=== PATIENT | female | born 1950 | race Hispanic/Latino ===

== ENCOUNTER 2018-12-28 14:41 | Inpatient (IN) | payer MEDICARE ==
--- NOTE | 2018-12-28 15:13 | Emergency Department Report ---
HPI - General Chief Complaint: Dyspnea/Respdistress Time Seen by Provider: 12/28/18 14:57 - HPI HPI: 68-year-old female presents to the emergency department from the office of her peripheral edp equipment operator, Dr. Angeles, with complaint of shortness of breath, a nd significant anemia without any cause. The note from Dr. Angeles asked for the patient to be admitted to the hospital, transfused 2 units and to have a GI consult. The patient has a past medical history of obstructive sleep apnea, hypothyroidism, non-insulin dependent diabetes and COPD. She does have this history of anemia that is listed as normocytic normochromic but says she has not required blood transfusions before. However she did get IV iron and tolerated it well. She is oxygen dependent for the COPD on 4 L by nasal cannula. She is a former smoker. Her primary care physician is through [facility]. She denies any chest pain, fever, nausea, vomiting. There is no known GI bleed. No significant vaginal bleeding. ED Past Medical Hx - Past Medical History Previous Medical History?: Yes Hx Diabetes: Yes Hx COPD: Yes Additional medical history: sleep apnea. hypothyroid - Surgical History Past Surgical History?: Yes Hx Appendectomy: Yes Additional Surgical History: hysterectomy. bilateral foot surgery. tonsillectomy. colon surgery- to remove polyp ED Review of Systems ROS: Stated complaint: SENT BY DR/LOW BLOOD COUNT Other details as noted in HPI Comment: All other systems reviewed and negative Constitutional: denies: chills, fever Eyes: denies: eye pain, vision change ENT: denies: ear pain, throat pain Respiratory: shortness of breath. denies: wheezing Cardiovascular: denies: chest pain, palpitations Gastrointestinal: denies: nausea, vomiting Genitourinary: denies: dysuria, discharge Musculoskeletal: denies: back pain, arthralgia Skin: denies: rash, lesions Neurological: denies: headache, numbness Physical Exam - Physical Exam Vital Signs: Vital Signs 12/28/18 12/28/18 14:56 15:00 Pulse Rate 107 H 100 H Respiratory 28 H 21 Rate Blood Pressure 135/71 O2 Sat by Pulse 82 L 92 Oximetry Physical Exam: GENERAL: The patient is well-developed well-nourished. HENT: Normocephalic. Atraumatic. Patient has moist mucous membranes. EYES: Extraocular motions are intact. Pupils equal reactive to light bilaterally. Pale conjunctiva. NECK: Supple. Trachea is midline. CHEST/LUNGS: Clear to auscultation. There is tachypnea and accessory muscle use with conversational dyspnea. There is respiratory distress noted. HEART/CARDIOVASCULAR: Regular. There is mild tachycardia. There is no murmur. ABDOMEN: Abdomen is soft, nontender. Patient has normal bowel sounds. There is no abdominal distention. SKIN: Skin is warm and dry. NEURO: The patient is awake, alert, and oriented. The patient is cooperative. The patient has no focal neurologic deficits. MUSCULOSKELETAL: There is no tenderness or deformity. There is no evidence of acute injury. ED Course Vital Signs 12/28/18 12/28/18 14:56 15:00 Pulse Rate 107 H 100 H Respiratory 28 H 21 Rate Blood Pressure 135/71 O2 Sat by Pulse 82 L 92 Oximetry - ABG Interpretation Ph: [phone] PCO2: 38 PO2: 69 Bicarbonate: 26 Interpretation: other (hypoxia) ED Medical Decision Making - Lab Data Result diagrams: 12/28/18 15:10 12/28/18 15:10 - EKG Data -: EKG Interpreted by Me EKG shows normal: sinus rhythm, axis, intervals, QRS complexes (low voltage), ST-T waves (flattening of T waves) Rate: normal - EKG Data When compared to previous EKG there are: previous EKG unavailable Interpretation: other (sinus rhythm, low voltage, flattening of T waves. No ST elevation CA) - Radiology Data Radiology results: report reviewed, image reviewed interpreted by me: Chest x-ray shows bilateral airspace opacities CTA CHEST WITH IV CONTRAST INDICATION: SOB, elevated dimer. TECHNIQUE: Axial CT images were obtained through the chest after injection of 75 mL of Omnipaque 300 IV contrast. 3 plane MIP reconstructions were produced. All CT scans at this location are performed using CT dose reduction for ALARA by means of automated exposure control. COMPARISON: None available. FINDINGS: Pulmonary Arteries: No pulmonary emboli. Lungs: There are small bilateral pleural effusions with a sma ll amount pleural fluid in the right major fissure. There is also mild interstitial edema. There is no focal consolidation. Trachea and Bronchi: No significant abnormality. Heart and Pericardium: No significant abnormality. 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 Lymphatics: No lymphadenopathy. Additional Findings: There is a 2.3 x 2.0 cm left thyroid nodule. Upper Abdomen: No acute findings. Skeletal Structures: No aggressive appearing bone lesions. IMPRESSION: 1. No CT evidence for pulmonary embolism. 2. Small bilateral pleural effusions and mild i nterstitial pulmonary edema. 3. A 2.3 cm left thyroid nodule that should be further evaluated with thyroid ultrasound on a nonemergent basis. - Medical Decision Making This patient was sent in by her peripheral edp equipment operator secondary to some normocytic anemia with hemoglobin close to 6 that is causing symptomatic anemia. The patient does appear to have some respiratory distress with some tachypnea and accessory muscle use and conversational dyspnea. Placed on BiPAP which did help with her work of breathing and the hypoxia. ABG did not show any significant acid base abnormalities. Chest x-ray showed some signs of bilateral airspace opacities. Labs showed hemoglobin of 6.7. An order was placed for 2 units of packed red blood cells for transfusion. Patient also had an elevated and equivocal d- dimer. A CT angiography of the chest was done that shows small bilateral pleural effusions and mild interstitial edema as well as a left thyroid nodule. Patient be admitted to the hospital for further evaluation and treatment and was accepted for admission by the hospitalist, Dr. Posadas. - Differential Diagnosis symptomatic anemia, PE, pneumonia and CHF Critical Care Time: Yes Critical care time in (mins) excluding proc time.: 35 Critical care attestation.: If time is entered above; I have spent that time in minutes in the direct care of this critically ill patient, excluding procedure time. Critical care time was spent on this patient and doing her initial evaluation, multiple re- evaluations, ordering and interpretation of labs and imaging, ordering of blood for transfusion, multiple discussions with the patient and her family. Critical Care Time: 35 minutes ED Disposition Clinical Impression: Anemia requiring transfusions, Symptomatic anemia COPD (chronic obstructive pulmonary disease) Qualifiers: COPD type: unspecified COPD Qualified Code(s): J44.9 - Chronic obstructive pulmonary disease, unspecified Acute respiratory failure Qualifiers: Respiratory failure complication: hypoxia Qualified Code(s): J96.01 - Acute respiratory failure with hypoxia Disposition: OP ADMIT IP TO THIS HOSP Is pt being admited?: Yes Condition: Serious Time of Disposition: 22:53
[2018-12-28 15:34] LABS: Hematocrit 23.3 % (30.3-42.9); Hemoglobin 6.7 gm/dl (10.1-14.3); Mean Corpuscular HGB Conc 29 % (30-34); Mean Corpuscular Volume 82 fl (79-97); Platelet Count 495 K/mm3 (140-440); Red Blood Count 2.86 M/mm3 (3.65-5.03); Red Cell Distribution Width 20.6 % (13.2-15.2)
[2018-12-28] MEDS ORDERED: SODIUM CHLORIDE 0.9% 500 ML 500 ML IV ONE (15:41)
[2018-12-28 15:42] LABS: Partial Thromboplastin Time 29.2 Sec. (24.2-36.6)
[2018-12-28 16:08] LABS: Alanine Aminotransferase 51 units/L (7-56); Albumin 3.8 g/dL (3.9-5); BUN/Creatinine Ratio 17; Blood Urea Nitrogen 12 mg/dL (7-17); Calcium 9.5 mg/dL (8.4-10.2); Hemolysis Index 12
--- NOTE | 2018-12-28 16:11 | XRay Report ---
CHEST 1 VIEW INDICATION / CLINICAL INFORMATION: SOB. COMPARISON: None available. FINDINGS: SUPPORT DEVICES: None. HEART / MEDIASTINUM: No significant abnormality. LUNGS / PLEURA: There are bibasilar airspace opacities. There are small bilateral pleural effusions r ight greater than left. There is mild venous congestion. No pneumothorax. ADDITIONAL FINDINGS: No significant additional findings. IMPRESSION: 1. There are bibasilar airspace opacities. There are small bilateral effusions right greater than left. Signer Name: Dwain Dozier MD Signed: 12/28/2018 4:06 PM Workstation Name: [id number]
[2018-12-28 16:18] LABS: Basophils % (Manual) 0 % (0.0-1.8); Myelocytes # (Manual) 0.2 K/mm3; Total Cells Counted 100
[2018-12-28 16:20] LABS: Anisocytosis 1+; Hypochromasia 1+; Large Platelets Few; Platelet Estimate Consistent w Auto
[2018-12-28 16:21] LABS: Ovalocytes Rare; Tear Drop Cells Few
--- NOTE | 2018-12-28 17:23 | History and Physical Report ---
History of Present Illness Chief complaint: I cant breathe History of present illness: 68 YO Female with COPD, DM, KASANDRA, Hypothyroidism, Obesity Hypoventilation, Chronic Respiratory Failure on 4L Home Oxygen via [place] presents to ED for evaluation. Pt states that she has experienced weakness and shortness of breath over the past 1 week. Pt acknowledges increased productive cough with clear sputum, dypsnea on exertion, dypsnea at rest. Pt was seen and evaluated by her Route Sales Driver and found to have shortness of breath. Pt transported to [facility] via private vehicle. Pt seen and evaluated in ED and found to have Symptomatic Anemia, COPD with Acute Exacerbation, Acidosis as well as Acute on Chronic Respiratory Failure with pulse oximetry of 69%. Pt placed on supplemental oxygen. Pt admitted to [facility] unit and treated with IV steroid therapy, supplemental oxygen, as well as NIPPV without significant improvement. Pt denies chest pain, fever, nausea, vomiting, skin rash, syncope, or recent ill contacts. No prior admission for review. All listed medication reconciled at time of admission. Past History Past Medical History: other (see hpi) Past Surgical History: appendectomy, hysterectomy, tonsillectomy, bowel surgery, Other (Foot surgery) Social history: single. denies: smoking, alcohol abuse, prescription drug abuse Medications and Allergies Allergies Allergy/AdvReac Type Severity Reaction Status Date / Time No Known Allergies Allergy Verified 12/28/18 15:13 Review of Systems Constitutional: no weight loss, no weight gain, no fever, no chills Ears, nose, mouth and throat: no ear pain, no ear discharge, no tinnitis, no decreased hearing, no nose pain Breasts: no change in shape, no swelling, no mass Cardiovascular: no chest pain, no palpitations, no edema Respiratory: cough, cough with sputum, excessive sputum, shortness of breath, no wheezing, no pleurisy Gastrointestinal: no abdominal pain, no nausea, no vomiting, no diarrhea Genitourinary Female: no pelvic pain, no flank pain, no menorrhagia, no dysuria, no urinary frequency, no urgency Rectal: no pain, no incontinence, no bleeding Musculoskeletal: no neck stiffness, no neck pain, no shooting arm pain, no arm numbness/tingling, no shooting leg pain, no leg numbness/tingling Integumentary: no rash, no pruritis, no redness, no sores, no wounds, no jaundice Neurological: no head injury, no transient paralysis, no paralysis, no weakness, no parathesias, no tingling, no tremors Psychiatric: no anxiety, no memory loss, no change in sleep habits, no sleep disturbances, no insomnia, no hypersomnia, no change in appetite, no change in libido, no suicidal ideation Endocrine: no cold intolerance, no heat intolerance, no polyphagia, no excessive thirst, no polydipsia, no polyuria, no nocturia Hematologic/Lymphatic: no easy bruising, no easy bleeding, no lymphadenopathy, no lymphedema Allergic/Immunologic: no urticaria, no allergic rhinitis, no persistent infections, no anaphylaxis Exam - Constitutional Vitals: Temp Pulse Resp BP Pulse Ox 96 H 24 115/64 94 12/28/18 15:46 12/28/18 15:46 12/28/18 15:46 12/28/18 15:30 General appearance: Present: mild distress - EENT Eyes: Present: PERRL ENT: hearing intact, clear oral mucosa - Neck Neck: Present: supple, normal ROM - Respiratory Respiratory effort: normal Respiratory: bilateral: diminished - Cardiovascular Heart Sounds: Present: S1 & S2. Absent: rub, click - Extremities Extremities: pulses symmetrical, No edema Peripheral Pulses: within normal limits - Abdominal General gastrointestinal: Present: soft, non-tender, non-distended, normal bowel sounds Female genitourinary: Present: normal - Integumentary Integumentary: Present: clear, warm, dry - Musculoskeletal Musculoskeletal: generalized weakness - Psychiatric Psychiatric: appropriate mood/affect, intact judgment & insight - Neurologic Neurologic: CNII-XII intact, moves all extremities Results - Labs CBC & Chem 7: 12/28/18 15:10 12/28/18 15:10 Labs: Abnormal lab results 12/28/18 12/28/18 12/28/18 Range/Units 15:10 15:10 15:10 RBC 2.86 L (3.65-5.03) M/mm3 Hgb 6.7 L (10.1-14.3) gm/dl Hct 23.3 L (30.3-42.9) % MCH 24 L (28-32) pg MCHC 29 L (30-34) % RDW 20.6 H (13.2-15.2) % Plt Count 495 H (140-440) K/mm3 Seg Neuts % (Manual) 82.0 H (40.0-70.0) % Lymphocytes % (Manual) 11.0 L (13.4-35.0) % Seg Neutrophils # Man 8.9 H (1.8-7.7) K/mm3 D-Dimer (0-234) ng/mlDDU POC ABG pO2 (80-105) Potassium 3.5 L (3.6-5.0) mmol/L Chloride 95.5 L (98-107) mmol/L Carbon Dioxide 21 L (22-30) mmol/L Glucose 209 H (65-100) mg/dL Albumin 3.8 L (3.9-5) g/dL TSH 5.340 H (0.270-4.200) mlU/mL Crossmatch 12/28/18 12/28/18 12/28/18 Range/Units 15:41 15:46 15:49 RBC (3.65-5.03) M/mm3 Hgb (10.1-14.3) gm/dl Hct (30.3-42.9) % MCH (28-32) pg MCHC (30-34) % RDW (13.2-15.2) % Plt Count (140-440) K/mm3 Seg Neuts % (Manual) (40.0-70.0) % Lymphocytes % (Manual) (13.4-35.0) % Seg Neutrophils # Man (1.8-7.7) K/mm3 D-Dimer 536.53 H (0-234) ng/mlDDU POC ABG pO2 69 L (80-105) Potassium (3.6-5.0) mmol/L Chloride (98-107) mmol/L Carbon Dioxide (22-30) mmol/L Glucose (65-100) mg/dL Albumin (3.9-5) g/dL TSH (0.270-4.200) mlU/mL Crossmatch See Detail Assessment and Plan - Patient Problems (1) Acute and chronic respiratory failure Current Visit: Yes Status: Acute Qualifiers: Respiratory failure complication: hypoxia Qualified Code(s): J96.21 - Acute and chronic respiratory failure with hypoxia Plan to address problem: ABC, Chest x ray, CTA chest, supplemental oxygen, nebulizer therapy, NIPPV, pulse oximetry. (2) COPD (chronic obstructive pulmonary disease) Current Visit: Yes Status: Acute Plan to address problem: IV steroid therapy, supplemental oxygen, nebulizer therapy, Iv antibiotic therapy, pulse oximetry (3) Acidosis Current Visit: Yes Status: Acute Plan to address problem: IVF resuscitation therapy, supportive care. (4) Anemia Current Visit: Yes Status: Acute Plan to address problem: serial CBC, supportive care. (5) Hypothyroidism Current Visit: Yes Status: Acute Plan to address problem: Supportive care. Thyroid panel, (6) Diabetes Current Visit: Yes Status: Acute Plan to address problem: ADA diet, insulin, accu check (7) DVT prophylaxis Current Visit: Yes Status: Acute Plan to address problem: SCD to BLE while in bed, supportive care.
[2018-12-28] MEDS ORDERED: ACETAMINOPHEN 325 MG TAB PO PRN (17:29)
[2018-12-28] MEDS ORDERED: ONDANSETRON 4 MG/2 ML INJ IV PRN (17:29)
[2018-12-28] MEDS ORDERED: ALBUTEROL 2.5 MG/3 ML NEBU IH PRN (17:29)
[2018-12-28] MEDS ORDERED: DEXTROSE 50% IN WATER (25GM) 50 ML SYRINGE IV PRN (17:31)
[2018-12-28] MEDS ORDERED: SODIUM CHLORIDE 0.9% 500 ML 500 ML ONE (18:09)
--- NOTE | 2018-12-28 18:09 | Cat Scan Report ---
CTA CHEST WITH IV CONTRAST INDICATION: SOB, elevated dimer. TECHNIQUE: Axial CT images were obtained through the chest after injection of 75 mL of Omnipaque 300 IV contrast . 3 plane MIP reconstructions were produced. All CT scans at this location are performed using CT dos e reduction for ALARA by means of automated exposure control. COMPARISON: None available. FINDINGS: Pulmonary Arteries: No pulmonary emboli. Lungs: There are small bilateral pleural effusions with a small amount pleural fluid in the right denny or fissure. There is also mild interstitial edema. There is no focal consolidation. Trachea and Bronchi: No significant abnormality. Heart and Pericardium: No significant abnormality. 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 Lymphatics: No lymphadenopathy. Additional Findings: There is a 2.3 x 2.0 cm left thyroid nodule. Upper Abdomen: No acute findings. Skeletal Structures: No aggressive appearing bone lesions. IMPRESSION: 1. No CT evidence for pulmonary embolism. 2. Small bilateral pleural effusions and mild interstitial pulmonary edema. 3. A 2.3 cm left thyroid nodule that should be further evaluated with thyroid ultrasound on a nonemer gent basis. Signer Name: Ryan Quan MD Signed: 12/28/2018 6:05 PM Workstation Name: [id number]
[2018-12-28] MEDS ORDERED: SODIUM CHLORIDE 0.9% 500 ML 500 ML IV SCH (19:00)
[2018-12-28] MEDS: INSULIN LISPRO 100 UNIT/ML SUB-Q SCH (20:09)
[2018-12-28] MEDS: FAMOTIDINE 20 MG TAB PO SCH (23:30)
[2018-12-28] MEDS: methylPREDNISolone Sod Succinate 40 MG/1 ML INJ IV SCH (23:31)
[2018-12-29] MEDS: INSULIN LISPRO 100 UNIT/ML SUB-Q SCH ×5 (00:06→23:14)
[2018-12-29 09:21] LABS: Hematocrit 29.3 % (30.3-42.9); Mean Corpuscular HGB Conc 31 % (30-34); Mean Corpuscular Volume 83 fl (79-97); Platelet Count 469 K/mm3 (140-440); Red Blood Count 3.55 M/mm3 (3.65-5.03); Red Cell Distribution Width 19.6 % (13.2-15.2)
[2018-12-29 09:26] LABS: BUN/Creatinine Ratio 16; Blood Urea Nitrogen 11 mg/dL (7-17); Calcium 9.5 mg/dL (8.4-10.2); Hemolysis Index 3
[2018-12-29] MEDS ORDERED: INSULIN GLARGINE 100 UNITS/ML SUB-Q SCH (10:00)
[2018-12-29 10:13] LABS: Anisocytosis 1+; Band Neutrophils # (Manual) 0.1 K/mm3; Basophils % (Manual) 0 % (0.0-1.8); Eosinophils % (Manual) 0 % (0.0-4.3); Total Cells Counted 100
[2018-12-29 10:14] LABS: Hypochromasia 1+; Large Platelets Few; Macrocytosis Few; Ovalocytes Rare; Tear Drop Cells Rare
[2018-12-29 10:15] LABS: Giant Platelets Rare; Platelet Estimate Consistent w Auto
--- NOTE | 2018-12-29 11:16 | Progress Note ---
Assessment and Plan Assessment and plan: Acute severe COPD exacerbation -Probably secondary to acute bronchitis -Continue IV steroids, antibiotic and duonebs Acute on chronic respiratory failure with hypoxia -Continue oxygen supplementation as needed and duonebs Acute on chronic anemia -Status post blood transfusion with 2U of PRBCS -H/H improved -GI consulted DM2 with hyperglycemia -On SSI, Lantus added -We'll monitor blood glucose SIRS due to non-infectious cause with organ failure, POA -will monitor Hypothyroidism -TSH level elevated, will check free T4 level -We'll resume home synthroid when reconciled Metabolic acidosis -resolved KASANDRA -Continue BiPAP at night Obesity with BMI of 33.7 -lifestyle modification recommended DVT ppx: Lovenox Disposition: GI eval pending. D/c per clinical course History Interval history: Patient reports feeling better today. Her shortness of breath has improved. She complained of cough but denies bleeding from any orifice. Hospitalist Physical - Constitutional Vitals: Temp Pulse Resp BP Pulse Ox 98.3 F 95 H 20 123/65 94 12/29/18 07:23 12/29/18 07:23 12/29/18 07:23 12/29/18 07:23 12/29/18 11:05 General appearance: Present: no acute distress, obese - EENT Eyes: Present: PERRL, EOM intact ENT: hearing intact, clear oral mucosa - Neck Neck: Present: supple - Respiratory Respiratory effort: normal Respiratory: bilateral: CTA, diminished - Cardiovascular Rhythm: regular Heart Sounds: Present: S1 & S2 - Extremities Extremities: No edema - Abdominal General gastrointestinal: soft, non-tender, normal bowel sounds - Integumentary Integumentary: Present: warm, dry - Psychiatric Psychiatric: appropriate mood/affect - Neurologic Neurologic: CNII-XII intact Results - Labs CBC & Chem 7: 12/29/18 08:34 12/29/18 08:34 Labs: Laboratory Last Values WBC 8.9 K/mm3 (4.5-11.0) 12/29/18 08:34 RBC 3.55 M/mm3 (3.65-5.03) L 12/29/18 08:34 Hgb 9.0 gm/dl (10.1-14.3) L 12/29/18 08:34 Hct 29.3 % (30.3-42.9) L D 12/29/18 08:34 MCV 83 fl (79-97) 12/29/18 08:34 MCH 26 pg (28-32) L 12/29/18 08:34 MCHC 31 % (30-34) 12/29/18 08:34 RDW 19.6 % (13.2-15.2) H 12/29/18 08:34 Plt Count 469 K/mm3 (140-440) H 12/29/18 08:34 Lymph % (Auto) [place] 12/29/18 08:34 [place] % (Auto) Lens Edger 12/29/18 08:34 Eos % (Auto) L[place] 12/29/18 08:34 Baso % (Auto) L[place] Edger 12/29/18 08:34 Lymph # L[place] Edger 12/29/18 08:34 [place] # Lens Edger 12/29/18 08:34 Eos # Lens Edger 12/29/18 08:34 Baso # L[place] Edger 12/29/18 08:34 Add Manual Diff Complete 12/29/18 08:34 Total Counted 100 12/29/18 08:34 Seg Neutrophils % L[place] Edger 12/29/18 08:34 Seg Neuts % (Manual) 95.0 % (40.0-70.0) H 12/29/18 08:34 Band Neutrophils % 1.0 % 12/29/18 08:34 Lymphocytes % (Manual) 3.0 % (13.4-35.0) L 12/29/18 08:34 Reactive Lymphs % (Man) 0 % 12/29/18 08:34 Monocytes % (Manual) 1.0 % (0.0-7.3) 12/29/18 08:34 Eosinophils % (Manual) 0 % (0.0-4.3) 12/29/18 08:34 Basophils % (Manual) 0 % (0.0-1.8) 12/29/18 08:34 Metamyelocytes % 0 % 12/29/18 08:34 Myelocytes % 0 % 12/29/18 08:34 Promyelocytes % 0 % 12/29/18 08:34 Blast Cells % 0 % 12/29/18 08:34 Nucleated RBC % Not Reportable 12/29/18 08:34 Seg Neutrophils # Lens Edger 12/29/18 08:34 Seg Neutrophils # Man 8.5 K/mm3 (1.8-7.7) H 12/29/18 08:34 Band Neutrophils # 0.1 K/mm3 12/29/18 08:34 Lymphocytes # (Manual) 0.3 K/mm3 (1.2-5.4) L 12/29/18 08:34 Abs React Lymphs (Man) 0.0 K/mm3 12/29/18 08:34 Monocytes # (Manual) 0.1 K/mm3 (0.0-0.8) 12/29/18 08:34 Eosinophils # (Manual) 0.0 K/mm3 (0.0-0.4) 12/29/18 08:34 Basophils # (Manual) 0.0 K/mm3 (0.0-0.1) 12/29/18 08:34 Metamyelocytes # 0.0 K/mm3 12/29/18 08:34 Myelocytes # 0.0 K/mm3 12/29/18 08:34 Promyelocytes # 0.0 K/mm3 12/29/18 08:34 Blast Cells # 0.0 K/mm3 12/29/18 08:34 WBC Morphology Not Reportable 12/29/18 08:34 Hypersegmented Neuts Not Reportable 12/29/18 08:34 Hyposegmented Neuts Not Reportable 12/29/18 08:34 Hypogranular Neuts Not Reportable 12/29/18 08:34 Smudge Cells Not Reportable 12/29/18 08:34 Toxic Granulation Not Reportable 12/29/18 08:34 Toxic Vacuolation Not Reportable 12/29/18 08:34 Dohle Bodies Not Reportable 12/29/18 08:34 Pelger-Huet Anomaly Not Reportable 12/29/18 08:34 Sanjeev Rods Not Reportable 12/29/18 08:34 Platelet Estimate Consistent w auto 12/29/18 08:34 Clumped Platelets Not Reportable 12/29/18 08:34 Plt Clumps, EDTA Not Reportable 12/29/18 08:34 Large Platelets Few 12/29/18 08:34 Giant Platelets Rare 12/29/18 08:34 Platelet Satelliting Not Reportable 12/29/18 08:34 Plt Morphology Comment Not Reportable 12/29/18 08:34 RBC Morphology Not Reportable 12/29/18 08:34 Dimorphic RBCs Not Reportable 12/29/18 08:34 Polychromasia Not Reportable 12/29/18 08:34 Hypochromasia 1+ 12/29/18 08:34 Poikilocytosis Not Reportable 12/29/18 08:34 Anisocytosis 1+ 12/29/18 08:34 Microcytosis Not Reportable 12/29/18 08:34 Macrocytosis Few 12/29/18 08:34 Spherocytes Not Reportable 12/29/18 08:34 Pappenheimer Bodies Not Reportable 12/29/18 08:34 Sickle Cells Not Reportable 12/29/18 08:34 Target Cells Not Reportable 12/29/18 08:34 Tear Drop Cells Rare 12/29/18 08:34 Ovalocytes Rare 12/29/18 08:34 Helmet Cells Not Reportable 12/29/18 08:34 [place] Bodies Not Reportable 12/29/18 08:34 [place] Rings Not Reportable 12/29/18 08:34 [place] Cells Not Reportable 12/29/18 08:34 Bite Cells Not Reportable 12/29/18 08:34 Crenated Cell Not Reportable 12/29/18 08:34 Elliptocytes Rare 12/29/18 08:34 Acanthocytes (Spur) Not Reportable 12/29/18 08:34 Rouleaux Not Reportable 12/29/18 08:34 Hemoglobin C Crystals Not Reportable 12/29/18 08:34 Schistocytes Not Reportable 12/29/18 08:34 Malaria parasites Not Reportable 12/29/18 08:34 Farhad Bodies Not Reportable 12/29/18 08:34 Hem Pathologist Commnt No 12/29/18 08:34 PT 13.1 Sec. (12.2-14.9) 12/28/18 15:10 INR 1.00 (0.87-1.13) 12/28/18 15:10 APTT 29.2 Sec. (24.2-36.6) 12/28/18 15:10 D-Dimer 536.53 ng/mlDDU (0-234) H 12/28/18 15:49 POC ABG pH 7.443 (7.35-7.45) 12/28/18 15:46 POC ABG pCO2 38.2 (35-45) 12/28/18 15:46 POC ABG pO2 69 (80-105) L 12/28/18 15:46 POC ABG HCO3 26.1 (22-26 mml/L) 12/28/18 15:46 POC ABG Total CO2 27 (23-27mmol/L) 12/28/18 15:46 POC ABG O2 Sat 94 12/28/18 15:46 POC ABG Base Excess 2 ((-2) - (+3)mmol/L) 12/28/18 15:46 FiO2 40 % 12/28/18 15:46 Sodium 138 mmol/L (137-145) 12/29/18 08:34 Potassium 3.8 mmol/L (3.6-5.0) 12/29/18 08:34 Chloride 99.1 mmol/L (98-107) 12/29/18 08:34 Carbon Dioxide 24 mmol/L (22-30) 12/29/18 08:34 Anion Gap 19 mmol/L 12/29/18 08:34 BUN 11 mg/dL (7-17) 12/29/18 08:34 Creatinine 0.7 mg/dL (0.7-1.2) 12/29/18 08:34 Estimated GFR > 60 ml/min 12/29/18 08:34 BUN/Creatinine Ratio 16 % 12/29/18 08:34 Glucose 187 mg/dL (65-100) H 12/29/18 08:34 POC Glucose 239 (70-105) H 12/29/18 05:55 Calcium 9.5 mg/dL (8.4-10.2) 12/29/18 08:34 Magnesium 2.10 mg/dL (1.7-2.3) 12/29/18 08:34 Total Bilirubin 0.60 mg/dL (0.1-1.2) 12/28/18 15:10 AST 22 units/L (5-40) 12/28/18 15:10 ALT 51 units/L (7-56) 12/28/18 15:10 Alkaline Phosphatase 113 units/L (35-129) 12/28/18 15:10 Troponin T < 0.010 ng/mL (0.00-0.029) 12/28/18 15:10 NT-Pro-B Natriuret Pep 304.8 pg/mL (0-900) 12/28/18 15:10 Total Protein 6.9 g/dL (6.3-8.2) 12/28/18 15:10 Albumin 3.8 g/dL (3.9-5) L 12/28/18 15:10 Albumin/Globulin Ratio 1.2 % 12/28/18 15:10 TSH 5.340 mlU/mL (0.270-4.200) H 12/28/18 15:10 Blood Type O POSITIVE 12/28/18 15:41 Antibody Screen Negative 12/28/18 15:41 Crossmatch See Detail 12/28/18 15:41 Active Medications - Current Medications Current Medications: Generic Name Dose Route Start Last Admin Trade Name Freq PRN Reason Stop Dose Admin Acetaminophen 650 mg 12/28/18 17:29 Tylenol PO Q4H PRN Pain MILD(1-3)/Fever >100.5/[place] Albuterol 2.5 mg 12/28/18 17:29 Proventil IH Q4HRT PRN Shortness Of Breath Dextrose 50 ml 12/28/18 17:31 D50w (25gm) Syringe IV Q30MIN PRN Hypoglycemia Protocol Famotidine 20 mg 12/28/18 22:00 12/28/18 23:30 Pepcid PO 20 mg BID CHING Administration Azithromycin 500 mg/ Sodium 250 mls @ 250 mls/hr 12/29/18 10:00 Chloride IV Q24HR CHING Protocol Insulin Glargine 10 units 12/29/18 10:00 Lantus SUB-Q DAILY CHING Insulin Human Lispro 0 unit 12/28/18 18:00 12/29/18 05:59 Humalog SUB-Q 2 unit Q6HR CHING Administration Protocol Methylprednisolone Sodium Succinate 40 mg 12/28/18 22:00 12/28/18 23:31 Solu-Medrol IV 40 mg Q12HR CHING Administration Ondansetron HCl 4 mg 12/28/18 17:29 Zofran IV Q8H PRN Nausea And Vomiting Sodium Chloride 10 ml 12/28/18 22:00 12/28/18 23:31 Sodium Chloride Flush Syringe 10 Ml IV 10 ml BID CHING Administration Sodium Chloride 10 ml 12/28/18 17:29 Sodium Chloride Flush Syringe 10 Ml IV PRN PRN LINE FLUSH
[2018-12-29] MEDS: FAMOTIDINE 20 MG TAB PO SCH ×2 (11:20→21:41)
[2018-12-29] MEDS: methylPREDNISolone Sod Succinate 40 MG/1 ML INJ IV SCH ×2 (11:20→21:42)
[2018-12-29] MEDS: AZITHROMYCIN 500 MG in SODIUM CHLORIDE 0.9% 250ML 250 ML IV SCH (11:29)
[2018-12-29] MEDS: guaiFENesin DM 200/20 MG ORAL LIQD 10 ML PO PRN ×3 (11:39→21:58)
[2018-12-29] MEDS ORDERED: HEPARIN 5,000 UNIT/1 ML VIAL SUB-Q SCH (14:00)
--- NOTE | 2018-12-29 14:21 | Gastroenterology Consultation ---
History of Present Illness - Reason for Consult Consult date: 12/29/18 iron deficiency anemia Requesting physician: JULIO CANAS - History of Present Illness The patient is a 68 yo female with h/o HU, COPD on home O2, who presents with anemia; pt sent to the hospital from hematology clinic due to worsening anemia. Pt was recently at [facility] and discharged 3 weeks ago (hgb 7.2 at d/c); she denies overt gi bleeding. takes oral iron daily. she had egd/colonoscopy in [address] Rose (unremarkable upper endoscopy, colonoscopy with polyps removed). Pt denies abd pain, melena/hematochezia or other signs of gi bleeding. Past History Past Medical History: other (see hpi) Past Surgical History: appendectomy, hysterectomy, tonsillectomy, bowel surgery, Other (Foot surgery) Social history: single. denies: smoking, alcohol abuse, prescription drug abuse Medications and Allergies Allergies Allergy/AdvReac Type Severity Reaction Status Date / Time No Known Allergies Allergy Verified 12/28/18 15:13 Active Meds: Active Medications Acetaminophen (Tylenol) 650 mg PO Q4H PRN PRN Reason: Pain MILD(1-3)/Fever >100.5/[place] Albuterol (Proventil) 2.5 mg IH Q4HRT PRN PRN Reason: Shortness Of Breath Dextrose (D50w (25gm) Syringe) 50 ml IV Q30MIN PRN; Protocol PRN Reason: Hypoglycemia Enoxaparin Sodium (Enoxaparin) 40 mg SUB-Q QDAY@1000 [place] Famotidine (Pepcid) 20 mg PO BID [facility] Last Admin: 12/29/18 11:20 Dose: 20 mg Documented by: Guaifenesin (Guaifenesin Dm Syrup) 10 ml PO Q4H PRN PRN Reason: Cough Last Admin: 12/29/18 11:39 Dose: 10 ml Documented by: Azithromycin 500 mg/ Sodium (Chloride) 250 mls @ 250 mls/hr IV Q24HR CHING; Protocol Last Admin: 12/29/18 11:29 Dose: 250 mls/hr Documented by: Insulin Human Lispro (Humalog) 0 unit SUB-Q Q6HR [facility]; Protocol Last Admin: 12/29/18 13:00 Dose: 2 unit Documented by: Methylprednisolone Sodium Succinate (Solu-Medrol) 40 mg IV Q12HR [facility] Last Admin: 12/29/18 11:20 Dose: 40 mg Documented by: Ondansetron HCl (Zofran) 4 mg IV Q8H PRN PRN Reason: Nausea And Vomiting Sodium Chloride (Sodium Chloride Flush Syringe 10 Ml) 10 ml IV BID [facility] Last Admin: 12/29/18 11:21 Dose: 10 ml Documented by: Sodium Chloride (Sodium Chloride Flush Syringe 10 Ml) 10 ml IV PRN PRN PRN Reason: LINE FLUSH Reviewed/updated patient's home and current medications Review of Systems - Review of Systems All systems: negative (per HPI) Exam - Constitutional Vital Signs: Temp Pulse Resp BP Pulse Ox 98.3 F 95 H 20 123/65 94 12/29/18 07:23 12/29/18 07:23 12/29/18 07:23 12/29/18 07:23 12/29/18 11:05 General appearance: no acute distress, obese - EENT Eyes: PERRL, EOM intact - Respiratory Respiratory effort: labored (dyspnea on exertion) Respiratory: bilateral: diminished - Cardiovascular Rhythm: regular Heart Sounds: Present: S1 & S2 Extremities: No edema - Gastrointestinal General gastrointestinal: Present: soft, non-tender, non-distended - Integumentary Integumentary: Present: clear, warm - Neurologic Neurological: alert and oriented x3 - Labs CBC & Chem 7: 12/29/18 08:34 12/29/18 08:34 Lab Results: Laboratory Results - last 24 hr 12/28/18 12/28/18 12/28/18 15:10 15:10 15:10 WBC 10.9 RBC 2.86 L Hgb 6.7 L Hct 23.3 L MCV 82 MCH 24 L MCHC 29 L RDW 20.6 H Plt Count 495 H Lymph % (Auto) [place] % (Auto) Eos % (Auto) Baso % (Auto) Lymph # [place] # Eos # Baso # Add Manual Diff Complete Total Counted 100 Seg Neutrophils % Seg Neuts % (Manual) 82.0 H Band Neutrophils % 0 Lymphocytes % (Manual) 11.0 L Reactive Lymphs % (Man) 0 Monocytes % (Manual) 2.0 Eosinophils % (Manual) 3.0 Basophils % (Manual) 0 Metamyelocytes % 0 Myelocytes % 2.0 Promyelocytes % 0 Blast Cells % 0 Nucleated RBC % Not Reportable Seg Neutrophils # Seg Neutrophils # Man 8.9 H Band Neutrophils # 0.0 Lymphocytes # (Manual) 1.2 Abs React Lymphs (Man) 0.0 Monocytes # (Manual) 0.2 Eosinophils # (Manual) 0.3 Basophils # (Manual) 0.0 Metamyelocytes # 0.0 Myelocytes # 0.2 Promyelocytes # 0.0 Blast Cells # 0.0 WBC Morphology Not Reportable Hypersegmented Neuts Not Reportable Hyposegmented Neuts Not Reportable Hypogranular Neuts Not Reportable Smudge Cells Not Reportable Toxic Granulation Not Reportable Toxic Vacuolation Not Reportable Dohle Bodies Not Reportable Pelger-Huet Anomaly Not Reportable Sanjeev Rods Not Reportable Platelet Estimate Consistent w auto Clumped Platelets Not Reportable Plt Clumps, EDTA Not Reportable Large Platelets Few Giant Platelets Not Reportable Platelet Satelliting Not Reportable Plt Morphology Comment Not Reportable RBC Morphology Not Reportable Dimorphic RBCs Not Reportable Polychromasia Not Reportable Hypochromasia 1+ Poikilocytosis Not Reportable Anisocytosis 1+ Microcytosis Not Reportable Macrocytosis Not Reportable Spherocytes Not Reportable Pappenheimer Bodies Not Reportable Sickle Cells Not Reportable Target Cells Not Reportable Tear Drop Cells Few Ovalocytes Rare Helmet Cells Not Reportable Pendleton-[place] Bodies Not Reportable [place] Not Reportable Jg Cells Not Reportable Bite Cells Not Reportable Crenated Cell Not Reportable Elliptocytes Rare Acanthocytes (Spur) Not Reportable Rouleaux Not Reportable Hemoglobin C Crystals Not Reportable Schistocytes Not Reportable Malaria parasites Not Reportable Farhad Bodies Not Reportable Hem Pathologist Commnt No PT 13.1 INR 1.00 APTT 29.2 D-Dimer POC ABG pH POC ABG pCO2 POC ABG pO2 POC ABG HCO3 POC ABG Total CO2 POC ABG O2 Sat POC ABG Base Excess FiO2 Sodium 138 Potassium 3.5 L Chloride 95.5 L Carbon Dioxide 21 L Anion Gap 25 BUN 12 Creatinine 0.7 Estimated GFR > 60 BUN/Creatinine Ratio 17 Glucose 209 H POC Glucose Calcium 9.5 Magnesium Total Bilirubin 0.60 AST 22 ALT 51 Alkaline Phosphatase 113 Troponin T < 0.010 NT-Pro-B Natriuret Pep 304.8 Total Protein 6.9 Albumin 3.8 L Albumin/Globulin Ratio 1.2 TSH Blood Type Antibody Screen Crossmatch 12/28/18 12/28/18 12/28/18 15:10 15:10 15:41 WBC RBC Hgb Hct MCV MCH MCHC RDW Plt Count Lymph % (Auto) [place] % (Auto) Eos % (Auto) Baso % (Auto) Lymph # [place] # Eos # Baso # Add Manual Diff Total Counted Seg Neutrophils % Seg Neuts % (Manual) Band Neutrophils % Lymphocytes % (Manual) Reactive Lymphs % (Man) Monocytes % (Manual) Eosinophils % (Manual) Basophils % (Manual) Metamyelocytes % Myelocytes % Promyelocytes % Blast Cells % Nucleated RBC % Seg Neutrophils # Seg Neutrophils # Man Band Neutrophils # Lymphocytes # (Manual) Abs React Lymphs (Man) Monocytes # (Manual) Eosinophils # (Manual) Basophils # (Manual) Metamyelocytes # Myelocytes # Promyelocytes # Blast Cells # WBC Morphology Hypersegmented Neuts Hyposegmented Neuts Hypogranular Neuts Smudge Cells Toxic Granulation Toxic Vacuolation Dohle Bodies Pelger-Huet Anomaly Sanjeev Rods Platelet Estimate Clumped Platelets Plt Clumps, EDTA Large Platelets Giant Platelets Platelet Satelliting Plt Morphology Comment RBC Morphology Dimorphic RBCs Polychromasia Hypochromasia Poikilocytosis Anisocytosis Microcytosis Macrocytosis Spherocytes Pappenheimer Bodies Sickle Cells Target Cells Tear Drop Cells Ovalocytes Helmet Cells [place] Bodies [place] Jg Cells Bite Cells Crenated Cell Elliptocytes Acanthocytes (Spur) Rouleaux Hemoglobin C Crystals Schistocytes Malaria parasites Farhad Bodies Hem Pathologist Commnt PT INR APTT D-Dimer POC ABG pH POC ABG pCO2 POC ABG pO2 POC ABG HCO3 POC ABG Total CO2 POC ABG O2 Sat POC ABG Base Excess FiO2 Sodium Potassium Chloride Carbon Dioxide Anion Gap BUN Creatinine Estimated GFR BUN/Creatinine Ratio Glucose POC Glucose Calcium Magnesium Total Bilirubin AST ALT Alkaline Phosphatase Troponin T NT-Pro-B Natriuret Pep Total Protein Albumin Albumin/Globulin Ratio TSH 5.340 H Blood Type O POSITIVE O POSITIVE Antibody Screen Negative Negative Crossmatch See Detail 12/28/18 12/28/18 12/28/18 15:46 15:49 20:16 WBC RBC Hgb Hct MCV MCH MCHC RDW Plt Count Lymph % (Auto) [place] % (Auto) Eos % (Auto) Baso % (Auto) Lymph # [place] # Eos # Baso # Add Manual Diff Total Counted Seg Neutrophils % Seg Neuts % (Manual) Band Neutrophils % Lymphocytes % (Manual) Reactive Lymphs % (Man) Monocytes % (Manual) Eosinophils % (Manual) Basophils % (Manual) Metamyelocytes % Myelocytes % Promyelocytes % Blast Cells % Nucleated RBC % Seg Neutrophils # Seg Neutrophils # Man Band Neutrophils # Lymphocytes # (Manual) Abs React Lymphs (Man) Monocytes # (Manual) Eosinophils # (Manual) Basophils # (Manual) Metamyelocytes # Myelocytes # Promyelocytes # Blast Cells # WBC Morphology Hypersegmented Neuts Hyposegmented Neuts Hypogranular Neuts Smudge Cells Toxic Granulation Toxic Vacuolation Dohle Bodies Pelger-Huet Anomaly Sanjeev Rods Platelet Estimate Clumped Platelets Plt Clumps, EDTA Large Platelets Giant Platelets Platelet Satelliting Plt Morphology Comment RBC Morphology Dimorphic RBCs Polychromasia Hypochromasia Poikilocytosis Anisocytosis Microcytosis Macrocytosis Spherocytes Pappenheimer Bodies Sickle Cells Target Cells Tear Drop Cells Ovalocytes Helmet Cells [place] Bodies [place] Cells Bite Cells Crenated Cell Elliptocytes Acanthocytes (Spur) Rouleaux Hemoglobin C Crystals Schistocytes Malaria parasites Farhad Bodies Hem Pathologist Commnt PT INR APTT D-Dimer 536.53 H POC ABG pH 7.443 POC ABG pCO2 38.2 POC ABG pO2 69 L POC ABG HCO3 26.1 POC ABG Total CO2 27 POC ABG O2 Sat 94 POC ABG Base Excess 2 FiO2 40 Sodium Potassium Chloride Carbon Dioxide Anion Gap BUN Creatinine Estimated GFR BUN/Creatinine Ratio Glucose POC Glucose 155 H Calcium Magnesium Total Bilirubin AST ALT Alkaline Phosphatase Troponin T NT-Pro-B Natriuret Pep Total Protein Albumin Albumin/Globulin Ratio TSH Blood Type Antibody Screen Crossmatch 12/28/18 12/29/18 12/29/18 21:44 05:55 08:34 WBC 8.9 RBC 3.55 L Hgb 9.0 L Hct 29.3 L D MCV 83 MCH 26 L MCHC 31 RDW 19.6 H Plt Count 469 H Lymph % (Auto) [place] Guide [place] % (Auto) Airport Guide Eos % (Auto) Airport Guide Baso % (Auto) Airport Guide Lymph # Airport Guide [place] # Airport Guide Eos # Airport Guide Baso # Airport Guide Add Manual Diff Complete Total Counted 100 Seg Neutrophils % Airport Guide Seg Neuts % (Manual) 95.0 H Band Neutrophils % 1.0 Lymphocytes % (Manual) 3.0 L Reactive Lymphs % (Man) 0 Monocytes % (Manual) 1.0 Eosinophils % (Manual) 0 Basophils % (Manual) 0 Metamyelocytes % 0 Myelocytes % 0 Promyelocytes % 0 Blast Cells % 0 Nucleated RBC % Not Reportable Seg Neutrophils # Airport Guide Seg Neutrophils # Man 8.5 H Band Neutrophils # 0.1 Lymphocytes # (Manual) 0.3 L Abs React Lymphs (Man) 0.0 Monocytes # (Manual) 0.1 Eosinophils # (Manual) 0.0 Basophils # (Manual) 0.0 Metamyelocytes # 0.0 Myelocytes # 0.0 Promyelocytes # 0.0 Blast Cells # 0.0 WBC Morphology Not Reportable Hypersegmented Neuts Not Reportable Hyposegmented Neuts Not Reportable Hypogranular Neuts Not Reportable Smudge Cells Not Reportable Toxic Granulation Not Reportable Toxic Vacuolation Not Reportable Dohle Bodies Not Reportable Pelger-Huet Anomaly Not Reportable Sanjeev Rods Not Reportable Platelet Estimate Consistent w auto Clumped Platelets Not Reportable Plt Clumps, EDTA Not Reportable Large Platelets Few Giant Platelets Rare Platelet Satelliting Not Reportable Plt Morphology Comment Not Reportable RBC Morphology Not Reportable Dimorphic RBCs Not Reportable Polychromasia Not Reportable Hypochromasia 1+ Poikilocytosis Not Reportable Anisocytosis 1+ Microcytosis Not Reportable Macrocytosis Few Spherocytes Not Reportable Pappenheimer Bodies Not Reportable Sickle Cells Not Reportable Target Cells Not Reportable Tear Drop Cells Rare Ovalocytes Rare Helmet Cells Not Reportable Pend[place] Bodies Not Reportable [place] Not Reportable Jg Cells Not Reportable Bite Cells Not Reportable Crenated Cell Not Reportable Elliptocytes Rare Acanthocytes (Spur) Not Reportable Rouleaux Not Reportable Hemoglobin C Crystals Not Reportable Schistocytes Not Reportable Malaria parasites Not Reportable Farhad Bodies Not Reportable Hem Pathologist Commnt No PT INR APTT D-Dimer POC ABG pH POC ABG pCO2 POC ABG pO2 POC ABG HCO3 POC ABG Total CO2 POC ABG O2 Sat POC ABG Base Excess FiO2 Sodium Potassium Chloride Carbon Dioxide Anion Gap BUN Creatinine Estimated GFR BUN/Creatinine Ratio Glucose POC Glucose 144 H 239 H Calcium Magnesium Total Bilirubin AST ALT Alkaline Phosphatase Troponin T NT-Pro-B Natriuret Pep Total Protein Albumin Albumin/Globulin Ratio TSH Blood Type Antibody Screen Crossmatch 12/29/18 12/29/18 12/29/18 08:34 08:34 11:56 WBC RBC Hgb Hct MCV MCH MCHC RDW Plt Count Lymph % (Auto) [place] % (Auto) Eos % (Auto) Baso % (Auto) Lymph # [place] # Eos # Baso # Add Manual Diff Total Counted Seg Neutrophils % Seg Neuts % (Manual) Band Neutrophils % Lymphocytes % (Manual) Reactive Lymphs % (Man) Monocytes % (Manual) Eosinophils % (Manual) Basophils % (Manual) Metamyelocytes % Myelocytes % Promyelocytes % Blast Cells % Nucleated RBC % Seg Neutrophils # Seg Neutrophils # Man Band Neutrophils # Lymphocytes # (Manual) Abs React Lymphs (Man) Monocytes # (Manual) Eosinophils # (Manual) Basophils # (Manual) Metamyelocytes # Myelocytes # Promyelocytes # Blast Cells # WBC Morphology Hypersegmented Neuts Hyposegmented Neuts Hypogranular Neuts Smudge Cells Toxic Granulation Toxic Vacuolation Dohle Bodies Pelger-Huet Anomaly Sanjeev Rods Platelet Estimate Clumped Platelets Plt Clumps, EDTA Large Platelets Giant Platelets Platelet Satelliting Plt Morphology Comment RBC Morphology Dimorphic RBCs Polychromasia Hypochromasia Poikilocytosis Anisocytosis Microcytosis Macrocytosis Spherocytes Pappenheimer Bodies Sickle Cells Target Cells Tear Drop Cells Ovalocytes Helmet Cells [place] Bodies [place] Cells Bite Cells Crenated Cell Elliptocytes Acanthocytes (Spur) Rouleaux Hemoglobin C Crystals Schistocytes Malaria parasites Farhad Bodies Hem Pathologist Commnt PT INR APTT D-Dimer POC ABG pH POC ABG pCO2 POC ABG pO2 POC ABG HCO3 POC ABG Total CO2 POC ABG O2 Sat POC ABG Base Excess FiO2 Sodium 138 Potassium 3.8 Chloride 99.1 Carbon Dioxide 24 Anion Gap 19 BUN 11 Creatinine 0.7 Estimated GFR > 60 BUN/Creatinine Ratio 16 Glucose 187 H POC Glucose 247 H Calcium 9.5 Magnesium 2.10 Total Bilirubin AST ALT Alkaline Phosphatase Troponin T NT-Pro-B Natriuret Pep Total Protein Albumin Albumin/Globulin Ratio TSH Blood Type Antibody Screen Crossmatch Assessment and Plan 1. iron deficiency anemia - no overt gi bleeding; chronic anemia, labs on admission similar to discharge labs at [facility] on 12/13. EGD/colonoscopy last year w/o source of bleeding. cont iron replacement therapy and f/u in GI clinic for possible pill cam to evaluate for small bowel source of anemia 2. COPD on home oxygen -will sign off, please call as needed or with questions.
[2018-12-30 05:28] LABS: Hematocrit 28.2 % (30.3-42.9); Hemoglobin 8.5 gm/dl (10.1-14.3); Mean Corpuscular HGB Conc 30 % (30-34); Mean Corpuscular Volume 84 fl (79-97); Platelet Count 483 K/mm3 (140-440); Red Blood Count 3.36 M/mm3 (3.65-5.03); Red Cell Distribution Width 19.5 % (13.2-15.2)
[2018-12-30] MEDS: guaiFENesin DM 200/20 MG ORAL LIQD 10 ML PO PRN ×2 (06:49→18:55)
[2018-12-30] MEDS: INSULIN LISPRO 100 UNIT/ML SUB-Q SCH ×3 (06:50→18:48)
[2018-12-30] MEDS: methylPREDNISolone Sod Succinate 40 MG/1 ML INJ IV SCH (09:29)
[2018-12-30] MEDS: FAMOTIDINE 20 MG TAB PO SCH ×2 (09:29→21:45)
[2018-12-30] MEDS: ENOXAPARIN 40 MG/0.4 ML INJ SUB-Q SCH (09:29)
[2018-12-30] MEDS: AZITHROMYCIN 500 MG in SODIUM CHLORIDE 0.9% 250ML 250 ML IV SCH (09:40)
[2018-12-30] MEDS: INSULIN GLARGINE 100 UNITS/ML SUB-Q SCH ×2 (09:41→21:45)
[2018-12-30] MEDS ORDERED: ENOXAPARIN 80 MG/0.8 ML INJ SUB-Q SCH (10:00)
[2018-12-30] MEDS ORDERED: ALBUTEROL 2.5 MG/3 ML NEBU IH PRN (12:01)
--- NOTE | 2018-12-30 12:07 | Progress Note ---
Assessment and Plan Assessment and plan: Acute severe COPD exacerbation -Probably secondary to acute bronchitis -Continue IV steroids, antibiotic and duonebs Acute on chronic respiratory failure with hypoxia -Continue oxygen supplementation as needed and duonebs -Continue BiPAP at night Acute on chronic anemia -Status post blood transfusion with 2U of PRBCS -H/H stable, will monitor -GI consulted: out-pt f/u recommended DM2 with hyperglycemia -On SSI, Lantus added -We'll monitor blood glucose SIRS due to non-infectious cause with organ failure, POA -will monitor Hypothyroidism -stable -resume home synthroid Metabolic acidosis -resolved HTN -stable -resume home amlodipine and lasix HLD -resume statin KASANDRA -Continue BiPAP at night Depression -resume cymbalta Obesity with BMI of 33.7 -lifestyle modification recommended DVT ppx: Lovenox Disposition: D/c per clinical course History Interval history: Patient reports shortness of breath on mild exertion. Hospitalist Physical - Constitutional Vitals: Temp Pulse Resp BP Pulse Ox 97.8 F 97 H 22 147/80 92 12/30/18 07:34 12/30/18 07:34 12/30/18 07:34 12/30/18 07:34 12/30/18 07:34 General appearance: Present: obese, other (moderate respiratory distress) - EENT Eyes: Present: PERRL, EOM intact ENT: hearing intact, clear oral mucosa - Neck Neck: Present: supple - Respiratory Respiratory effort: labored Respiratory: bilateral: diminished, negative: wheezing - Cardiovascular Rhythm: regular Heart Sounds: Present: S1 & S2 - Extremities Extremities: No edema - Abdominal General gastrointestinal: soft, non-tender, normal bowel sounds - Integumentary Integumentary: Present: warm, dry - Psychiatric Psychiatric: appropriate mood/affect - Neurologic Neurologic: CNII-XII intact Results - Labs CBC & Chem 7: 12/30/18 04:46 12/29/18 08:34 Labs: Laboratory Last Values WBC 8.7 K/mm3 (4.5-11.0) 12/30/18 04:46 RBC 3.36 M/mm3 (3.65-5.03) L 12/30/18 04:46 Hgb 8.5 gm/dl (10.1-14.3) L 12/30/18 04:46 Hct 28.2 % (30.3-42.9) L 12/30/18 04:46 MCV 84 fl (79-97) 12/30/18 04:46 MCH 25 pg (28-32) L 12/30/18 04:46 MCHC 30 % (30-34) 12/30/18 04:46 RDW 19.5 % (13.2-15.2) H 12/30/18 04:46 Plt Count 483 K/mm3 (140-440) H 12/30/18 04:46 Lymph % (Auto) Portfolio Mgr 12/29/18 08:34 [place] % (Auto) Portfolio Mgr 12/29/18 08:34 Eos % (Auto) Portfolio Mgr 12/29/18 08:34 Baso % (Auto) Portfolio Mgr 12/29/18 08:34 Lymph # Portfolio Mgr 12/29/18 08:34 [place] # Portfolio Mgr 12/29/18 08:34 Eos # Portfolio Mgr 12/29/18 08:34 Baso # Portfolio Mgr 12/29/18 08:34 Add Manual Diff Complete 12/29/18 08:34 Total Counted 100 12/29/18 08:34 Seg Neutrophils % Portfolio Mgr 12/29/18 08:34 Seg Neuts % (Manual) 95.0 % (40.0-70.0) H 12/29/18 08:34 Band Neutrophils % 1.0 % 12/29/18 08:34 Lymphocytes % (Manual) 3.0 % (13.4-35.0) L 12/29/18 08:34 Reactive Lymphs % (Man) 0 % 12/29/18 08:34 Monocytes % (Manual) 1.0 % (0.0-7.3) 12/29/18 08:34 Eosinophils % (Manual) 0 % (0.0-4.3) 12/29/18 08:34 Basophils % (Manual) 0 % (0.0-1.8) 12/29/18 08:34 Metamyelocytes % 0 % 12/29/18 08:34 Myelocytes % 0 % 12/29/18 08:34 Promyelocytes % 0 % 12/29/18 08:34 Blast Cells % 0 % 12/29/18 08:34 Nucleated RBC % Not Reportable 12/29/18 08:34 Seg Neutrophils # Portfolio Mgr 12/29/18 08:34 Seg Neutrophils # Man 8.5 K/mm3 (1.8-7.7) H 12/29/18 08:34 Band Neutrophils # 0.1 K/mm3 12/29/18 08:34 Lymphocytes # (Manual) 0.3 K/mm3 (1.2-5.4) L 12/29/18 08:34 Abs React Lymphs (Man) 0.0 K/mm3 12/29/18 08:34 Monocytes # (Manual) 0.1 K/mm3 (0.0-0.8) 12/29/18 08:34 Eosinophils # (Manual) 0.0 K/mm3 (0.0-0.4) 12/29/18 08:34 Basophils # (Manual) 0.0 K/mm3 (0.0-0.1) 12/29/18 08:34 Metamyelocytes # 0.0 K/mm3 12/29/18 08:34 Myelocytes # 0.0 K/mm3 12/29/18 08:34 Promyelocytes # 0.0 K/mm3 12/29/18 08:34 Blast Cells # 0.0 K/mm3 12/29/18 08:34 WBC Morphology Not Reportable 12/29/18 08:34 Hypersegmented Neuts Not Reportable 12/29/18 08:34 Hyposegmented Neuts Not Reportable 12/29/18 08:34 Hypogranular Neuts Not Reportable 12/29/18 08:34 Smudge Cells Not Reportable 12/29/18 08:34 Toxic Granulation Not Reportable 12/29/18 08:34 Toxic Vacuolation Not Reportable 12/29/18 08:34 Dohle Bodies Not Reportable 12/29/18 08:34 Pelger-Huet Anomaly Not Reportable 12/29/18 08:34 Sanjeev Rods Not Reportable 12/29/18 08:34 Platelet Estimate Consistent w auto 12/29/18 08:34 Clumped Platelets Not Reportable 12/29/18 08:34 Plt Clumps, EDTA Not Reportable 12/29/18 08:34 Large Platelets Few 12/29/18 08:34 Giant Platelets Rare 12/29/18 08:34 Platelet Satelliting Not Reportable 12/29/18 08:34 Plt Morphology Comment Not Reportable 12/29/18 08:34 RBC Morphology Not Reportable 12/29/18 08:34 Dimorphic RBCs Not Reportable 12/29/18 08:34 Polychromasia Not Reportable 12/29/18 08:34 Hypochromasia 1+ 12/29/18 08:34 Poikilocytosis Not Reportable 12/29/18 08:34 Anisocytosis 1+ 12/29/18 08:34 Microcytosis Not Reportable 12/29/18 08:34 Macrocytosis Few 12/29/18 08:34 Spherocytes Not Reportable 12/29/18 08:34 Pappenheimer Bodies Not Reportable 12/29/18 08:34 Sickle Cells Not Reportable 12/29/18 08:34 Target Cells Not Reportable 12/29/18 08:34 Tear Drop Cells Rare 12/29/18 08:34 Ovalocytes Rare 12/29/18 08:34 Helmet Cells Not Reportable 12/29/18 08:34 [place] Bodies Not Reportable 12/29/18 08:34 [place] Rings Not Reportable 12/29/18 08:34 Jg Cells Not Reportable 12/29/18 08:34 Bite Cells Not Reportable 12/29/18 08:34 Crenated Cell Not Reportable 12/29/18 08:34 Elliptocytes Rare 12/29/18 08:34 Acanthocytes (Spur) Not Reportable 12/29/18 08:34 Rouleaux Not Reportable 12/29/18 08:34 Hemoglobin C Crystals Not Reportable 12/29/18 08:34 Schistocytes Not Reportable 12/29/18 08:34 Malaria parasites Not Reportable 12/29/18 08:34 Farhad Bodies Not Reportable 12/29/18 08:34 Hem Pathologist Commnt No 12/29/18 08:34 PT 13.1 Sec. (12.2-14.9) 12/28/18 15:10 INR 1.00 (0.87-1.13) 12/28/18 15:10 APTT 29.2 Sec. (24.2-36.6) 12/28/18 15:10 D-Dimer 536.53 ng/mlDDU (0-234) H 12/28/18 15:49 POC ABG pH 7.443 (7.35-7.45) 12/28/18 15:46 POC ABG pCO2 38.2 (35-45) 12/28/18 15:46 POC ABG pO2 69 (80-105) L 12/28/18 15:46 POC ABG HCO3 26.1 (22-26 mml/L) 12/28/18 15:46 POC ABG Total CO2 27 (23-27mmol/L) 12/28/18 15:46 POC ABG O2 Sat 94 12/28/18 15:46 POC ABG Base Excess 2 ((-2) - (+3)mmol/L) 12/28/18 15:46 FiO2 40 % 12/28/18 15:46 Sodium 138 mmol/L (137-145) 12/29/18 08:34 Potassium 3.8 mmol/L (3.6-5.0) 12/29/18 08:34 Chloride 99.1 mmol/L (98-107) 12/29/18 08:34 Carbon Dioxide 24 mmol/L (22-30) 12/29/18 08:34 Anion Gap 19 mmol/L 12/29/18 08:34 BUN 11 mg/dL (7-17) 12/29/18 08:34 Creatinine 0.7 mg/dL (0.7-1.2) 12/29/18 08:34 Estimated GFR > 60 ml/min 12/29/18 08:34 BUN/Creatinine Ratio 16 % 12/29/18 08:34 Glucose 187 mg/dL (65-100) H 12/29/18 08:34 POC Glucose 241 (70-105) H 12/30/18 06:17 Calcium 9.5 mg/dL (8.4-10.2) 12/29/18 08:34 Magnesium 2.10 mg/dL (1.7-2.3) 12/29/18 08:34 Total Bilirubin 0.60 mg/dL (0.1-1.2) 12/28/18 15:10 AST 22 units/L (5-40) 12/28/18 15:10 ALT 51 units/L (7-56) 12/28/18 15:10 Alkaline Phosphatase 113 units/L (35-129) 12/28/18 15:10 Troponin T < 0.010 ng/mL (0.00-0.029) 12/28/18 15:10 NT-Pro-B Natriuret Pep 304.8 pg/mL (0-900) 12/28/18 15:10 Total Protein 6.9 g/dL (6.3-8.2) 12/28/18 15:10 Albumin 3.8 g/dL (3.9-5) L 12/28/18 15:10 Albumin/Globulin Ratio 1.2 % 12/28/18 15:10 TSH 5.340 mlU/mL (0.270-4.200) H 12/28/18 15:10 Free T4 1.19 ng/dL (0.76-1.46) 12/30/18 04:46 Blood Type O POSITIVE 12/28/18 15:41 Antibody Screen Negative 12/28/18 15:41 Crossmatch See Detail 12/28/18 15:41 Active Medications - Current Medications Current Medications: Generic Name Dose Route Start Last Admin Trade Name Freq PRN Reason Stop Dose Admin Acetaminophen 650 mg 12/28/18 17:29 Tylenol PO Q4H PRN Pain MILD(1-3)/Fever >100.5/[place] Albuterol 2.5 mg 12/30/18 12:01 Proventil IH Q2HRT PRN Shortness Of Breath Albuterol/Ipratropium 1 ampul 12/30/18 12:15 Duoneb *Not For Prn Use* IH Q4HRT CHING Dextrose 50 ml 12/28/18 17:31 D50w (25gm) Syringe IV Q30MIN PRN Hypoglycemia Protocol Enoxaparin Sodium 40 mg 12/30/18 10:00 12/30/18 09:29 Enoxaparin SUB-Q 40 mg QDAY@1000 CHING Administration Famotidine 20 mg 12/28/18 22:00 12/30/18 09:29 Pepcid PO 20 mg BID CHING Administration Guaifenesin 10 ml 12/29/18 11:20 12/30/18 06:49 Guaifenesin Dm Syrup PO 10 ml Q4H PRN Administration Cough Azithromycin 500 mg/ Sodium 250 mls @ 250 mls/hr 12/29/18 10:00 12/30/18 09:40 Chloride IV 250 mls/hr Q24HR CHING Administration Protocol Insulin Glargine 10 units 12/30/18 10:00 12/30/18 09:41 Lantus SUB-Q 10 units BID [place]ING Administration Insulin Human Lispro 0 unit 12/28/18 18:00 12/30/18 06:50 Humalog SUB-Q 2 unit Q6HR CHING Administration Protocol Methylprednisolone Sodium Succinate 80 mg 12/30/18 13:00 Solu-Medrol IV Q6HR CHING Ondansetron HCl 4 mg 12/28/18 17:29 Zofran IV Q8H PRN Nausea And Vomiting Sodium Chloride 10 ml 12/28/18 22:00 12/30/18 09:30 Sodium Chloride Flush Syringe 10 Ml IV 10 ml BID CHING Administration Sodium Chloride 10 ml 12/28/18 17:29 Sodium Chloride Flush Syringe 10 Ml IV PRN PRN LINE FLUSH
[2018-12-30] MEDS ORDERED: FORMOTEROL FUMARATE IH SCH (12:15)
[2018-12-30] MEDS ORDERED: BUDESONIDE IH SCH (12:15)
[2018-12-30] MEDS ORDERED: CYMBALTA 60 MG PO SCH (12:15)
[2018-12-30] MEDS ORDERED: FOLIC ACID PO SCH (12:15)
[2018-12-30] MEDS ORDERED: [UNRECOGNIZED DRUG - OTHER] IH SCH (12:15)
[2018-12-30] MEDS: DULoxetine 30 MG CAP PO SCH (14:23)
[2018-12-30] MEDS: methylPREDNISolone Sod Succinate 125 MG/2 ML INJ IV SCH ×2 (14:24→18:47)
[2018-12-30] MEDS: FUROSEMIDE 40 MG TAB PO SCH (14:24)
[2018-12-30] MEDS: amLODIPine 10 MG TAB PO SCH (14:24)
[2018-12-30] MEDS: IPRATROPIUM/ALBUTEROL SULFATE 3 ML AMPUL.NEB IH SCH ×2 (14:42→19:46)
[2018-12-30] MEDS: FOLIC ACID 1 MG TAB PO SCH (18:48)
[2018-12-30] MEDS: BUDESONIDE 0.5 MG/2 ML NEBU IH SCH (19:46)
[2018-12-30] MEDS: ARFORMOTEROL 15 MCG/2 ML NEBU IH SCH (19:46)
[2018-12-31] MEDS: guaiFENesin DM 200/20 MG ORAL LIQD 10 ML PO PRN ×2 (00:42→10:07)
[2018-12-31] MEDS: INSULIN LISPRO 100 UNIT/ML SUB-Q SCH ×6 (00:42→18:41)
[2018-12-31] MEDS: methylPREDNISolone Sod Succinate 125 MG/2 ML INJ IV SCH ×4 (00:46→18:40)
[2018-12-31] MEDS: LEVOTHYROXINE 25 MCG TAB PO SCH (06:19)
[2018-12-31] MEDS: LEVOTHYROXINE 112 MCG TAB PO SCH (06:19)
[2018-12-31] MEDS: ARFORMOTEROL 15 MCG/2 ML NEBU IH SCH ×2 (07:49→20:02)
[2018-12-31] MEDS: IPRATROPIUM/ALBUTEROL SULFATE 3 ML AMPUL.NEB IH SCH ×3 (07:50→20:02)
[2018-12-31] MEDS: BUDESONIDE 0.5 MG/2 ML NEBU IH SCH ×2 (07:50→20:02)
[2018-12-31] MEDS ORDERED: LEVOTHYROXINE 137 MCG PO SCH (10:00)
[2018-12-31] MEDS: DULoxetine 30 MG CAP PO SCH (10:07)
[2018-12-31] MEDS: FAMOTIDINE 20 MG TAB PO SCH ×2 (10:07→21:25)
[2018-12-31] MEDS: amLODIPine 10 MG TAB PO SCH (10:08)
[2018-12-31] MEDS: FUROSEMIDE 40 MG TAB PO SCH (10:08)
[2018-12-31] MEDS: FOLIC ACID 1 MG TAB PO SCH (10:08)
[2018-12-31] MEDS: ENOXAPARIN 40 MG/0.4 ML INJ SUB-Q SCH (10:08)
[2018-12-31] MEDS: AZITHROMYCIN 500 MG in SODIUM CHLORIDE 0.9% 250ML 250 ML IV SCH (10:14)
[2018-12-31] MEDS: INSULIN GLARGINE 100 UNITS/ML SUB-Q SCH ×2 (10:15→21:26)
--- NOTE | 2018-12-31 11:20 | Progress Note ---
Assessment and Plan Assessment and plan: Acute severe COPD exacerbation -Probably secondary to acute bronchitis -improving -Continue IV steroids, antibiotic, mucinex and duonebs Acute on chronic respiratory failure with hypoxia -Continue oxygen supplementation as needed and duonebs -Continue BiPAP at night Acute on chronic anemia -Status post blood transfusion with 2U of PRBCS -H/H stable, will monitor -GI consulted: out-pt f/u recommended DM2 with hyperglycemia -due to steroid use -insulin regimen adjusted -will monitor blood glucose SIRS due to non-infectious cause with organ failure -will monitor Hypothyroidism -stable -cont home synthroid Metabolic acidosis -resolved HTN -controlled -cont home amlodipine and lasix HLD -cont statin KASANDRA -Continue BiPAP at night Depression -cont cymbalta Obesity with BMI of 33.7 -lifestyle modification recommended Deconditioning -PT consulted DVT ppx: Lovenox Disposition: D/c per clinical course History Interval history: pt complained of severe cough. She continues to have shortness of breath on mild exertion Hospitalist Physical - Constitutional Vitals: Temp Pulse Resp BP Pulse Ox 96.7 F L 101 H 22 123/63 91 12/31/18 02:16 12/31/18 08:15 12/31/18 08:15 12/31/18 02:16 12/31/18 07:50 General appearance: Present: mild distress, obese - EENT Eyes: Present: PERRL, EOM intact ENT: hearing intact, clear oral mucosa - Neck Neck: Present: supple - Respiratory Respiratory effort: normal Respiratory: bilateral: diminished, negative: wheezing - Cardiovascular Rhythm: regular Heart Sounds: Present: S1 & S2 - Extremities Extremities: No edema - Abdominal General gastrointestinal: soft, non-tender, normal bowel sounds - Integumentary Integumentary: Present: warm, dry - Psychiatric Psychiatric: appropriate mood/affect - Neurologic Neurologic: CNII-XII intact Results - Labs CBC & Chem 7: 12/30/18 04:46 12/29/18 08:34 Labs: Laboratory Last Values WBC 8.7 K/mm3 (4.5-11.0) 12/30/18 04:46 RBC 3.36 M/mm3 (3.65-5.03) L 12/30/18 04:46 Hgb 8.5 gm/dl (10.1-14.3) L 12/30/18 04:46 Hct 28.2 % (30.3-42.9) L 12/30/18 04:46 MCV 84 fl (79-97) 12/30/18 04:46 MCH 25 pg (28-32) L 12/30/18 04:46 MCHC 30 % (30-34) 12/30/18 04:46 RDW 19.5 % (13.2-15.2) H 12/30/18 04:46 Plt Count 483 K/mm3 (140-440) H 12/30/18 04:46 Lymph % (Auto) Planning Coordinator 12/29/18 08:34 [place] % (Auto) Planning Coordinator 12/29/18 08:34 Eos % (Auto) Planning Coordinator 12/29/18 08:34 Baso % (Auto) Planning Coordinator 12/29/18 08:34 Lymph # Planning Coordinator 12/29/18 08:34 Hunt # Planning Coordinator 12/29/18 08:34 Eos # Planning Coordinator 12/29/18 08:34 Baso # Planning Coordinator 12/29/18 08:34 Add Manual Diff Complete 12/29/18 08:34 Total Counted 100 12/29/18 08:34 Seg Neutrophils % Planning Coordinator 12/29/18 08:34 Seg Neuts % (Manual) 95.0 % (40.0-70.0) H 12/29/18 08:34 Band Neutrophils % 1.0 % 12/29/18 08:34 Lymphocytes % (Manual) 3.0 % (13.4-35.0) L 12/29/18 08:34 Reactive Lymphs % (Man) 0 % 12/29/18 08:34 Monocytes % (Manual) 1.0 % (0.0-7.3) 12/29/18 08:34 Eosinophils % (Manual) 0 % (0.0-4.3) 12/29/18 08:34 Basophils % (Manual) 0 % (0.0-1.8) 12/29/18 08:34 Metamyelocytes % 0 % 12/29/18 08:34 Myelocytes % 0 % 12/29/18 08:34 Promyelocytes % 0 % 12/29/18 08:34 Blast Cells % 0 % 12/29/18 08:34 Nucleated RBC % Not Reportable 12/29/18 08:34 Seg Neutrophils # Planning Coordinator 12/29/18 08:34 Seg Neutrophils # Man 8.5 K/mm3 (1.8-7.7) H 12/29/18 08:34 Band Neutrophils # 0.1 K/mm3 12/29/18 08:34 Lymphocytes # (Manual) 0.3 K/mm3 (1.2-5.4) L 12/29/18 08:34 Abs React Lymphs (Man) 0.0 K/mm3 12/29/18 08:34 Monocytes # (Manual) 0.1 K/mm3 (0.0-0.8) 12/29/18 08:34 Eosinophils # (Manual) 0.0 K/mm3 (0.0-0.4) 12/29/18 08:34 Basophils # (Manual) 0.0 K/mm3 (0.0-0.1) 12/29/18 08:34 Metamyelocytes # 0.0 K/mm3 12/29/18 08:34 Myelocytes # 0.0 K/mm3 12/29/18 08:34 Promyelocytes # 0.0 K/mm3 12/29/18 08:34 Blast Cells # 0.0 K/mm3 12/29/18 08:34 WBC Morphology Not Reportable 12/29/18 08:34 Hypersegmented Neuts Not Reportable 12/29/18 08:34 Hyposegmented Neuts Not Reportable 12/29/18 08:34 Hypogranular Neuts Not Reportable 12/29/18 08:34 Smudge Cells Not Reportable 12/29/18 08:34 Toxic Granulation Not Reportable 12/29/18 08:34 Toxic Vacuolation Not Reportable 12/29/18 08:34 Dohle Bodies Not Reportable 12/29/18 08:34 Pelger-Huet Anomaly Not Reportable 12/29/18 08:34 Sanjeev Rods Not Reportable 12/29/18 08:34 Platelet Estimate Consistent w auto 12/29/18 08:34 Clumped Platelets Not Reportable 12/29/18 08:34 Plt Clumps, EDTA Not Reportable 12/29/18 08:34 Large Platelets Few 12/29/18 08:34 Giant Platelets Rare 12/29/18 08:34 Platelet Satelliting Not Reportable 12/29/18 08:34 Plt Morphology Comment Not Reportable 12/29/18 08:34 RBC Morphology Not Reportable 12/29/18 08:34 Dimorphic RBCs Not Reportable 12/29/18 08:34 Polychromasia Not Reportable 12/29/18 08:34 Hypochromasia 1+ 12/29/18 08:34 Poikilocytosis Not Reportable 12/29/18 08:34 Anisocytosis 1+ 12/29/18 08:34 Microcytosis Not Reportable 12/29/18 08:34 Macrocytosis Few 12/29/18 08:34 Spherocytes Not Reportable 12/29/18 08:34 Pappenheimer Bodies Not Reportable 12/29/18 08:34 Sickle Cells Not Reportable 12/29/18 08:34 Target Cells Not Reportable 12/29/18 08:34 Tear Drop Cells Rare 12/29/18 08:34 Ovalocytes Rare 12/29/18 08:34 Helmet Cells Not Reportable 12/29/18 08:34 [place] Bodies Not Reportable 12/29/18 08:34 [place] Rings Not Reportable 12/29/18 08:34 Jg Cells Not Reportable 12/29/18 08:34 Bite Cells Not Reportable 12/29/18 08:34 Crenated Cell Not Reportable 12/29/18 08:34 Elliptocytes Rare 12/29/18 08:34 Acanthocytes (Spur) Not Reportable 12/29/18 08:34 Rouleaux Not Reportable 12/29/18 08:34 Hemoglobin C Crystals Not Reportable 12/29/18 08:34 Schistocytes Not Reportable 12/29/18 08:34 Malaria parasites Not Reportable 12/29/18 08:34 Farhad Bodies Not Reportable 12/29/18 08:34 Hem Pathologist Commnt No 12/29/18 08:34 PT 13.1 Sec. (12.2-14.9) 12/28/18 15:10 INR 1.00 (0.87-1.13) 12/28/18 15:10 APTT 29.2 Sec. (24.2-36.6) 12/28/18 15:10 D-Dimer 536.53 ng/mlDDU (0-234) H 12/28/18 15:49 POC ABG pH 7.443 (7.35-7.45) 12/28/18 15:46 POC ABG pCO2 38.2 (35-45) 12/28/18 15:46 POC ABG pO2 69 (80-105) L 12/28/18 15:46 POC ABG HCO3 26.1 (22-26 mml/L) 12/28/18 15:46 POC ABG Total CO2 27 (23-27mmol/L) 12/28/18 15:46 POC ABG O2 Sat 94 12/28/18 15:46 POC ABG Base Excess 2 ((-2) - (+3)mmol/L) 12/28/18 15:46 FiO2 40 % 12/28/18 15:46 Sodium 138 mmol/L (137-145) 12/29/18 08:34 Potassium 3.8 mmol/L (3.6-5.0) 12/29/18 08:34 Chloride 99.1 mmol/L (98-107) 12/29/18 08:34 Carbon Dioxide 24 mmol/L (22-30) 12/29/18 08:34 Anion Gap 19 mmol/L 12/29/18 08:34 BUN 11 mg/dL (7-17) 12/29/18 08:34 Creatinine 0.7 mg/dL (0.7-1.2) 12/29/18 08:34 Estimated GFR > 60 ml/min 12/29/18 08:34 BUN/Creatinine Ratio 16 % 12/29/18 08:34 Glucose 187 mg/dL (65-100) H 12/29/18 08:34 POC Glucose 405 (70-105) H 12/31/18 09:44 Calcium 9.5 mg/dL (8.4-10.2) 12/29/18 08:34 Magnesium 2.10 mg/dL (1.7-2.3) 12/29/18 08:34 Total Bilirubin 0.60 mg/dL (0.1-1.2) 12/28/18 15:10 AST 22 units/L (5-40) 12/28/18 15:10 ALT 51 units/L (7-56) 12/28/18 15:10 Alkaline Phosphatase 113 units/L (35-129) 12/28/18 15:10 Troponin T < 0.010 ng/mL (0.00-0.029) 12/28/18 15:10 NT-Pro-B Natriuret Pep 304.8 pg/mL (0-900) 12/28/18 15:10 Total Protein 6.9 g/dL (6.3-8.2) 12/28/18 15:10 Albumin 3.8 g/dL (3.9-5) L 12/28/18 15:10 Albumin/Globulin Ratio 1.2 % 12/28/18 15:10 TSH 5.340 mlU/mL (0.270-4.200) H 12/28/18 15:10 Free T4 1.19 ng/dL (0.76-1.46) 12/30/18 04:46 Blood Type O POSITIVE 12/28/18 15:41 Antibody Screen Negative 12/28/18 15:41 Crossmatch See Detail 12/28/18 15:41 Active Medications - Current Medications Current Medications: Generic Name Dose Route Start Last Admin Trade Name Freq PRN Reason Stop Dose Admin Acetaminophen 650 mg 12/28/18 17:29 Tylenol PO Q4H PRN Pain MILD(1-3)/Fever >100.5/[place] Albuterol 2.5 mg 12/30/18 12:01 Proventil IH Q2HRT PRN Shortness Of Breath Albuterol/Ipratropium 1 ampul 12/31/18 08:00 12/31/18 07:50 Duoneb *Not For Prn Use* IH 1 ampul TIDRT CHING Administration Amlodipine Besylate 10 mg 12/30/18 14:00 12/31/18 10:08 Amlodipine PO 10 mg DAILY [facility] Administration Arformoterol Tartrate 15 mcg 12/30/18 20:00 12/31/18 07:49 Brovana Nebu IH 15 mcg Q12HRT [facility] Administration Atorvastatin Calcium 40 mg 12/30/18 22:00 12/30/18 21:45 Lipitor PO 40 mg HS CHING Administration Budesonide 0.5 mg 12/30/18 20:00 12/31/18 07:50 Pulmicort IH 0.5 mg Q12HRT [facility] Administration Dextrose 50 ml 12/28/18 17:31 D50w (25gm) Syringe IV Q30MIN PRN Hypoglycemia Protocol Duloxetine HCl 60 mg 12/30/18 14:00 12/31/18 10:07 Cymbalta PO 60 mg QDAY [facility] Administration Enoxaparin Sodium 40 mg 12/30/18 10:00 12/31/18 10:08 Enoxaparin SUB-Q 40 mg QDAY@1000 [facility] Administration Famotidine 20 mg 12/28/18 22:00 12/31/18 10:07 Pepcid PO 20 mg BID CHING Administration Folic Acid 1 mg 12/30/18 17:00 12/31/18 10:08 Folvite PO 1 mg DAILY [facility]ING Administration Furosemide 40 mg 12/30/18 13:00 12/31/18 10:08 Lasix PO 40 mg QDAY [facility] Administration Guaifenesin 600 mg 12/31/18 12:00 Mucinex Er PO BID CHING Azithromycin 500 mg/ Sodium 250 mls @ 250 mls/hr 12/29/18 10:00 12/31/18 10:14 Chloride IV 250 mls/hr Q24HR [facility] Administration Protocol Insulin Glargine 10 units 12/30/18 10:00 12/31/18 10:15 Lantus SUB-Q 10 units BID CHING Administration Insulin Human Lispro 0 unit 12/28/18 18:00 12/31/18 06:19 Humalog SUB-Q 8 unit Q6HR [facility] Administration Protocol Levothyroxine Sodium 112 mcg 12/31/18 06:00 12/31/18 06:19 Synthroid PO 112 mcg DAILY@0600 [facility] Administration Levothyroxine Sodium 25 mcg 12/31/18 06:00 12/31/18 06:19 Synthroid PO 25 mcg DAILY@0600 [facility] Administration Methylprednisolone Sodium Succinate 80 mg 12/30/18 13:00 12/31/18 06:25 Solu-Medrol IV 80 mg Q6H [facility] Administration Ondansetron HCl 4 mg 12/28/18 17:29 Zofran IV Q8H PRN Nausea And Vomiting Pseudoephedrine/Acetam/Chlorphenir 5 ml 12/31/18 11:12 Robitussin Ac PO Q4H PRN Cough Senna/Docusate Sodium 1 tab 12/31/18 12:00 Senokot S PO BID CHING Sodium Chloride 10 ml 12/28/18 22:00 12/31/18 10:09 Sodium Chloride Flush Syringe 10 Ml IV 10 ml BID CHING Administration Sodium Chloride 10 ml 12/28/18 17:29 Sodium Chloride Flush Syringe 10 Ml IV PRN PRN LINE FLUSH
[2018-12-31] MEDS ORDERED: INSULIN GLARGINE 100 UNITS/ML SUB-Q ONE (12:30)
[2018-12-31] MEDS: SENNOSIDES/DOCUSATE SODIUM 8.6/50 MG TAB PO SCH ×2 (14:24→21:26)
[2018-12-31] MEDS: guaiFENesin ER 600 MG TAB PO SCH ×2 (14:24→21:25)
[2019-01-01] MEDS: INSULIN LISPRO 100 UNIT/ML SUB-Q SCH ×7 (00:10→19:00)
[2019-01-01] MEDS: methylPREDNISolone Sod Succinate 125 MG/2 ML INJ IV SCH ×4 (00:10→19:34)
[2019-01-01 05:25] LABS: Hematocrit 28.3 % (30.3-42.9); Hemoglobin 8.8 gm/dl (10.1-14.3)
[2019-01-01] MEDS: LEVOTHYROXINE 112 MCG TAB PO SCH (06:04)
[2019-01-01] MEDS: LEVOTHYROXINE 25 MCG TAB PO SCH (06:04)
[2019-01-01] MEDS: ARFORMOTEROL 15 MCG/2 ML NEBU IH SCH ×2 (08:02→20:13)
[2019-01-01] MEDS: BUDESONIDE 0.5 MG/2 ML NEBU IH SCH ×2 (09:15→20:08)
[2019-01-01] MEDS: IPRATROPIUM/ALBUTEROL SULFATE 3 ML AMPUL.NEB IH SCH ×3 (09:15→20:08)
[2019-01-01] MEDS: guaiFENesin ER 600 MG TAB PO SCH ×2 (10:39→22:26)
[2019-01-01] MEDS: FAMOTIDINE 20 MG TAB PO SCH ×2 (10:39→22:26)
[2019-01-01] MEDS: FUROSEMIDE 40 MG TAB PO SCH (10:41)
[2019-01-01] MEDS: DULoxetine 30 MG CAP PO SCH (10:41)
[2019-01-01] MEDS: amLODIPine 10 MG TAB PO SCH (10:41)
[2019-01-01] MEDS: ENOXAPARIN 40 MG/0.4 ML INJ SUB-Q SCH (10:41)
[2019-01-01] MEDS: FOLIC ACID 1 MG TAB PO SCH (10:41)
[2019-01-01] MEDS: SENNOSIDES/DOCUSATE SODIUM 8.6/50 MG TAB PO SCH ×2 (10:41→22:26)
[2019-01-01] MEDS: AZITHROMYCIN 500 MG in SODIUM CHLORIDE 0.9% 250ML 250 ML IV SCH (10:42)
[2019-01-01] MEDS: INSULIN GLARGINE 100 UNITS/ML SUB-Q SCH ×2 (10:43→22:27)
--- NOTE | 2019-01-01 16:38 | Progress Note ---
Assessment and Plan Assessment and plan: Acute severe COPD exacerbation -Probably secondary to acute bronchitis -improving -Continue IV steroids, antibiotic, mucinex and duonebs Acute on chronic respiratory failure with hypoxia -Continue oxygen supplementation as needed and duonebs -Continue BiPAP at night Acute on chronic anemia -Status post blood transfusion with 2U of PRBCS -H/H stable, will monitor -GI consulted: out-pt f/u recommended DM2 with hyperglycemia -due to steroid use -insulin regimen adjusted -will monitor blood glucose SIRS due to non-infectious cause with organ failure -will monitor Hypothyroidism -stable -cont home synthroid Metabolic acidosis -resolved HTN -controlled -cont home amlodipine and lasix HLD -cont statin KASANDRA -Continue BiPAP at night Depression -cont cymbalta Obesity with BMI of 33.7 -lifestyle modification recommended Deconditioning -PT consulted DVT ppx: Lovenox Disposition: D/c per clinical course History Interval history: Review of systems Constitutional: No fevers, no malaise, no joint pains CVS: No chest pain, no orthopnea, no pedal edema GI: No abdominal pain, no diarrhea, no vomiting, no constipation Respiratory: , Continues to complain of shortness of breath and dyspnea on exertion, also having dry cough Hospitalist Physical - Physical exam Narrative exam: General.: Mild distress HEENT: Moist mucous membranes, extraocular muscles intact, no lymphadenopathy Neck: supple Cardiac: S1-S2 heard Lungs: Diminished air entry Abdomen: soft , nontender, nondistended, bowel sounds positive Extremities: no edema clubbing or cyanosis Skin: no rash or lesions Neurologic: no gross focal deficits Psych: calm, and cooperative - Constitutional Vitals: Temp Pulse Resp BP Pulse Ox 98.4 F 106 H 15 123/66 91 01/01/19 13:12 01/01/19 15:26 01/01/19 15:26 01/01/19 13:12 01/01/19 13:12 General appearance: Present: mild distress, obese Results - Labs CBC & Chem 7: 01/04/19 05:20 01/04/19 05:20 Labs: Laboratory Last Values WBC 8.7 K/mm3 (4.5-11.0) 12/30/18 04:46 RBC 3.36 M/mm3 (3.65-5.03) L 12/30/18 04:46 Hgb 8.8 gm/dl (10.1-14.3) L 01/01/19 05:09 Hct 28.3 % (30.3-42.9) L 01/01/19 05:09 MCV 84 fl (79-97) 12/30/18 04:46 MCH 25 pg (28-32) L 12/30/18 04:46 MCHC 30 % (30-34) 12/30/18 04:46 RDW 19.5 % (13.2-15.2) H 12/30/18 04:46 Plt Count 483 K/mm3 (140-440) H 12/30/18 04:46 Lymph % (Auto) Instructional Support Technician 12/29/18 08:34 [place] % (Auto) Instructional Support Technician 12/29/18 08:34 Eos % (Auto) Instructional Support Technician 12/29/18 08:34 Baso % (Auto) Instructional Support Technician 12/29/18 08:34 Lymph # Instructional Support Technician 12/29/18 08:34 [place] # Instructional Support Technician 12/29/18 08:34 Eos # Instructional Support Technician 12/29/18 08:34 Baso # Instructional Support Technician 12/29/18 08:34 Add Manual Diff Complete 12/29/18 08:34 Total Counted 100 12/29/18 08:34 Seg Neutrophils % Instructional Support Technician 12/29/18 08:34 Seg Neuts % (Manual) 95.0 % (40.0-70.0) H 12/29/18 08:34 Band Neutrophils % 1.0 % 12/29/18 08:34 Lymphocytes % (Manual) 3.0 % (13.4-35.0) L 12/29/18 08:34 Reactive Lymphs % (Man) 0 % 12/29/18 08:34 Monocytes % (Manual) 1.0 % (0.0-7.3) 12/29/18 08:34 Eosinophils % (Manual) 0 % (0.0-4.3) 12/29/18 08:34 Basophils % (Manual) 0 % (0.0-1.8) 12/29/18 08:34 Metamyelocytes % 0 % 12/29/18 08:34 Myelocytes % 0 % 12/29/18 08:34 Promyelocytes % 0 % 12/29/18 08:34 Blast Cells % 0 % 12/29/18 08:34 Nucleated RBC % Not Reportable 12/29/18 08:34 Seg Neutrophils # Instructional Support Technician 12/29/18 08:34 Seg Neutrophils # Man 8.5 K/mm3 (1.8-7.7) H 12/29/18 08:34 Band Neutrophils # 0.1 K/mm3 12/29/18 08:34 Lymphocytes # (Manual) 0.3 K/mm3 (1.2-5.4) L 12/29/18 08:34 Abs React Lymphs (Man) 0.0 K/mm3 12/29/18 08:34 Monocytes # (Manual) 0.1 K/mm3 (0.0-0.8) 12/29/18 08:34 Eosinophils # (Manual) 0.0 K/mm3 (0.0-0.4) 12/29/18 08:34 Basophils # (Manual) 0.0 K/mm3 (0.0-0.1) 12/29/18 08:34 Metamyelocytes # 0.0 K/mm3 12/29/18 08:34 Myelocytes # 0.0 K/mm3 12/29/18 08:34 Promyelocytes # 0.0 K/mm3 12/29/18 08:34 Blast Cells # 0.0 K/mm3 12/29/18 08:34 WBC Morphology Not Reportable 12/29/18 08:34 Hypersegmented Neuts Not Reportable 12/29/18 08:34 Hyposegmented Neuts Not Reportable 12/29/18 08:34 Hypogranular Neuts Not Reportable 12/29/18 08:34 Smudge Cells Not Reportable 12/29/18 08:34 Toxic Granulation Not Reportable 12/29/18 08:34 Toxic Vacuolation Not Reportable 12/29/18 08:34 Dohle Bodies Not Reportable 12/29/18 08:34 Pelger-Huet Anomaly Not Reportable 12/29/18 08:34 Sanjeev Rods Not Reportable 12/29/18 08:34 Platelet Estimate Consistent w auto 12/29/18 08:34 Clumped Platelets Not Reportable 12/29/18 08:34 Plt Clumps, EDTA Not Reportable 12/29/18 08:34 Large Platelets Few 12/29/18 08:34 Giant Platelets Rare 12/29/18 08:34 Platelet Satelliting Not Reportable 12/29/18 08:34 Plt Morphology Comment Not Reportable 12/29/18 08:34 RBC Morphology Not Reportable 12/29/18 08:34 Dimorphic RBCs Not Reportable 12/29/18 08:34 Polychromasia Not Reportable 12/29/18 08:34 Hypochromasia 1+ 12/29/18 08:34 Poikilocytosis Not Reportable 12/29/18 08:34 Anisocytosis 1+ 12/29/18 08:34 Microcytosis Not Reportable 12/29/18 08:34 Macrocytosis Few 12/29/18 08:34 Spherocytes Not Reportable 12/29/18 08:34 Pappenheimer Bodies Not Reportable 12/29/18 08:34 Sickle Cells Not Reportable 12/29/18 08:34 Target Cells Not Reportable 12/29/18 08:34 Tear Drop Cells Rare 12/29/18 08:34 Ovalocytes Rare 12/29/18 08:34 Helmet Cells Not Reportable 12/29/18 08:34 [place] Bodies Not Reportable 12/29/18 08:34 [place] Rings Not Reportable 12/29/18 08:34 Jg Cells Not Reportable 12/29/18 08:34 Bite Cells Not Reportable 12/29/18 08:34 Crenated Cell Not Reportable 12/29/18 08:34 Elliptocytes Rare 12/29/18 08:34 Acanthocytes (Spur) Not Reportable 12/29/18 08:34 Rouleaux Not Reportable 12/29/18 08:34 Hemoglobin C Crystals Not Reportable 12/29/18 08:34 Schistocytes Not Reportable 12/29/18 08:34 Malaria parasites Not Reportable 12/29/18 08:34 Farhad Bodies Not Reportable 12/29/18 08:34 Hem Pathologist Commnt No 12/29/18 08:34 PT 13.1 Sec. (12.2-14.9) 12/28/18 15:10 INR 1.00 (0.87-1.13) 12/28/18 15:10 APTT 29.2 Sec. (24.2-36.6) 12/28/18 15:10 D-Dimer 536.53 ng/mlDDU (0-234) H 12/28/18 15:49 POC ABG pH 7.443 (7.35-7.45) 12/28/18 15:46 POC ABG pCO2 38.2 (35-45) 12/28/18 15:46 POC ABG pO2 69 (80-105) L 12/28/18 15:46 POC ABG HCO3 26.1 (22-26 mml/L) 12/28/18 15:46 POC ABG Total CO2 27 (23-27mmol/L) 12/28/18 15:46 POC ABG O2 Sat 94 12/28/18 15:46 POC ABG Base Excess 2 ((-2) - (+3)mmol/L) 12/28/18 15:46 FiO2 40 % 12/28/18 15:46 Sodium 138 mmol/L (137-145) 12/29/18 08:34 Potassium 3.8 mmol/L (3.6-5.0) 12/29/18 08:34 Chloride 99.1 mmol/L (98-107) 12/29/18 08:34 Carbon Dioxide 24 mmol/L (22-30) 12/29/18 08:34 Anion Gap 19 mmol/L 12/29/18 08:34 BUN 11 mg/dL (7-17) 12/29/18 08:34 Creatinine 0.7 mg/dL (0.7-1.2) 12/29/18 08:34 Estimated GFR > 60 ml/min 12/29/18 08:34 BUN/Creatinine Ratio 16 % 12/29/18 08:34 Glucose 187 mg/dL (65-100) H 12/29/18 08:34 POC Glucose 253 (70-105) H 01/01/19 11:39 Calcium 9.5 mg/dL (8.4-10.2) 12/29/18 08:34 Magnesium 2.10 mg/dL (1.7-2.3) 12/29/18 08:34 Total Bilirubin 0.60 mg/dL (0.1-1.2) 12/28/18 15:10 AST 22 units/L (5-40) 12/28/18 15:10 ALT 51 units/L (7-56) 12/28/18 15:10 Alkaline Phosphatase 113 units/L (35-129) 12/28/18 15:10 Troponin T < 0.010 ng/mL (0.00-0.029) 12/28/18 15:10 NT-Pro-B Natriuret Pep 304.8 pg/mL (0-900) 12/28/18 15:10 Total Protein 6.9 g/dL (6.3-8.2) 12/28/18 15:10 Albumin 3.8 g/dL (3.9-5) L 12/28/18 15:10 Albumin/Globulin Ratio 1.2 % 12/28/18 15:10 TSH 5.340 mlU/mL (0.270-4.200) H 12/28/18 15:10 Free T4 1.19 ng/dL (0.76-1.46) 12/30/18 04:46 Blood Type O POSITIVE 12/28/18 15:41 Antibody Screen Negative 12/28/18 15:41 Crossmatch See Detail 12/28/18 15:41 Active Medications - Current Medications Current Medications: Generic Name Dose Route Start Last Admin Trade Name Freq PRN Reason Stop Dose Admin Acetaminophen 650 mg 12/28/18 17:29 Tylenol PO Q4H PRN Pain MILD(1-3)/Fever >100.5/[place] Albuterol 2.5 mg 12/30/18 12:01 Proventil IH Q2HRT PRN Shortness Of Breath Albuterol/Ipratropium 1 ampul 12/31/18 08:00 01/01/19 15:17 Duoneb *Not For Prn Use* IH 1 ampul TIDRT CHING Administration Amlodipine Besylate 10 mg 12/30/18 14:00 01/01/19 10:41 Amlodipine PO 10 mg DAILY [facility] Administration Arformoterol Tartrate 15 mcg 12/30/18 20:00 12/31/18 20:02 Brovana Nebu IH 15 mcg Q12HRT [facility] Administration Atorvastatin Calcium 40 mg 12/30/18 22:00 12/31/18 21:26 Lipitor PO 40 mg HS CHING Administration Budesonide 0.5 mg 12/30/18 20:00 01/01/19 09:15 Pulmicort IH 0.5 mg Q12HRT [facility]ING Administration Dextrose 50 ml 12/28/18 17:31 D50w (25gm) Syringe IV Q30MIN PRN Hypoglycemia Protocol Duloxetine HCl 60 mg 12/30/18 14:00 01/01/19 10:41 Cymbalta PO 60 mg QDAY [facility] Administration Enoxaparin Sodium 40 mg 12/30/18 10:00 01/01/19 10:41 Enoxaparin SUB-Q 40 mg QDAY@1000 [facility] Administration Famotidine 20 mg 12/28/18 22:00 01/01/19 10:39 Pepcid PO 20 mg BID CHING Administration Folic Acid 1 mg 12/30/18 17:00 01/01/19 10:41 Folvite PO 1 mg DAILY [facility] Administration Furosemide 40 mg 12/30/18 13:00 01/01/19 10:41 Lasix PO 40 mg QDAY [facility] Administration Guaifenesin 600 mg 12/31/18 12:00 01/01/19 10:39 Mucinex Er PO 600 mg BID CHING Administration Azithromycin 500 mg/ Sodium 250 mls @ 250 mls/hr 12/29/18 10:00 01/01/19 10:42 Chloride IV 250 mls/hr Q24HR [facility] Administration Protocol Insulin Glargine 20 units 12/31/18 22:00 01/01/19 10:43 Lantus SUB-Q 20 units BID [facility]ING Administration Insulin Human Lispro 0 unit 12/28/18 18:00 01/01/19 13:00 Humalog SUB-Q 6 unit Q6HR [facility] Administration Protocol Insulin Human Lispro 5 unit 12/31/18 11:30 01/01/19 12:00 Humalog SUB-Q 5 unit TIDAC CHING Administration Levothyroxine Sodium 112 mcg 12/31/18 06:00 01/01/19 06:04 Synthroid PO 112 mcg DAILY@0600 [facility] Administration Levothyroxine Sodium 25 mcg 12/31/18 06:00 01/01/19 06:04 Synthroid PO 25 mcg DAILY@0600 [facility] Administration Methylprednisolone Sodium Succinate 60 mg 12/31/18 12:00 01/01/19 13:07 Solu-Medrol IV 60 mg Q6H [facility] Administration Ondansetron HCl 4 mg 12/28/18 17:29 Zofran IV Q8H PRN Nausea And Vomiting Pseudoephedrine/Acetam/Chlorphenir 5 ml 12/31/18 11:12 Robitussin Ac PO Q4H PRN Cough Senna/Docusate Sodium 1 tab 12/31/18 12:00 01/01/19 10:41 Senokot S PO 1 tab BID [facility]ING Administration Sodium Chloride 10 ml 12/28/18 22:00 01/01/19 10:42 Sodium Chloride Flush Syringe 10 Ml IV 10 ml BID [facility]ING Administration Sodium Chloride 10 ml 12/28/18 17:29 Sodium Chloride Flush Syringe 10 Ml IV PRN PRN LINE FLUSH
[2019-01-01] MEDS: guaiFENesin/CODEINE 100-10MG ORAL LIQD 5 ML PO PRN ×2 (17:09→22:25)
[2019-01-02] MEDS: methylPREDNISolone Sod Succinate 125 MG/2 ML INJ IV SCH ×4 (00:19→18:31)
[2019-01-02] MEDS: INSULIN LISPRO 100 UNIT/ML SUB-Q SCH ×8 (00:19→22:44)
[2019-01-02] MEDS: guaiFENesin/CODEINE 100-10MG ORAL LIQD 5 ML PO PRN ×2 (05:24→16:25)
[2019-01-02] MEDS: LEVOTHYROXINE 112 MCG TAB PO SCH (05:25)
[2019-01-02] MEDS: LEVOTHYROXINE 25 MCG TAB PO SCH (05:25)
[2019-01-02] MEDS: IPRATROPIUM/ALBUTEROL SULFATE 3 ML AMPUL.NEB IH SCH ×3 (07:40→21:40)
[2019-01-02] MEDS: ARFORMOTEROL 15 MCG/2 ML NEBU IH SCH ×2 (07:40→21:40)
[2019-01-02] MEDS: BUDESONIDE 0.5 MG/2 ML NEBU IH SCH ×2 (07:40→21:41)
[2019-01-02] MEDS: FUROSEMIDE 40 MG TAB PO SCH (09:17)
[2019-01-02] MEDS: guaiFENesin ER 600 MG TAB PO SCH ×2 (09:17→22:43)
[2019-01-02] MEDS: ENOXAPARIN 40 MG/0.4 ML INJ SUB-Q SCH (09:17)
[2019-01-02] MEDS: SENNOSIDES/DOCUSATE SODIUM 8.6/50 MG TAB PO SCH ×2 (09:17→22:43)
[2019-01-02] MEDS: amLODIPine 10 MG TAB PO SCH (09:18)
[2019-01-02] MEDS: FAMOTIDINE 20 MG TAB PO SCH ×2 (09:18→22:43)
[2019-01-02] MEDS: FOLIC ACID 1 MG TAB PO SCH (09:18)
[2019-01-02] MEDS: DULoxetine 30 MG CAP PO SCH (09:18)
[2019-01-02] MEDS: INSULIN GLARGINE 100 UNITS/ML SUB-Q SCH ×2 (09:19→22:44)
[2019-01-02] MEDS: AZITHROMYCIN 500 MG in SODIUM CHLORIDE 0.9% 250ML 250 ML IV SCH (09:23)
[2019-01-02] MEDS ORDERED: AZITHROMYCIN 250 MG TAB PO SCH (10:00)
--- NOTE | 2019-01-02 15:32 | Progress Note ---
Assessment and Plan Assessment and plan: Acute severe COPD exacerbation -Probably secondary to acute bronchitis -improving -Continue IV steroids, antibiotic, mucinex and duonebs Acute on chronic respiratory failure with hypoxia -Continue oxygen supplementation as needed and duonebs -Continue BiPAP at night Acute on chronic anemia -Status post blood transfusion with 2U of PRBCS -H/H stable, will monitor -GI consulted: out-pt f/u recommended DM2 with hyperglycemia -due to steroid use -insulin regimen adjusted -will monitor blood glucose SIRS due to non-infectious cause with organ failure -will monitor Hypothyroidism -stable -cont home synthroid Metabolic acidosis -resolved HTN -controlled -cont home amlodipine and lasix HLD -cont statin KASANDRA -Continue BiPAP at night Depression -cont cymbalta Obesity with BMI of 33.7 -lifestyle modification recommended Deconditioning -PT consulted DVT ppx: Lovenox Disposition: D/c per clinical course History Interval history: Review of systems Constitutional: No fevers, no malaise, no joint pains CVS: No chest pain, no orthopnea, no pedal edema GI: No abdominal pain, no diarrhea, no vomiting, no constipation Respiratory: , Continues to complain of shortness of breath and dyspnea on exertion, also having dry cough, she desat when she gets up to go to the Hospitalist Physical - Physical exam Narrative exam: General.: Mild distress HEENT: Moist mucous membranes, extraocular muscles intact, no lymphadenopathy Neck: supple Cardiac: S1-S2 heard Lungs: Diminished air entry Abdomen: soft , nontender, nondistended, bowel sounds positive Extremities: no edema clubbing or cyanosis Skin: no rash or lesions Neurologic: no gross focal deficits Psych: calm, and cooperative - Constitutional Vitals: Temp Pulse Resp BP Pulse Ox 97.3 F L 93 H 20 149/74 93 01/02/19 13:09 01/02/19 14:20 01/02/19 14:20 01/02/19 13:09 01/02/19 13:09 General appearance: Present: mild distress, obese Results - Labs CBC & Chem 7: 01/04/19 05:20 01/04/19 05:20 Labs: Laboratory Last Values WBC 8.7 K/mm3 (4.5-11.0) 12/30/18 04:46 RBC 3.36 M/mm3 (3.65-5.03) L 12/30/18 04:46 Hgb 8.8 gm/dl (10.1-14.3) L 01/01/19 05:09 Hct 28.3 % (30.3-42.9) L 01/01/19 05:09 MCV 84 fl (79-97) 12/30/18 04:46 MCH 25 pg (28-32) L 12/30/18 04:46 MCHC 30 % (30-34) 12/30/18 04:46 RDW 19.5 % (13.2-15.2) H 12/30/18 04:46 Plt Count 483 K/mm3 (140-440) H 12/30/18 04:46 Lymph % (Auto) Continuous Washer Operator 12/29/18 08:34 [place] % (Auto) Continuous Washer Operator 12/29/18 08:34 Eos % (Auto) Continuous Washer Operator 12/29/18 08:34 Baso % (Auto) Continuous Washer Operator 12/29/18 08:34 Lymph # Continuous Washer Operator 12/29/18 08:34 [place] # Continuous Washer Operator 12/29/18 08:34 Eos # Continuous Washer Operator 12/29/18 08:34 Baso # Continuous Washer Operator 12/29/18 08:34 Add Manual Diff Complete 12/29/18 08:34 Total Counted 100 12/29/18 08:34 Seg Neutrophils % Continuous Washer Operator 12/29/18 08:34 Seg Neuts % (Manual) 95.0 % (40.0-70.0) H 12/29/18 08:34 Band Neutrophils % 1.0 % 12/29/18 08:34 Lymphocytes % (Manual) 3.0 % (13.4-35.0) L 12/29/18 08:34 Reactive Lymphs % (Man) 0 % 12/29/18 08:34 Monocytes % (Manual) 1.0 % (0.0-7.3) 12/29/18 08:34 Eosinophils % (Manual) 0 % (0.0-4.3) 12/29/18 08:34 Basophils % (Manual) 0 % (0.0-1.8) 12/29/18 08:34 Metamyelocytes % 0 % 12/29/18 08:34 Myelocytes % 0 % 12/29/18 08:34 Promyelocytes % 0 % 12/29/18 08:34 Blast Cells % 0 % 12/29/18 08:34 Nucleated RBC % Not Reportable 12/29/18 08:34 Seg Neutrophils # Continuous Washer Operator 12/29/18 08:34 Seg Neutrophils # Man 8.5 K/mm3 (1.8-7.7) H 12/29/18 08:34 Band Neutrophils # 0.1 K/mm3 12/29/18 08:34 Lymphocytes # (Manual) 0.3 K/mm3 (1.2-5.4) L 12/29/18 08:34 Abs React Lymphs (Man) 0.0 K/mm3 12/29/18 08:34 Monocytes # (Manual) 0.1 K/mm3 (0.0-0.8) 12/29/18 08:34 Eosinophils # (Manual) 0.0 K/mm3 (0.0-0.4) 12/29/18 08:34 Basophils # (Manual) 0.0 K/mm3 (0.0-0.1) 12/29/18 08:34 Metamyelocytes # 0.0 K/mm3 12/29/18 08:34 Myelocytes # 0.0 K/mm3 12/29/18 08:34 Promyelocytes # 0.0 K/mm3 12/29/18 08:34 Blast Cells # 0.0 K/mm3 12/29/18 08:34 WBC Morphology Not Reportable 12/29/18 08:34 Hypersegmented Neuts Not Reportable 12/29/18 08:34 Hyposegmented Neuts Not Reportable 12/29/18 08:34 Hypogranular Neuts Not Reportable 12/29/18 08:34 Smudge Cells Not Reportable 12/29/18 08:34 Toxic Granulation Not Reportable 12/29/18 08:34 Toxic Vacuolation Not Reportable 12/29/18 08:34 Dohle Bodies Not Reportable 12/29/18 08:34 Pelger-Huet Anomaly Not Reportable 12/29/18 08:34 Sanjeev Rods Not Reportable 12/29/18 08:34 Platelet Estimate Consistent w auto 12/29/18 08:34 Clumped Platelets Not Reportable 12/29/18 08:34 Plt Clumps, EDTA Not Reportable 12/29/18 08:34 Large Platelets Few 12/29/18 08:34 Giant Platelets Rare 12/29/18 08:34 Platelet Satelliting Not Reportable 12/29/18 08:34 Plt Morphology Comment Not Reportable 12/29/18 08:34 RBC Morphology Not Reportable 12/29/18 08:34 Dimorphic RBCs Not Reportable 12/29/18 08:34 Polychromasia Not Reportable 12/29/18 08:34 Hypochromasia 1+ 12/29/18 08:34 Poikilocytosis Not Reportable 12/29/18 08:34 Anisocytosis 1+ 12/29/18 08:34 Microcytosis Not Reportable 12/29/18 08:34 Macrocytosis Few 12/29/18 08:34 Spherocytes Not Reportable 12/29/18 08:34 Pappenheimer Bodies Not Reportable 12/29/18 08:34 Sickle Cells Not Reportable 12/29/18 08:34 Target Cells Not Reportable 12/29/18 08:34 Tear Drop Cells Rare 12/29/18 08:34 Ovalocytes Rare 12/29/18 08:34 Helmet Cells Not Reportable 12/29/18 08:34 [place] Bodies Not Reportable 12/29/18 08:34 [place] Rings Not Reportable 12/29/18 08:34 Jg Cells Not Reportable 12/29/18 08:34 Bite Cells Not Reportable 12/29/18 08:34 Crenated Cell Not Reportable 12/29/18 08:34 Elliptocytes Rare 12/29/18 08:34 Acanthocytes (Spur) Not Reportable 12/29/18 08:34 Rouleaux Not Reportable 12/29/18 08:34 Hemoglobin C Crystals Not Reportable 12/29/18 08:34 Schistocytes Not Reportable 12/29/18 08:34 Malaria parasites Not Reportable 12/29/18 08:34 Farhad Bodies Not Reportable 12/29/18 08:34 Hem Pathologist Commnt No 12/29/18 08:34 PT 13.1 Sec. (12.2-14.9) 12/28/18 15:10 INR 1.00 (0.87-1.13) 12/28/18 15:10 APTT 29.2 Sec. (24.2-36.6) 12/28/18 15:10 D-Dimer 536.53 ng/mlDDU (0-234) H 12/28/18 15:49 POC ABG pH 7.443 (7.35-7.45) 12/28/18 15:46 POC ABG pCO2 38.2 (35-45) 12/28/18 15:46 POC ABG pO2 69 (80-105) L 12/28/18 15:46 POC ABG HCO3 26.1 (22-26 mml/L) 12/28/18 15:46 POC ABG Total CO2 27 (23-27mmol/L) 12/28/18 15:46 POC ABG O2 Sat 94 12/28/18 15:46 POC ABG Base Excess 2 ((-2) - (+3)mmol/L) 12/28/18 15:46 FiO2 40 % 12/28/18 15:46 Sodium 138 mmol/L (137-145) 12/29/18 08:34 Potassium 3.8 mmol/L (3.6-5.0) 12/29/18 08:34 Chloride 99.1 mmol/L (98-107) 12/29/18 08:34 Carbon Dioxide 24 mmol/L (22-30) 12/29/18 08:34 Anion Gap 19 mmol/L 12/29/18 08:34 BUN 11 mg/dL (7-17) 12/29/18 08:34 Creatinine 0.7 mg/dL (0.7-1.2) 12/29/18 08:34 Estimated GFR > 60 ml/min 12/29/18 08:34 BUN/Creatinine Ratio 16 % 12/29/18 08:34 Glucose 187 mg/dL (65-100) H 12/29/18 08:34 POC Glucose 335 (70-105) H 01/02/19 11:26 Calcium 9.5 mg/dL (8.4-10.2) 12/29/18 08:34 Magnesium 2.10 mg/dL (1.7-2.3) 12/29/18 08:34 Total Bilirubin 0.60 mg/dL (0.1-1.2) 12/28/18 15:10 AST 22 units/L (5-40) 12/28/18 15:10 ALT 51 units/L (7-56) 12/28/18 15:10 Alkaline Phosphatase 113 units/L (35-129) 12/28/18 15:10 Troponin T < 0.010 ng/mL (0.00-0.029) 12/28/18 15:10 NT-Pro-B Natriuret Pep 304.8 pg/mL (0-900) 12/28/18 15:10 Total Protein 6.9 g/dL (6.3-8.2) 12/28/18 15:10 Albumin 3.8 g/dL (3.9-5) L 12/28/18 15:10 Albumin/Globulin Ratio 1.2 % 12/28/18 15:10 TSH 5.340 mlU/mL (0.270-4.200) H 12/28/18 15:10 Free T4 1.19 ng/dL (0.76-1.46) 12/30/18 04:46 Blood Type O POSITIVE 12/28/18 15:41 Antibody Screen Negative 12/28/18 15:41 Crossmatch See Detail 12/28/18 15:41 Active Medications - Current Medications Current Medications: Generic Name Dose Route Start Last Admin Trade Name Freq PRN Reason Stop Dose Admin Acetaminophen 650 mg 12/28/18 17:29 Tylenol PO Q4H PRN Pain MILD(1-3)/Fever >100.5/[place] Albuterol 2.5 mg 12/30/18 12:01 Proventil IH Q2HRT PRN Shortness Of Breath Albuterol/Ipratropium 1 ampul 12/31/18 08:00 01/02/19 14:20 Duoneb *Not For Prn Use* IH 1 ampul TIDRT [facility] Administration Amlodipine Besylate 10 mg 12/30/18 14:00 01/02/19 09:18 Amlodipine PO 10 mg DAILY [facility] Administration Arformoterol Tartrate 15 mcg 12/30/18 20:00 01/02/19 07:40 Brovana Nebu IH 15 mcg Q12HRT [facility] Administration Atorvastatin Calcium 40 mg 12/30/18 22:00 01/01/19 22:26 Lipitor PO 40 mg HS [facility] Administration Budesonide 0.5 mg 12/30/18 20:00 01/02/19 07:40 Pulmicort IH 0.5 mg Q12HRT [facility] Administration Dextrose 50 ml 12/28/18 17:31 D50w (25gm) Syringe IV Q30MIN PRN Hypoglycemia Protocol Duloxetine HCl 60 mg 12/30/18 14:00 01/02/19 09:18 Cymbalta PO 60 mg QDAY [facility] Administration Enoxaparin Sodium 40 mg 12/30/18 10:00 01/02/19 09:17 Enoxaparin SUB-Q 40 mg QDAY@1000 [facility] Administration Famotidine 20 mg 12/28/18 22:00 01/02/19 09:18 Pepcid PO 20 mg BID [facility] Administration Folic Acid 1 mg 12/30/18 17:00 01/02/19 09:18 Folvite PO 1 mg DAILY [facility] Administration Furosemide 40 mg 12/30/18 13:00 01/02/19 09:17 Lasix PO 40 mg QDAY [facility] Administration Guaifenesin 600 mg 12/31/18 12:00 01/02/19 09:17 Mucinex Er PO 600 mg BID [facility] Administration Insulin Glargine 20 units 12/31/18 22:00 01/02/19 09:19 Lantus SUB-Q 20 units BID [facility] Administration Insulin Human Lispro 5 unit 12/31/18 11:30 01/02/19 12:21 Humalog SUB-Q 5 unit TIDAC [facility] Administration Insulin Human Lispro 0 unit 01/02/19 16:30 Humalog SUB-Q AC [facility] Protocol Insulin Human Lispro 0 unit 01/02/19 22:00 Humalog SUB-Q QHS [facility] Protocol Levothyroxine Sodium 112 mcg 12/31/18 06:00 01/02/19 05:25 Synthroid PO 112 mcg DAILY@0600 [facility] Administration Levothyroxine Sodium 25 mcg 12/31/18 06:00 01/02/19 05:25 Synthroid PO 25 mcg DAILY@0600 [facility] Administration Methylprednisolone Sodium Succinate 60 mg 12/31/18 12:00 01/02/19 12:26 Solu-Medrol IV 60 mg Q6H [facility] Administration Ondansetron HCl 4 mg 12/28/18 17:29 Zofran IV Q8H PRN Nausea And Vomiting Pseudoephedrine/Acetam/Chlorphenir 5 ml 12/31/18 11:12 01/02/19 05:24 Robitussin Ac PO 5 ml Q4H PRN Administration Cough Senna/Docusate Sodium 1 tab 12/31/18 12:00 01/02/19 09:17 Senokot S PO 1 tab BID [facility] Administration Sodium Chloride 10 ml 12/28/18 22:00 01/02/19 09:19 Sodium Chloride Flush Syringe 10 Ml IV 10 ml BID [facility] Administration Sodium Chloride 10 ml 12/28/18 17:29 Sodium Chloride Flush Syringe 10 Ml IV PRN PRN LINE FLUSH
[2019-01-03] MEDS: methylPREDNISolone Sod Succinate 125 MG/2 ML INJ IV SCH ×4 (00:15→18:58)
[2019-01-03] MEDS: LEVOTHYROXINE 25 MCG TAB PO SCH (05:36)
[2019-01-03] MEDS: LEVOTHYROXINE 112 MCG TAB PO SCH (05:36)
[2019-01-03] MEDS: INSULIN LISPRO 100 UNIT/ML SUB-Q SCH ×7 (08:07→22:02)
[2019-01-03] MEDS: amLODIPine 10 MG TAB PO SCH (09:27)
[2019-01-03] MEDS: ENOXAPARIN 40 MG/0.4 ML INJ SUB-Q SCH (09:27)
[2019-01-03] MEDS: FUROSEMIDE 40 MG TAB PO SCH (09:28)
[2019-01-03] MEDS: FAMOTIDINE 20 MG TAB PO SCH ×2 (09:28→22:02)
[2019-01-03] MEDS: guaiFENesin ER 600 MG TAB PO SCH ×2 (09:28→22:02)
[2019-01-03] MEDS: SENNOSIDES/DOCUSATE SODIUM 8.6/50 MG TAB PO SCH ×2 (09:28→22:02)
[2019-01-03] MEDS: INSULIN GLARGINE 100 UNITS/ML SUB-Q SCH ×3 (09:28→22:01)
[2019-01-03] MEDS: FOLIC ACID 1 MG TAB PO SCH (09:28)
[2019-01-03] MEDS: DULoxetine 30 MG CAP PO SCH (09:28)
[2019-01-03] MEDS: IPRATROPIUM/ALBUTEROL SULFATE 3 ML AMPUL.NEB IH SCH ×3 (10:10→21:13)
[2019-01-03] MEDS: ARFORMOTEROL 15 MCG/2 ML NEBU IH SCH ×2 (10:11→21:13)
[2019-01-03] MEDS: BUDESONIDE 0.5 MG/2 ML NEBU IH SCH ×2 (10:11→21:13)
--- NOTE | 2019-01-03 12:06 | Progress Note ---
Assessment and Plan Assessment and plan: 68-year-old woman who presented to the hospital with shortness of breath wheezing and hypoxia. She has been checking her oxygen with a pulse ox at home and noted that she was desaturating especially with the mildest activity such as getting dressed or eating. Acute COPD exacerbation, patient has chronic severe COPD She follows with Dr. Anaya. She takes Symbicort Spiriva and pro-air at home. steroids, nebs, pulmonology consults, aggressive chest PT Increase steroid dose today Acute on chronic respiratory failure with hypoxia -Continue oxygen supplementation as needed and duonebs -Continue BiPAP at night Acute on chronic normocytic anemia -Status post blood transfusion with 2U of PRBCS -GI consulted: out-pt f/u recommended -Check iron studies, folic acid and B12 levels DM2 with persistent hyperglycemia Steroid use is exacerbating hyperglycemia. Optimize insulins SIRS due to non-infectious cause with organ failure -will monitor Hypothyroidism -stable -cont home synthroid Metabolic acidosis -resolved HTN -controlled -cont home amlodipine and lasix HLD -cont statin KASANDRA -Continue BiPAP at night Depression -cont cymbalta Obesity with BMI of 33.7 -lifestyle modification recommended Deconditioning -PT consulted DVT ppx: Lovenox Home when improved History Interval history: Review of systems Constitutional: No fevers, no malaise, no joint pains CVS: No chest pain, no orthopnea, no pedal edema GI: No abdominal pain, no diarrhea, no vomiting, no constipation Respiratory: , Continues to complain of shortness of breath and dyspnea on exertion, also having dry cough Hospitalist Physical - Physical exam Narrative exam: General.: Mild distress HEENT: Moist mucous membranes, extraocular muscles intact, no lymphadenopathy Neck: supple Cardiac: S1-S2 heard Lungs: Diminished air entry Abdomen: soft , nontender, nondistended, bowel sounds positive Extremities: no edema clubbing or cyanosis Skin: no rash or lesions Neurologic: no gross focal deficits Psych: calm, and cooperative - Constitutional Vitals: Temp Pulse Resp BP Pulse Ox 98.1 F 96 H 14 140/76 94 01/03/19 07:34 01/03/19 10:14 01/03/19 10:14 01/03/19 09:27 01/03/19 10:23 General appearance: Present: mild distress, obese Results - Labs CBC & Chem 7: 01/01/19 05:09 12/29/18 08:34 Labs: Laboratory Last Values WBC 8.7 K/mm3 (4.5-11.0) 12/30/18 04:46 RBC 3.36 M/mm3 (3.65-5.03) L 12/30/18 04:46 Hgb 8.8 gm/dl (10.1-14.3) L 01/01/19 05:09 Hct 28.3 % (30.3-42.9) L 01/01/19 05:09 MCV 84 fl (79-97) 12/30/18 04:46 MCH 25 pg (28-32) L 12/30/18 04:46 MCHC 30 % (30-34) 12/30/18 04:46 RDW 19.5 % (13.2-15.2) H 12/30/18 04:46 Plt Count 483 K/mm3 (140-440) H 12/30/18 04:46 Lymph % (Auto) [place] 12/29/18 08:34 [place] % (Auto) [place] 12/29/18 08:34 Eos % (Auto) [place] 12/29/18 08:34 Baso % (Auto) [place] 12/29/18 08:34 Lymph # [place] 12/29/18 08:34 [place] # [place] 12/29/18 08:34 Eos # [place] 12/29/18 08:34 Baso # [place] 12/29/18 08:34 Add Manual Diff Complete 12/29/18 08:34 Total Counted 100 12/29/18 08:34 Seg Neutrophils % [place] 12/29/18 08:34 Seg Neuts % (Manual) 95.0 % (40.0-70.0) H 12/29/18 08:34 Band Neutrophils % 1.0 % 12/29/18 08:34 Lymphocytes % (Manual) 3.0 % (13.4-35.0) L 12/29/18 08:34 Reactive Lymphs % (Man) 0 % 12/29/18 08:34 Monocytes % (Manual) 1.0 % (0.0-7.3) 12/29/18 08:34 Eosinophils % (Manual) 0 % (0.0-4.3) 12/29/18 08:34 Basophils % (Manual) 0 % (0.0-1.8) 12/29/18 08:34 Metamyelocytes % 0 % 12/29/18 08:34 Myelocytes % 0 % 12/29/18 08:34 Promyelocytes % 0 % 12/29/18 08:34 Blast Cells % 0 % 12/29/18 08:34 Nucleated RBC % Not Reportable 12/29/18 08:34 Seg Neutrophils # [place] 12/29/18 08:34 Seg Neutrophils # Man 8.5 K/mm3 (1.8-7.7) H 12/29/18 08:34 Band Neutrophils # 0.1 K/mm3 12/29/18 08:34 Lymphocytes # (Manual) 0.3 K/mm3 (1.2-5.4) L 12/29/18 08:34 Abs React Lymphs (Man) 0.0 K/mm3 12/29/18 08:34 Monocytes # (Manual) 0.1 K/mm3 (0.0-0.8) 12/29/18 08:34 Eosinophils # (Manual) 0.0 K/mm3 (0.0-0.4) 12/29/18 08:34 Basophils # (Manual) 0.0 K/mm3 (0.0-0.1) 12/29/18 08:34 Metamyelocytes # 0.0 K/mm3 12/29/18 08:34 Myelocytes # 0.0 K/mm3 12/29/18 08:34 Promyelocytes # 0.0 K/mm3 12/29/18 08:34 Blast Cells # 0.0 K/mm3 12/29/18 08:34 WBC Morphology Not Reportable 12/29/18 08:34 Hypersegmented Neuts Not Reportable 12/29/18 08:34 Hyposegmented Neuts Not Reportable 12/29/18 08:34 Hypogranular Neuts Not Reportable 12/29/18 08:34 Smudge Cells Not Reportable 12/29/18 08:34 Toxic Granulation Not Reportable 12/29/18 08:34 Toxic Vacuolation Not Reportable 12/29/18 08:34 Dohle Bodies Not Reportable 12/29/18 08:34 Pelger-Huet Anomaly Not Reportable 12/29/18 08:34 Sanjeev Rods Not Reportable 12/29/18 08:34 Platelet Estimate Consistent w auto 12/29/18 08:34 Clumped Platelets Not Reportable 12/29/18 08:34 Plt Clumps, EDTA Not Reportable 12/29/18 08:34 Large Platelets Few 12/29/18 08:34 Giant Platelets Rare 12/29/18 08:34 Platelet Satelliting Not Reportable 12/29/18 08:34 Plt Morphology Comment Not Reportable 12/29/18 08:34 RBC Morphology Not Reportable 12/29/18 08:34 Dimorphic RBCs Not Reportable 12/29/18 08:34 Polychromasia Not Reportable 12/29/18 08:34 Hypochromasia 1+ 12/29/18 08:34 Poikilocytosis Not Reportable 12/29/18 08:34 Anisocytosis 1+ 12/29/18 08:34 Microcytosis Not Reportable 12/29/18 08:34 Macrocytosis Few 12/29/18 08:34 Spherocytes Not Reportable 12/29/18 08:34 Pappenheimer Bodies Not Reportable 12/29/18 08:34 Sickle Cells Not Reportable 12/29/18 08:34 Target Cells Not Reportable 12/29/18 08:34 Tear Drop Cells Rare 12/29/18 08:34 Ovalocytes Rare 12/29/18 08:34 Helmet Cells Not Reportable 12/29/18 08:34 [place] Bodies Not Reportable 12/29/18 08:34 [place] Rings Not Reportable 12/29/18 08:34 [place] Cells Not Reportable 12/29/18 08:34 Bite Cells Not Reportable 12/29/18 08:34 Crenated Cell Not Reportable 12/29/18 08:34 Elliptocytes Rare 12/29/18 08:34 Acanthocytes (Spur) Not Reportable 12/29/18 08:34 Rouleaux Not Reportable 12/29/18 08:34 Hemoglobin C Crystals Not Reportable 12/29/18 08:34 Schistocytes Not Reportable 12/29/18 08:34 Malaria parasites Not Reportable 12/29/18 08:34 Farhad Bodies Not Reportable 12/29/18 08:34 Hem Pathologist Commnt No 12/29/18 08:34 PT 13.1 Sec. (12.2-14.9) 12/28/18 15:10 INR 1.00 (0.87-1.13) 12/28/18 15:10 APTT 29.2 Sec. (24.2-36.6) 12/28/18 15:10 D-Dimer 536.53 ng/mlDDU (0-234) H 12/28/18 15:49 POC ABG pH 7.443 (7.35-7.45) 12/28/18 15:46 POC ABG pCO2 38.2 (35-45) 12/28/18 15:46 POC ABG pO2 69 (80-105) L 12/28/18 15:46 POC ABG HCO3 26.1 (22-26 mml/L) 12/28/18 15:46 POC ABG Total CO2 27 (23-27mmol/L) 12/28/18 15:46 POC ABG O2 Sat 94 12/28/18 15:46 POC ABG Base Excess 2 ((-2) - (+3)mmol/L) 12/28/18 15:46 FiO2 40 % 12/28/18 15:46 Sodium 138 mmol/L (137-145) 12/29/18 08:34 Potassium 3.8 mmol/L (3.6-5.0) 12/29/18 08:34 Chloride 99.1 mmol/L (98-107) 12/29/18 08:34 Carbon Dioxide 24 mmol/L (22-30) 12/29/18 08:34 Anion Gap 19 mmol/L 12/29/18 08:34 BUN 11 mg/dL (7-17) 12/29/18 08:34 Creatinine 0.7 mg/dL (0.7-1.2) 12/29/18 08:34 Estimated GFR > 60 ml/min 12/29/18 08:34 BUN/Creatinine Ratio 16 % 12/29/18 08:34 Glucose 187 mg/dL (65-100) H 12/29/18 08:34 POC Glucose 301 (70-105) H 01/03/19 11:28 Calcium 9.5 mg/dL (8.4-10.2) 12/29/18 08:34 Magnesium 2.10 mg/dL (1.7-2.3) 12/29/18 08:34 Total Bilirubin 0.60 mg/dL (0.1-1.2) 12/28/18 15:10 AST 22 units/L (5-40) 12/28/18 15:10 ALT 51 units/L (7-56) 12/28/18 15:10 Alkaline Phosphatase 113 units/L (35-129) 12/28/18 15:10 Troponin T < 0.010 ng/mL (0.00-0.029) 12/28/18 15:10 NT-Pro-B Natriuret Pep 304.8 pg/mL (0-900) 12/28/18 15:10 Total Protein 6.9 g/dL (6.3-8.2) 12/28/18 15:10 Albumin 3.8 g/dL (3.9-5) L 12/28/18 15:10 Albumin/Globulin Ratio 1.2 % 12/28/18 15:10 TSH 5.340 mlU/mL (0.270-4.200) H 12/28/18 15:10 Free T4 1.19 ng/dL (0.76-1.46) 12/30/18 04:46 Blood Type O POSITIVE 12/28/18 15:41 Antibody Screen Negative 12/28/18 15:41 Crossmatch See Detail 12/28/18 15:41 Active Medications - Current Medications Current Medications: Generic Name Dose Route Start Last Admin Trade Name Freq PRN Reason Stop Dose Admin Acetaminophen 650 mg 12/28/18 17:29 Tylenol PO Q4H PRN Pain MILD(1-3)/Fever >100.5/[place] Albuterol 2.5 mg 12/30/18 12:01 Proventil IH Q2HRT PRN Shortness Of Breath Albuterol/Ipratropium 1 ampul 12/31/18 08:00 01/03/19 10:10 Duoneb *Not For Prn Use* IH 1 ampul TIDRT [facility] Administration Amlodipine Besylate 10 mg 12/30/18 14:00 01/03/19 09:27 Amlodipine PO 10 mg DAILY [facility] Administration Arformoterol Tartrate 15 mcg 12/30/18 20:00 01/03/19 10:11 Edd [place]ward IH 15 mcg Q12HRT [facility] Administration Atorvastatin Calcium 40 mg 12/30/18 22:00 01/02/19 22:43 Lipitor PO 40 mg HS [facility] Administration Budesonide 0.5 mg 12/30/18 20:00 01/03/19 10:11 Pulmicort IH 0.5 mg Q12HRT [facility] Administration Dextrose 50 ml 12/28/18 17:31 D50w (25gm) Syringe IV Q30MIN PRN Hypoglycemia Protocol Duloxetine HCl 60 mg 12/30/18 14:00 01/03/19 09:28 Cymbalta PO 60 mg QDAY [facility] Administration Enoxaparin Sodium 40 mg 12/30/18 10:00 01/03/19 09:27 Enoxaparin SUB-Q 40 mg QDAY@1000 [facility] Administration Famotidine 20 mg 12/28/18 22:00 01/03/19 09:28 Pepcid PO 20 mg BID [facility] Administration Folic Acid 1 mg 12/30/18 17:00 01/03/19 09:28 Folvite PO 1 mg DAILY [facility] Administration Furosemide 40 mg 12/30/18 13:00 01/03/19 09:28 Lasix PO 40 mg QDAY [facility] Administration Guaifenesin 600 mg 12/31/18 12:00 01/03/19 09:28 Mucinex Er PO 600 mg BID [facility] Administration Insulin Glargine 30 units 01/03/19 12:00 Lantus SUB-Q BID [facility] Insulin Human Lispro 5 unit 12/31/18 11:30 01/03/19 08:07 Humalog SUB-Q 5 unit TIDAC [facility] Administration Insulin Human Lispro 0 unit 01/02/19 16:30 01/03/19 08:07 Humalog SUB-Q 6 unit AC [facility] Administration Protocol Insulin Human Lispro 0 unit 01/02/19 22:00 01/02/19 22:44 Humalog SUB-Q 8 unit QHS [facility] Administration Protocol Levothyroxine Sodium 112 mcg 12/31/18 06:00 01/03/19 05:36 Synthroid PO 112 mcg DAILY@0600 [facility] Administration Levothyroxine Sodium 25 mcg 12/31/18 06:00 01/03/19 05:36 Synthroid PO 25 mcg DAILY@0600 [facility] Administration Methylprednisolone Sodium Succinate 125 mg 01/03/19 12:00 01/03/19 11:00 Solu-Medrol IV 125 mg Q6HR [facility] Administration Ondansetron HCl 4 mg 12/28/18 17:29 Zofran IV Q8H PRN Nausea And Vomiting Pseudoephedrine/Acetam/Chlorphenir 5 ml 12/31/18 11:12 01/02/19 16:25 Robitussin Ac PO 5 ml Q4H PRN Administration Cough Senna/Docusate Sodium 1 tab 12/31/18 12:00 01/03/19 09:28 Senokot S PO 1 tab BID [facility] Administration Sodium Chloride 10 ml 12/28/18 22:00 01/03/19 09:29 Sodium Chloride Flush Syringe 10 Ml IV 10 ml BID [facility] Administration Sodium Chloride 10 ml 12/28/18 17:29 Sodium Chloride Flush Syringe 10 Ml IV PRN PRN LINE FLUSH
[2019-01-03] MEDS: guaiFENesin/CODEINE 100-10MG ORAL LIQD 5 ML PO PRN (15:07)
[2019-01-03] MEDS: metFORMIN XR 500MG TAB PO SCH (20:12)
[2019-01-04] MEDS: methylPREDNISolone Sod Succinate 125 MG/2 ML INJ IV SCH ×4 (00:31→18:38)
[2019-01-04] MEDS: LEVOTHYROXINE 112 MCG TAB PO SCH (05:59)
[2019-01-04] MEDS: LEVOTHYROXINE 25 MCG TAB PO SCH (05:59)
[2019-01-04 06:36] LABS: Hematocrit 34.5 % (30.3-42.9); Hemoglobin 10.7 gm/dl (10.1-14.3); Mean Corpuscular HGB Conc 31 % (30-34); Mean Corpuscular Volume 88 fl (79-97); Platelet Count 558 K/mm3 (140-440); Red Blood Count 3.94 M/mm3 (3.65-5.03)
[2019-01-04 06:38] LABS: Red Cell Distribution Width 24.2 % (13.2-15.2)
[2019-01-04 07:12] LABS: % Iron Saturation 15.43 %; Alanine Aminotransferase 136 units/L (7-56); Albumin 3.9 g/dL (3.9-5); BUN/Creatinine Ratio 38; Blood Urea Nitrogen 23 mg/dL (7-17); Calcium 10.1 mg/dL (8.4-10.2); Hemolysis Index 1; Iron 48 ug/dL (37-170); Total Iron Binding Capacity 311 mcg/dL (250-450)
[2019-01-04 07:53] LABS: Band Neutrophils # (Manual) 0.1 K/mm3; Total Cells Counted 100
[2019-01-04 07:54] LABS: Basophils % (Manual) 0 % (0.0-1.8); Eosinophils % (Manual) 0 % (0.0-4.3); Macrocytosis Few; Stomatocytes Few
[2019-01-04 07:55] LABS: Ovalocytes Few; Platelet Estimate Consistent w Auto
[2019-01-04] MEDS: BUDESONIDE 0.5 MG/2 ML NEBU IH SCH ×2 (08:10→20:23)
[2019-01-04] MEDS: ARFORMOTEROL 15 MCG/2 ML NEBU IH SCH ×2 (08:10→20:22)
[2019-01-04] MEDS: IPRATROPIUM/ALBUTEROL SULFATE 3 ML AMPUL.NEB IH SCH ×3 (08:11→20:23)
--- NOTE | 2019-01-04 08:40 | Progress Note ---
Assessment and Plan - Patient Problems (1) Volume overload Current Visit: Yes Status: Acute (2) Pleural effusion Current Visit: Yes Status: Acute (3) Acute and chronic respiratory failure Current Visit: Yes Status: Acute Qualifiers: Respiratory failure complication: hypoxia Qualified Code(s): J96.21 - Acute and chronic respiratory failure with hypoxia (4) Anemia Current Visit: Yes Status: Acute (5) Anemia requiring transfusions Current Visit: Yes Status: Acute (6) COPD (chronic obstructive pulmonary disease) Current Visit: Yes Status: Acute Qualifiers: COPD type: unspecified COPD Qualified Code(s): J44.9 - Chronic obstructive pulmonary disease, unspecified (7) Symptomatic anemia Current Visit: Yes Status: Acute Subjective Interval history: consult dictated yesterday pt still sob Objective Vital Signs - 12hr 01/03/19 01/03/19 01/03/19 21:45 22:00 22:48 Temperature Pulse Rate 82 82 Pulse Rate [ 88 Anterior Bilateral Throughout] Respiratory 18 Rate Respiratory 18 Rate [Anterior Bilateral Throughout] Blood Pressure O2 Sat by Pulse 96 94 Oximetry 01/04/19 01/04/19 01/04/19 02:51 07:14 07:15 Temperature 98.6 F 98.0 F Pulse Rate 84 78 77 Pulse Rate [ Anterior Bilateral Throughout] Respiratory 20 20 Rate Respiratory Rate [Anterior Bilateral Throughout] Blood Pressure 144/66 144/75 O2 Sat by Pulse 94 78 L 96 Oximetry 01/04/19 01/04/19 01/04/19 08:10 08:14 08:27 Temperature Pulse Rate Pulse Rate [ 92 H Anterior Bilateral Throughout] Respiratory Rate Respiratory 20 Rate [Anterior Bilateral Throughout] Blood Pressure O2 Sat by Pulse 95 96 Oximetry Constitutional: no acute distress, alert Eyes: non-icteric ENT: oropharynx moist Ascultation: Bilateral: diminished breath sounds Cardiovascular: regular rate and rhythm Gastrointestinal: normoactive bowel sounds, soft, non-tender, non-distended Integumentary: normal Extremities: no cyanosis, edema Neurologic: normal mental status, non-focal exam Psychiatric: mood appropriate, affect normal CBC and BMP: 01/04/19 05:20 01/04/19 05:20 ABG, PT/INR, D-dimer: ABG POC ABG pH 7.443 (7.35-7.45) 12/28/18 15:46 POC ABG pCO2 38.2 (35-45) 12/28/18 15:46 POC ABG pO2 69 (80-105) L 12/28/18 15:46 POC ABG HCO3 26.1 (22-26 mml/L) 12/28/18 15:46 POC ABG Total CO2 27 (23-27mmol/L) 12/28/18 15:46 POC ABG O2 Sat 94 12/28/18 15:46 PT/INR, D-dimer PT 13.1 Sec. (12.2-14.9) 12/28/18 15:10 INR 1.00 (0.87-1.13) 12/28/18 15:10 D-Dimer 536.53 ng/mlDDU (0-234) H 12/28/18 15:49 Abnormal lab findings: Abnormal Labs 12/28/18 12/28/18 12/28/18 15:10 15:10 15:10 RBC 2.86 L Hgb 6.7 L Hct 23.3 L MCH 24 L MCHC 29 L RDW 20.6 H Plt Count 495 H Seg Neuts % (Manual) 82.0 H Lymphocytes % (Manual) 11.0 L Seg Neutrophils # Man 8.9 H Lymphocytes # (Manual) D-Dimer POC ABG pO2 Potassium 3.5 L Chloride 95.5 L Carbon Dioxide 21 L BUN Creatinine Glucose 209 H POC Glucose Ferritin ALT Total Protein Albumin 3.8 L Vitamin B12 TSH 5.340 H Crossmatch 12/28/18 12/28/18 12/28/18 15:41 15:46 15:49 RBC Hgb Hct MCH MCHC RDW Plt Count Seg Neuts % (Manual) Lymphocytes % (Manual) Seg Neutrophils # Man Lymphocytes # (Manual) D-Dimer 536.53 H POC ABG pO2 69 L Potassium Chloride Carbon Dioxide BUN Creatinine Glucose POC Glucose Ferritin ALT Total Protein Albumin Vitamin B12 TSH Crossmatch See Detail 12/28/18 12/28/18 12/29/18 20:16 21:44 05:55 RBC Hgb Hct MCH MCHC RDW Plt Count Seg Neuts % (Manual) Lymphocytes % (Manual) Seg Neutrophils # Man Lymphocytes # (Manual) D-Dimer POC ABG pO2 Potassium Chloride Carbon Dioxide BUN Creatinine Glucose POC Glucose 155 H 144 H 239 H Ferritin ALT Total Protein Albumin Vitamin B12 TSH Crossmatch 11/12/29/18 12/29/18 08:34 08:34 11:56 RBC 3.55 L Hgb 9.0 L Hct 29.3 L D MCH 26 L MCHC RDW 19.6 H Plt Count 469 H Seg Neuts % (Manual) 95.0 H Lymphocytes % (Manual) 3.0 L Seg Neutrophils # Man 8.5 H Lymphocytes # (Manual) 0.3 L D-Dimer POC ABG pO2 Potassium Chloride Carbon Dioxide BUN Creatinine Glucose 187 H POC Glucose 247 H Ferritin ALT Total Protein Albumin Vitamin B12 TSH Crossmatch 12/29/18 12/29/18 12/30/18 16:32 21:47 04:46 RBC 3.36 L Hgb 8.5 L Hct 28.2 L MCH 25 L MCHC RDW 19.5 H Plt Count 483 H Seg Neuts % (Manual) Lymphocytes % (Manual) Seg Neutrophils # Man Lymphocytes # (Manual) D-Dimer POC ABG pO2 Potassium Chloride Carbon Dioxide BUN Creatinine Glucose POC Glucose 311 H 280 H Ferritin ALT Total Protein Albumin Vitamin B12 TSH Crossmatch 12/30/18 12/30/18 12/30/18 06:17 13:19 16:48 RBC Hgb Hct MCH MCHC RDW Plt Count Seg Neuts % (Manual) Lymphocytes % (Manual) Seg Neutrophils # Man Lymphocytes # (Manual) D-Dimer POC ABG pO2 Potassium Chloride Carbon Dioxide BUN Creatinine Glucose POC Glucose 241 H 224 H 371 H Ferritin ALT Total Protein Albumin Vitamin B12 TSH Crossmatch 12/31/18 12/31/18 12/31/18 00:04 05:50 09:44 RBC Hgb Hct MCH MCHC RDW Plt Count Seg Neuts % (Manual) Lymphocytes % (Manual) Seg Neutrophils # Man Lymphocytes # (Manual) D-Dimer POC ABG pO2 Potassium Chloride Carbon Dioxide BUN Creatinine Glucose POC Glucose 428 H 332 H 405 H Ferritin ALT Total Protein Albumin Vitamin B12 TSH Crossmatch 12/31/18 12/31/18 12/31/18 11:32 17:15 23:55 RBC Hgb Hct MCH MCHC RDW Plt Count Seg Neuts % (Manual) Lymphocytes % (Manual) Seg Neutrophils # Man Lymphocytes # (Manual) D-Dimer POC ABG pO2 Potassium Chloride Carbon Dioxide BUN Creatinine Glucose POC Glucose 450 H 439 H 259 H Ferritin ALT Total Protein Albumin Vitamin B12 TSH Crossmatch 11/01/01/19 01/01/19 05:09 06:00 11:39 RBC Hgb 8.8 L Hct 28.3 L MCH MCHC RDW Plt Count Seg Neuts % (Manual) Lymphocytes % (Manual) Seg Neutrophils # Man Lymphocytes # (Manual) D-Dimer POC ABG pO2 Potassium Chloride Carbon Dioxide BUN Creatinine Glucose POC Glucose 243 H 253 H Ferritin ALT Total Protein Albumin Vitamin B12 TSH Crossmatch 01/01/19 01/02/19 01/02/19 18:04 00:04 05:49 RBC Hgb Hct MCH MCHC RDW Plt Count Seg Neuts % (Manual) Lymphocytes % (Manual) Seg Neutrophils # Man Lymphocytes # (Manual) D-Dimer POC ABG pO2 Potassium Chloride Carbon Dioxide BUN Creatinine Glucose POC Glucose 425 H 339 H 287 H Ferritin ALT Total Protein Albumin Vitamin B12 TSH Crossmatch 01/02/19 01/02/19 01/02/19 11:26 17:39 22:36 RBC Hgb Hct MCH MCHC RDW Plt Count Seg Neuts % (Manual) Lymphocytes % (Manual) Seg Neutrophils # Man Lymphocytes # (Manual) D-Dimer POC ABG pO2 Potassium Chloride Carbon Dioxide BUN Creatinine Glucose POC Glucose 335 H 306 H 329 H Ferritin ALT Total Protein Albumin Vitamin B12 TSH Crossmatch 01/03/19 01/03/19 01/03/19 07:44 11:28 16:25 RBC Hgb Hct MCH MCHC RDW Plt Count Seg Neuts % (Manual) Lymphocytes % (Manual) Seg Neutrophils # Man Lymphocytes # (Manual) D-Dimer POC ABG pO2 Potassium Chloride Carbon Dioxide BUN Creatinine Glucose POC Glucose 234 H 301 H 356 H Ferritin ALT Total Protein Albumin Vitamin B12 TSH Crossmatch 01/03/19 01/04/19 01/04/19 21:57 05:20 05:20 RBC Hgb Hct MCH 27 L MCHC RDW 24.2 H Plt Count 558 H Seg Neuts % (Manual) 97.0 H Lymphocytes % (Manual) 1.0 L Seg Neutrophils # Man Lymphocytes # (Manual) 0.1 L D-Dimer POC ABG pO2 Potassium 3.4 L Chloride 95.1 L Carbon Dioxide BUN 23 H Creatinine 0.6 L Glucose 264 H POC Glucose 311 H Ferritin ALT 136 H Total Protein 6.1 L Albumin Vitamin B12 TSH Crossmatch 01/04/19 01/04/19 01/04/19 05:20 05:20 05:20 RBC Hgb Hct MCH MCHC RDW Plt Count Seg Neuts % (Manual) Lymphocytes % (Manual) Seg Neutrophils # Man Lymphocytes # (Manual) D-Dimer POC ABG pO2 Potassium Chloride Carbon Dioxide BUN Creatinine Glucose POC Glucose Ferritin 482.5 H ALT Total Protein Albumin Vitamin B12 1572 H TSH 0.218 L Crossmatch 01/04/19 07:24 RBC Hgb Hct MCH MCHC RDW Plt Count Seg Neuts % (Manual) Lymphocytes % (Manual) Seg Neutrophils # Man Lymphocytes # (Manual) D-Dimer POC ABG pO2 Potassium Chloride Carbon Dioxide BUN Creatinine Glucose POC Glucose 237 H Ferritin ALT Total Protein Albumin Vitamin B12 TSH Crossmatch Chest x-ray: report reviewed, image reviewed CT scan - chest: report reviewed, image reviewed
[2019-01-04] MEDS: INSULIN LISPRO 100 UNIT/ML SUB-Q SCH ×7 (08:50→21:44)
[2019-01-04] MEDS: guaiFENesin ER 600 MG TAB PO SCH ×3 (08:52→21:44)
[2019-01-04] MEDS: ENOXAPARIN 40 MG/0.4 ML INJ SUB-Q SCH ×2 (08:52→10:00)
[2019-01-04] MEDS: DULoxetine 30 MG CAP PO SCH ×2 (08:52→10:00)
[2019-01-04] MEDS: INSULIN GLARGINE 100 UNITS/ML SUB-Q SCH ×3 (08:52→21:45)
[2019-01-04] MEDS: SENNOSIDES/DOCUSATE SODIUM 8.6/50 MG TAB PO SCH ×3 (08:53→21:43)
[2019-01-04] MEDS: FAMOTIDINE 20 MG TAB PO SCH ×3 (08:53→21:45)
[2019-01-04] MEDS: FOLIC ACID 1 MG TAB PO SCH ×2 (08:53→10:00)
[2019-01-04] MEDS: FUROSEMIDE 40 MG TAB PO SCH ×2 (08:53→10:00)
[2019-01-04] MEDS: metFORMIN XR 500MG TAB PO SCH (08:53)
[2019-01-04] MEDS: amLODIPine 10 MG TAB PO SCH ×2 (08:53→10:00)
--- NOTE | 2019-01-04 09:30 | Progress Note ---
Assessment and Plan Assessment and plan: 68-year-old woman who presented to the hospital with shortness of breath wheezing and hypoxia. She has been checking her oxygen with a pulse ox at home and noted that she was desaturating especially with the mildest activity such as getting dressed or eating. Acute COPD exacerbation, patient has chronic severe COPD She follows with Dr. Anaya. She takes Symbicort Spiriva and pro-air at home. steroids, nebs, pulmonology consults, aggressive chest PT Increase steroid dose today Pulmonary edema IV Lasix, follow-up echo Acute on chronic respiratory failure with hypoxia -Continue oxygen supplementation as needed and duonebs -Continue BiPAP at night Acute on chronic normocytic anemia -Status post blood transfusion with 2U of PRBCS -GI consulted: out-pt f/u recommended iron studies, folic acid and B12 levels all wnl DM2 with persistent hyperglycemia Steroid use is exacerbating hyperglycemia. Optimize insulins SIRS due to non-infectious cause with organ failure -will monitor Hypothyroidism TSH is low, decrease synthroid dose Metabolic acidosis -resolved HTN -controlled -cont home amlodipine and lasix HLD -cont statin KASANDRA -Continue BiPAP at night Depression -cont cymbalta Obesity with BMI of 33.7 -lifestyle modification recommended Deconditioning -PT consulted DVT ppx: Lovenox Home when improved History Interval history: Review of systems Constitutional: No fevers, no malaise, no joint pains CVS: No chest pain, no orthopnea, no pedal edema GI: No abdominal pain, no diarrhea, no vomiting, no constipation Respiratory: , Continues to complain of shortness of breath and dyspnea on exertion, also having dry cough Hospitalist Physical - Physical exam Narrative exam: General.: Mild distress HEENT: Moist mucous membranes, extraocular muscles intact, no lymphadenopathy Neck: supple Cardiac: S1-S2 heard Lungs: Diminished air entry Abdomen: soft , nontender, nondistended, bowel sounds positive Extremities: no edema clubbing or cyanosis Skin: no rash or lesions Neurologic: no gross focal deficits Psych: calm, and cooperative - Constitutional Vitals: Temp Pulse Resp BP Pulse Ox 98.0 F 92 H 20 144/75 96 01/04/19 07:14 01/04/19 08:10 01/04/19 08:10 01/04/19 07:14 01/04/19 08:27 General appearance: Present: mild distress, obese Results - Labs CBC & Chem 7: 01/04/19 05:20 01/04/19 05:20 Labs: Laboratory Last Values WBC 5.2 K/mm3 (4.5-11.0) 01/04/19 05:20 RBC 3.94 M/mm3 (3.65-5.03) 01/04/19 05:20 Hgb 10.7 gm/dl (10.1-14.3) 01/04/19 05:20 Hct 34.5 % (30.3-42.9) 01/04/19 05:20 MCV 88 fl (79-97) 01/04/19 05:20 MCH 27 pg (28-32) L 01/04/19 05:20 MCHC 31 % (30-34) 01/04/19 05:20 RDW 24.2 % (13.2-15.2) H 01/04/19 05:20 Plt Count 558 K/mm3 (140-440) H 01/04/19 05:20 Lymph % (Auto) Leadlighter 12/29/18 08:34 [place] % (Auto) Leadlighter 12/29/18 08:34 Eos % (Auto) Leadlighter 12/29/18 08:34 Baso % (Auto) Leadlighter 12/29/18 08:34 Lymph # Leadlighter 12/29/18 08:34 [place] # Leadlighter 12/29/18 08:34 Eos # Leadlighter 12/29/18 08:34 Baso # Leadlighter 12/29/18 08:34 Add Manual Diff Complete 01/04/19 05:20 Total Counted 100 01/04/19 05:20 Seg Neutrophils % Leadlighter 01/04/19 05:20 Seg Neuts % (Manual) 97.0 % (40.0-70.0) H 01/04/19 05:20 Band Neutrophils % 1.0 % 01/04/19 05:20 Lymphocytes % (Manual) 1.0 % (13.4-35.0) L 01/04/19 05:20 Reactive Lymphs % (Man) 0 % 01/04/19 05:20 Monocytes % (Manual) 1.0 % (0.0-7.3) 01/04/19 05:20 Eosinophils % (Manual) 0 % (0.0-4.3) 01/04/19 05:20 Basophils % (Manual) 0 % (0.0-1.8) 01/04/19 05:20 Metamyelocytes % 0 % 01/04/19 05:20 Myelocytes % 0 % 01/04/19 05:20 Promyelocytes % 0 % 01/04/19 05:20 Blast Cells % 0 % 01/04/19 05:20 Nucleated RBC % Not Reportable 01/04/19 05:20 Seg Neutrophils # Leadlighter 12/29/18 08:34 Seg Neutrophils # Man 5.0 K/mm3 (1.8-7.7) 01/04/19 05:20 Band Neutrophils # 0.1 K/mm3 01/04/19 05:20 Lymphocytes # (Manual) 0.1 K/mm3 (1.2-5.4) L 01/04/19 05:20 Abs React Lymphs (Man) 0.0 K/mm3 01/04/19 05:20 Monocytes # (Manual) 0.1 K/mm3 (0.0-0.8) 01/04/19 05:20 Eosinophils # (Manual) 0.0 K/mm3 (0.0-0.4) 01/04/19 05:20 Basophils # (Manual) 0.0 K/mm3 (0.0-0.1) 01/04/19 05:20 Metamyelocytes # 0.0 K/mm3 01/04/19 05:20 Myelocytes # 0.0 K/mm3 01/04/19 05:20 Promyelocytes # 0.0 K/mm3 01/04/19 05:20 Blast Cells # 0.0 K/mm3 01/04/19 05:20 WBC Morphology Not Reportable 01/04/19 05:20 Hypersegmented Neuts Not Reportable 01/04/19 05:20 Hyposegmented Neuts Not Reportable 01/04/19 05:20 Hypogranular Neuts Not Reportable 01/04/19 05:20 Smudge Cells Not Reportable 01/04/19 05:20 Toxic Granulation Not Reportable 01/04/19 05:20 Toxic Vacuolation Not Reportable 01/04/19 05:20 Dohle Bodies Not Reportable 01/04/19 05:20 Pelger-Huet Anomaly Not Reportable 01/04/19 05:20 Sanjeev Rods Not Reportable 01/04/19 05:20 Platelet Estimate Consistent w auto 01/04/19 05:20 Clumped Platelets Not Reportable 01/04/19 05:20 Plt Clumps, EDTA Not Reportable 01/04/19 05:20 Large Platelets Not Reportable 01/04/19 05:20 Giant Platelets Not Reportable 01/04/19 05:20 Platelet Satelliting Not Reportable 01/04/19 05:20 Plt Morphology Comment Not Reportable 01/04/19 05:20 RBC Morphology Not Reportable 01/04/19 05:20 Dimorphic RBCs Not Reportable 01/04/19 05:20 Polychromasia Not Reportable 01/04/19 05:20 Hypochromasia Not Reportable 01/04/19 05:20 Poikilocytosis Not Reportable 01/04/19 05:20 Anisocytosis Not Reportable 01/04/19 05:20 Microcytosis Few 01/04/19 05:20 Macrocytosis Few 01/04/19 05:20 Spherocytes Not Reportable 01/04/19 05:20 Pappenheimer Bodies Not Reportable 01/04/19 05:20 Sickle Cells Not Reportable 01/04/19 05:20 Target Cells Not Reportable 01/04/19 05:20 Tear Drop Cells Not Reportable 01/04/19 05:20 Ovalocytes Few 01/04/19 05:20 Stomatocytes Few 01/04/19 05:20 Helmet Cells Not Reportable 01/04/19 05:20 [place]-Melissa Bodies Not Reportable 01/04/19 05:20 [place] Rings Not Reportable 01/04/19 05:20 Jg Cells Not Reportable 01/04/19 05:20 Bite Cells Not Reportable 01/04/19 05:20 Crenated Cell Not Reportable 01/04/19 05:20 Elliptocytes Not Reportable 01/04/19 05:20 Acanthocytes (Spur) Not Reportable 01/04/19 05:20 Rouleaux Not Reportable 01/04/19 05:20 Hemoglobin C Crystals Not Reportable 01/04/19 05:20 Schistocytes Not Reportable 01/04/19 05:20 Malaria parasites Not Reportable 01/04/19 05:20 Farhad Bodies Not Reportable 01/04/19 05:20 Hem Pathologist Commnt No 01/04/19 05:20 PT 13.1 Sec. (12.2-14.9) 12/28/18 15:10 INR 1.00 (0.87-1.13) 12/28/18 15:10 APTT 29.2 Sec. (24.2-36.6) 12/28/18 15:10 D-Dimer 536.53 ng/mlDDU (0-234) H 12/28/18 15:49 POC ABG pH 7.443 (7.35-7.45) 12/28/18 15:46 POC ABG pCO2 38.2 (35-45) 12/28/18 15:46 POC ABG pO2 69 (80-105) L 12/28/18 15:46 POC ABG HCO3 26.1 (22-26 mml/L) 12/28/18 15:46 POC ABG Total CO2 27 (23-27mmol/L) 12/28/18 15:46 POC ABG O2 Sat 94 12/28/18 15:46 POC ABG Base Excess 2 ((-2) - (+3)mmol/L) 12/28/18 15:46 FiO2 40 % 12/28/18 15:46 Sodium 140 mmol/L (137-145) 01/04/19 05:20 Potassium 3.4 mmol/L (3.6-5.0) L 01/04/19 05:20 Chloride 95.1 mmol/L (98-107) L 01/04/19 05:20 Carbon Dioxide 28 mmol/L (22-30) 01/04/19 05:20 Anion Gap 20 mmol/L 01/04/19 05:20 BUN 23 mg/dL (7-17) H 01/04/19 05:20 Creatinine 0.6 mg/dL (0.7-1.2) L 01/04/19 05:20 Estimated GFR > 60 ml/min 01/04/19 05:20 BUN/Creatinine Ratio 38 % 01/04/19 05:20 Glucose 264 mg/dL (65-100) H 01/04/19 05:20 POC Glucose 237 (70-105) H 01/04/19 07:24 Hemoglobin A1c 5.8 % (4-6) 01/04/19 05:20 Calcium 10.1 mg/dL (8.4-10.2) 01/04/19 05:20 Magnesium 2.10 mg/dL (1.7-2.3) 12/29/18 08:34 Iron 48 ug/dL (37-170) 01/04/19 05:20 TIBC 311 mcg/dL (250-450) 01/04/19 05:20 % Saturation 15.43 % 01/04/19 05:20 Transferrin 259 mg/dl (192-382) 01/04/19 05:20 Ferritin 482.5 ng/mL (13.0-400.0) H 01/04/19 05:20 Total Bilirubin 0.50 mg/dL (0.1-1.2) 01/04/19 05:20 AST 35 units/L (5-40) 01/04/19 05:20 ALT 136 units/L (7-56) H 01/04/19 05:20 Alkaline Phosphatase 122 units/L (35-129) 01/04/19 05:20 Troponin T < 0.010 ng/mL (0.00-0.029) 12/28/18 15:10 NT-Pro-B Natriuret Pep 304.8 pg/mL (0-900) 12/28/18 15:10 Total Protein 6.1 g/dL (6.3-8.2) L 01/04/19 05:20 Albumin 3.9 g/dL (3.9-5) 01/04/19 05:20 Albumin/Globulin Ratio 1.8 % 01/04/19 05:20 Vitamin B12 1572 pg/mL (211-911) H 01/04/19 05:20 TSH 0.218 mlU/mL (0.270-4.200) L 01/04/19 05:20 Free T4 1.45 ng/dL (0.76-1.46) 01/04/19 05:20 Thyroxine (T4) 7.3 ug/dL (4.0-12.0) 01/04/19 05:20 Blood Type O POSITIVE 12/28/18 15:41 Antibody Screen Negative 12/28/18 15:41 Crossmatch See Detail 12/28/18 15:41 Active Medications - Current Medications Current Medications: Generic Name Dose Route Start Last Admin Trade Name Freq PRN Reason Stop Dose Admin Acetaminophen 650 mg 12/28/18 17:29 Tylenol PO Q4H PRN Pain MILD(1-3)/Fever >100.5/[place] Albuterol 2.5 mg 12/30/18 12:01 Proventil IH Q2HRT PRN Shortness Of Breath Albuterol/Ipratropium 1 ampul 12/31/18 08:00 01/04/19 08:11 Duoneb *Not For Prn Use* IH Not Given TIDRT CHING Amlodipine Besylate 10 mg 12/30/18 14:00 01/04/19 08:53 Amlodipine PO 10 mg DAILY CHING Administration Arformoterol Tartrate 15 mcg 12/30/18 20:00 01/04/19 08:10 Brovana Nebu IH 15 mcg Q12HRT CHING Administration Atorvastatin Calcium 40 mg 12/30/18 22:00 01/03/19 22:02 Lipitor PO 40 mg HS CHING Administration Budesonide 0.5 mg 12/30/18 20:00 01/04/19 08:10 Pulmicort IH 0.5 mg Q12HRT CHING Administration Dextrose 50 ml 12/28/18 17:31 D50w (25gm) Syringe IV Q30MIN PRN Hypoglycemia Protocol Duloxetine HCl 60 mg 12/30/18 14:00 01/04/19 08:52 Cymbalta PO 60 mg QDAY CHING Administration Enoxaparin Sodium 40 mg 12/30/18 10:00 01/04/19 08:52 Enoxaparin SUB-Q 40 mg QDAY@1000 CHING Administration Famotidine 20 mg 12/28/18 22:00 01/04/19 08:53 Pepcid PO 20 mg BID CHING Administration Folic Acid 1 mg 12/30/18 17:00 01/04/19 08:53 Folvite PO 1 mg DAILY CHING Administration Furosemide 40 mg 12/30/18 13:00 01/04/19 08:53 Lasix PO 40 mg QDAY CHING Administration Furosemide 20 mg 01/04/19 10:00 01/04/19 09:14 Lasix IV 01/04/19 10:01 20 mg ONCE ONE Administration Guaifenesin 600 mg 12/31/18 12:00 01/04/19 08:52 Mucinex Er PO 600 mg BID CHING Administration Insulin Glargine 30 units 01/03/19 16:00 01/04/19 08:52 Lantus SUB-Q 30 units BID CHING Administration Insulin Human Lispro 0 unit 01/02/19 16:30 01/04/19 08:50 Humalog SUB-Q 6 unit AC CHING Administration Protocol Insulin Human Lispro 0 unit 01/02/19 22:00 01/03/19 22:02 Humalog SUB-Q 6 unit QHS CHING Administration Protocol Insulin Human Lispro 8 unit 01/03/19 18:26 01/04/19 08:51 Humalog SUB-Q 8 unit TIDAC CHING Administration Levothyroxine Sodium 112 mcg 12/31/18 06:00 01/04/19 05:59 Synthroid PO 112 mcg DAILY@0600 CHING Administration Levothyroxine Sodium 25 mcg 12/31/18 06:00 01/04/19 05:59 Synthroid PO 25 mcg DAILY@0600 CHING Administration Metformin HCl 500 mg 01/03/19 19:00 01/04/19 08:53 Glucophage Xr PO 500 mg QDDIAB CHING Administration Methylprednisolone Sodium Succinate 125 mg 01/03/19 12:00 01/04/19 05:59 Solu-Medrol IV 125 mg Q6HR CHING Administration Ondansetron HCl 4 mg 12/28/18 17:29 Zofran IV Q8H PRN Nausea And Vomiting Pseudoephedrine/Acetam/Chlorphenir 5 ml 12/31/18 11:12 01/03/19 15:07 Robitussin Ac PO 5 ml Q4H PRN Administration Cough Senna/Docusate Sodium 1 tab 12/31/18 12:00 01/04/19 08:53 Senokot S PO 1 tab BID CHING Administration Sodium Chloride 10 ml 12/28/18 22:00 01/04/19 08:53 Sodium Chloride Flush Syringe 10 Ml IV 10 ml BID CHING Administration Sodium Chloride 10 ml 12/28/18 17:29 Sodium Chloride Flush Syringe 10 Ml IV PRN PRN LINE FLUSH
[2019-01-04] MEDS ORDERED: POTASSIUM CHLORIDE ER 20 MEQ TAB PO ONE (10:00)
[2019-01-04] MEDS ORDERED: FUROSEMIDE 20 MG/2 ML INJ IV ONE (10:00)
--- NOTE | 2019-01-04 15:09 | XRay Report ---
CHEST 1 VIEW INDICATION / CLINICAL INFORMATION: sob. COMPARISON: Chest radiograph 12/28/2018 FINDINGS: SUPPORT DEVICES: None. HEART / MEDIASTINUM: No significant abnormality. LUNGS / PLEURA: Mild bibasilar pulmonary opacities appear slightly improved compared with prior exami nation. Probable trace right pleural effusion. No pneumothorax. ADDITIONAL FINDINGS: No significant additional findings. IMPRESSION: 1. Slight interval improvement of previously seen mild bibasilar pulmonary opacities and trace right effusion. Signer Name: Adriane De La Rosa MD Signed: 01/04/2019 3:05 PM Workstation Name: [id number]
--- NOTE | 2019-01-04 15:33 | Consultation ---
HISTORY OF PRESENT ILLNESS: This is a 68-year-old female with end-stage COPD, chronic respiratory failure, on supplemental oxygen at 3-4 liters at home, who comes in with anemia. The patient reports that this anemia started in March of last year and she has required multiple transfusions and iron infusion for this. 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 She reports that since admission, she has had a transfusion with improvement of her hemoglobin. She reports that she still is very short of breath with exertion. She reports that while she was hospitalized at [facility], she was noted to be volume overloaded and received Lasix, but her dose was decreased since her discharge. She reports that she presently is short of breath with exertion. She denies any fevers, chills or rigors. She denies any history of pulmonary hypertension. ____ supplemental oxygen between 3 and 4 liters. She reports that she is compliant with her medications at home. ALLERGIES: None. MEDICATIONS AT HOME: As listed in the hospital list. SOCIAL HISTORY: Lives at home. History of tobacco abuse. REVIEW OF SYSTEMS: No hemoptysis or hematemesis. No diarrhea. No constipation. No dysuria, hematuria or polyuria. PAST SURGICAL HISTORY: As noted. PHYSICAL EXAMINATION: VITAL SIGNS: Which were obtained at time of consult on January 03 at about 1:30 p.m., pulse rate of 99, respiratory rate of 20, blood pressure 140/73, pulse ox on O2 was 95%. GENERAL: female, sitting up in bed. HEENT: Pupils reactive. Trachea midline. NECK: Supple. CARDIOVASCULAR: Normal S1, S2. LUNGS: Sounds distant. ABDOMEN: Obese, positive bowel sounds, soft. EXTREMITIES: Trace edema. NEUROLOGICAL: Alert and oriented x 3. Appears to be nonfocal. LABORATORY DATA: Done on admission ____, hemoglobin was 8.7, platelet count was greater than 500. DIAGNOSTIC DATA: Her chest x-ray, which was done on admission showed small bilateral pleural effusion and bibasilar areas of opacities. CTA which was done on admission showed small bilateral pleural effusions, no infiltrate, mild interstitial edema and thyroid nodule. IMPRESSION: Female with acute on chronic respiratory failure, chronic obstructive pulmonary disease, possible volume overload with evidence of interstitial edema on CT and chest x-ray with bilateral effusions with dyspnea. The patient's dyspnea is secondary to underlying chronic obstructive pulmonary disease with worsening from anemia and volume overload. Would continue on Lasix and add a small dose of IV Lasix. Monitor electrolytes. Monitor creatinine. Would obtain a BMP. Monitor for any evidence of worsening of volume overload. If not done recently would need echocardiogram to evaluate for any evidence of pulmonary hypertension. We will continue on supplemental oxygen, continue to monitor respiratory status closely. [facility]# [id number] [place]/NTS
[2019-01-04] MEDS: FUROSEMIDE 40 MG/4 ML INJ IV SCH (18:38)
[2019-01-04] MEDS: guaiFENesin/CODEINE 100-10MG ORAL LIQD 5 ML PO PRN (21:51)
[2019-01-05] MEDS: methylPREDNISolone Sod Succinate 125 MG/2 ML INJ IV SCH ×4 (00:24→17:49)
[2019-01-05] MEDS: FUROSEMIDE 40 MG/4 ML INJ IV SCH ×2 (06:44→18:14)
[2019-01-05] MEDS: LEVOTHYROXINE 112 MCG TAB PO SCH (06:45)
[2019-01-05] MEDS: INSULIN LISPRO 100 UNIT/ML SUB-Q SCH ×7 (08:20→21:17)
--- NOTE | 2019-01-05 08:30 | Progress Note ---
Assessment and Plan - Patient Problems (1) Volume overload Current Visit: Yes Status: Acute (2) Pleural effusion Current Visit: Yes Status: Acute (3) Acute and chronic respiratory failure Current Visit: Yes Status: Acute Qualifiers: Respiratory failure complication: hypoxia Qualified Code(s): J96.21 - Acute and chronic respiratory failure with hypoxia (4) Anemia Current Visit: Yes Status: Acute (5) Anemia requiring transfusions Current Visit: Yes Status: Acute (6) COPD (chronic obstructive pulmonary disease) Current Visit: Yes Status: Acute Qualifiers: COPD type: unspecified COPD Qualified Code(s): J44.9 - Chronic obstructive pulmonary disease, unspecified (7) Symptomatic anemia Current Visit: Yes Status: Acute (8) Oral thrush Current Visit: Yes Status: Acute Subjective Interval history: sore throat less sob Objective Vital Signs - 12hr 01/04/19 01/04/19 01/04/19 20:38 22:00 22:50 Temperature Pulse Rate 78 Pulse Rate [ 74 Anterior Bilateral Throughout] Respiratory 23 Rate Respiratory 20 Rate [Anterior Bilateral Throughout] Blood Pressure O2 Sat by Pulse 92 Oximetry 01/05/19 01/05/19 01/05/19 02:16 02:30 07:41 Temperature 97.6 F 98.0 F Pulse Rate 66 85 Pulse Rate [ Anterior Bilateral Throughout] Respiratory 20 20 Rate Respiratory Rate [Anterior Bilateral Throughout] Blood Pressure 145/76 150/84 O2 Sat by Pulse 100 81 L Oximetry 01/05/19 07:43 Temperature Pulse Rate 89 Pulse Rate [ Anterior Bilateral Throughout] Respiratory Rate Respiratory Rate [Anterior Bilateral Throughout] Blood Pressure O2 Sat by Pulse 91 Oximetry Constitutional: no acute distress, alert Eyes: non-icteric ENT: oropharynx moist, other (oral thrush) Ascultation: Bilateral: diminished breath sounds Cardiovascular: regular rate and rhythm Gastrointestinal: normoactive bowel sounds, soft, non-tender, non-distended Integumentary: normal Extremities: no cyanosis, edema Neurologic: normal mental status, non-focal exam Psychiatric: mood appropriate, affect normal CBC and BMP: 01/04/19 05:20 01/04/19 05:20 ABG, PT/INR, D-dimer: ABG POC ABG pH 7.443 (7.35-7.45) 12/28/18 15:46 POC ABG pCO2 38.2 (35-45) 12/28/18 15:46 POC ABG pO2 69 (80-105) L 12/28/18 15:46 POC ABG HCO3 26.1 (22-26 mml/L) 12/28/18 15:46 POC ABG Total CO2 27 (23-27mmol/L) 12/28/18 15:46 POC ABG O2 Sat 94 12/28/18 15:46 PT/INR, D-dimer PT 13.1 Sec. (12.2-14.9) 12/28/18 15:10 INR 1.00 (0.87-1.13) 12/28/18 15:10 D-Dimer 536.53 ng/mlDDU (0-234) H 12/28/18 15:49 Abnormal lab findings: Abnormal Labs 12/28/18 12/28/18 12/28/18 15:10 15:10 15:10 RBC 2.86 L Hgb 6.7 L Hct 23.3 L MCH 24 L MCHC 29 L RDW 20.6 H Plt Count 495 H Seg Neuts % (Manual) 82.0 H Lymphocytes % (Manual) 11.0 L Seg Neutrophils # Man 8.9 H Lymphocytes # (Manual) D-Dimer POC ABG pO2 Potassium 3.5 L Chloride 95.5 L Carbon Dioxide 21 L BUN Creatinine Glucose 209 H POC Glucose Ferritin ALT Total Protein Albumin 3.8 L Vitamin B12 TSH 5.340 H Crossmatch 12/28/18 12/28/18 12/28/18 15:41 15:46 15:49 RBC Hgb Hct MCH MCHC RDW Plt Count Seg Neuts % (Manual) Lymphocytes % (Manual) Seg Neutrophils # Man Lymphocytes # (Manual) D-Dimer 536.53 H POC ABG pO2 69 L Potassium Chloride Carbon Dioxide BUN Creatinine Glucose POC Glucose Ferritin ALT Total Protein Albumin Vitamin B12 TSH Crossmatch See Detail 12/28/18 12/28/18 12/29/18 20:16 21:44 05:55 RBC Hgb Hct MCH MCHC RDW Plt Count Seg Neuts % (Manual) Lymphocytes % (Manual) Seg Neutrophils # Man Lymphocytes # (Manual) D-Dimer POC ABG pO2 Potassium Chloride Carbon Dioxide BUN Creatinine Glucose POC Glucose 155 H 144 H 239 H Ferritin ALT Total Protein Albumin Vitamin B12 TSH Crossmatch 12/29/18 12/29/18 12/29/18 08:34 08:34 11:56 RBC 3.55 L Hgb 9.0 L Hct 29.3 L D MCH 26 L MCHC RDW 19.6 H Plt Count 469 H Seg Neuts % (Manual) 95.0 H Lymphocytes % (Manual) 3.0 L Seg Neutrophils # Man 8.5 H Lymphocytes # (Manual) 0.3 L D-Dimer POC ABG pO2 Potassium Chloride Carbon Dioxide BUN Creatinine Glucose 187 H POC Glucose 247 H Ferritin ALT Total Protein Albumin Vitamin B12 TSH Crossmatch 12/29/18 12/29/18 12/30/18 16:32 21:47 04:46 RBC 3.36 L Hgb 8.5 L Hct 28.2 L MCH 25 L MCHC RDW 19.5 H Plt Count 483 H Seg Neuts % (Manual) Lymphocytes % (Manual) Seg Neutrophils # Man Lymphocytes # (Manual) D-Dimer POC ABG pO2 Potassium Chloride Carbon Dioxide BUN Creatinine Glucose POC Glucose 311 H 280 H Ferritin ALT Total Protein Albumin Vitamin B12 TSH Crossmatch 12/30/18 12/30/18 12/30/18 06:17 13:19 16:48 RBC Hgb Hct MCH MCHC RDW Plt Count Seg Neuts % (Manual) Lymphocytes % (Manual) Seg Neutrophils # Man Lymphocytes # (Manual) D-Dimer POC ABG pO2 Potassium Chloride Carbon Dioxide BUN Creatinine Glucose POC Glucose 241 H 224 H 371 H Ferritin ALT Total Protein Albumin Vitamin B12 TSH Crossmatch 12/31/18 12/31/18 12/31/18 00:04 05:50 09:44 RBC Hgb Hct MCH MCHC RDW Plt Count Seg Neuts % (Manual) Lymphocytes % (Manual) Seg Neutrophils # Man Lymphocytes # (Manual) D-Dimer POC ABG pO2 Potassium Chloride Carbon Dioxide BUN Creatinine Glucose POC Glucose 428 H 332 H 405 H Ferritin ALT Total Protein Albumin Vitamin B12 TSH Crossmatch 12/31/18 12/31/18 12/31/18 11:32 17:15 23:55 RBC Hgb Hct MCH MCHC RDW Plt Count Seg Neuts % (Manual) Lymphocytes % (Manual) Seg Neutrophils # Man Lymphocytes # (Manual) D-Dimer POC ABG pO2 Potassium Chloride Carbon Dioxide BUN Creatinine Glucose POC Glucose 450 H 439 H 259 H Ferritin ALT Total Protein Albumin Vitamin B12 TSH Crossmatch 01/01/19 01/01/19 01/01/19 05:09 06:00 11:39 RBC Hgb 8.8 L Hct 28.3 L MCH MCHC RDW Plt Count Seg Neuts % (Manual) Lymphocytes % (Manual) Seg Neutrophils # Man Lymphocytes # (Manual) D-Dimer POC ABG pO2 Potassium Chloride Carbon Dioxide BUN Creatinine Glucose POC Glucose 243 H 253 H Ferritin ALT Total Protein Albumin Vitamin B12 TSH Crossmatch 01/01/19 01/02/19 01/02/19 18:04 00:04 05:49 RBC Hgb Hct MCH MCHC RDW Plt Count Seg Neuts % (Manual) Lymphocytes % (Manual) Seg Neutrophils # Man Lymphocytes # (Manual) D-Dimer POC ABG pO2 Potassium Chloride Carbon Dioxide BUN Creatinine Glucose POC Glucose 425 H 339 H 287 H Ferritin ALT Total Protein Albumin Vitamin B12 TSH Crossmatch 01/02/19 01/02/19 01/02/19 11:26 17:39 22:36 RBC Hgb Hct MCH MCHC RDW Plt Count Seg Neuts % (Manual) Lymphocytes % (Manual) Seg Neutrophils # Man Lymphocytes # (Manual) D-Dimer POC ABG pO2 Potassium Chloride Carbon Dioxide BUN Creatinine Glucose POC Glucose 335 H 306 H 329 H Ferritin ALT Total Protein Albumin Vitamin B12 TSH Crossmatch 01/03/19 01/03/19 01/03/19 07:44 11:28 16:25 RBC Hgb Hct MCH MCHC RDW Plt Count Seg Neuts % (Manual) Lymphocytes % (Manual) Seg Neutrophils # Man Lymphocytes # (Manual) D-Dimer POC ABG pO2 Potassium Chloride Carbon Dioxide BUN Creatinine Glucose POC Glucose 234 H 301 H 356 H Ferritin ALT Total Protein Albumin Vitamin B12 TSH Crossmatch 01/03/19 01/04/19 01/04/19 21:57 05:20 05:20 RBC Hgb Hct MCH 27 L MCHC RDW 24.2 H Plt Count 558 H Seg Neuts % (Manual) 97.0 H Lymphocytes % (Manual) 1.0 L Seg Neutrophils # Man Lymphocytes # (Manual) 0.1 L D-Dimer POC ABG pO2 Potassium 3.4 L Chloride 95.1 L Carbon Dioxide BUN 23 H Creatinine 0.6 L Glucose 264 H POC Glucose 311 H Ferritin ALT 136 H Total Protein 6.1 L Albumin Vitamin B12 TSH Crossmatch 01/04/19 01/04/19 01/04/19 05:20 05:20 05:20 RBC Hgb Hct MCH MCHC RDW Plt Count Seg Neuts % (Manual) Lymphocytes % (Manual) Seg Neutrophils # Man Lymphocytes # (Manual) D-Dimer POC ABG pO2 Potassium Chloride Carbon Dioxide BUN Creatinine Glucose POC Glucose Ferritin 482.5 H ALT Total Protein Albumin Vitamin B12 1572 H TSH 0.218 L Crossmatch 01/04/19 01/04/19 01/04/19 07:24 12:02 17:11 RBC Hgb Hct MCH MCHC RDW Plt Count Seg Neuts % (Manual) Lymphocytes % (Manual) Seg Neutrophils # Man Lymphocytes # (Manual) D-Dimer POC ABG pO2 Potassium Chloride Carbon Dioxide BUN Creatinine Glucose POC Glucose 237 H 270 H 314 H Ferritin ALT Total Protein Albumin Vitamin B12 TSH Crossmatch 01/04/19 01/05/19 21:35 07:17 RBC Hgb Hct MCH MCHC RDW Plt Count Seg Neuts % (Manual) Lymphocytes % (Manual) Seg Neutrophils # Man Lymphocytes # (Manual) D-Dimer POC ABG pO2 Potassium Chloride Carbon Dioxide BUN Creatinine Glucose POC Glucose 262 H 330 H Ferritin ALT Total Protein Albumin Vitamin B12 TSH Crossmatch
[2019-01-05] MEDS: BUDESONIDE 0.5 MG/2 ML NEBU IH SCH ×2 (08:43→20:41)
[2019-01-05] MEDS: ARFORMOTEROL 15 MCG/2 ML NEBU IH SCH ×2 (08:43→20:42)
[2019-01-05] MEDS: IPRATROPIUM/ALBUTEROL SULFATE 3 ML AMPUL.NEB IH SCH ×3 (08:43→20:41)
[2019-01-05] MEDS: metFORMIN XR 500MG TAB PO SCH (09:46)
[2019-01-05] MEDS: ENOXAPARIN 40 MG/0.4 ML INJ SUB-Q SCH (09:46)
[2019-01-05] MEDS: FOLIC ACID 1 MG TAB PO SCH (09:46)
[2019-01-05] MEDS: DULoxetine 30 MG CAP PO SCH (09:46)
[2019-01-05] MEDS: amLODIPine 10 MG TAB PO SCH (09:47)
[2019-01-05] MEDS: guaiFENesin ER 600 MG TAB PO SCH ×2 (09:47→21:15)
[2019-01-05] MEDS: SENNOSIDES/DOCUSATE SODIUM 8.6/50 MG TAB PO SCH ×2 (09:47→21:15)
[2019-01-05] MEDS: FAMOTIDINE 20 MG TAB PO SCH ×2 (09:47→21:15)
[2019-01-05] MEDS: INSULIN GLARGINE 100 UNITS/ML SUB-Q SCH ×3 (09:47→21:18)
[2019-01-05 10:49] LABS: BUN/Creatinine Ratio 39; Blood Urea Nitrogen 31 mg/dL (7-17); Calcium 9.7 mg/dL (8.4-10.2); Hemolysis Index 4
--- NOTE | 2019-01-05 12:59 | Progress Note ---
Assessment and Plan Assessment and plan: 68-year-old woman who presented to the hospital with shortness of breath wheezing and hypoxia. She has been checking her oxygen with a pulse ox at home and noted that she was desaturating especially with the mildest activity such as getting dressed or eating. Acute COPD exacerbation, patient has chronic severe COPD She follows with Dr. Anaya. She takes Symbicort Spiriva and pro-air at home. steroids, nebs, pulmonology consults, aggressive chest PT Pulmonary edema IV Lasix, follow-up echo Acute on chronic respiratory failure with hypoxia -Continue oxygen supplementation as needed and duonebs -Continue BiPAP at night Acute on chronic normocytic anemia -Status post blood transfusion with 2U of PRBCS -GI consulted: out-pt f/u recommended iron studies, folic acid and B12 levels all wnl DM2 with persistent hyperglycemia Steroid use is exacerbating hyperglycemia. Optimize insulins Oral/pharyngeal thrush Nystatin ordered by channel account manager, will also add Cepacol and phenol for comfort SIRS due to non-infectious cause with organ failure -will monitor Hypothyroidism TSH is low, decrease synthroid dose Metabolic acidosis -resolved HTN -controlled -cont home amlodipine and lasix HLD -cont statin KASANDRA -Continue BiPAP at night, patient is to get repeat sleep study after discharge. She has not had one in 6 years. She will follow-up with her channel account manager for that Depression -cont cymbalta Obesity with BMI of 33.7 -lifestyle modification recommended Deconditioning -PT consulted DVT ppx: Lovenox Home when improved History Interval history: She is complaining of severe throat pain and oral pain Review of systems Constitutional: No fevers, no malaise, no joint pains CVS: No chest pain, no orthopnea, no pedal edema GI: No abdominal pain, no diarrhea, no vomiting, no constipation Respiratory: , Continues to complain of shortness of breath and dyspnea on exertion, also having dry cough Hospitalist Physical - Physical exam Narrative exam: General.: Mild distress HEENT: Moist mucous membranes, extraocular muscles intact, no lymphadenopathy Oral thrush is evident Neck: supple Cardiac: S1-S2 heard Lungs: Diminished air entry Abdomen: soft , nontender, nondistended, bowel sounds positive Extremities: no edema clubbing or cyanosis Skin: no rash or lesions Neurologic: no gross focal deficits Psych: calm, and cooperative - Constitutional Vitals: Temp Pulse Resp BP Pulse Ox 98.0 F 107 H 20 150/86 91 01/05/19 07:41 01/05/19 09:47 01/05/19 09:15 01/05/19 09:47 01/05/19 08:43 General appearance: Present: mild distress, obese Results - Labs CBC & Chem 7: 01/04/19 05:20 01/05/19 08:57 Labs: Laboratory Last Values WBC 5.2 K/mm3 (4.5-11.0) 01/04/19 05:20 RBC 3.94 M/mm3 (3.65-5.03) 01/04/19 05:20 Hgb 10.7 gm/dl (10.1-14.3) 01/04/19 05:20 Hct 34.5 % (30.3-42.9) 01/04/19 05:20 MCV 88 fl (79-97) 01/04/19 05:20 MCH 27 pg (28-32) L 01/04/19 05:20 MCHC 31 % (30-34) 01/04/19 05:20 RDW 24.2 % (13.2-15.2) H 01/04/19 05:20 Plt Count 558 K/mm3 (140-440) H 01/04/19 05:20 Lymph % (Auto) Research Statistician 12/29/18 08:34 Fannin % (Auto) Research Statistician 12/29/18 08:34 Eos % (Auto) Research Statistician 12/29/18 08:34 Baso % (Auto) Research Statistician 12/29/18 08:34 Lymph # Research Statistician 12/29/18 08:34 Fannin # Research Statistician 12/29/18 08:34 Eos # Research Statistician 12/29/18 08:34 Baso # Research Statistician 12/29/18 08:34 Add Manual Diff Complete 01/04/19 05:20 Total Counted 100 01/04/19 05:20 Seg Neutrophils % Research Statistician 01/04/19 05:20 Seg Neuts % (Manual) 97.0 % (40.0-70.0) H 01/04/19 05:20 Band Neutrophils % 1.0 % 01/04/19 05:20 Lymphocytes % (Manual) 1.0 % (13.4-35.0) L 01/04/19 05:20 Reactive Lymphs % (Man) 0 % 01/04/19 05:20 Monocytes % (Manual) 1.0 % (0.0-7.3) 01/04/19 05:20 Eosinophils % (Manual) 0 % (0.0-4.3) 01/04/19 05:20 Basophils % (Manual) 0 % (0.0-1.8) 01/04/19 05:20 Metamyelocytes % 0 % 01/04/19 05:20 Myelocytes % 0 % 01/04/19 05:20 Promyelocytes % 0 % 01/04/19 05:20 Blast Cells % 0 % 01/04/19 05:20 Nucleated RBC % Not Reportable 01/04/19 05:20 Seg Neutrophils # Research Statistician 12/29/18 08:34 Seg Neutrophils # Man 5.0 K/mm3 (1.8-7.7) 01/04/19 05:20 Band Neutrophils # 0.1 K/mm3 01/04/19 05:20 Lymphocytes # (Manual) 0.1 K/mm3 (1.2-5.4) L 01/04/19 05:20 Abs React Lymphs (Man) 0.0 K/mm3 01/04/19 05:20 Monocytes # (Manual) 0.1 K/mm3 (0.0-0.8) 01/04/19 05:20 Eosinophils # (Manual) 0.0 K/mm3 (0.0-0.4) 01/04/19 05:20 Basophils # (Manual) 0.0 K/mm3 (0.0-0.1) 01/04/19 05:20 Metamyelocytes # 0.0 K/mm3 01/04/19 05:20 Myelocytes # 0.0 K/mm3 01/04/19 05:20 Promyelocytes # 0.0 K/mm3 01/04/19 05:20 Blast Cells # 0.0 K/mm3 01/04/19 05:20 WBC Morphology Not Reportable 01/04/19 05:20 Hypersegmented Neuts Not Reportable 01/04/19 05:20 Hyposegmented Neuts Not Reportable 01/04/19 05:20 Hypogranular Neuts Not Reportable 01/04/19 05:20 Smudge Cells Not Reportable 01/04/19 05:20 Toxic Granulation Not Reportable 01/04/19 05:20 Toxic Vacuolation Not Reportable 01/04/19 05:20 Dohle Bodies Not Reportable 01/04/19 05:20 Pelger-Huet Anomaly Not Reportable 01/04/19 05:20 Sanjeev Rods Not Reportable 01/04/19 05:20 Platelet Estimate Consistent w auto 01/04/19 05:20 Clumped Platelets Not Reportable 01/04/19 05:20 Plt Clumps, EDTA Not Reportable 01/04/19 05:20 Large Platelets Not Reportable 01/04/19 05:20 Giant Platelets Not Reportable 01/04/19 05:20 Platelet Satelliting Not Reportable 01/04/19 05:20 Plt Morphology Comment Not Reportable 01/04/19 05:20 RBC Morphology Not Reportable 01/04/19 05:20 Dimorphic RBCs Not Reportable 01/04/19 05:20 Polychromasia Not Reportable 01/04/19 05:20 Hypochromasia Not Reportable 01/04/19 05:20 Poikilocytosis Not Reportable 01/04/19 05:20 Anisocytosis Not Reportable 01/04/19 05:20 Microcytosis Few 01/04/19 05:20 Macrocytosis Few 01/04/19 05:20 Spherocytes Not Reportable 01/04/19 05:20 Pappenheimer Bodies Not Reportable 01/04/19 05:20 Sickle Cells Not Reportable 01/04/19 05:20 Target Cells Not Reportable 01/04/19 05:20 Tear Drop Cells Not Reportable 01/04/19 05:20 Ovalocytes Few 01/04/19 05:20 Stomatocytes Few 01/04/19 05:20 Helmet Cells Not Reportable 01/04/19 05:20 Pendleton-Saxis Bodies Not Reportable 01/04/19 05:20 Casanova Rings Not Reportable 01/04/19 05:20 Jg Cells Not Reportable 01/04/19 05:20 Bite Cells Not Reportable 01/04/19 05:20 Crenated Cell Not Reportable 01/04/19 05:20 Elliptocytes Not Reportable 01/04/19 05:20 Acanthocytes (Spur) Not Reportable 01/04/19 05:20 Rouleaux Not Reportable 01/04/19 05:20 Hemoglobin C Crystals Not Reportable 01/04/19 05:20 Schistocytes Not Reportable 01/04/19 05:20 Malaria parasites Not Reportable 01/04/19 05:20 Farhad Bodies Not Reportable 01/04/19 05:20 Hem Pathologist Commnt No 01/04/19 05:20 PT 13.1 Sec. (12.2-14.9) 12/28/18 15:10 INR 1.00 (0.87-1.13) 12/28/18 15:10 APTT 29.2 Sec. (24.2-36.6) 12/28/18 15:10 D-Dimer 536.53 ng/mlDDU (0-234) H 12/28/18 15:49 POC ABG pH 7.443 (7.35-7.45) 12/28/18 15:46 POC ABG pCO2 38.2 (35-45) 12/28/18 15:46 POC ABG pO2 69 (80-105) L 12/28/18 15:46 POC ABG HCO3 26.1 (22-26 mml/L) 12/28/18 15:46 POC ABG Total CO2 27 (23-27mmol/L) 12/28/18 15:46 POC ABG O2 Sat 94 12/28/18 15:46 POC ABG Base Excess 2 ((-2) - (+3)mmol/L) 12/28/18 15:46 FiO2 40 % 12/28/18 15:46 Sodium 135 mmol/L (137-145) L 01/05/19 08:57 Potassium 4.0 mmol/L (3.6-5.0) 01/05/19 08:57 Chloride 89.1 mmol/L (98-107) L 01/05/19 08:57 Carbon Dioxide 27 mmol/L (22-30) 01/05/19 08:57 Anion Gap 23 mmol/L 01/05/19 08:57 BUN 31 mg/dL (7-17) H 01/05/19 08:57 Creatinine 0.8 mg/dL (0.7-1.2) 01/05/19 08:57 Estimated GFR > 60 ml/min 01/05/19 08:57 BUN/Creatinine Ratio 39 % 01/05/19 08:57 Glucose 397 mg/dL (65-100) H 01/05/19 08:57 POC Glucose 288 (70-105) H 01/05/19 11:37 Hemoglobin A1c 5.8 % (4-6) 01/04/19 05:20 Calcium 9.7 mg/dL (8.4-10.2) 01/05/19 08:57 Magnesium 2.10 mg/dL (1.7-2.3) 01/05/19 08:57 Iron 48 ug/dL (37-170) 01/04/19 05:20 TIBC 311 mcg/dL (250-450) 01/04/19 05:20 % Saturation 15.43 % 01/04/19 05:20 Transferrin 259 mg/dl (192-382) 01/04/19 05:20 Ferritin 482.5 ng/mL (13.0-400.0) H 01/04/19 05:20 Total Bilirubin 0.50 mg/dL (0.1-1.2) 01/04/19 05:20 AST 35 units/L (5-40) 01/04/19 05:20 ALT 136 units/L (7-56) H 01/04/19 05:20 Alkaline Phosphatase 122 units/L (35-129) 01/04/19 05:20 Troponin T < 0.010 ng/mL (0.00-0.029) 12/28/18 15:10 NT-Pro-B Natriuret Pep 403.1 pg/mL (0-900) 01/05/19 08:57 Total Protein 6.1 g/dL (6.3-8.2) L 01/04/19 05:20 Albumin 3.9 g/dL (3.9-5) 01/04/19 05:20 Albumin/Globulin Ratio 1.8 % 01/04/19 05:20 Vitamin B12 1572 pg/mL (211-911) H 01/04/19 05:20 TSH 0.218 mlU/mL (0.270-4.200) L 01/04/19 05:20 Free T4 1.45 ng/dL (0.76-1.46) 01/04/19 05:20 Thyroxine (T4) 7.3 ug/dL (4.0-12.0) 01/04/19 05:20 Blood Type O POSITIVE 12/28/18 15:41 Antibody Screen Negative 12/28/18 15:41 Crossmatch See Detail 12/28/18 15:41 Active Medications - Current Medications Current Medications: Generic Name Dose Route Start Last Admin Trade Name Freq PRN Reason Stop Dose Admin Acetaminophen 650 mg 12/28/18 17:29 Tylenol PO Q4H PRN Pain MILD(1-3)/Fever >100.5/[place] Albuterol 2.5 mg 12/30/18 12:01 Proventil IH Q2HRT PRN Shortness Of Breath Albuterol/Ipratropium 1 ampul 12/31/18 08:00 01/05/19 08:43 Duoneb *Not For Prn Use* IH 1 ampul TIDRT CHING Administration Amlodipine Besylate 10 mg 12/30/18 14:00 01/05/19 09:47 Amlodipine PO 10 mg DAILY CHING Administration Arformoterol Tartrate 15 mcg 12/30/18 20:00 01/05/19 08:43 Brovana Nebu IH 15 mcg Q12HRT CHING Administration Atorvastatin Calcium 40 mg 12/30/18 22:00 01/04/19 21:43 Lipitor PO 40 mg HS CHING Administration Benzocaine/Menthol 1 each 01/05/19 12:57 Cepacol X Strength MM Q2HR PRN Sore Throat Budesonide 0.5 mg 12/30/18 20:00 01/05/19 08:43 Pulmicort IH 0.5 mg Q12HRT CHING Administration Dextrose 50 ml 12/28/18 17:31 D50w (25gm) Syringe IV Q30MIN PRN Hypoglycemia Protocol Duloxetine HCl 60 mg 12/30/18 14:00 01/05/19 09:46 Cymbalta PO 60 mg QDAY CHING Administration Enoxaparin Sodium 40 mg 12/30/18 10:00 01/05/19 09:46 Enoxaparin SUB-Q 40 mg QDAY@1000 CHING Administration Famotidine 20 mg 12/28/18 22:00 01/05/19 09:47 Pepcid PO 20 mg BID CHING Administration Folic Acid 1 mg 12/30/18 17:00 01/05/19 09:46 Folvite PO 1 mg DAILY CHING Administration Furosemide 40 mg 01/04/19 18:00 01/05/19 06:44 Lasix IV 40 mg 0600,1800 CHING Administration Guaifenesin 600 mg 12/31/18 12:00 01/05/19 09:47 Mucinex Er PO 600 mg BID CHING Administration Insulin Glargine 45 units 01/05/19 12:00 Lantus SUB-Q BID CHING Insulin Human Lispro 0 unit 01/02/19 16:30 01/05/19 11:58 Humalog SUB-Q 8 unit AC CHING Administration Protocol Insulin Human Lispro 0 unit 01/02/19 22:00 01/04/19 21:44 Humalog SUB-Q 6 unit QHS CHING Administration Protocol Insulin Human Lispro 12 unit 01/05/19 11:46 Humalog SUB-Q TIDAC [facility] Levothyroxine Sodium 112 mcg 12/31/18 06:00 01/05/19 06:45 Synthroid PO 112 mcg DAILY@0600 CHING Administration Metformin HCl 500 mg 01/03/19 19:00 01/05/19 09:46 Glucophage Xr PO 500 mg QDDIAB CHING Administration Methylprednisolone Sodium Succinate 125 mg 01/03/19 12:00 01/05/19 11:59 Solu-Medrol IV 125 mg Q6HR CHING Administration Nystatin 100,000 unit 01/05/19 14:00 Nystatin PO QID CHING Ondansetron HCl 4 mg 12/28/18 17:29 Zofran IV Q8H PRN Nausea And Vomiting Pseudoephedrine/Acetam/Chlorphenir 5 ml 12/31/18 11:12 01/04/19 21:51 Robitussin Ac PO 5 ml Q4H PRN Administration Cough Senna/Docusate Sodium 1 tab 12/31/18 12:00 01/05/19 09:47 Senokot S PO 1 tab BID CHING Administration Sodium Chloride 10 ml 12/28/18 22:00 01/05/19 09:48 Sodium Chloride Flush Syringe 10 Ml IV 10 ml BID CHING Administration Sodium Chloride 10 ml 12/28/18 17:29 Sodium Chloride Flush Syringe 10 Ml IV PRN PRN LINE FLUSH Nutrition/Malnutrition Assess - Dietary Evaluation Nutrition/Malnutrition Findings: Nutrition Notes Start: 01/04/19 13:36 Freq: Status: Active Protocol: Document 01/04/19 13:37 LM (Rec: 01/04/19 13:37 LM [id number]) Nutrition Notes Need for Assessment generated from: LOS Initial or Follow up Brief Note Subjective/Other Information Screen for LOS. 100% intakes documented in chart. Nutrition Intervention Revisit per MD consult or patient Sign Off request:
[2019-01-05] MEDS: NYSTATIN 500,000 UNIT/5 ML ORAL LIQD PO SCH ×3 (13:18→21:16)
[2019-01-06] MEDS: methylPREDNISolone Sod Succinate 125 MG/2 ML INJ IV SCH ×5 (00:26→23:04)
[2019-01-06] MEDS: LEVOTHYROXINE 112 MCG TAB PO SCH (05:59)
[2019-01-06] MEDS: BENZOCAINE/MENTHOL LOZENGE MM PRN ×2 (06:00→18:05)
[2019-01-06] MEDS: FUROSEMIDE 40 MG/4 ML INJ IV SCH ×2 (06:01→17:51)
[2019-01-06] MEDS: IPRATROPIUM/ALBUTEROL SULFATE 3 ML AMPUL.NEB IH SCH ×3 (08:13→22:12)
[2019-01-06] MEDS: BUDESONIDE 0.5 MG/2 ML NEBU IH SCH ×2 (08:13→22:13)
[2019-01-06] MEDS: ARFORMOTEROL 15 MCG/2 ML NEBU IH SCH ×2 (08:13→22:13)
[2019-01-06] MEDS: INSULIN LISPRO 100 UNIT/ML SUB-Q SCH ×7 (08:28→23:00)
[2019-01-06] MEDS: metFORMIN XR 500MG TAB PO SCH (08:30)
--- NOTE | 2019-01-06 08:31 | Progress Note ---
Assessment and Plan - Patient Problems (1) Volume overload Current Visit: Yes Status: Acute (2) Pleural effusion Current Visit: Yes Status: Acute (3) Acute and chronic respiratory failure Current Visit: Yes Status: Acute Qualifiers: Respiratory failure complication: hypoxia Qualified Code(s): J96.21 - Acute and chronic respiratory failure with hypoxia (4) Anemia Current Visit: Yes Status: Acute (5) Anemia requiring transfusions Current Visit: Yes Status: Acute (6) COPD (chronic obstructive pulmonary disease) Current Visit: Yes Status: Acute Qualifiers: COPD type: unspecified COPD Qualified Code(s): J44.9 - Chronic obstructive pulmonary disease, unspecified (7) Symptomatic anemia Current Visit: Yes Status: Acute (8) Oral thrush Current Visit: Yes Status: Acute Subjective Interval history: less sob Objective Vital Signs - 12hr 01/05/19 01/05/19 01/05/19 20:57 20:58 22:00 Temperature Pulse Rate 90 Pulse Rate [ 94 H Anterior Bilateral Throughout] Pulse Rate [ 100 H Apical] Respiratory 18 Rate Respiratory 20 Rate [Anterior Bilateral Throughout] Blood Pressure O2 Sat by Pulse 96 93 Oximetry 01/05/19 01/06/19 01/06/19 23:00 02:11 06:06 Temperature 98.2 F Pulse Rate 97 H 82 Pulse Rate [ Anterior Bilateral Throughout] Pulse Rate [ Apical] Respiratory 18 18 Rate Respiratory Rate [Anterior Bilateral Throughout] Blood Pressure 127/63 135/77 O2 Sat by Pulse 90 95 Oximetry 01/06/19 01/06/19 01/06/19 07:23 08:13 08:22 Temperature 98.4 F Pulse Rate 87 Pulse Rate [ 92 H Anterior Bilateral Throughout] Pulse Rate [ Apical] Respiratory 20 Rate Respiratory 18 Rate [Anterior Bilateral Throughout] Blood Pressure 142/81 O2 Sat by Pulse 96 94 Oximetry Constitutional: no acute distress, alert Eyes: non-icteric ENT: oropharynx moist, other (oral thrush) Ascultation: Bilateral: diminished breath sounds Cardiovascular: regular rate and rhythm Gastrointestinal: normoactive bowel sounds, soft, non-tender, non-distended Integumentary: normal Extremities: no cyanosis, edema Neurologic: normal mental status, non-focal exam Psychiatric: mood appropriate, affect normal CBC and BMP: 01/04/19 05:20 01/05/19 08:57 ABG, PT/INR, D-dimer: ABG POC ABG pH 7.443 (7.35-7.45) 12/28/18 15:46 POC ABG pCO2 38.2 (35-45) 12/28/18 15:46 POC ABG pO2 69 (80-105) L 12/28/18 15:46 POC ABG HCO3 26.1 (22-26 mml/L) 12/28/18 15:46 POC ABG Total CO2 27 (23-27mmol/L) 12/28/18 15:46 POC ABG O2 Sat 94 12/28/18 15:46 PT/INR, D-dimer PT 13.1 Sec. (12.2-14.9) 12/28/18 15:10 INR 1.00 (0.87-1.13) 12/28/18 15:10 D-Dimer 536.53 ng/mlDDU (0-234) H 12/28/18 15:49 Abnormal lab findings: Abnormal Labs 12/28/18 12/28/18 12/28/18 15:10 15:10 15:10 RBC 2.86 L Hgb 6.7 L Hct 23.3 L MCH 24 L MCHC 29 L RDW 20.6 H Plt Count 495 H Seg Neuts % (Manual) 82.0 H Lymphocytes % (Manual) 11.0 L Seg Neutrophils # Man 8.9 H Lymphocytes # (Manual) D-Dimer POC ABG pO2 Sodium Potassium 3.5 L Chloride 95.5 L Carbon Dioxide 21 L BUN Creatinine Glucose 209 H POC Glucose Ferritin ALT Total Protein Albumin 3.8 L Vitamin B12 TSH 5.340 H Crossmatch 12/28/18 12/28/18 12/28/18 15:41 15:46 15:49 RBC Hgb Hct MCH MCHC RDW Plt Count Seg Neuts % (Manual) Lymphocytes % (Manual) Seg Neutrophils # Man Lymphocytes # (Manual) D-Dimer 536.53 H POC ABG pO2 69 L Sodium Potassium Chloride Carbon Dioxide BUN Creatinine Glucose POC Glucose Ferritin ALT Total Protein Albumin Vitamin B12 TSH Crossmatch See Detail 12/28/18 12/28/18 12/29/18 20:16 21:44 05:55 RBC Hgb Hct MCH MCHC RDW Plt Count Seg Neuts % (Manual) Lymphocytes % (Manual) Seg Neutrophils # Man Lymphocytes # (Manual) D-Dimer POC ABG pO2 Sodium Potassium Chloride Carbon Dioxide BUN Creatinine Glucose POC Glucose 155 H 144 H 239 H Ferritin ALT Total Protein Albumin Vitamin B12 TSH Crossmatch 12/29/18 12/29/18 12/29/18 08:34 08:34 11:56 RBC 3.55 L Hgb 9.0 L Hct 29.3 L D MCH 26 L MCHC RDW 19.6 H Plt Count 469 H Seg Neuts % (Manual) 95.0 H Lymphocytes % (Manual) 3.0 L Seg Neutrophils # Man 8.5 H Lymphocytes # (Manual) 0.3 L D-Dimer POC ABG pO2 Sodium Potassium Chloride Carbon Dioxide BUN Creatinine Glucose 187 H POC Glucose 247 H Ferritin ALT Total Protein Albumin Vitamin B12 TSH Crossmatch 12/29/18 12/29/18 12/30/18 16:32 21:47 04:46 RBC 3.36 L Hgb 8.5 L Hct 28.2 L MCH 25 L MCHC RDW 19.5 H Plt Count 483 H Seg Neuts % (Manual) Lymphocytes % (Manual) Seg Neutrophils # Man Lymphocytes # (Manual) D-Dimer POC ABG pO2 Sodium Potassium Chloride Carbon Dioxide BUN Creatinine Glucose POC Glucose 311 H 280 H Ferritin ALT Total Protein Albumin Vitamin B12 TSH Crossmatch 12/30/18 12/30/18 12/30/18 06:17 13:19 16:48 RBC Hgb Hct MCH MCHC RDW Plt Count Seg Neuts % (Manual) Lymphocytes % (Manual) Seg Neutrophils # Man Lymphocytes # (Manual) D-Dimer POC ABG pO2 Sodium Potassium Chloride Carbon Dioxide BUN Creatinine Glucose POC Glucose 241 H 224 H 371 H Ferritin ALT Total Protein Albumin Vitamin B12 TSH Crossmatch 12/31/18 12/31/18 12/31/18 00:04 05:50 09:44 RBC Hgb Hct MCH MCHC RDW Plt Count Seg Neuts % (Manual) Lymphocytes % (Manual) Seg Neutrophils # Man Lymphocytes # (Manual) D-Dimer POC ABG pO2 Sodium Potassium Chloride Carbon Dioxide BUN Creatinine Glucose POC Glucose 428 H 332 H 405 H Ferritin ALT Total Protein Albumin Vitamin B12 TSH Crossmatch 12/31/18 12/31/18 12/31/18 11:32 17:15 23:55 RBC Hgb Hct MCH MCHC RDW Plt Count Seg Neuts % (Manual) Lymphocytes % (Manual) Seg Neutrophils # Man Lymphocytes # (Manual) D-Dimer POC ABG pO2 Sodium Potassium Chloride Carbon Dioxide BUN Creatinine Glucose POC Glucose 450 H 439 H 259 H Ferritin ALT Total Protein Albumin Vitamin B12 TSH Crossmatch 01/01/19 01/01/19 01/01/19 05:09 06:00 11:39 RBC Hgb 8.8 L Hct 28.3 L MCH MCHC RDW Plt Count Seg Neuts % (Manual) Lymphocytes % (Manual) Seg Neutrophils # Man Lymphocytes # (Manual) D-Dimer POC ABG pO2 Sodium Potassium Chloride Carbon Dioxide BUN Creatinine Glucose POC Glucose 243 H 253 H Ferritin ALT Total Protein Albumin Vitamin B12 TSH Crossmatch 01/01/19 01/02/19 01/02/19 18:04 00:04 05:49 RBC Hgb Hct MCH MCHC RDW Plt Count Seg Neuts % (Manual) Lymphocytes % (Manual) Seg Neutrophils # Man Lymphocytes # (Manual) D-Dimer POC ABG pO2 Sodium Potassium Chloride Carbon Dioxide BUN Creatinine Glucose POC Glucose 425 H 339 H 287 H Ferritin ALT Total Protein Albumin Vitamin B12 TSH Crossmatch 01/02/19 01/02/19 01/02/19 11:26 17:39 22:36 RBC Hgb Hct MCH MCHC RDW Plt Count Seg Neuts % (Manual) Lymphocytes % (Manual) Seg Neutrophils # Man Lymphocytes # (Manual) D-Dimer POC ABG pO2 Sodium Potassium Chloride Carbon Dioxide BUN Creatinine Glucose POC Glucose 335 H 306 H 329 H Ferritin ALT Total Protein Albumin Vitamin B12 TSH Crossmatch 01/03/19 01/03/19 01/03/19 07:44 11:28 16:25 RBC Hgb Hct MCH MCHC RDW Plt Count Seg Neuts % (Manual) Lymphocytes % (Manual) Seg Neutrophils # Man Lymphocytes # (Manual) D-Dimer POC ABG pO2 Sodium Potassium Chloride Carbon Dioxide BUN Creatinine Glucose POC Glucose 234 H 301 H 356 H Ferritin ALT Total Protein Albumin Vitamin B12 TSH Crossmatch 01/03/19 01/04/19 01/04/19 21:57 05:20 05:20 RBC Hgb Hct MCH 27 L MCHC RDW 24.2 H Plt Count 558 H Seg Neuts % (Manual) 97.0 H Lymphocytes % (Manual) 1.0 L Seg Neutrophils # Man Lymphocytes # (Manual) 0.1 L D-Dimer POC ABG pO2 Sodium Potassium 3.4 L Chloride 95.1 L Carbon Dioxide BUN 23 H Creatinine 0.6 L Glucose 264 H POC Glucose 311 H Ferritin ALT 136 H Total Protein 6.1 L Albumin Vitamin B12 TSH Crossmatch 01/04/19 01/04/19 01/04/19 05:20 05:20 05:20 RBC Hgb Hct MCH MCHC RDW Plt Count Seg Neuts % (Manual) Lymphocytes % (Manual) Seg Neutrophils # Man Lymphocytes # (Manual) D-Dimer POC ABG pO2 Sodium Potassium Chloride Carbon Dioxide BUN Creatinine Glucose POC Glucose Ferritin 482.5 H ALT Total Protein Albumin Vitamin B12 1572 H TSH 0.218 L Crossmatch 01/04/19 01/04/19 01/04/19 07:24 12:02 17:11 RBC Hgb Hct MCH MCHC RDW Plt Count Seg Neuts % (Manual) Lymphocytes % (Manual) Seg Neutrophils # Man Lymphocytes # (Manual) D-Dimer POC ABG pO2 Sodium Potassium Chloride Carbon Dioxide BUN Creatinine Glucose POC Glucose 237 H 270 H 314 H Ferritin ALT Total Protein Albumin Vitamin B12 TSH Crossmatch 01/04/19 01/05/19 01/05/19 21:35 07:17 08:57 RBC Hgb Hct MCH MCHC RDW Plt Count Seg Neuts % (Manual) Lymphocytes % (Manual) Seg Neutrophils # Man Lymphocytes # (Manual) D-Dimer POC ABG pO2 Sodium 135 L Potassium Chloride 89.1 L Carbon Dioxide BUN 31 H Creatinine Glucose 397 H POC Glucose 262 H 330 H Ferritin ALT Total Protein Albumin Vitamin B12 TSH Crossmatch 01/05/19 01/05/19 01/05/19 11:37 16:38 20:56 RBC Hgb Hct MCH MCHC RDW Plt Count Seg Neuts % (Manual) Lymphocytes % (Manual) Seg Neutrophils # Man Lymphocytes # (Manual) D-Dimer POC ABG pO2 Sodium Potassium Chloride Carbon Dioxide BUN Creatinine Glucose POC Glucose 288 H 286 H 400 H Ferritin ALT Total Protein Albumin Vitamin B12 TSH Crossmatch 01/06/19 07:15 RBC Hgb Hct MCH MCHC RDW Plt Count Seg Neuts % (Manual) Lymphocytes % (Manual) Seg Neutrophils # Man Lymphocytes # (Manual) D-Dimer POC ABG pO2 Sodium Potassium Chloride Carbon Dioxide BUN Creatinine Glucose POC Glucose 214 H Ferritin ALT Total Protein Albumin Vitamin B12 TSH Crossmatch
[2019-01-06] MEDS: ENOXAPARIN 40 MG/0.4 ML INJ SUB-Q SCH (09:46)
[2019-01-06] MEDS: SENNOSIDES/DOCUSATE SODIUM 8.6/50 MG TAB PO SCH ×2 (09:47→21:56)
[2019-01-06] MEDS: FOLIC ACID 1 MG TAB PO SCH (09:47)
[2019-01-06] MEDS: amLODIPine 10 MG TAB PO SCH (09:47)
[2019-01-06] MEDS: FAMOTIDINE 20 MG TAB PO SCH ×2 (09:47→21:55)
[2019-01-06] MEDS: PHENOL 1.4% 177 ML BOTTLE MM PRN (09:47)
[2019-01-06] MEDS: guaiFENesin ER 600 MG TAB PO SCH ×2 (09:47→21:55)
[2019-01-06] MEDS: NYSTATIN 500,000 UNIT/5 ML ORAL LIQD PO SCH ×4 (09:48→21:57)
[2019-01-06] MEDS: DULoxetine 30 MG CAP PO SCH (09:48)
[2019-01-06] MEDS ORDERED: AMOXICILLIN/K CLAV 875/125MG TAB PO SCH (10:00)
[2019-01-06] MEDS: INSULIN GLARGINE 100 UNITS/ML SUB-Q SCH ×2 (10:10→21:56)
--- NOTE | 2019-01-06 12:19 | Progress Note ---
Assessment and Plan Assessment and plan: 68-year-old woman who presented to the hospital with shortness of breath wheezing and hypoxia. She has been checking her oxygen with a pulse ox at home and noted that she was desaturating especially with the mildest activity such as getting dressed or eating. Acute COPD exacerbation, patient has chronic severe COPD She follows with Dr. Anaya. She takes Symbicort Spiriva and pro-air at home. steroids, nebs, pulmonology consults, aggressive chest PT -Still not ready for discharge as patient desaturates when she gets up acute on chronic diastolic chf cont lasix, cardiology consult Acute on chronic respiratory failure with hypoxia -Continue oxygen supplementation as needed and duonebs -Continue BiPAP at night Acute on chronic normocytic anemia -Status post blood transfusion with 2U of PRBCS -GI consulted: out-pt f/u recommended iron studies, folic acid and B12 levels all wnl DM2 with persistent hyperglycemia Steroid use is exacerbating hyperglycemia. Optimize insulins Oral/pharyngeal thrush Nystatin ordered by surgical dental assistant, will also add Cepacol and phenol for comfort SIRS due to non-infectious cause with organ failure -will monitor Hypothyroidism TSH is low, decrease synthroid dose Metabolic acidosis -resolved HTN -controlled -cont home amlodipine and lasix HLD -cont statin KASANDRA -Continue BiPAP at night, patient is to get repeat sleep study after discharge. She has not had one in 6 years. She will follow-up with her surgical dental assistant for t hat Depression -cont cymbalta Obesity with BMI of 33.7 -lifestyle modification recommended Deconditioning -PT consulted DVT ppx: Lovenox Home when improved History Interval history: She is complaining of severe throat pain and oral pain Review of systems Constitutional: No fevers, no malaise, no joint pains CVS: No chest pain, no orthopnea, no pedal edema GI: No abdominal pain, no diarrhea, no vomiting, no constipation Respiratory: , Continues to complain of shortness of breath and dyspnea on exertion, also having dry cough -She desats to the 70s when she gets up Hospitalist Physical - Physical exam Narrative exam: General.: Mild distress HEENT: Moist mucous membranes, extraocular muscles intact, no lymphadenopathy Oral thrush is evident Neck: supple Cardiac: S1-S2 heard Lungs: Diminished air entry Abdomen: soft , nontender, nondistended, bowel sounds positive Extremities: 3+ bipedal pitting edema Skin: no rash or lesions Neurologic: no gross focal deficits Psych: calm, and cooperative - Constitutional Vitals: Temp Pulse Resp BP Pulse Ox 98.4 F 100 H 18 142/81 100 01/06/19 07:23 01/06/19 10:00 01/06/19 10:00 01/06/19 09:47 01/06/19 10:00 General appearance: Present: mild distress, obese Results - Labs CBC & Chem 7: 01/04/19 05:20 01/08/19 05:48 Labs: Laboratory Last Values WBC 5.2 K/mm3 (4.5-11.0) 01/04/19 05:20 RBC 3.94 M/mm3 (3.65-5.03) 01/04/19 05:20 Hgb 10.7 gm/dl (10.1-14.3) 01/04/19 05:20 Hct 34.5 % (30.3-42.9) 01/04/19 05:20 MCV 88 fl (79-97) 01/04/19 05:20 MCH 27 pg (28-32) L 01/04/19 05:20 MCHC 31 % (30-34) 01/04/19 05:20 RDW 24.2 % (13.2-15.2) H 01/04/19 05:20 Plt Count 558 K/mm3 (140-440) H 01/04/19 05:20 Lymph % (Auto) Hoop [employer] Machine 12/29/18 08:34 [place] % (Auto) Ho[employer] Maker Machine 12/29/18 08:34 Eos % (Auto) Hoop Maker Machine 12/29/18 08:34 Baso % (Auto) Hoop Maker Machine 12/29/18 08:34 Lymph # Ho[employer] Machine 12/29/18 08:34 [place] # Ho[employer] Maker Machine 12/29/18 08:34 Eos # Hoop Maker Machine 12/29/18 08:34 Baso # Ho[employer] Maker Machine 12/29/18 08:34 Add Manual Diff Complete 01/04/19 05:20 Total Counted 100 01/04/19 05:20 Seg Neutrophils % Ho[employer] Machine 01/04/19 05:20 Seg Neuts % (Manual) 97.0 % (40.0-70.0) H 01/04/19 05:20 Band Neutrophils % 1.0 % 01/04/19 05:20 Lymphocytes % (Manual) 1.0 % (13.4-35.0) L 01/04/19 05:20 Reactive Lymphs % (Man) 0 % 01/04/19 05:20 Monocytes % (Manual) 1.0 % (0.0-7.3) 01/04/19 05:20 Eosinophils % (Manual) 0 % (0.0-4.3) 01/04/19 05:20 Basophils % (Manual) 0 % (0.0-1.8) 01/04/19 05:20 Metamyelocytes % 0 % 01/04/19 05:20 Myelocytes % 0 % 01/04/19 05:20 Promyelocytes % 0 % 01/04/19 05:20 Blast Cells % 0 % 01/04/19 05:20 Nucleated RBC % Not Reportable 01/04/19 05:20 Seg Neutrophils # Ho[employer] Machine 12/29/18 08:34 Seg Neutrophils # Man 5.0 K/mm3 (1.8-7.7) 01/04/19 05:20 Band Neutrophils # 0.1 K/mm3 01/04/19 05:20 Lymphocytes # (Manual) 0.1 K/mm3 (1.2-5.4) L 01/04/19 05:20 Abs React Lymphs (Man) 0.0 K/mm3 01/04/19 05:20 Monocytes # (Manual) 0.1 K/mm3 (0.0-0.8) 01/04/19 05:20 Eosinophils # (Manual) 0.0 K/mm3 (0.0-0.4) 01/04/19 05:20 Basophils # (Manual) 0.0 K/mm3 (0.0-0.1) 01/04/19 05:20 Metamyelocytes # 0.0 K/mm3 01/04/19 05:20 Myelocytes # 0.0 K/mm3 01/04/19 05:20 Promyelocytes # 0.0 K/mm3 01/04/19 05:20 Blast Cells # 0.0 K/mm3 01/04/19 05:20 WBC Morphology Not Reportable 01/04/19 05:20 Hypersegmented Neuts Not Reportable 01/04/19 05:20 Hyposegmented Neuts Not Reportable 01/04/19 05:20 Hypogranular Neuts Not Reportable 01/04/19 05:20 Smudge Cells Not Reportable 01/04/19 05:20 Toxic Granulation Not Reportable 01/04/19 05:20 Toxic Vacuolation Not Reportable 01/04/19 05:20 Dohle Bodies Not Reportable 01/04/19 05:20 Pelger-Huet Anomaly Not Reportable 01/04/19 05:20 Sanjeev Rods Not Reportable 01/04/19 05:20 Platelet Estimate Consistent w auto 01/04/19 05:20 Clumped Platelets Not Reportable 01/04/19 05:20 Plt Clumps, EDTA Not Reportable 01/04/19 05:20 Large Platelets Not Reportable 01/04/19 05:20 Giant Platelets Not Reportable 01/04/19 05:20 Platelet Satelliting Not Reportable 01/04/19 05:20 Plt Morphology Comment Not Reportable 01/04/19 05:20 RBC Morphology Not Reportable 01/04/19 05:20 Dimorphic RBCs Not Reportable 01/04/19 05:20 Polychromasia Not Reportable 01/04/19 05:20 Hypochromasia Not Reportable 01/04/19 05:20 Poikilocytosis Not Reportable 01/04/19 05:20 Anisocytosis Not Reportable 01/04/19 05:20 Microcytosis Few 01/04/19 05:20 Macrocytosis Few 01/04/19 05:20 Spherocytes Not Reportable 01/04/19 05:20 Pappenheimer Bodies Not Reportable 01/04/19 05:20 Sickle Cells Not Reportable 01/04/19 05:20 Target Cells Not Reportable 01/04/19 05:20 Tear Drop Cells Not Reportable 01/04/19 05:20 Ovalocytes Few 01/04/19 05:20 Stomatocytes Few 01/04/19 05:20 Helmet Cells Not Reportable 01/04/19 05:20 [place] Bodies Not Reportable 01/04/19 05:20 [place] Rings Not Reportable 01/04/19 05:20 Jg Cells Not Reportable 01/04/19 05:20 Bite Cells Not Reportable 01/04/19 05:20 Crenated Cell Not Reportable 01/04/19 05:20 Elliptocytes Not Reportable 01/04/19 05:20 Acanthocytes (Spur) Not Reportable 01/04/19 05:20 Rouleaux Not Reportable 01/04/19 05:20 Hemoglobin C Crystals Not Reportable 01/04/19 05:20 Schistocytes Not Reportable 01/04/19 05:20 Malaria parasites Not Reportable 01/04/19 05:20 Farhad Bodies Not Reportable 01/04/19 05:20 Hem Pathologist Commnt No 01/04/19 05:20 PT 13.1 Sec. (12.2-14.9) 12/28/18 15:10 INR 1.00 (0.87-1.13) 12/28/18 15:10 APTT 29.2 Sec. (24.2-36.6) 12/28/18 15:10 D-Dimer 536.53 ng/mlDDU (0-234) H 12/28/18 15:49 POC ABG pH 7.443 (7.35-7.45) 12/28/18 15:46 POC ABG pCO2 38.2 (35-45) 12/28/18 15:46 POC ABG pO2 69 (80-105) L 12/28/18 15:46 POC ABG HCO3 26.1 (22-26 mml/L) 12/28/18 15:46 POC ABG Total CO2 27 (23-27mmol/L) 12/28/18 15:46 POC ABG O2 Sat 94 12/28/18 15:46 POC ABG Base Excess 2 ((-2) - (+3)mmol/L) 12/28/18 15:46 FiO2 40 % 12/28/18 15:46 Sodium 135 mmol/L (137-145) L 01/05/19 08:57 Potassium 4.0 mmol/L (3.6-5.0) 01/05/19 08:57 Chloride 89.1 mmol/L (98-107) L 01/05/19 08:57 Carbon Dioxide 27 mmol/L (22-30) 01/05/19 08:57 Anion Gap 23 mmol/L 01/05/19 08:57 BUN 31 mg/dL (7-17) H 01/05/19 08:57 Creatinine 0.8 mg/dL (0.7-1.2) 01/05/19 08:57 Estimated GFR > 60 ml/min 01/05/19 08:57 BUN/Creatinine Ratio 39 % 01/05/19 08:57 Glucose 397 mg/dL (65-100) H 01/05/19 08:57 POC Glucose 280 (70-105) H 01/06/19 11:37 Hemoglobin A1c 5.8 % (4-6) 01/04/19 05:20 Calcium 9.7 mg/dL (8.4-10.2) 01/05/19 08:57 Magnesium 2.10 mg/dL (1.7-2.3) 01/05/19 08:57 Iron 48 ug/dL (37-170) 01/04/19 05:20 TIBC 311 mcg/dL (250-450) 01/04/19 05:20 % Saturation 15.43 % 01/04/19 05:20 Transferrin 259 mg/dl (192-382) 01/04/19 05:20 Ferritin 482.5 ng/mL (13.0-400.0) H 01/04/19 05:20 Total Bilirubin 0.50 mg/dL (0.1-1.2) 01/04/19 05:20 AST 35 units/L (5-40) 01/04/19 05:20 ALT 136 units/L (7-56) H 01/04/19 05:20 Alkaline Phosphatase 122 units/L (35-129) 01/04/19 05:20 Troponin T < 0.010 ng/mL (0.00-0.029) 12/28/18 15:10 NT-Pro-B Natriuret Pep 403.1 pg/mL (0-900) 01/05/19 08:57 Total Protein 6.1 g/dL (6.3-8.2) L 01/04/19 05:20 Albumin 3.9 g/dL (3.9-5) 01/04/19 05:20 Albumin/Globulin Ratio 1.8 % 01/04/19 05:20 Vitamin B12 1572 pg/mL (211-911) H 01/04/19 05:20 TSH 0.218 mlU/mL (0.270-4.200) L 01/04/19 05:20 Free T4 1.45 ng/dL (0.76-1.46) 01/04/19 05:20 Thyroxine (T4) 7.3 ug/dL (4.0-12.0) 01/04/19 05:20 Blood Type O POSITIVE 12/28/18 15:41 Antibody Screen Negative 12/28/18 15:41 Crossmatch See Detail 12/28/18 15:41 Active Medications - Current Medications Current Medications: Generic Name Dose Route Start Last Admin Trade Name Freq PRN Reason Stop Dose Admin Acetaminophen 650 mg 12/28/18 17:29 Tylenol PO Q4H PRN Pain MILD(1-3)/Fever >100.5/[place] Albuterol 2.5 mg 12/30/18 12:01 Proventil IH Q2HRT PRN Shortness Of Breath Albuterol/Ipratropium 1 ampul 12/31/18 08:00 01/06/19 08:13 Duoneb *Not For Prn Use* IH 1 ampul TIDRT CHING Administration Amlodipine Besylate 10 mg 12/30/18 14:00 01/06/19 09:47 Amlodipine PO 10 mg DAILY CHING Administration Arformoterol Tartrate 15 mcg 12/30/18 20:00 01/06/19 08:13 Brovana Nebu IH 15 mcg Q12HRT CHING Administration Atorvastatin Calcium 40 mg 12/30/18 22:00 01/05/19 21:16 Lipitor PO 40 mg HS CHING Administration Benzocaine/Menthol 1 each 01/05/19 12:57 01/06/19 06:00 Cepacol X Strength MM 1 each Q2HR PRN Administration Sore Throat Budesonide 0.5 mg 12/30/18 20:00 01/06/19 08:13 Pulmicort IH 0.5 mg Q12HRT CHING Administration Dextrose 50 ml 12/28/18 17:31 D50w (25gm) Syringe IV Q30MIN PRN Hypoglycemia Protocol Duloxetine HCl 60 mg 12/30/18 14:00 01/06/19 09:48 Cymbalta PO 60 mg QDAY CHING Administration Enoxaparin Sodium 40 mg 12/30/18 10:00 01/06/19 09:46 Enoxaparin SUB-Q 40 mg QDAY@1000 CHING Administration Famotidine 20 mg 12/28/18 22:00 01/06/19 09:47 Pepcid PO 20 mg BID CHING Administration Folic Acid 1 mg 12/30/18 17:00 01/06/19 09:47 Folvite PO 1 mg DAILY CHING Administration Furosemide 40 mg 01/04/19 18:00 01/06/19 06:01 Lasix IV 40 mg 0600,1800 CHING Administration Guaifenesin 600 mg 12/31/18 12:00 01/06/19 09:47 Mucinex Er PO 600 mg BID CHING Administration Ampicillin Sodium/Sulbactam Sodium 3 gm in 100 mls @ 200 mls/hr 01/06/19 18:00 Unasyn/Ns 3 Gm/100 Ml IV Q6HR [facility]–1983 Protocol Insulin Glargine 45 units 01/05/19 12:00 01/06/19 10:10 Lantus SUB-Q 45 units BID CHING Administration Insulin Human Lispro 0 unit 01/02/19 16:30 01/06/19 08:29 Humalog SUB-Q 6 unit AC CHING Administration Protocol Insulin Human Lispro 0 unit 01/02/19 22:00 01/05/19 21:17 Humalog SUB-Q 10 unit QHS CHING Administration Protocol Insulin Human Lispro 12 unit 01/05/19 11:46 01/06/19 08:28 Humalog SUB-Q 12 unit TIDAC CHING Administration Levothyroxine Sodium 112 mcg 12/31/18 06:00 01/06/19 05:59 Synthroid PO 112 mcg DAILY@0600 CHING Administration Metformin HCl 500 mg 01/03/19 19:00 01/06/19 08:30 Glucophage Xr PO 500 mg QDDIAB CHING Administration Methylprednisolone Sodium Succinate 125 mg 01/03/19 12:00 01/06/19 05:59 Solu-Medrol IV 125 mg Q6HR CHING Administration Nystatin 100,000 unit 01/05/19 14:00 01/06/19 09:48 Nystatin PO 100,000 unit QID CHING Administration Ondansetron HCl 4 mg 12/28/18 17:29 Zofran IV Q8H PRN Nausea And Vomiting Phenol 1 spray 01/05/19 12:57 01/06/19 09:47 Chloraseptic MM 1 spray PRN PRN Administration Sore Throat Pseudoephedrine/Acetam/Chlorphenir 5 ml 12/31/18 11:12 01/04/19 21:51 Robitussin Ac PO 5 ml Q4H PRN Administration Cough Senna/Docusate Sodium 1 tab 12/31/18 12:00 01/06/19 09:47 Senokot S PO 1 tab BID CHING Administration Sodium Chloride 10 ml 12/28/18 22:00 01/06/19 10:11 Sodium Chloride Flush Syringe 10 Ml IV 10 ml BID CHING Administration Sodium Chloride 10 ml 12/28/18 17:29 01/06/19 06:03 Sodium Chloride Flush Syringe 10 Ml IV 10 ml PRN PRN Administration LINE FLUSH Nutrition/Malnutrition Assess - Dietary Evaluation Nutrition/Malnutrition Findings: Nutrition Notes Start: 01/04/19 13:36 Freq: Status: Active Protocol: Document 01/04/19 13:37 LM (Rec: 01/04/19 13:37 LM [id number]) Nutrition Notes Need for Assessment generated from: LOS Initial or Follow up Brief Note Subjective/Other Information Screen for LOS. 100% intakes documented in chart. Nutrition Intervention Revisit per MD consult or patient Sign Off request:
[2019-01-06] MEDS: AMPICILLIN/SULBACTA 3GM/100ML 3 GM/100 ML BAG IV SCH ×2 (17:50→23:04)
[2019-01-07] MEDS: BENZOCAINE/MENTHOL LOZENGE MM PRN ×3 (02:35→20:04)
[2019-01-07 04:56] LABS: BUN/Creatinine Ratio 41; Blood Urea Nitrogen 29 mg/dL (7-17); Calcium 10.3 mg/dL (8.4-10.2); Hemolysis Index 11
[2019-01-07] MEDS: AMPICILLIN/SULBACTA 3GM/100ML 3 GM/100 ML BAG IV SCH ×4 (05:31→23:16)
[2019-01-07] MEDS: FUROSEMIDE 40 MG/4 ML INJ IV SCH ×2 (05:31→17:41)
[2019-01-07] MEDS: methylPREDNISolone Sod Succinate 125 MG/2 ML INJ IV SCH ×4 (05:31→23:16)
[2019-01-07] MEDS: LEVOTHYROXINE 112 MCG TAB PO SCH (05:32)
[2019-01-07] MEDS: INSULIN LISPRO 100 UNIT/ML SUB-Q SCH ×7 (08:14→21:48)
[2019-01-07] MEDS: metFORMIN XR 500MG TAB PO SCH (08:15)
--- NOTE | 2019-01-07 09:20 | Progress Note ---
Assessment and Plan - Patient Problems (1) Volume overload Current Visit: Yes Status: Acute (2) Pleural effusion Current Visit: Yes Status: Acute (3) Acute and chronic respiratory failure Current Visit: Yes Status: Acute Qualifiers: Respiratory failure complication: hypoxia Qualified Code(s): J96.21 - Acute and chronic respiratory failure with hypoxia (4) Anemia Current Visit: Yes Status: Acute (5) Anemia requiring transfusions Current Visit: Yes Status: Acute (6) COPD (chronic obstructive pulmonary disease) Current Visit: Yes Status: Acute Qualifiers: COPD type: unspecified COPD Qualified Code(s): J44.9 - Chronic obstructive pulmonary disease, unspecified (7) Symptomatic anemia Current Visit: Yes Status: Acute (8) Oral thrush Current Visit: Yes Status: Acute Subjective Interval history: still w sore throat Objective Vital Signs - 12hr 01/06/19 01/06/19 01/07/19 22:00 22:16 02:28 Temperature 98.5 F Pulse Rate 91 H Pulse Rate [ 89 Anterior Bilateral Throughout] Respiratory 18 20 Rate Respiratory 18 Rate [Anterior Bilateral Throughout] Blood Pressure 143/70 Blood Pressure [Right] O2 Sat by Pulse 99 91 Oximetry 01/07/19 01/07/19 07:51 08:00 Temperature 98.7 F Pulse Rate 87 89 Pulse Rate [ Anterior Bilateral Throughout] Respiratory 18 Rate Respiratory Rate [Anterior Bilateral Throughout] Blood Pressure Blood Pressure 152/80 [Right] O2 Sat by Pulse 97 96 Oximetry Constitutional: no acute distress, alert Eyes: non-icteric ENT: oropharynx moist, other (oral thrush, no exudates noted) Ascultation: Bilateral: diminished breath sounds Cardiovascular: regular rate and rhythm Gastrointestinal: normoactive bowel sounds, soft, non-tender, non-distended Integumentary: normal Extremities: no cyanosis, edema Neurologic: normal mental status, non-focal exam Psychiatric: mood appropriate, affect normal CBC and BMP: 01/04/19 05:20 01/07/19 04:05 ABG, PT/INR, D-dimer: ABG POC ABG pH 7.443 (7.35-7.45) 12/28/18 15:46 POC ABG pCO2 38.2 (35-45) 12/28/18 15:46 POC ABG pO2 69 (80-105) L 12/28/18 15:46 POC ABG HCO3 26.1 (22-26 mml/L) 12/28/18 15:46 POC ABG Total CO2 27 (23-27mmol/L) 12/28/18 15:46 POC ABG O2 Sat 94 12/28/18 15:46 PT/INR, D-dimer PT 13.1 Sec. (12.2-14.9) 12/28/18 15:10 INR 1.00 (0.87-1.13) 12/28/18 15:10 D-Dimer 536.53 ng/mlDDU (0-234) H 12/28/18 15:49 Abnormal lab findings: Abnormal Labs 12/28/18 12/28/18 12/28/18 15:10 15:10 15:10 RBC 2.86 L Hgb 6.7 L Hct 23.3 L MCH 24 L MCHC 29 L RDW 20.6 H Plt Count 495 H Seg Neuts % (Manual) 82.0 H Lymphocytes % (Manual) 11.0 L Seg Neutrophils # Man 8.9 H Lymphocytes # (Manual) D-Dimer POC ABG pO2 Sodium Potassium 3.5 L Chloride 95.5 L Carbon Dioxide 21 L BUN Creatinine Glucose 209 H POC Glucose Calcium Ferritin ALT Total Protein Albumin 3.8 L Vitamin B12 TSH 5.340 H Crossmatch 12/28/18 12/28/18 12/28/18 15:41 15:46 15:49 RBC Hgb Hct MCH MCHC RDW Plt Count Seg Neuts % (Manual) Lymphocytes % (Manual) Seg Neutrophils # Man Lymphocytes # (Manual) D-Dimer 536.53 H POC ABG pO2 69 L Sodium Potassium Chloride Carbon Dioxide BUN Creatinine Glucose POC Glucose Calcium Ferritin ALT Total Protein Albumin Vitamin B12 TSH Crossmatch See Detail 12/28/18 12/28/18 12/29/18 20:16 21:44 05:55 RBC Hgb Hct MCH MCHC RDW Plt Count Seg Neuts % (Manual) Lymphocytes % (Manual) Seg Neutrophils # Man Lymphocytes # (Manual) D-Dimer POC ABG pO2 Sodium Potassium Chloride Carbon Dioxide BUN Creatinine Glucose POC Glucose 155 H 144 H 239 H Calcium Ferritin ALT Total Protein Albumin Vitamin B12 TSH Crossmatch 12/29/18 12/29/18 12/29/18 08:34 08:34 11:56 RBC 3.55 L Hgb 9.0 L Hct 29.3 L D MCH 26 L MCHC RDW 19.6 H Plt Count 469 H Seg Neuts % (Manual) 95.0 H Lymphocytes % (Manual) 3.0 L Seg Neutrophils # Man 8.5 H Lymphocytes # (Manual) 0.3 L D-Dimer POC ABG pO2 Sodium Potassium Chloride Carbon Dioxide BUN Creatinine Glucose 187 H POC Glucose 247 H Calcium Ferritin ALT Total Protein Albumin Vitamin B12 TSH Crossmatch 12/29/18 12/29/18 12/30/18 16:32 21:47 04:46 RBC 3.36 L Hgb 8.5 L Hct 28.2 L MCH 25 L MCHC RDW 19.5 H Plt Count 483 H Seg Neuts % (Manual) Lymphocytes % (Manual) Seg Neutrophils # Man Lymphocytes # (Manual) D-Dimer POC ABG pO2 Sodium Potassium Chloride Carbon Dioxide BUN Creatinine Glucose POC Glucose 311 H 280 H Calcium Ferritin ALT Total Protein Albumin Vitamin B12 TSH Crossmatch 12/30/18 12/30/18 12/30/18 06:17 13:19 16:48 RBC Hgb Hct MCH MCHC RDW Plt Count Seg Neuts % (Manual) Lymphocytes % (Manual) Seg Neutrophils # Man Lymphocytes # (Manual) D-Dimer POC ABG pO2 Sodium Potassium Chloride Carbon Dioxide BUN Creatinine Glucose POC Glucose 241 H 224 H 371 H Calcium Ferritin ALT Total Protein Albumin Vitamin B12 TSH Crossmatch 12/31/18 12/31/18 12/31/18 00:04 05:50 09:44 RBC Hgb Hct MCH MCHC RDW Plt Count Seg Neuts % (Manual) Lymphocytes % (Manual) Seg Neutrophils # Man Lymphocytes # (Manual) D-Dimer POC ABG pO2 Sodium Potassium Chloride Carbon Dioxide BUN Creatinine Glucose POC Glucose 428 H 332 H 405 H Calcium Ferritin ALT Total Protein Albumin Vitamin B12 TSH Crossmatch 12/31/18 12/31/18 12/31/18 11:32 17:15 23:55 RBC Hgb Hct MCH MCHC RDW Plt Count Seg Neuts % (Manual) Lymphocytes % (Manual) Seg Neutrophils # Man Lymphocytes # (Manual) D-Dimer POC ABG pO2 Sodium Potassium Chloride Carbon Dioxide BUN Creatinine Glucose POC Glucose 450 H 439 H 259 H Calcium Ferritin ALT Total Protein Albumin Vitamin B12 TSH Crossmatch 01/01/19 01/01/19 01/01/19 05:09 06:00 11:39 RBC Hgb 8.8 L Hct 28.3 L MCH MCHC RDW Plt Count Seg Neuts % (Manual) Lymphocytes % (Manual) Seg Neutrophils # Man Lymphocytes # (Manual) D-Dimer POC ABG pO2 Sodium Potassium Chloride Carbon Dioxide BUN Creatinine Glucose POC Glucose 243 H 253 H Calcium Ferritin ALT Total Protein Albumin Vitamin B12 TSH Crossmatch 01/01/19 01/02/19 01/02/19 18:04 00:04 05:49 RBC Hgb Hct MCH MCHC RDW Plt Count Seg Neuts % (Manual) Lymphocytes % (Manual) Seg Neutrophils # Man Lymphocytes # (Manual) D-Dimer POC ABG pO2 Sodium Potassium Chloride Carbon Dioxide BUN Creatinine Glucose POC Glucose 425 H 339 H 287 H Calcium Ferritin ALT Total Protein Albumin Vitamin B12 TSH Crossmatch 01/02/19 01/02/19 01/02/19 11:26 17:39 22:36 RBC Hgb Hct MCH MCHC RDW Plt Count Seg Neuts % (Manual) Lymphocytes % (Manual) Seg Neutrophils # Man Lymphocytes # (Manual) D-Dimer POC ABG pO2 Sodium Potassium Chloride Carbon Dioxide BUN Creatinine Glucose POC Glucose 335 H 306 H 329 H Calcium Ferritin ALT Total Protein Albumin Vitamin B12 TSH Crossmatch 01/03/19 01/03/19 01/03/19 07:44 11:28 16:25 RBC Hgb Hct MCH MCHC RDW Plt Count Seg Neuts % (Manual) Lymphocytes % (Manual) Seg Neutrophils # Man Lymphocytes # (Manual) D-Dimer POC ABG pO2 Sodium Potassium Chloride Carbon Dioxide BUN Creatinine Glucose POC Glucose 234 H 301 H 356 H Calcium Ferritin ALT Total Protein Albumin Vitamin B12 TSH Crossmatch 01/03/19 01/04/19 01/04/19 21:57 05:20 05:20 RBC Hgb Hct MCH 27 L MCHC RDW 24.2 H Plt Count 558 H Seg Neuts % (Manual) 97.0 H Lymphocytes % (Manual) 1.0 L Seg Neutrophils # Man Lymphocytes # (Manual) 0.1 L D-Dimer POC ABG pO2 Sodium Potassium 3.4 L Chloride 95.1 L Carbon Dioxide BUN 23 H Creatinine 0.6 L Glucose 264 H POC Glucose 311 H Calcium Ferritin ALT 136 H Total Protein 6.1 L Albumin Vitamin B12 TSH Crossmatch 01/04/19 01/04/19 01/04/19 05:20 05:20 05:20 RBC Hgb Hct MCH MCHC RDW Plt Count Seg Neuts % (Manual) Lymphocytes % (Manual) Seg Neutrophils # Man Lymphocytes # (Manual) D-Dimer POC ABG pO2 Sodium Potassium Chloride Carbon Dioxide BUN Creatinine Glucose POC Glucose Calcium Ferritin 482.5 H ALT Total Protein Albumin Vitamin B12 1572 H TSH 0.218 L Crossmatch 01/04/19 01/04/19 01/04/19 07:24 12:02 17:11 RBC Hgb Hct MCH MCHC RDW Plt Count Seg Neuts % (Manual) Lymphocytes % (Manual) Seg Neutrophils # Man Lymphocytes # (Manual) D-Dimer POC ABG pO2 Sodium Potassium Chloride Carbon Dioxide BUN Creatinine Glucose POC Glucose 237 H 270 H 314 H Calcium Ferritin ALT Total Protein Albumin Vitamin B12 TSH Crossmatch 01/04/19 01/05/19 01/05/19 21:35 07:17 08:57 RBC Hgb Hct MCH MCHC RDW Plt Count Seg Neuts % (Manual) Lymphocytes % (Manual) Seg Neutrophils # Man Lymphocytes # (Manual) D-Dimer POC ABG pO2 Sodium 135 L Potassium Chloride 89.1 L Carbon Dioxide BUN 31 H Creatinine Glucose 397 H POC Glucose 262 H 330 H Calcium Ferritin ALT Total Protein Albumin Vitamin B12 TSH Crossmatch 01/05/19 01/05/19 01/05/19 11:37 16:38 20:56 RBC Hgb Hct MCH MCHC RDW Plt Count Seg Neuts % (Manual) Lymphocytes % (Manual) Seg Neutrophils # Man Lymphocytes # (Manual) D-Dimer POC ABG pO2 Sodium Potassium Chloride Carbon Dioxide BUN Creatinine Glucose POC Glucose 288 H 286 H 400 H Calcium Ferritin ALT Total Protein Albumin Vitamin B12 TSH Crossmatch 01/06/19 01/06/19 01/06/19 07:15 10:19 11:37 RBC Hgb Hct MCH MCHC RDW Plt Count Seg Neuts % (Manual) Lymphocytes % (Manual) Seg Neutrophils # Man Lymphocytes # (Manual) D-Dimer POC ABG pO2 Sodium Potassium Chloride Carbon Dioxide BUN Creatinine Glucose POC Glucose 214 H 336 H 280 H Calcium Ferritin ALT Total Protein Albumin Vitamin B12 TSH Crossmatch 01/06/19 01/06/19 01/07/19 16:15 22:09 04:05 RBC Hgb Hct MCH MCHC RDW Plt Count Seg Neuts % (Manual) Lymphocytes % (Manual) Seg Neutrophils # Man Lymphocytes # (Manual) D-Dimer POC ABG pO2 Sodium Potassium 3.3 L Chloride 93.0 L Carbon Dioxide 32 H BUN 29 H Creatinine Glucose 155 H POC Glucose 170 H 296 H Calcium 10.3 H Ferritin ALT Total Protein Albumin Vitamin B12 TSH Crossmatch 01/07/19 07:58 RBC Hgb Hct MCH MCHC RDW Plt Count Seg Neuts % (Manual) Lymphocytes % (Manual) Seg Neutrophils # Man Lymphocytes # (Manual) D-Dimer POC ABG pO2 Sodium Potassium Chloride Carbon Dioxide BUN Creatinine Glucose POC Glucose 157 H Calcium Ferritin ALT Total Protein Albumin Vitamin B12 TSH Crossmatch
[2019-01-07] MEDS ORDERED: POTASSIUM CHLORIDE 20 MEQ PACKET FEEDTUBE ONE (09:25)
[2019-01-07] MEDS: BUDESONIDE 0.5 MG/2 ML NEBU IH SCH ×2 (09:27→22:25)
[2019-01-07] MEDS: ARFORMOTEROL 15 MCG/2 ML NEBU IH SCH ×2 (09:27→22:25)
[2019-01-07] MEDS: IPRATROPIUM/ALBUTEROL SULFATE 3 ML AMPUL.NEB IH SCH ×3 (09:27→22:25)
[2019-01-07] MEDS: FLUCONAZOLE 100 MG TAB PO SCH (09:52)
[2019-01-07] MEDS: DULoxetine 30 MG CAP PO SCH (09:52)
[2019-01-07] MEDS: guaiFENesin ER 600 MG TAB PO SCH ×2 (09:52→21:16)
[2019-01-07] MEDS: FAMOTIDINE 20 MG TAB PO SCH ×2 (09:52→21:17)
[2019-01-07] MEDS: INSULIN GLARGINE 100 UNITS/ML SUB-Q SCH ×2 (09:52→21:47)
[2019-01-07] MEDS: FOLIC ACID 1 MG TAB PO SCH (09:53)
[2019-01-07] MEDS: amLODIPine 10 MG TAB PO SCH (09:53)
[2019-01-07] MEDS: ENOXAPARIN 40 MG/0.4 ML INJ SUB-Q SCH (09:53)
[2019-01-07] MEDS: SENNOSIDES/DOCUSATE SODIUM 8.6/50 MG TAB PO SCH ×2 (09:54→21:17)
[2019-01-07] MEDS ORDERED: FUROSEMIDE 20 MG/2 ML INJ IV ONE (10:00)
--- NOTE | 2019-01-07 12:38 | Progress Note ---
Assessment and Plan Assessment and plan: 68-year-old woman who presented to the hospital with shortness of breath wheezing and hypoxia. She has been checking her oxygen with a pulse ox at home and noted that she was desaturating especially with the mildest activity such as getting dressed or eating. Acute COPD exacerbation, patient has chronic severe COPD She follows with Dr. Anaya. She takes Symbicort Spiriva and pro-air at home. steroids, nebs, pulmonology consults, aggressive chest PT acute on chronic diastolic chf cont lasix, cardiology consult hypokalemia; diuretics Acute on chronic respiratory failure with hypoxia -Continue oxygen supplementation as needed and duonebs -Continue BiPAP at night sarah-pharyngeal thrush antifungals Acute on chronic normocytic anemia -Status post blood transfusion with 2U of PRBCS -GI consulted: out-pt f/u recommended iron studies, folic acid and B12 levels all wnl DM2 with persistent hyperglycemia Steroid use is exacerbating hyperglycemia. Optimize insulins SIRS due to non-infectious cause with organ failure -will monitor Hypothyroidism TSH is low, decrease synthroid dose Metabolic acidosis -resolved HTN -controlled -cont home amlodipine and lasix HLD -cont statin KASANDRA -Continue BiPAP at night, patient is to get repeat sleep study after discharge. She has not had one in 6 years. She will follow-up with her insole taper for that Depression -cont cymbalta Obesity with BMI of 33.7 -lifestyle modification recommended Deconditioning -PT consulted DVT ppx: Lovenox Home when improved History Interval history: She is complaining of severe throat pain and oral pain Review of systems Constitutional: No fevers, no malaise, no joint pains CVS: No chest pain, no orthopnea, no pedal edema GI: No abdominal pain, no diarrhea, no vomiting, no constipation Respiratory: , Continues to complain of shortness of breath and dyspnea on exertion, also having dry cough -She desats to the 80s when she gets up Hospitalist Physical - Physical exam Narrative exam: General.: Mild distress HEENT: Moist mucous membranes, extraocular muscles intact, no lymphadenopathy Oral thrush is evident Neck: supple Cardiac: S1-S2 heard Lungs: Diminished air entry Abdomen: soft , nontender, nondistended, bowel sounds positive Extremities: 3+ bipedal pitting edema Skin: no rash or lesions Neurologic: no gross focal deficits Psych: calm, and cooperative - Constitutional Vitals: Temp Pulse Resp BP Pulse Ox 98.7 F 95 H 18 152/80 94 01/07/19 08:00 01/07/19 10:00 01/07/19 10:00 01/07/19 08:00 01/07/19 10:00 General appearance: Present: mild distress, obese Results - Labs CBC & Chem 7: 01/04/19 05:20 01/08/19 05:48 Labs: Laboratory Last Values WBC 5.2 K/mm3 (4.5-11.0) 01/04/19 05:20 RBC 3.94 M/mm3 (3.65-5.03) 01/04/19 05:20 Hgb 10.7 gm/dl (10.1-14.3) 01/04/19 05:20 Hct 34.5 % (30.3-42.9) 01/04/19 05:20 MCV 88 fl (79-97) 01/04/19 05:20 MCH 27 pg (28-32) L 01/04/19 05:20 MCHC 31 % (30-34) 01/04/19 05:20 RDW 24.2 % (13.2-15.2) H 01/04/19 05:20 Plt Count 558 K/mm3 (140-440) H 01/04/19 05:20 Lymph % (Auto) Web Manager 12/29/18 08:34 [place] % (Auto) Web Manager 12/29/18 08:34 Eos % (Auto) Web Manager 12/29/18 08:34 Baso % (Auto) Web Manager 12/29/18 08:34 Lymph # Web Manager 12/29/18 08:34 [place] # Web Manager 12/29/18 08:34 Eos # Web Manager 12/29/18 08:34 Baso # Web Manager 12/29/18 08:34 Add Manual Diff Complete 01/04/19 05:20 Total Counted 100 01/04/19 05:20 Seg Neutrophils % Web Manager 01/04/19 05:20 Seg Neuts % (Manual) 97.0 % (40.0-70.0) H 01/04/19 05:20 Band Neutrophils % 1.0 % 01/04/19 05:20 Lymphocytes % (Manual) 1.0 % (13.4-35.0) L 01/04/19 05:20 Reactive Lymphs % (Man) 0 % 01/04/19 05:20 Monocytes % (Manual) 1.0 % (0.0-7.3) 01/04/19 05:20 Eosinophils % (Manual) 0 % (0.0-4.3) 01/04/19 05:20 Basophils % (Manual) 0 % (0.0-1.8) 01/04/19 05:20 Metamyelocytes % 0 % 01/04/19 05:20 Myelocytes % 0 % 01/04/19 05:20 Promyelocytes % 0 % 01/04/19 05:20 Blast Cells % 0 % 01/04/19 05:20 Nucleated RBC % Not Reportable 01/04/19 05:20 Seg Neutrophils # Web Manager 12/29/18 08:34 Seg Neutrophils # Man 5.0 K/mm3 (1.8-7.7) 01/04/19 05:20 Band Neutrophils # 0.1 K/mm3 01/04/19 05:20 Lymphocytes # (Manual) 0.1 K/mm3 (1.2-5.4) L 01/04/19 05:20 Abs React Lymphs (Man) 0.0 K/mm3 01/04/19 05:20 Monocytes # (Manual) 0.1 K/mm3 (0.0-0.8) 01/04/19 05:20 Eosinophils # (Manual) 0.0 K/mm3 (0.0-0.4) 01/04/19 05:20 Basophils # (Manual) 0.0 K/mm3 (0.0-0.1) 01/04/19 05:20 Metamyelocytes # 0.0 K/mm3 01/04/19 05:20 Myelocytes # 0.0 K/mm3 01/04/19 05:20 Promyelocytes # 0.0 K/mm3 01/04/19 05:20 Blast Cells # 0.0 K/mm3 01/04/19 05:20 WBC Morphology Not Reportable 01/04/19 05:20 Hypersegmented Neuts Not Reportable 01/04/19 05:20 Hyposegmented Neuts Not Reportable 01/04/19 05:20 Hypogranular Neuts Not Reportable 01/04/19 05:20 Smudge Cells Not Reportable 01/04/19 05:20 Toxic Granulation Not Reportable 01/04/19 05:20 Toxic Vacuolation Not Reportable 01/04/19 05:20 Dohle Bodies Not Reportable 01/04/19 05:20 Pelger-Huet Anomaly Not Reportable 01/04/19 05:20 Sanjeev Rods Not Reportable 01/04/19 05:20 Platelet Estimate Consistent w auto 01/04/19 05:20 Clumped Platelets Not Reportable 01/04/19 05:20 Plt Clumps, EDTA Not Reportable 01/04/19 05:20 Large Platelets Not Reportable 01/04/19 05:20 Giant Platelets Not Reportable 01/04/19 05:20 Platelet Satelliting Not Reportable 01/04/19 05:20 Plt Morphology Comment Not Reportable 01/04/19 05:20 RBC Morphology Not Reportable 01/04/19 05:20 Dimorphic RBCs Not Reportable 01/04/19 05:20 Polychromasia Not Reportable 01/04/19 05:20 Hypochromasia Not Reportable 01/04/19 05:20 Poikilocytosis Not Reportable 01/04/19 05:20 Anisocytosis Not Reportable 01/04/19 05:20 Microcytosis Few 01/04/19 05:20 Macrocytosis Few 01/04/19 05:20 Spherocytes Not Reportable 01/04/19 05:20 Pappenheimer Bodies Not Reportable 01/04/19 05:20 Sickle Cells Not Reportable 01/04/19 05:20 Target Cells Not Reportable 01/04/19 05:20 Tear Drop Cells Not Reportable 01/04/19 05:20 Ovalocytes Few 01/04/19 05:20 Stomatocytes Few 01/04/19 05:20 Helmet Cells Not Reportable 01/04/19 05:20 [place] Bodies Not Reportable 01/04/19 05:20 [place] Rings Not Reportable 01/04/19 05:20 [place] Cells Not Reportable 01/04/19 05:20 Bite Cells Not Reportable 01/04/19 05:20 Crenated Cell Not Reportable 01/04/19 05:20 Elliptocytes Not Reportable 01/04/19 05:20 Acanthocytes (Spur) Not Reportable 01/04/19 05:20 Rouleaux Not Reportable 01/04/19 05:20 Hemoglobin C Crystals Not Reportable 01/04/19 05:20 Schistocytes Not Reportable 01/04/19 05:20 Malaria parasites Not Reportable 01/04/19 05:20 Farhad Bodies Not Reportable 01/04/19 05:20 Hem Pathologist Commnt No 01/04/19 05:20 PT 13.1 Sec. (12.2-14.9) 12/28/18 15:10 INR 1.00 (0.87-1.13) 12/28/18 15:10 APTT 29.2 Sec. (24.2-36.6) 12/28/18 15:10 D-Dimer 536.53 ng/mlDDU (0-234) H 12/28/18 15:49 POC ABG pH 7.443 (7.35-7.45) 12/28/18 15:46 POC ABG pCO2 38.2 (35-45) 12/28/18 15:46 POC ABG pO2 69 (80-105) L 12/28/18 15:46 POC ABG HCO3 26.1 (22-26 mml/L) 12/28/18 15:46 POC ABG Total CO2 27 (23-27mmol/L) 12/28/18 15:46 POC ABG O2 Sat 94 12/28/18 15:46 POC ABG Base Excess 2 ((-2) - (+3)mmol/L) 12/28/18 15:46 FiO2 40 % 12/28/18 15:46 Sodium 141 mmol/L (137-145) 01/07/19 04:05 Potassium 3.3 mmol/L (3.6-5.0) L 01/07/19 04:05 Chloride 93.0 mmol/L (98-107) L 01/07/19 04:05 Carbon Dioxide 32 mmol/L (22-30) H 01/07/19 04:05 Anion Gap 19 mmol/L 01/07/19 04:05 BUN 29 mg/dL (7-17) H 01/07/19 04:05 Creatinine 0.7 mg/dL (0.7-1.2) 01/07/19 04:05 Estimated GFR > 60 ml/min 01/07/19 04:05 BUN/Creatinine Ratio 41 % 01/07/19 04:05 Glucose 155 mg/dL (65-100) H 01/07/19 04:05 POC Glucose 151 (70-105) H 01/07/19 11:55 Hemoglobin A1c 5.8 % (4-6) 01/04/19 05:20 Calcium 10.3 mg/dL (8.4-10.2) H 01/07/19 04:05 Magnesium 2.10 mg/dL (1.7-2.3) 01/05/19 08:57 Iron 48 ug/dL (37-170) 01/04/19 05:20 TIBC 311 mcg/dL (250-450) 01/04/19 05:20 % Saturation 15.43 % 01/04/19 05:20 Transferrin 259 mg/dl (192-382) 01/04/19 05:20 Ferritin 482.5 ng/mL (13.0-400.0) H 01/04/19 05:20 Total Bilirubin 0.50 mg/dL (0.1-1.2) 01/04/19 05:20 AST 35 units/L (5-40) 01/04/19 05:20 ALT 136 units/L (7-56) H 01/04/19 05:20 Alkaline Phosphatase 122 units/L (35-129) 01/04/19 05:20 Troponin T < 0.010 ng/mL (0.00-0.029) 12/28/18 15:10 NT-Pro-B Natriuret Pep 403.1 pg/mL (0-900) 01/05/19 08:57 Total Protein 6.1 g/dL (6.3-8.2) L 01/04/19 05:20 Albumin 3.9 g/dL (3.9-5) 01/04/19 05:20 Albumin/Globulin Ratio 1.8 % 01/04/19 05:20 Vitamin B12 1572 pg/mL (211-911) H 01/04/19 05:20 TSH 0.218 mlU/mL (0.270-4.200) L 01/04/19 05:20 Free T4 1.45 ng/dL (0.76-1.46) 01/04/19 05:20 Thyroxine (T4) 7.3 ug/dL (4.0-12.0) 01/04/19 05:20 Blood Type O POSITIVE 12/28/18 15:41 Antibody Screen Negative 12/28/18 15:41 Crossmatch See Detail 12/28/18 15:41 Active Medications - Current Medications Current Medications: Generic Name Dose Route Start Last Admin Trade Name Freq PRN Reason Stop Dose Admin Acetaminophen 650 mg 12/28/18 17:29 Tylenol PO Q4H PRN Pain MILD(1-3)/Fever >100.5/[place] Albuterol 2.5 mg 12/30/18 12:01 Proventil IH Q2HRT PRN Shortness Of Breath Albuterol/Ipratropium 1 ampul 12/31/18 08:00 01/07/19 09:27 Duoneb *Not For Prn Use* IH 1 ampul TIDRT CHING Administration Amlodipine Besylate 10 mg 12/30/18 14:00 01/07/19 09:53 Amlodipine PO 10 mg DAILY CHING Administration Arformoterol Tartrate 15 mcg 12/30/18 20:00 01/07/19 09:27 Brovana Nebu IH 15 mcg Q12HRT CHING Administration Atorvastatin Calcium 40 mg 12/30/18 22:00 01/06/19 21:56 Lipitor PO 40 mg HS CHING Administration Benzocaine/Menthol 1 each 01/05/19 12:57 01/07/19 05:33 Cepacol X Strength MM 1 each Q2HR PRN Administration Sore Throat Budesonide 0.5 mg 12/30/18 20:00 01/07/19 09:27 Pulmicort IH 0.5 mg Q12HRT CHING Administration Dextrose 50 ml 12/28/18 17:31 D50w (25gm) Syringe IV Q30MIN PRN Hypoglycemia Protocol Duloxetine HCl 60 mg 12/30/18 14:00 01/07/19 09:52 Cymbalta PO 60 mg QDAY CHING Administration Enoxaparin Sodium 40 mg 12/30/18 10:00 01/07/19 09:53 Enoxaparin SUB-Q 40 mg QDAY@1000 CHING Administration Famotidine 20 mg 12/28/18 22:00 01/07/19 09:52 Pepcid PO 20 mg BID CHING Administration Fluconazole 100 mg 01/07/19 10:00 01/07/19 09:52 Diflucan PO 01/12/19 09:59 100 mg QDAY CHING Administration Folic Acid 1 mg 12/30/18 17:00 01/07/19 09:53 Folvite PO 1 mg DAILY CHING Administration Furosemide 40 mg 01/04/19 18:00 01/07/19 05:31 Lasix IV 40 mg 0600,1800 CHING Administration Guaifenesin 600 mg 12/31/18 12:00 01/07/19 09:52 Mucinex Er PO 600 mg BID CHING Administration Ampicillin Sodium/Sulbactam Sodium 3 gm in 100 mls @ 200 mls/hr 01/06/19 18:00 01/07/19 05:31 Unasyn/Ns 3 Gm/100 Ml IV 200 mls/hr Q6HR CHING Administration Protocol Insulin Glargine 45 units 01/05/19 12:00 01/07/19 09:52 Lantus SUB-Q 45 units BID CHING Administration Insulin Human Lispro 0 unit 01/02/19 16:30 01/07/19 08:14 Humalog SUB-Q 5 unit AC CHING Administration Protocol Insulin Human Lispro 0 unit 01/02/19 22:00 01/06/19 23:00 Humalog SUB-Q 6 unit QHS CHING Administration Protocol Insulin Human Lispro 12 unit 01/05/19 11:46 01/07/19 08:15 Humalog SUB-Q 12 unit TIDAC CHING Administration Levothyroxine Sodium 112 mcg 12/31/18 06:00 01/07/19 05:32 Synthroid PO 112 mcg DAILY@0600 CHING Administration Lidocaine HCl 15 ml 01/07/19 14:00 Miracle Mixture PO TID CHING Metformin HCl 500 mg 01/03/19 19:00 01/07/19 08:15 Glucophage Xr PO 500 mg QDDIAB CHING Administration Methylprednisolone Sodium Succinate 125 mg 01/03/19 12:00 01/07/19 05:31 Solu-Medrol IV 125 mg Q6HR CHING Administration Ondansetron HCl 4 mg 12/28/18 17:29 Zofran IV Q8H PRN Nausea And Vomiting Phenol 1 spray 01/05/19 12:57 01/06/19 09:47 Chloraseptic MM 1 spray PRN PRN Administration Sore Throat Pseudoephedrine/Acetam/Chlorphenir 5 ml 12/31/18 11:12 01/04/19 21:51 Robitussin Ac PO 5 ml Q4H PRN Administration Cough Senna/Docusate Sodium 1 tab 12/31/18 12:00 01/07/19 09:54 Senokot S PO 1 tab BID CHING Administration Sodium Chloride 10 ml 12/28/18 22:00 01/07/19 09:53 Sodium Chloride Flush Syringe 10 Ml IV 10 ml BID CHING Administration Sodium Chloride 10 ml 12/28/18 17:29 01/06/19 06:03 Sodium Chloride Flush Syringe 10 Ml IV 10 ml PRN PRN Administration LINE FLUSH Nutrition/Malnutrition Assess - Dietary Evaluation Nutrition/Malnutrition Findings: Nutrition Notes Start: 01/04/19 13:3 6 Freq: Status: Active Protocol: Document 01/04/19 13:37 LM (Rec: 01/04/19 13:37 LM [email or web address]) Nutrition Notes Need for Assessment generated from: LOS Initial or Follow up Brief Note Subjective/Other Information Screen for LOS. 100% intakes documented in chart. Nutrition Intervention Revisit per MD consult or patient Sign Off request:
[2019-01-07] MEDS: [UNRECOGNIZED DRUG - OTHER] PO SCH ×2 (14:18→21:17)
[2019-01-07] MEDS: MYLANTA PO SCH ×2 (14:18→21:17)
[2019-01-07] MEDS: DIPHEN PO SCH ×2 (14:18→21:17)
[2019-01-07] MEDS ORDERED: LIDOCAINE VISCOUS 2% 15 ML ORAL LIQD PO PRN (18:05)
[2019-01-07] MEDS ORDERED: MAGIC MOUTHWASH 30ML PO SCH (20:00)
[2019-01-08] MEDS: methylPREDNISolone Sod Succinate 125 MG/2 ML INJ IV SCH ×3 (05:38→17:23)
[2019-01-08] MEDS: FUROSEMIDE 40 MG/4 ML INJ IV SCH ×2 (05:38→17:23)
[2019-01-08] MEDS: LEVOTHYROXINE 112 MCG TAB PO SCH (05:38)
[2019-01-08 06:28] LABS: BUN/Creatinine Ratio 41; Blood Urea Nitrogen 29 mg/dL (7-17); Hemolysis Index 17
[2019-01-08] MEDS: INSULIN LISPRO 100 UNIT/ML SUB-Q SCH ×7 (07:42→22:47)
[2019-01-08] MEDS: metFORMIN XR 500MG TAB PO SCH (08:02)
[2019-01-08] MEDS: MYLANTA PO SCH ×3 (08:03→21:48)
[2019-01-08] MEDS: [UNRECOGNIZED DRUG - OTHER] PO SCH ×3 (08:03→21:48)
[2019-01-08] MEDS: DIPHEN PO SCH ×3 (08:03→21:48)
[2019-01-08] MEDS: IPRATROPIUM/ALBUTEROL SULFATE 3 ML AMPUL.NEB IH SCH ×3 (08:13→19:29)
[2019-01-08] MEDS: BUDESONIDE 0.5 MG/2 ML NEBU IH SCH ×2 (08:13→19:23)
[2019-01-08] MEDS: ARFORMOTEROL 15 MCG/2 ML NEBU IH SCH ×2 (08:13→19:23)
[2019-01-08] MEDS: ENOXAPARIN 40 MG/0.4 ML INJ SUB-Q SCH (10:01)
[2019-01-08] MEDS: INSULIN GLARGINE 100 UNITS/ML SUB-Q SCH ×2 (10:01→21:49)
--- NOTE | 2019-01-08 10:01 | Progress Note ---
Assessment and Plan Assessment and plan: 68-year-old woman who presented to the hospital with shortness of breath wheezing and hypoxia. She has been checking her oxygen with a pulse ox at home and noted that she was desaturating especially with the mildest activity such as getting dressed or eating. Acute COPD exacerbation, patient has chronic severe COPD She follows with Dr. Anaya. She takes Symbicort, Spiriva and pro-air at home. steroids, nebs, pulmonology consults appreciated, aggressive chest PT acute on chronic diastolic chf cont lasix, cardiology consult per patient request hypokalemia; diuretics PNA- cont abx, add azithromycin Acute on chronic respiratory failure with hypoxia -Continue oxygen supplementation as needed and duonebs -Continue BiPAP at night sarah-pharyngeal thrush antifungals, patient will benefit from systemic Diflucan. Case discussed with GI, she likely has Lisette deal esophagitis as well. However the risk of an EGD is not worth the benefits, it is better to empirically treat the patient Acute on chronic normocytic anemia -Status post blood transfusion with 2U of PRBCS -GI consulted: out-pt f/u recommended iron studies, folic acid and B12 levels all wnl -She follows with hematology as outpatient, Dr. Pagan DM2 with persistent hyperglycemia Steroid use is exacerbating hyperglycemia. Optimize insulins SIRS due to non-infectious cause with organ failure -will monitor Hypothyroidism TSH is low, decrease synthroid dose Metabolic acidosis -resolved HTN -controlled -cont home amlodipine and lasix HLD -cont statin KASANDRA -Continue BiPAP at night, patient is to get repeat sleep study after discharge. She has not had one in 6 years. She will follow-up with her publicity expert for that Depression -cont cymbalta Obesity with BMI of 33.7 -lifestyle modification recommended Deconditioning -PT consulted DVT ppx: Lovenox Home when improved History Interval history: She is complaining of severe throat pain and oral pain Review of systems Constitutional: No fevers, no malaise, no joint pains CVS: No chest pain, no orthopnea, no pedal edema GI: No abdominal pain, no diarrhea, no vomiting, no constipation Respiratory: , Continues to complain of shortness of breath and dyspnea on exertion, also having dry cough -She desats to the 80s when she gets up Hospitalist Physical - Physical exam Narrative exam: General.: Mild distress HEENT: Moist mucous membranes, extraocular muscles intact, no lymphadenopathy Oral thrush is evident Neck: supple Cardiac: S1-S2 heard Lungs: Diminished air entry Abdomen: soft , nontender, nondistended, bowel sounds positive Extremities: 3+ bipedal pitting edema Skin: no rash or lesions Neurologic: no gross focal deficits Psych: calm, and cooperative - Constitutional Vitals: Temp Pulse Resp BP Pulse Ox 98.0 F 82 20 145/79 95 01/08/19 07:34 01/08/19 08:35 01/08/19 08:35 01/08/19 07:34 01/08/19 08:14 General appearance: Present: mild distress, obese Results - Labs CBC & Chem 7: 01/04/19 05:20 01/08/19 05:48 Labs: Laboratory Last Values WBC 5.2 K/mm3 (4.5-11.0) 01/04/19 05:20 RBC 3.94 M/mm3 (3.65-5.03) 01/04/19 05:20 Hgb 10.7 gm/dl (10.1-14.3) 01/04/19 05:20 Hct 34.5 % (30.3-42.9) 01/04/19 05:20 MCV 88 fl (79-97) 01/04/19 05:20 MCH 27 pg (28-32) L 01/04/19 05:20 MCHC 31 % (30-34) 01/04/19 05:20 RDW 24.2 % (13.2-15.2) H 01/04/19 05:20 Plt Count 558 K/mm3 (140-440) H 01/04/19 05:20 Lymph % (Auto) Operations And Maintenance Technician 12/29/18 08:34 Harrison % (Auto) Operations And Maintenance Technician 12/29/18 08:34 Eos % (Auto) Operations And Maintenance Technician 12/29/18 08:34 Baso % (Auto) Operations And Maintenance Technician 12/29/18 08:34 Lymph # Operations And Maintenance Technician 12/29/18 08:34 Harrison # Operations And Maintenance Technician 12/29/18 08:34 Eos # Operations And Maintenance Technician 12/29/18 08:34 Baso # Operations And Maintenance Technician 12/29/18 08:34 Add Manual Diff Complete 01/04/19 05:20 Total Counted 100 01/04/19 05:20 Seg Neutrophils % Operations And Maintenance Technician 01/04/19 05:20 Seg Neuts % (Manual) 97.0 % (40.0-70.0) H 01/04/19 05:20 Band Neutrophils % 1.0 % 01/04/19 05:20 Lymphocytes % (Manual) 1.0 % (13.4-35.0) L 01/04/19 05:20 Reactive Lymphs % (Man) 0 % 01/04/19 05:20 Monocytes % (Manual) 1.0 % (0.0-7.3) 01/04/19 05:20 Eosinophils % (Manual) 0 % (0.0-4.3) 01/04/19 05:20 Basophils % (Manual) 0 % (0.0-1.8) 01/04/19 05:20 Metamyelocytes % 0 % 01/04/19 05:20 Myelocytes % 0 % 01/04/19 05:20 Promyelocytes % 0 % 01/04/19 05:20 Blast Cells % 0 % 01/04/19 05:20 Nucleated RBC % Not Reportable 01/04/19 05:20 Seg Neutrophils # Operations And Maintenance Technician 12/29/18 08:34 Seg Neutrophils # Man 5.0 K/mm3 (1.8-7.7) 01/04/19 05:20 Band Neutrophils # 0.1 K/mm3 01/04/19 05:20 Lymphocytes # (Manual) 0.1 K/mm3 (1.2-5.4) L 01/04/19 05:20 Abs React Lymphs (Man) 0.0 K/mm3 01/04/19 05:20 Monocytes # (Manual) 0.1 K/mm3 (0.0-0.8) 01/04/19 05:20 Eosinophils # (Manual) 0.0 K/mm3 (0.0-0.4) 01/04/19 05:20 Basophils # (Manual) 0.0 K/mm3 (0.0-0.1) 01/04/19 05:20 Metamyelocytes # 0.0 K/mm3 01/04/19 05:20 Myelocytes # 0.0 K/mm3 01/04/19 05:20 Promyelocytes # 0.0 K/mm3 01/04/19 05:20 Blast Cells # 0.0 K/mm3 01/04/19 05:20 WBC Morphology Not Reportable 01/04/19 05:20 Hypersegmented Neuts Not Reportable 01/04/19 05:20 Hyposegmented Neuts Not Reportable 01/04/19 05:20 Hypogranular Neuts Not Reportable 01/04/19 05:20 Smudge Cells Not Reportable 01/04/19 05:20 Toxic Granulation Not Reportable 01/04/19 05:20 Toxic Vacuolation Not Reportable 01/04/19 05:20 Dohle Bodies Not Reportable 01/04/19 05:20 Pelger-Huet Anomaly Not Reportable 01/04/19 05:20 Sanjeev Rods Not Reportable 01/04/19 05:20 Platelet Estimate Consistent w auto 01/04/19 05:20 Clumped Platelets Not Reportable 01/04/19 05:20 Plt Clumps, EDTA Not Reportable 01/04/19 05:20 Large Platelets Not Reportable 01/04/19 05:20 Giant Platelets Not Reportable 01/04/19 05:20 Platelet Satelliting Not Reportable 01/04/19 05:20 Plt Morphology Comment Not Reportable 01/04/19 05:20 RBC Morphology Not Reportable 01/04/19 05:20 Dimorphic RBCs Not Reportable 01/04/19 05:20 Polychromasia Not Reportable 01/04/19 05:20 Hypochromasia Not Reportable 01/04/19 05:20 Poikilocytosis Not Reportable 01/04/19 05:20 Anisocytosis Not Reportable 01/04/19 05:20 Microcytosis Few 01/04/19 05:20 Macrocytosis Few 01/04/19 05:20 Spherocytes Not Reportable 01/04/19 05:20 Pappenheimer Bodies Not Reportable 01/04/19 05:20 Sickle Cells Not Reportable 01/04/19 05:20 Target Cells Not Reportable 01/04/19 05:20 Tear Drop Cells Not Reportable 01/04/19 05:20 Ovalocytes Few 01/04/19 05:20 Stomatocytes Few 01/04/19 05:20 Helmet Cells Not Reportable 01/04/19 05:20 Pendleton-Rankin Bodies Not Reportable 01/04/19 05:20 [place] Rings Not Reportable 01/04/19 05:20 Jg Cells Not Reportable 01/04/19 05:20 Bite Cells Not Reportable 01/04/19 05:20 Crenated Cell Not Reportable 01/04/19 05:20 Elliptocytes Not Reportable 01/04/19 05:20 Acanthocytes (Spur) Not Reportable 01/04/19 05:20 Rouleaux Not Reportable 01/04/19 05:20 Hemoglobin C Crystals Not Reportable 01/04/19 05:20 Schistocytes Not Reportable 01/04/19 05:20 Malaria parasites Not Reportable 01/04/19 05:20 Farhad Bodies Not Reportable 01/04/19 05:20 Hem Pathologist Commnt No 01/04/19 05:20 PT 13.1 Sec. (12.2-14.9) 12/28/18 15:10 INR 1.00 (0.87-1.13) 12/28/18 15:10 APTT 29.2 Sec. (24.2-36.6) 12/28/18 15:10 D-Dimer 536.53 ng/mlDDU (0-234) H 12/28/18 15:49 POC ABG pH 7.443 (7.35-7.45) 12/28/18 15:46 POC ABG pCO2 38.2 (35-45) 12/28/18 15:46 POC ABG pO2 69 (80-105) L 12/28/18 15:46 POC ABG HCO3 26.1 (22-26 mml/L) 12/28/18 15:46 POC ABG Total CO2 27 (23-27mmol/L) 12/28/18 15:46 POC ABG O2 Sat 94 12/28/18 15:46 POC ABG Base Excess 2 ((-2) - (+3)mmol/L) 12/28/18 15:46 FiO2 40 % 12/28/18 15:46 Sodium 140 mmol/L (137-145) 01/08/19 05:48 Potassium 3.5 mmol/L (3.6-5.0) L 01/08/19 05:48 Chloride 92.6 mmol/L (98-107) L 01/08/19 05:48 Carbon Dioxide 33 mmol/L (22-30) H 01/08/19 05:48 Anion Gap 18 mmol/L 01/08/19 05:48 BUN 29 mg/dL (7-17) H 01/08/19 05:48 Creatinine 0.7 mg/dL (0.7-1.2) 01/08/19 05:48 Estimated GFR > 60 ml/min 01/08/19 05:48 BUN/Creatinine Ratio 41 % 01/08/19 05:48 Glucose 146 mg/dL (65-100) H 01/08/19 05:48 POC Glucose 138 (70-105) H 01/08/19 07:37 Hemoglobin A1c 5.8 % (4-6) 01/04/19 05:20 Calcium 10.0 mg/dL (8.4-10.2) 01/08/19 05:48 Magnesium 2.10 mg/dL (1.7-2.3) 01/05/19 08:57 Iron 48 ug/dL (37-170) 01/04/19 05:20 TIBC 311 mcg/dL (250-450) 01/04/19 05:20 % Saturation 15.43 % 01/04/19 05:20 Transferrin 259 mg/dl (192-382) 01/04/19 05:20 Ferritin 482.5 ng/mL (13.0-400.0) H 01/04/19 05:20 Total Bilirubin 0.50 mg/dL (0.1-1.2) 01/04/19 05:20 AST 35 units/L (5-40) 01/04/19 05:20 ALT 136 units/L (7-56) H 01/04/19 05:20 Alkaline Phosphatase 122 units/L (35-129) 01/04/19 05:20 Troponin T < 0.010 ng/mL (0.00-0.029) 12/28/18 15:10 NT-Pro-B Natriuret Pep 403.1 pg/mL (0-900) 01/05/19 08:57 Total Protein 6.1 g/dL (6.3-8.2) L 01/04/19 05:20 Albumin 3.9 g/dL (3.9-5) 01/04/19 05:20 Albumin/Globulin Ratio 1.8 % 01/04/19 05:20 Vitamin B12 1572 pg/mL (211-911) H 01/04/19 05:20 TSH 0.218 mlU/mL (0.270-4.200) L 01/04/19 05:20 Free T4 1.45 ng/dL (0.76-1.46) 01/04/19 05:20 Thyroxine (T4) 7.3 ug/dL (4.0-12.0) 01/04/19 05:20 Blood Type O POSITIVE 12/28/18 15:41 Antibody Screen Negative 12/28/18 15:41 Crossmatch See Detail 12/28/18 15:41 Active Medications - Current Medications Current Medications: Generic Name Dose Route Start Last Admin Trade Name Freq PRN Reason Stop Dose Admin Acetaminophen 650 mg 12/28/18 17:29 Tylenol PO Q4H PRN Pain MILD(1-3)/Fever >100.5/[place] Albuterol 2.5 mg 12/30/18 12:01 Proventil IH Q2HRT PRN Shortness Of Breath Albuterol/Ipratropium 1 ampul 12/31/18 08:00 01/08/19 08:13 Duoneb *Not For Prn Use* IH 1 ampul TIDRT CHING Administration Amlodipine Besylate 10 mg 12/30/18 14:00 01/07/19 09:53 Amlodipine PO 10 mg DAILY CHING Administration Arformoterol Tartrate 15 mcg 12/30/18 20:00 01/08/19 08:13 Brovana Nebu IH 15 mcg Q12HRT CHING Administration Atorvastatin Calcium 40 mg 12/30/18 22:00 01/07/19 21:17 Lipitor PO 40 mg HS CHING Administration Benzocaine/Menthol 1 each 01/05/19 12:57 01/07/19 20:04 Cepacol X Strength MM 1 each Q2HR PRN Administration Sore Throat Budesonide 0.5 mg 12/30/18 20:00 01/08/19 08:13 Pulmicort IH 0.5 mg Q12HRT CHING Administration Dextrose 50 ml 12/28/18 17:31 D50w (25gm) Syringe IV Q30MIN PRN Hypoglycemia Protocol Duloxetine HCl 60 mg 12/30/18 14:00 01/07/19 09:52 Cymbalta PO 60 mg QDAY CHING Administration Enoxaparin Sodium 40 mg 12/30/18 10:00 01/07/19 09:53 Enoxaparin SUB-Q 40 mg QDAY@1000 CHING Administration Famotidine 20 mg 12/28/18 22:00 01/07/19 21:17 Pepcid PO 20 mg BID CHING Administration Fluconazole 100 mg 01/07/19 10:00 01/07/19 09:52 Diflucan PO 01/12/19 09:59 100 mg QDAY CHING Administration Folic Acid 1 mg 12/30/18 17:00 01/07/19 09:53 Folvite PO 1 mg DAILY CHING Administration Furosemide 40 mg 01/04/19 18:00 01/08/19 05:38 Lasix IV 40 mg 0600,1800 CHING Administration Guaifenesin 600 mg 12/31/18 12:00 01/07/19 21:16 Mucinex Er PO 600 mg BID CHING Administration Ampicillin Sodium/Sulbactam Sodium 3 gm in 100 mls @ 200 mls/hr 01/06/19 18:00 01/07/19 23:16 Unasyn/Ns 3 Gm/100 Ml IV 200 mls/hr Q6HR CHING Administration Protocol Insulin Glargine 45 units 01/05/19 12:00 01/07/19 21:47 Lantus SUB-Q 45 units BID CHING Administration Insulin Human Lispro 0 unit 01/02/19 16:30 01/08/19 07:42 Humalog SUB-Q Not Given AC [facility] Protocol Insulin Human Lispro 0 unit 01/02/19 22:00 01/07/19 21:48 Humalog SUB-Q 4 unit QHS CHING Administration Protocol Insulin Human Lispro 12 unit 01/05/19 11:46 01/08/19 07:42 Humalog SUB-Q Not Given TIDAC [facility] Levothyroxine Sodium 112 mcg 12/31/18 06:00 01/08/19 05:38 Synthroid PO 112 mcg DAILY@0600 CHING Administration Lidocaine HCl 15 ml 01/07/19 14:00 01/08/19 08:03 Miracle Mixture PO 15 ml TID CHING Administration Lidocaine HCl 15 ml 01/07/19 18:05 Lidocaine Viscous 2% PO Q8H PRN Mouth Pain Metformin HCl 500 mg 01/03/19 19:00 01/08/19 08:02 Glucophage Xr PO 500 mg QDDIAB CHING Administration Methylprednisolone Sodium Succinate 125 mg 01/03/19 12:00 01/08/19 05:38 Solu-Medrol IV 125 mg Q6HR CHING Administration Ondansetron HCl 4 mg 12/28/18 17:29 Zofran IV Q8H PRN Nausea And Vomiting Phenol 1 spray 01/05/19 12:57 01/06/19 09:47 Chloraseptic MM 1 spray PRN PRN Administration Sore Throat Pseudoephedrine/Acetam/Chlorphenir 5 ml 12/31/18 11:12 01/04/19 21:51 Robitussin Ac PO 5 ml Q4H PRN Administration Cough Senna/Docusate Sodium 1 tab 12/31/18 12:00 01/07/19 21:17 Senokot S PO 1 tab BID CHING Administration Sodium Chloride 10 ml 12/28/18 22:00 01/07/19 21:17 Sodium Chloride Flush Syringe 10 Ml IV 10 ml BID CHING Administration Sodium Chloride 10 ml 12/28/18 17:29 01/07/19 17:42 Sodium Chloride Flush Syringe 10 Ml IV 10 ml PRN PRN Administration LINE FLUSH Nutrition/Malnutrition Assess - Dietary Evaluation Nutrition/Malnutrition Findings: Nutrition Notes Start: 01/04/19 13:36 Freq: Status: Active Protocol: Document 01/04/19 13:37 LM (Rec: 01/04/19 13:37 LM [id number]) Nutrition Notes Need for Assessment generated from: LOS Initial or Follow up Brief Note Subjective/Other Information Screen for LOS. 100% intakes documented in chart. Nutrition Intervention Revisit per MD consult or patient Sign Off request:
[2019-01-08] MEDS: guaiFENesin ER 600 MG TAB PO SCH ×2 (10:02→21:47)
[2019-01-08] MEDS: SENNOSIDES/DOCUSATE SODIUM 8.6/50 MG TAB PO SCH ×2 (10:02→21:48)
[2019-01-08] MEDS: amLODIPine 10 MG TAB PO SCH (10:02)
[2019-01-08] MEDS: FOLIC ACID 1 MG TAB PO SCH (10:02)
[2019-01-08] MEDS: DULoxetine 30 MG CAP PO SCH (10:02)
[2019-01-08] MEDS: FAMOTIDINE 20 MG TAB PO SCH ×2 (10:02→21:48)
[2019-01-08] MEDS: FLUCONAZOLE 100 MG TAB PO SCH (10:02)
--- NOTE | 2019-01-08 11:00 | Progress Note ---
Assessment and Plan 68 y/o female with known COPD, now found to have mild pulmonary hypertension and diastolic dysfunction on echo. 1. Agree with continued lasix use. Would suggest switching to PO soon to see if that dose will enough for her at home to achieve the same output as in house 2. 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 Will address home regimen as outpatient and repeat PFT's. 3. Diastolic dysfunction: Per primary team, agree with continued diuresis 4. Continue CPAP use at night. Patient has home machine Subjective Date of service: 01/08/19 Interval history: No acute events. Stable. Down to 4 liters NC with sats in the high 90's. Echo shows mild pulm HTN with RVSP of 30 at rest. Also diastolic dysfunction present as well. Objective Vital Signs - 12hr 01/08/19 01/08/19 01/08/19 02:29 06:31 07:34 Temperature 98.5 F 98.0 F Pulse Rate 96 H 86 81 Pulse Rate [ Anterior Bilateral Throughout] Respiratory 20 20 Rate Respiratory Rate [Anterior Bilateral Throughout] Blood Pressure 122/57 145/79 O2 Sat by Pulse 91 93 Oximetry 01/08/19 01/08/19 01/08/19 08:14 08:35 10:02 Temperature Pulse Rate 85 Pulse Rate [ 82 Anterior Bilateral Throughout] Respiratory Rate Respiratory 20 Rate [Anterior Bilateral Throughout] Blood Pressure 129/65 O2 Sat by Pulse 95 Oximetry Constitutional: no acute distress, alert Eyes: non-icteric ENT: oropharynx moist, other (oral thrush, no exudates noted) Ascultation: Bilateral: diminished breath sounds Cardiovascular: regular rate and rhythm Gastrointestinal: normoactive bowel sounds, soft, non-tender, non-distended Integumentary: normal Extremities: no cyanosis, edema Neurologic: normal mental status, non-focal exam Psychiatric: mood appropriate, affect normal CBC and BMP: 01/04/19 05:20 01/08/19 05:48 ABG, PT/INR, D-dimer: ABG POC ABG pH 7.443 (7.35-7.45) 12/28/18 15:46 POC ABG pCO2 38.2 (35-45) 12/28/18 15:46 POC ABG pO2 69 (80-105) L 12/28/18 15:46 POC ABG HCO3 26.1 (22-26 mml/L) 12/28/18 15:46 POC ABG Total CO2 27 (23-27mmol/L) 12/28/18 15:46 POC ABG O2 Sat 94 12/28/18 15:46 PT/INR, D-dimer PT 13.1 Sec. (12.2-14.9) 12/28/18 15:10 INR 1.00 (0.87-1.13) 12/28/18 15:10 D-Dimer 536.53 ng/mlDDU (0-234) H 12/28/18 15:49 Abnormal lab findings: Abnormal Labs 12/28/18 12/28/18 12/28/18 15:10 15:10 15:10 RBC 2.86 L Hgb 6.7 L Hct 23.3 L MCH 24 L MCHC 29 L RDW 20.6 H Plt Count 495 H Seg Neuts % (Manual) 82.0 H Lymphocytes % (Manual) 11.0 L Seg Neutrophils # Man 8.9 H Lymphocytes # (Manual) D-Dimer POC ABG pO2 Sodium Potassium 3.5 L Chloride 95.5 L Carbon Dioxide 21 L BUN Creatinine Glucose 209 H POC Glucose Calcium Ferritin ALT Total Protein Albumin 3.8 L Vitamin B12 TSH 5.340 H Crossmatch 12/28/18 12/28/18 12/28/18 15:41 15:46 15:49 RBC Hgb Hct MCH MCHC RDW Plt Count Seg Neuts % (Manual) Lymphocytes % (Manual) Seg Neutrophils # Man Lymphocytes # (Manual) D-Dimer 536.53 H POC ABG pO2 69 L Sodium Potassium Chloride Carbon Dioxide BUN Creatinine Glucose POC Glucose Calcium Ferritin ALT Total Protein Albumin Vitamin B12 TSH Crossmatch See Detail 12/28/18 12/28/18 12/29/18 20:16 21:44 05:55 RBC Hgb Hct MCH MCHC RDW Plt Count Seg Neuts % (Manual) Lymphocytes % (Manual) Seg Neutrophils # Man Lymphocytes # (Manual) D-Dimer POC ABG pO2 Sodium Potassium Chloride Carbon Dioxide BUN Creatinine Glucose POC Glucose 155 H 144 H 239 H Calcium Ferritin ALT Total Protein Albumin Vitamin B12 TSH Crossmatch 12/29/18 12/29/18 12/29/18 08:34 08:34 11:56 RBC 3.55 L Hgb 9.0 L Hct 29.3 L D MCH 26 L MCHC RDW 19.6 H Plt Count 469 H Seg Neuts % (Manual) 95.0 H Lymphocytes % (Manual) 3.0 L Seg Neutrophils # Man 8.5 H Lymphocytes # (Manual) 0.3 L D-Dimer POC ABG pO2 Sodium Potassium Chloride Carbon Dioxide BUN Creatinine Glucose 187 H POC Glucose 247 H Calcium Ferritin ALT Total Protein Albumin Vitamin B12 TSH Crossmatch 12/29/18 12/29/18 12/30/18 16:32 21:47 04:46 RBC 3.36 L Hgb 8.5 L Hct 28.2 L MCH 25 L MCHC RDW 19.5 H Plt Count 483 H Seg Neuts % (Manual) Lymphocytes % (Manual) Seg Neutrophils # Man Lymphocytes # (Manual) D-Dimer POC ABG pO2 Sodium Potassium Chloride Carbon Dioxide BUN Creatinine Glucose POC Glucose 311 H 280 H Calcium Ferritin ALT Total Protein Albumin Vitamin B12 TSH Crossmatch 12/30/18 12/30/18 12/30/18 06:17 13:19 16:48 RBC Hgb Hct MCH MCHC RDW Plt Count Seg Neuts % (Manual) Lymphocytes % (Manual) Seg Neutrophils # Man Lymphocytes # (Manual) D-Dimer POC ABG pO2 Sodium Potassium Chloride Carbon Dioxide BUN Creatinine Glucose POC Glucose 241 H 224 H 371 H Calcium Ferritin ALT Total Protein Albumin Vitamin B12 TSH Crossmatch 12/31/18 12/31/18 12/31/18 00:04 05:50 09:44 RBC Hgb Hct MCH MCHC RDW Plt Count Seg Neuts % (Manual) Lymphocytes % (Manual) Seg Neutrophils # Man Lymphocytes # (Manual) D-Dimer POC ABG pO2 Sodium Potassium Chloride Carbon Dioxide BUN Creatinine Glucose POC Glucose 428 H 332 H 405 H Calcium Ferritin ALT Total Protein Albumin Vitamin B12 TSH Crossmatch 12/31/18 12/31/18 12/31/18 11:32 17:15 23:55 RBC Hgb Hct MCH MCHC RDW Plt Count Seg Neuts % (Manual) Lymphocytes % (Manual) Seg Neutrophils # Man Lymphocytes # (Manual) D-Dimer POC ABG pO2 Sodium Potassium Chloride Carbon Dioxide BUN Creatinine Glucose POC Glucose 450 H 439 H 259 H Calcium Ferritin ALT Total Protein Albumin Vitamin B12 TSH Crossmatch 01/01/19 01/01/19 01/01/19 05:09 06:00 11:39 RBC Hgb 8.8 L Hct 28.3 L MCH MCHC RDW Plt Count Seg Neuts % (Manual) Lymphocytes % (Manual) Seg Neutrophils # Man Lymphocytes # (Manual) D-Dimer POC ABG pO2 Sodium Potassium Chloride Carbon Dioxide BUN Creatinine Glucose POC Glucose 243 H 253 H Calcium Ferritin ALT Total Protein Albumin Vitamin B12 TSH Crossmatch 01/01/19 01/02/19 01/02/19 18:04 00:04 05:49 RBC Hgb Hct MCH MCHC RDW Plt Count Seg Neuts % (Manual) Lymphocytes % (Manual) Seg Neutrophils # Man Lymphocytes # (Manual) D-Dimer POC ABG pO2 Sodium Potassium Chloride Carbon Dioxide BUN Creatinine Glucose POC Glucose 425 H 339 H 287 H Calcium Ferritin ALT Total Protein Albumin Vitamin B12 TSH Crossmatch 01/02/19 01/02/19 01/02/19 11:26 17:39 22:36 RBC Hgb Hct MCH MCHC RDW Plt Count Seg Neuts % (Manual) Lymphocytes % (Manual) Seg Neutrophils # Man Lymphocytes # (Manual) D-Dimer POC ABG pO2 Sodium Potassium Chloride Carbon Dioxide BUN Creatinine Glucose POC Glucose 335 H 306 H 329 H Calcium Ferritin ALT Total Protein Albumin Vitamin B12 TSH Crossmatch 01/03/19 01/03/19 01/03/19 07:44 11:28 16:25 RBC Hgb Hct MCH MCHC RDW Plt Count Seg Neuts % (Manual) Lymphocytes % (Manual) Seg Neutrophils # Man Lymphocytes # (Manual) D-Dimer POC ABG pO2 Sodium Potassium Chloride Carbon Dioxide BUN Creatinine Glucose POC Glucose 234 H 301 H 356 H Calcium Ferritin ALT Total Protein Albumin Vitamin B12 TSH Crossmatch 01/03/19 01/04/19 01/04/19 21:57 05:20 05:20 RBC Hgb Hct MCH 27 L MCHC RDW 24.2 H Plt Count 558 H Seg Neuts % (Manual) 97.0 H Lymphocytes % (Manual) 1.0 L Seg Neutrophils # Man Lymphocytes # (Manual) 0.1 L D-Dimer POC ABG pO2 Sodium Potassium 3.4 L Chloride 95.1 L Carbon Dioxide BUN 23 H Creatinine 0.6 L Glucose 264 H POC Glucose 311 H Calcium Ferritin ALT 136 H Total Protein 6.1 L Albumin Vitamin B12 TSH Crossmatch 01/04/19 01/04/19 01/04/19 05:20 05:20 05:20 RBC Hgb Hct MCH MCHC RDW Plt Count Seg Neuts % (Manual) Lymphocytes % (Manual) Seg Neutrophils # Man Lymphocytes # (Manual) D-Dimer POC ABG pO2 Sodium Potassium Chloride Carbon Dioxide BUN Creatinine Glucose POC Glucose Calcium Ferritin 482.5 H ALT Total Protein Albumin Vitamin B12 1572 H TSH 0.218 L Crossmatch 01/04/19 01/04/19 01/04/19 07:24 12:02 17:11 RBC Hgb Hct MCH MCHC RDW Plt Count Seg Neuts % (Manual) Lymphocytes % (Manual) Seg Neutrophils # Man Lymphocytes # (Manual) D-Dimer POC ABG pO2 Sodium Potassium Chloride Carbon Dioxide BUN Creatinine Glucose POC Glucose 237 H 270 H 314 H Calcium Ferritin ALT Total Protein Albumin Vitamin B12 TSH Crossmatch 01/04/19 01/05/19 01/05/19 21:35 07:17 08:57 RBC Hgb Hct MCH MCHC RDW Plt Count Seg Neuts % (Manual) Lymphocytes % (Manual) Seg Neutrophils # Man Lymphocytes # (Manual) D-Dimer POC ABG pO2 Sodium 135 L Potassium Chloride 89.1 L Carbon Dioxide BUN 31 H Creatinine Glucose 397 H POC Glucose 262 H 330 H Calcium Ferritin ALT Total Protein Albumin Vitamin B12 TSH Crossmatch 01/05/19 01/05/19 01/05/19 11:37 16:38 20:56 RBC Hgb Hct MCH MCHC RDW Plt Count Seg Neuts % (Manual) Lymphocytes % (Manual) Seg Neutrophils # Man Lymphocytes # (Manual) D-Dimer POC ABG pO2 Sodium Potassium Chloride Carbon Dioxide BUN Creatinine Glucose POC Glucose 288 H 286 H 400 H Calcium Ferritin ALT Total Protein Albumin Vitamin B12 TSH Crossmatch 01/06/19 01/06/19 01/06/19 07:15 10:19 11:37 RBC Hgb Hct MCH MCHC RDW Plt Count Seg Neuts % (Manual) Lymphocytes % (Manual) Seg Neutrophils # Man Lymphocytes # (Manual) D-Dimer POC ABG pO2 Sodium Potassium Chloride Carbon Dioxide BUN Creatinine Glucose POC Glucose 214 H 336 H 280 H Calcium Ferritin ALT Total Protein Albumin Vitamin B12 TSH Crossmatch 01/06/19 01/06/19 01/07/19 16:15 22:09 04:05 RBC Hgb Hct MCH MCHC RDW Plt Count Seg Neuts % (Manual) Lymphocytes % (Manual) Seg Neutrophils # Man Lymphocytes # (Manual) D-Dimer POC ABG pO2 Sodium Potassium 3.3 L Chloride 93.0 L Carbon Dioxide 32 H BUN 29 H Creatinine Glucose 155 H POC Glucose 170 H 296 H Calcium 10.3 H Ferritin ALT Total Protein Albumin Vitamin B12 TSH Crossmatch 01/07/19 01/07/19 01/07/19 07:58 10:00 11:55 RBC Hgb Hct MCH MCHC RDW Plt Count Seg Neuts % (Manual) Lymphocytes % (Manual) Seg Neutrophils # Man Lymphocytes # (Manual) D-Dimer POC ABG pO2 Sodium Potassium Chloride Carbon Dioxide BUN Creatinine Glucose POC Glucose 157 H 181 H 151 H Calcium Ferritin ALT Total Protein Albumin Vitamin B12 TSH Crossmatch 01/07/19 01/07/19 01/08/19 16:47 21:38 05:48 RBC Hgb Hct MCH MCHC RDW Plt Count Seg Neuts % (Manual) Lymphocytes % (Manual) Seg Neutrophils # Man Lymphocytes # (Manual) D-Dimer POC ABG pO2 Sodium Potassium 3.5 L Chloride 92.6 L Carbon Dioxide 33 H BUN 29 H Creatinine Glucose 146 H POC Glucose 124 H 244 H Calcium Ferritin ALT Total Protein Albumin Vitamin B12 TSH Crossmatch 01/08/19 07:37 RBC Hgb Hct MCH MCHC RDW Plt Count Seg Neuts % (Manual) Lymphocytes % (Manual) Seg Neutrophils # Man Lymphocytes # (Manual) D-Dimer POC ABG pO2 Sodium Potassium Chloride Carbon Dioxide BUN Creatinine Glucose POC Glucose 138 H Calcium Ferritin ALT Total Protein Albumin Vitamin B12 TSH Crossmatch
--- NOTE | 2019-01-08 11:42 | Consultation ---
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 The etiology of her anemia is unknown. Patient has received 2 units of packed red blood cells. Further evaluation with an echocardiogram reports left ventricular diastolic dysfunction. There is a normal left ventricular systolic function with an ejection fraction 55-60%. A cardiac consultation has been requested for evaluation and management of diastolic dysfunction. Patient is known to [facility] and has undergone extensive cardiac workup. Early 2017 she had a negative stress thallium test. 6 months later she had a cardiac catheterization that reports no significant coronary artery disease. Normal left ventricular ejection fraction. Patient denies unusual shortness of breath, chest pain and palpitations. There is no lower extremity edema. Her initial workup with a chest x-ray reports no interstitial edema. An ECG is sinus rhythm with non-specific [place] changes. Past History Past Surgical History: appendectomy, hysterectomy, tonsillectomy, bowel surgery, Other (Foot surgery) Social history: single. denies: smoking, alcohol abuse, prescription drug abuse Medications and Allergies Allergies Allergy/AdvReac Type Severity Reaction Status Date / Time No Known Allergies Allergy Verified 12/28/18 15:13 Home Medications Medication Instructions Recorded Confirmed Last Taken Type AtorvaSTATin [Lipitor] 40 mg PO DAILY 12/29/18 12/29/18 12/29/18 10:00 History Budesonide/Formoterol Fumarate 160 mcg IH BID 12/29/18 12/29/18 12/28/18 10:00 History [Symbicort 160-4.5 Mcg Inhaler] Cymbalta 60 mg PO DAILY 12/29/18 12/29/18 12/28/18 10:00 History Cymbalta 60 mg PO DAILY 12/29/18 12/29/18 12/28/18 10:00 History Folic Acid 325 tab PO DAILY 12/29/18 12/29/18 12/28/18 10:00 History Furosemide [Lasix TAB] 40 mg PO QDAY 12/29/18 12/29/18 12/28/18 10:00 History Januvia 100 mg PO DAILY 12/29/18 12/29/18 12/29/18 10:00 History Levothyroxine 137 mcg PO DAILY 12/29/18 12/29/18 12/28/18 10:00 History Pantoprazole [Protonix TAB] 40 mg PO DAILY 12/29/18 12/29/18 12/29/18 10:00 History Sitagliptin Phosphate [Januvia] 100 mg PO DAILY 12/29/18 12/29/18 12/29/18 10:00 History Tiotropium [place] [Spiriva 2.5 mcg IH DAILY PRN 12/29/18 12/29/18 12/27/18 07:00 History Respimat] amLODIPine 10 mg PO DAILY 12/29/18 12/29/18 12/28/18 10:00 History metFORMIN 850 mg PO BID 12/29/18 12/29/18 12/28/18 10:00 History Active Meds: Active Medications Acetaminophen (Tylenol) 650 mg PO Q4H PRN PRN Reason: Pain MILD(1-3)/Fever >100.5/[place] Albuterol (Proventil) 2.5 mg IH Q2HRT PRN PRN Reason: Shortness Of Breath Albuterol/Ipratropium (Duoneb *Not For Prn Use*) 1 ampul IH TIDRT [facility] Last Admin: 01/08/19 08:13 Dose: 1 ampul Documented by: Amlodipine Besylate (Amlodipine) 10 mg PO DAILY [facility] Last Admin: 01/08/19 10:02 Dose: 10 mg Documented by: Arformoterol Tartrate (Brovana Nebu) 15 mcg IH Q12HRT [facility] Last Admin: 01/08/19 08:13 Dose: 15 mcg Documented by: Atorvastatin Calcium (Lipitor) 40 mg PO HS [facility] Last Admin: 01/07/19 21:17 Dose: 40 mg Documented by: Benzocaine/Menthol (Cepacol X Strength) 1 each MM Q2HR PRN PRN Reason: Sore Throat Last Admin: 01/07/19 20:04 Dose: 1 each Documented by: Budesonide (Pulmicort) 0.5 mg IH Q12HRT [facility] Last Admin: 01/08/19 08:13 Dose: 0.5 mg Documented by: Dextrose (D50w (25gm) Syringe) 50 ml IV Q30MIN PRN; Protocol PRN Reason: Hypoglycemia Duloxetine HCl (Cymbalta) 60 mg PO QDAY [facility] Last Admin: 01/08/19 10:02 Dose: 60 mg Documented by: Enoxaparin Sodium (Enoxaparin) 40 mg SUB-Q QDAY@1000 [facility] Last Admin: 01/08/19 10:01 Dose: 40 mg Documented by: Famotidine (Pepcid) 20 mg PO BID [facility] Last Admin: 01/08/19 10:02 Dose: 20 mg Documented by: Fluconazole (Diflucan) 100 mg PO QDAY [facility] Stop: 01/12/19 09:59 Last Admin: 01/08/19 10:02 Dose: 100 mg Documented by: Folic Acid (Folvite) 1 mg PO DAILY [facility] Last Admin: 01/08/19 10:02 Dose: 1 mg Documented by: Furosemide (Lasix) 40 mg IV 0600,1800 [facility] Last Admin: 01/08/19 05:38 Dose: 40 mg Documented by: Guaifenesin (Mucinex Er) 600 mg PO BID [facility] Last Admin: 01/08/19 10:02 Dose: 600 mg Documented by: Ampicillin Sodium/Sulbactam Sodium (Unasyn/Ns 3 Gm/100 Ml) 3 gm in 100 mls @ 200 mls/hr IV Q6HR [facility]; Protocol Last Admin: 01/07/19 23:16 Dose: 200 mls/hr Documented by: Insulin Glargine (Lantus) 45 units SUB-Q BID [facility] Last Admin: 01/08/19 10:01 Dose: 45 units Documented by: Insulin Human Lispro (Humalog) 0 unit SUB-Q AC [facility]; Protocol Last Admin: 01/08/19 07:42 Dose: Not Given Documented by: Insulin Human Lispro (Humalog) 0 unit SUB-Q QHS [facility]; Protocol Last Admin: 01/07/19 21:48 Dose: 4 unit Documented by: Insulin Human Lispro (Humalog) 12 unit SUB-Q TIDAC [facility] Last Admin: 01/08/19 07:42 Dose: Not Given Documented by: Levothyroxine Sodium (Synthroid) 112 mcg PO DAILY@0600 [facility] Last Admin: 01/08/19 05:38 Dose: 112 mcg Documented by: Lidocaine HCl (Miracle Mixture) 15 ml PO TID [facility] Last Admin: 01/08/19 08:03 Dose: 15 ml Documented by: Lidocaine HCl (Lidocaine Viscous 2%) 15 ml PO Q8H PRN PRN Reason: Mouth Pain Metformin HCl (Glucophage Xr) 500 mg PO QDDIAB [facility] Last Admin: 01/08/19 08:02 Dose: 500 mg Documented by: Methylprednisolone Sodium Succinate (Solu-Medrol) 125 mg IV Q6HR [facility] Last Admin: 01/08/19 05:38 Dose: 125 mg Documented by: Ondansetron HCl (Zofran) 4 mg IV Q8H PRN PRN Reason: Nausea And Vomiting Phenol (Chloraseptic) 1 spray MM PRN PRN PRN Reason: Sore Throat Last Admin: 01/06/19 09:47 Dose: 1 spray Documented by: Pseudoephedrine/Acetam/Chlorphenir (Robitussin Ac) 5 ml PO Q4H PRN PRN Reason: Cough Last Admin: 01/04/19 21:51 Dose: 5 ml Documented by: Senna/Docusate Sodium (Senokot S) 1 tab PO BID [facility] Last Admin: 01/08/19 10:02 Dose: 1 tab Documented by: Sodium Chloride (Sodium Chloride Flush Syringe 10 Ml) 10 ml IV BID [facility] Last Admin: 01/08/19 10:02 Dose: 10 ml Documented by: Sodium Chloride (Sodium Chloride Flush Syringe 10 Ml) 10 ml IV PRN PRN PRN Reason: LINE FLUSH Last Admin: 01/07/19 17:42 Dose: 10 ml Documented by: Physical Examination Vital Signs Pulse Resp Pulse Ox 107 H 28 H 82 L 12/28/18 14:56 12/28/18 14:56 12/28/18 14:56 General appearance: no acute distress HEENT: Positive: PERRL Neck: Positive: trachea midline Cardiac: Positive: Reg Rate and Rhythm Lungs: Positive: Decreased Breath Sounds Neuro: Positive: Grossly Intact Extremities: Absent: edema Results 01/04/19 05:20 01/08/19 05:48 Comprehensive Metabolic Panel 01/08/19 Range/Units 05:48 Sodium 140 (137-145) mmol/L Potassium 3.5 L (3.6-5.0) mmol/L Chloride 92.6 L (98-107) mmol/L Carbon Dioxide 33 H (22-30) mmol/L BUN 29 H (7-17) mg/dL Creatinine 0.7 (0.7-1.2) mg/dL Glucose 146 H (65-100) mg/dL Calcium 10.0 (8.4-10.2) mg/dL
[2019-01-08] MEDS: AMPICILLIN/SULBACTA 3GM/100ML 3 GM/100 ML BAG IV SCH ×3 (12:43→17:20)
--- NOTE | 2019-01-08 12:56 | Progress Note ---
Assessment and Plan 1. Odynophagia - due to thrush and probable Lisette esophagitis. No need to invoke other etiologies at present. - agree with changing to systemic meds with Diflucan - if no better, then proceed with EGD. Discussed with pt and family member. Will sign off. Thanks. Subjective Date of service: 01/08/19 Interval history: Asked to reconsult on pt today, by Dr. Saavedra, for odynophagia. Pt has documented thrush in throat, and was on Nystatin without relief. She is diab etic and has COPD. She complains of burning in chest with swallowing, and with sore throat. No abd pain. Has nausea at times with pain. Objective - Constitutional Vitals: Vital Signs - 12hr 01/08/19 01/08/19 01/08/19 02:29 06:31 07:34 Temperature 98.5 F 98.0 F Pulse Rate 96 H 86 81 Pulse Rate [ Anterior Bilateral Throughout] Pulse Rate [ Apical] Respiratory 20 20 Rate Respiratory Rate [Anterior Bilateral Throughout] Blood Pressure 122/57 145/79 O2 Sat by Pulse 91 93 Oximetry 01/08/19 01/08/19 01/08/19 08:14 08:35 10:00 Temperature Pulse Rate Pulse Rate [ 82 Anterior Bilateral Throughout] Pulse Rate [ 85 Apical] Respiratory 20 Rate Respiratory 20 Rate [Anterior Bilateral Throughout] Blood Pressure O2 Sat by Pulse 95 95 Oximetry 01/08/19 10:02 Temperature Pulse Rate 85 Pulse Rate [ Anterior Bilateral Throughout] Pulse Rate [ Apical] Respiratory Rate Respiratory Rate [Anterior Bilateral Throughout] Blood Pressure 129/65 O2 Sat by Pulse Oximetry General appearance: Present: no acute distress - EENT Eyes: PERRL, EOM intact ENT: hearing intact, thrush (Noted in white patches scattered in oropharynx) - Neck Neck: supple - Respiratory Respiratory effort: normal - Labs CBC & Chem 7: 01/04/19 05:20 01/08/19 05:48 Labs: Abnormal lab results 01/07/19 01/07/19 01/08/19 Range/Units 16:47 21:38 05:48 Potassium 3.5 L (3.6-5.0) mmol/L Chloride 92.6 L (98-107) mmol/L Carbon Dioxide 33 H (22-30) mmol/L BUN 29 H (7-17) mg/dL Glucose 146 H (65-100) mg/dL POC Glucose 124 H 244 H (70-105) 01/08/19 01/08/19 Range/Units 07:37 11:23 Potassium (3.6-5.0) mmol/L Chloride (98-107) mmol/L Carbon Dioxide (22-30) mmol/L BUN (7-17) mg/dL Glucose (65-100) mg/dL POC Glucose 138 H 188 H (70-105) Medications & Allergies - Medications Allergies/Adverse Reactions: Allergies No Known Allergies Allergy (Verified 12/28/18 15:13) Home Medications: Home Medications Medication Instructions Recorded Confirmed Last Taken Type AtorvaSTATin [Lipitor] 40 mg PO DAILY 12/29/18 12/29/18 12/29/18 10:00 History Budesonide/Formoterol Fumarate 160 mcg IH BID 12/29/18 12/29/18 12/28/18 10:00 History [Symbicort 160-4.5 Mcg Inhaler] Cymbalta 60 mg PO DAILY 12/29/18 12/29/18 12/28/18 10:00 History Cymbalta 60 mg PO DAILY 12/29/18 12/29/18 12/28/18 10:00 History Folic Acid 325 tab PO DAILY 12/29/18 12/29/18 12/28/18 10:00 History Furosemide [Lasix TAB] 40 mg PO QDAY 12/29/18 12/29/18 12/28/18 10:00 History Januvia 100 mg PO DAILY 12/29/18 12/29/18 12/29/18 10:00 History Levothyroxine 137 mcg PO DAILY 12/29/18 12/29/18 12/28/18 10:00 History Pantoprazole [Protonix TAB] 40 mg PO DAILY 12/29/18 12/29/18 12/29/18 10:00 History Sitagliptin Phosphate [Januvia] 100 mg PO DAILY 12/29/18 12/29/18 12/29/18 10:00 History Tiotropium [place] [Spiriva 2.5 mcg IH DAILY PRN 12/29/18 12/29/18 12/27/18 07:00 History Respimat] amLODIPine 10 mg PO DAILY 12/29/18 12/29/18 12/28/18 10:00 History metFORMIN 850 mg PO BID 12/29/18 12/29/18 12/28/18 10:00 History Active Medications: Generic Name Dose Route Start Last Admin Trade Name Freq PRN Reason Stop Dose Admin Acetaminophen 650 mg 12/28/18 17:29 Tylenol PO Q4H PRN Pain MILD(1-3)/Fever >100.5/[place] Albuterol 2.5 mg 12/30/18 12:01 Proventil IH Q2HRT PRN Shortness Of Breath Albuterol/Ipratropium 1 ampul 12/31/18 08:00 01/08/19 08:13 Duoneb *Not For Prn Use* IH 1 ampul TIDRT [facility] Administration Amlodipine Besylate 10 mg 12/30/18 14:00 01/08/19 10:02 Amlodipine PO 10 mg DAILY [facility] Administration Arformoterol Tartrate 15 mcg 12/30/18 20:00 01/08/19 08:13 Brovana Nebu IH 15 mcg Q12HRT [facility] Administration Atorvastatin Calcium 40 mg 12/30/18 22:00 01/07/19 21:17 Lipitor PO 40 mg HS [facility] Administration Benzocaine/Menthol 1 each 01/05/19 12:57 01/07/19 20:04 Cepacol X Strength MM 1 each Q2HR PRN Administration Sore Throat Budesonide 0.5 mg 12/30/18 20:00 01/08/19 08:13 Pulmicort IH 0.5 mg Q12HRT [facility] Administration Dextrose 50 ml 12/28/18 17:31 D50w (25gm) Syringe IV Q30MIN PRN Hypoglycemia Protocol Duloxetine HCl 60 mg 12/30/18 14:00 01/08/19 10:02 Cymbalta PO 60 mg QDAY [facility] Administration Enoxaparin Sodium 40 mg 12/30/18 10:00 01/08/19 10:01 Enoxaparin SUB-Q 40 mg QDAY@1000 [facility] Administration Famotidine 20 mg 12/28/18 22:00 01/08/19 10:02 Pepcid PO 20 mg BID [facility] Administration Fluconazole 100 mg 01/07/19 10:00 01/08/19 10:02 Diflucan PO 01/12/19 09:59 100 mg QDAY [facility] Administration Folic Acid 1 mg 12/30/18 17:00 01/08/19 10:02 Folvite PO 1 mg DAILY [facility] Administration Furosemide 40 mg 01/04/19 18:00 01/08/19 05:38 Lasix IV 40 mg 0600,1800 [facility] Administration Guaifenesin 600 mg 12/31/18 12:00 01/08/19 10:02 Mucinex Er PO 600 mg BID [facility] Administration Ampicillin Sodium/Sulbactam Sodium 3 gm in 100 mls @ 200 mls/hr 01/06/19 18:00 01/08/19 12:43 Unasyn/Ns 3 Gm/100 Ml IV 200 mls/hr Q6HR [facility] Administration Protocol Insulin Glargine 45 units 01/05/19 12:00 01/08/19 10:01 Lantus SUB-Q 45 units BID [facility] Administration Insulin Human Lispro 0 unit 01/02/19 16:30 01/08/19 12:44 Humalog SUB-Q 5 unit AC [facility] Administration Protocol Insulin Human Lispro 0 unit 01/02/19 22:00 01/07/19 21:48 Humalog SUB-Q 4 unit QHS [facility] Administration Protocol Insulin Human Lispro 12 unit 01/05/19 11:46 01/08/19 12:44 Humalog SUB-Q 12 unit TIDAC [facility] Administration Levothyroxine Sodium 112 mcg 12/31/18 06:00 01/08/19 05:38 Synthroid PO 112 mcg DAILY@0600 [facility] Administration Lidocaine HCl 15 ml 01/07/19 14:00 01/08/19 08:03 Miracle Mixture PO 15 ml TID [facility] Administration Lidocaine HCl 15 ml 01/07/19 18:05 01/08/19 12:50 Lidocaine Viscous 2% PO 15 ml Q8H PRN Administration Mouth Pain Metformin HCl 500 mg 01/03/19 19:00 01/08/19 08:02 Glucophage Xr PO 500 mg QDDIAB [facility] Administration Methylprednisolone Sodium Succinate 125 mg 01/03/19 12:00 01/08/19 05:38 Solu-Medrol IV 125 mg Q6HR [facility] Administration Ondansetron HCl 4 mg 12/28/18 17:29 Zofran IV Q8H PRN Nausea And Vomiting Phenol 1 spray 01/05/19 12:57 01/06/19 09:47 Chloraseptic MM 1 spray PRN PRN Administration Sore Throat Pseudoephedrine/Acetam/Chlorphenir 5 ml 12/31/18 11:12 01/04/19 21:51 Robitussin Ac PO 5 ml Q4H PRN Administration Cough Senna/Docusate Sodium 1 tab 12/31/18 12:00 01/08/19 10:02 Senokot S PO 1 tab BID [facility] Administration Sodium Chloride 10 ml 12/28/18 22:00 01/08/19 10:02 Sodium Chloride Flush Syringe 10 Ml IV 10 ml BID [facility] Administration Sodium Chloride 10 ml 12/28/18 17:29 01/07/19 17:42 Sodium Chloride Flush Syringe 10 Ml IV 10 ml PRN PRN Administration LINE FLUSH
[2019-01-08] MEDS: BENZOCAINE/MENTHOL LOZENGE MM PRN (21:51)
[2019-01-09] MEDS: AMPICILLIN/SULBACTA 3GM/100ML 3 GM/100 ML BAG IV SCH ×4 (00:49→17:38)
[2019-01-09] MEDS: methylPREDNISolone Sod Succinate 125 MG/2 ML INJ IV SCH ×4 (00:50→17:38)
[2019-01-09] MEDS: BENZOCAINE/MENTHOL LOZENGE MM PRN ×4 (03:12→18:34)
[2019-01-09 04:49] LABS: Hematocrit 38.9 % (30.3-42.9); Hemoglobin 12.2 gm/dl (10.1-14.3); Mean Corpuscular HGB Conc 31 % (30-34); Mean Corpuscular Volume 87 fl (79-97); Platelet Count 473 K/mm3 (140-440); Red Blood Count 4.47 M/mm3 (3.65-5.03)
[2019-01-09 04:58] LABS: BUN/Creatinine Ratio 57; Blood Urea Nitrogen 34 mg/dL (7-17); Calcium 9.5 mg/dL (8.4-10.2); Hemolysis Index 5
[2019-01-09 04:59] LABS: Red Cell Distribution Width 25.4 % (13.2-15.2)
--- NOTE | 2019-01-09 05:32 | Event Note ---
Date: 01/09/19 Potassium 2.8 this am. Ordered potassium replacement. follow up on potassium labs.
[2019-01-09] MEDS: FUROSEMIDE 40 MG/4 ML INJ IV SCH ×2 (05:38→17:38)
[2019-01-09] MEDS: LEVOTHYROXINE 112 MCG TAB PO SCH (05:39)
[2019-01-09] MEDS ORDERED: POTASSIUM CHLORIDE ER 20 MEQ TAB PO ONE (05:49)
[2019-01-09] MEDS: INSULIN LISPRO 100 UNIT/ML SUB-Q SCH ×6 (07:34→16:28)
[2019-01-09] MEDS: metFORMIN XR 500MG TAB PO SCH (07:54)
[2019-01-09] MEDS: BUDESONIDE 0.5 MG/2 ML NEBU IH SCH ×2 (08:15→20:21)
[2019-01-09] MEDS: IPRATROPIUM/ALBUTEROL SULFATE 3 ML AMPUL.NEB IH SCH ×3 (08:15→20:21)
[2019-01-09] MEDS: ARFORMOTEROL 15 MCG/2 ML NEBU IH SCH ×2 (08:15→20:21)
[2019-01-09 09:32] LABS: Band Neutrophils # (Manual) 0.1 K/mm3; Basophils % (Manual) 0 % (0.0-1.8); Eosinophils % (Manual) 0 % (0.0-4.3); Total Cells Counted 100
--- NOTE | 2019-01-09 09:32 | Progress Note ---
Assessment and Plan 68 y/o female with known COPD, now found to have mild pulmonary hypertension and diastolic dysfunction on echo. 1. Agree with continued lasix use. Would suggest switching to PO soon to see if that dose will enough for her at home to achieve the same output as in house. No output documented the last 2 days. Will need strict I/O. 2. 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 Will address home regimen as outpatient and repeat PFT's. 3. Diastolic dysfunction: Per primary team, agree with continued diuresis 4. Continue CPAP use at night. Patient has home machine 5. Odynophagia: secondary to thrush, currently on oral diflucan. Hopeful discharge soon once able to tolerate PO meals and tolerating PO lasix with good UOP Subjective Date of service: 01/09/19 Interval history: No acute events overnight. IMS replacing potassium. Seen by GI who agrees with systemic treatment of thrush. Also state may need scope if no improvement but t his appears to will happen outpatient based on their note. Pulm status is the same. Still on IV lasix. Objective Vital Signs - 12hr 01/08/19 01/09/19 01/09/19 22:36 01:54 07:03 Temperature 97.2 F L 97.4 F L Pulse Rate 87 89 Respiratory 18 20 Rate Blood Pressure 123/56 146/77 O2 Sat by Pulse 96 96 Oximetry Constitutional: no acute distress, alert Eyes: non-icteric ENT: oropharynx moist, other (oral thrush, no exudates noted) Ascultation: Bilateral: diminished breath sounds Cardiovascular: regular rate and rhythm Gastrointestinal: normoactive bowel sounds, soft, non-tender, non-distended Integumentary: normal Extremities: no cyanosis, edema Neurologic: normal mental status, non-focal exam Psychiatric: mood appropriate, affect normal CBC and BMP: 01/09/19 03:57 01/09/19 03:57 ABG, PT/INR, D-dimer: ABG POC ABG pH 7.443 (7.35-7.45) 12/28/18 15:46 POC ABG pCO2 38.2 (35-45) 12/28/18 15:46 POC ABG pO2 69 (80-105) L 12/28/18 15:46 POC ABG HCO3 26.1 (22-26 mml/L) 12/28/18 15:46 POC ABG Total CO2 27 (23-27mmol/L) 12/28/18 15:46 POC ABG O2 Sat 94 12/28/18 15:46 PT/INR, D-dimer PT 13.1 Sec. (12.2-14.9) 12/28/18 15:10 INR 1.00 (0.87-1.13) 12/28/18 15:10 D-Dimer 536.53 ng/mlDDU (0-234) H 12/28/18 15:49 Abnormal lab findings: Abnormal Labs 12/28/18 12/28/18 12/28/18 15:10 15:10 15:10 RBC 2.86 L Hgb 6.7 L Hct 23.3 L MCH 24 L MCHC 29 L RDW 20.6 H Plt Count 495 H Seg Neuts % (Manual) 82.0 H Lymphocytes % (Manual) 11.0 L Seg Neutrophils # Man 8.9 H Lymphocytes # (Manual) D-Dimer POC ABG pO2 Sodium Potassium 3.5 L Chloride 95.5 L Carbon Dioxide 21 L BUN Creatinine Glucose 209 H POC Glucose Calcium Ferritin ALT Total Protein Albumin 3.8 L Vitamin B12 TSH 5.340 H Crossmatch 12/28/18 12/28/18 12/28/18 15:41 15:46 15:49 RBC Hgb Hct MCH MCHC RDW Plt Count Seg Neuts % (Manual) Lymphocytes % (Manual) Seg Neutrophils # Man Lymphocytes # (Manual) D-Dimer 536.53 H POC ABG pO2 69 L Sodium Potassium Chloride Carbon Dioxide BUN Creatinine Glucose POC Glucose Calcium Ferritin ALT Total Protein Albumin Vitamin B12 TSH Crossmatch See Detail 12/28/18 12/28/18 12/29/18 20:16 21:44 05:55 RBC Hgb Hct MCH MCHC RDW Plt Count Seg Neuts % (Manual) Lymphocytes % (Manual) Seg Neutrophils # Man Lymphocytes # (Manual) D-Dimer POC ABG pO2 Sodium Potassium Chloride Carbon Dioxide BUN Creatinine Glucose POC Glucose 155 H 144 H 239 H Calcium Ferritin ALT Total Protein Albumin Vitamin B12 TSH Crossmatch 12/29/18 12/29/18 12/29/18 08:34 08:34 11:56 RBC 3.55 L Hgb 9.0 L Hct 29.3 L D MCH 26 L MCHC RDW 19.6 H Plt Count 469 H Seg Neuts % (Manual) 95.0 H Lymphocytes % (Manual) 3.0 L Seg Neutrophils # Man 8.5 H Lymphocytes # (Manual) 0.3 L D-Dimer POC ABG pO2 Sodium Potassium Chloride Carbon Dioxide BUN Creatinine Glucose 187 H POC Glucose 247 H Calcium Ferritin ALT Total Protein Albumin Vitamin B12 TSH Crossmatch 12/29/18 12/29/18 12/30/18 16:32 21:47 04:46 RBC 3.36 L Hgb 8.5 L Hct 28.2 L MCH 25 L MCHC RDW 19.5 H Plt Count 483 H Seg Neuts % (Manual) Lymphocytes % (Manual) Seg Neutrophils # Man Lymphocytes # (Manual) D-Dimer POC ABG pO2 Sodium Potassium Chloride Carbon Dioxide BUN Creatinine Glucose POC Glucose 311 H 280 H Calcium Ferritin ALT Total Protein Albumin Vitamin B12 TSH Crossmatch 12/30/18 12/30/18 12/30/18 06:17 13:19 16:48 RBC Hgb Hct MCH MCHC RDW Plt Count Seg Neuts % (Manual) Lymphocytes % (Manual) Seg Neutrophils # Man Lymphocytes # (Manual) D-Dimer POC ABG pO2 Sodium Potassium Chloride Carbon Dioxide BUN Creatinine Glucose POC Glucose 241 H 224 H 371 H Calcium Ferritin ALT Total Protein Albumin Vitamin B12 TSH Crossmatch 12/31/18 12/31/18 12/31/18 00:04 05:50 09:44 RBC Hgb Hct MCH MCHC RDW Plt Count Seg Neuts % (Manual) Lymphocytes % (Manual) Seg Neutrophils # Man Lymphocytes # (Manual) D-Dimer POC ABG pO2 Sodium Potassium Chloride Carbon Dioxide BUN Creatinine Glucose POC Glucose 428 H 332 H 405 H Calcium Ferritin ALT Total Protein Albumin Vitamin B12 TSH Crossmatch 12/31/18 12/31/18 12/31/18 11:32 17:15 23:55 RBC Hgb Hct MCH MCHC RDW Plt Count Seg Neuts % (Manual) Lymphocytes % (Manual) Seg Neutrophils # Man Lymphocytes # (Manual) D-Dimer POC ABG pO2 Sodium Potassium Chloride Carbon Dioxide BUN Creatinine Glucose POC Glucose 450 H 439 H 259 H Calcium Ferritin ALT Total Protein Albumin Vitamin B12 TSH Crossmatch 01/01/19 01/01/19 01/01/19 05:09 06:00 11:39 RBC Hgb 8.8 L Hct 28.3 L MCH MCHC RDW Plt Count Seg Neuts % (Manual) Lymphocytes % (Manual) Seg Neutrophils # Man Lymphocytes # (Manual) D-Dimer POC ABG pO2 Sodium Potassium Chloride Carbon Dioxide BUN Creatinine Glucose POC Glucose 243 H 253 H Calcium Ferritin ALT Total Protein Albumin Vitamin B12 TSH Crossmatch 01/01/19 01/02/19 01/02/19 18:04 00:04 05:49 RBC Hgb Hct MCH MCHC RDW Plt Count Seg Neuts % (Manual) Lymphocytes % (Manual) Seg Neutrophils # Man Lymphocytes # (Manual) D-Dimer POC ABG pO2 Sodium Potassium Chloride Carbon Dioxide BUN Creatinine Glucose POC Glucose 425 H 339 H 287 H Calcium Ferritin ALT Total Protein Albumin Vitamin B12 TSH Crossmatch 01/02/19 01/02/19 01/02/19 11:26 17:39 22:36 RBC Hgb Hct MCH MCHC RDW Plt Count Seg Neuts % (Manual) Lymphocytes % (Manual) Seg Neutrophils # Man Lymphocytes # (Manual) D-Dimer POC ABG pO2 Sodium Potassium Chloride Carbon Dioxide BUN Creatinine Glucose POC Glucose 335 H 306 H 329 H Calcium Ferritin ALT Total Protein Albumin Vitamin B12 TSH Crossmatch 01/03/19 01/03/19 01/03/19 07:44 11:28 16:25 RBC Hgb Hct MCH MCHC RDW Plt Count Seg Neuts % (Manual) Lymphocytes % (Manual) Seg Neutrophils # Man Lymphocytes # (Manual) D-Dimer POC ABG pO2 Sodium Potassium Chloride Carbon Dioxide BUN Creatinine Glucose POC Glucose 234 H 301 H 356 H Calcium Ferritin ALT Total Protein Albumin Vitamin B12 TSH Crossmatch 01/03/19 01/04/19 01/04/19 21:57 05:20 05:20 RBC Hgb Hct MCH 27 L MCHC RDW 24.2 H Plt Count 558 H Seg Neuts % (Manual) 97.0 H Lymphocytes % (Manual) 1.0 L Seg Neutrophils # Man Lymphocytes # (Manual) 0.1 L D-Dimer POC ABG pO2 Sodium Potassium 3.4 L Chloride 95.1 L Carbon Dioxide BUN 23 H Creatinine 0.6 L Glucose 264 H POC Glucose 311 H Calcium Ferritin ALT 136 H Total Protein 6.1 L Albumin Vitamin B12 TSH Crossmatch 01/04/19 01/04/19 01/04/19 05:20 05:20 05:20 RBC Hgb Hct MCH MCHC RDW Plt Count Seg Neuts % (Manual) Lymphocytes % (Manual) Seg Neutrophils # Man Lymphocytes # (Manual) D-Dimer POC ABG pO2 Sodium Potassium Chloride Carbon Dioxide BUN Creatinine Glucose POC Glucose Calcium Ferritin 482.5 H ALT Total Protein Albumin Vitamin B12 1572 H TSH 0.218 L Crossmatch 01/04/19 01/04/19 01/04/19 07:24 12:02 17:11 RBC Hgb Hct MCH MCHC RDW Plt Count Seg Neuts % (Manual) Lymphocytes % (Manual) Seg Neutrophils # Man Lymphocytes # (Manual) D-Dimer POC ABG pO2 Sodium Potassium Chloride Carbon Dioxide BUN Creatinine Glucose POC Glucose 237 H 270 H 314 H Calcium Ferritin ALT Total Protein Albumin Vitamin B12 TSH Crossmatch 01/04/19 01/05/19 01/05/19 21:35 07:17 08:57 RBC Hgb Hct MCH MCHC RDW Plt Count Seg Neuts % (Manual) Lymphocytes % (Manual) Seg Neutrophils # Man Lymphocytes # (Manual) D-Dimer POC ABG pO2 Sodium 135 L Potassium Chloride 89.1 L Carbon Dioxide BUN 31 H Creatinine Glucose 397 H POC Glucose 262 H 330 H Calcium Ferritin ALT Total Protein Albumin Vitamin B12 TSH Crossmatch 01/05/19 01/05/19 01/05/19 11:37 16:38 20:56 RBC Hgb Hct MCH MCHC RDW Plt Count Seg Neuts % (Manual) Lymphocytes % (Manual) Seg Neutrophils # Man Lymphocytes # (Manual) D-Dimer POC ABG pO2 Sodium Potassium Chloride Carbon Dioxide BUN Creatinine Glucose POC Glucose 288 H 286 H 400 H Calcium Ferritin ALT Total Protein Albumin Vitamin B12 TSH Crossmatch 01/06/19 01/06/19 01/06/19 07:15 10:19 11:37 RBC Hgb Hct MCH MCHC RDW Plt Count Seg Neuts % (Manual) Lymphocytes % (Manual) Seg Neutrophils # Man Lymphocytes # (Manual) D-Dimer POC ABG pO2 Sodium Potassium Chloride Carbon Dioxide BUN Creatinine Glucose POC Glucose 214 H 336 H 280 H Calcium Ferritin ALT Total Protein Albumin Vitamin B12 TSH Crossmatch 01/06/19 01/06/19 01/07/19 16:15 22:09 04:05 RBC Hgb Hct MCH MCHC RDW Plt Count Seg Neuts % (Manual) Lymphocytes % (Manual) Seg Neutrophils # Man Lymphocytes # (Manual) D-Dimer POC ABG pO2 Sodium Potassium 3.3 L Chloride 93.0 L Carbon Dioxide 32 H BUN 29 H Creatinine Glucose 155 H POC Glucose 170 H 296 H Calcium 10.3 H Ferritin ALT Total Protein Albumin Vitamin B12 TSH Crossmatch 01/07/19 01/07/19 01/07/19 07:58 10:00 11:55 RBC Hgb Hct MCH MCHC RDW Plt Count Seg Neuts % (Manual) Lymphocytes % (Manual) Seg Neutrophils # Man Lymphocytes # (Manual) D-Dimer POC ABG pO2 Sodium Potassium Chloride Carbon Dioxide BUN Creatinine Glucose POC Glucose 157 H 181 H 151 H Calcium Ferritin ALT Total Protein Albumin Vitamin B12 TSH Crossmatch 01/07/19 01/07/19 01/08/19 16:47 21:38 05:48 RBC Hgb Hct MCH MCHC RDW Plt Count Seg Neuts % (Manual) Lymphocytes % (Manual) Seg Neutrophils # Man Lymphocytes # (Manual) D-Dimer POC ABG pO2 Sodium Potassium 3.5 L Chloride 92.6 L Carbon Dioxide 33 H BUN 29 H Creatinine Glucose 146 H POC Glucose 124 H 244 H Calcium Ferritin ALT Total Protein Albumin Vitamin B12 TSH Crossmatch 01/08/19 01/08/19 01/08/19 07:37 11:23 16:13 RBC Hgb Hct MCH MCHC RDW Plt Count Seg Neuts % (Manual) Lymphocytes % (Manual) Seg Neutrophils # Man Lymphocytes # (Manual) D-Dimer POC ABG pO2 Sodium Potassium Chloride Carbon Dioxide BUN Creatinine Glucose POC Glucose 138 H 188 H 177 H Calcium Ferritin ALT Total Protein Albumin Vitamin B12 TSH Crossmatch 01/08/19 01/09/19 01/09/19 22:21 03:57 03:57 RBC Hgb Hct MCH 27 L MCHC RDW 25.4 H Plt Count 473 H Seg Neuts % (Manual) Lymphocytes % (Manual) Seg Neutrophils # Man Lymphocytes # (Manual) D-Dimer POC ABG pO2 Sodium Potassium 2.8 L* Chloride 89.1 L Carbon Dioxide 37 H BUN 34 H Creatinine 0.6 L Glucose 123 H POC Glucose 160 H Calcium Ferritin ALT Total Protein Albumin Vitamin B12 TSH Crossmatch
[2019-01-09 09:33] LABS: Anisocytosis Few; Giant Platelets Rare; Large Platelets Rare; Ovalocytes Few; Platelet Estimate Consistent w Auto
[2019-01-09] MEDS: FLUCONAZOLE 100 MG TAB PO SCH (10:05)
[2019-01-09] MEDS: amLODIPine 10 MG TAB PO SCH (10:05)
[2019-01-09] MEDS: DULoxetine 30 MG CAP PO SCH (10:05)
[2019-01-09] MEDS: FAMOTIDINE 20 MG TAB PO SCH ×2 (10:05→23:04)
[2019-01-09] MEDS: guaiFENesin ER 600 MG TAB PO SCH ×2 (10:06→23:05)
[2019-01-09] MEDS: MYLANTA PO SCH ×3 (10:06→20:00)
[2019-01-09] MEDS: [UNRECOGNIZED DRUG - OTHER] PO SCH ×3 (10:06→20:00)
[2019-01-09] MEDS: FOLIC ACID 1 MG TAB PO SCH (10:06)
[2019-01-09] MEDS: INSULIN GLARGINE 100 UNITS/ML SUB-Q SCH ×2 (10:06→23:05)
[2019-01-09] MEDS: SENNOSIDES/DOCUSATE SODIUM 8.6/50 MG TAB PO SCH ×2 (10:06→23:04)
[2019-01-09] MEDS: ENOXAPARIN 40 MG/0.4 ML INJ SUB-Q SCH (10:06)
[2019-01-09] MEDS: DIPHEN PO SCH ×3 (10:06→20:00)
[2019-01-09] MEDS: PHENOL 1.4% 177 ML BOTTLE MM PRN ×2 (10:09→13:47)
--- NOTE | 2019-01-09 12:59 | Progress Note ---
Assessment and Plan COPD exacerbation Chronic Anemia s/p transfusion of PRBCs Hypokalemia Obstructive sleep apnea Diabetes [facility] 07/2017: no significant coronary artery disease. Left ventricle systolic function has been well preserved. Echocardiogram on this presentation showed normal EF 55-60%. Conservative cardiac management. Subjective Date of service: 01/09/19 Interval history: Patient reports her breathing is better. Objective Vital Signs Temp Pulse Pulse Pulse Resp Resp BP 01/09/19 10:05 94 H 134/70 01/09/19 10:00 94 H 20 01/09/19 08:00 103 H 20 01/09/19 07:03 97.4 F L 89 20 146/77 01/09/19 01:54 97.2 F L 18 123/56 01/08/19 22:36 87 01/08/19 19:59 86 18 01/08/19 19:50 93 H 01/08/19 19:40 101 H 20 01/08/19 19:36 98.6 F 20 129/67 01/08/19 19:28 01/08/19 14:07 86 20 01/08/19 13:03 98.9 F 93 H 20 134/69 Pulse Ox 01/09/19 10:05 01/09/19 10:00 96 01/09/19 08:00 01/09/19 07:03 96 01/09/19 01:54 01/08/19 22:36 96 01/08/19 19:59 96 01/08/19 19:50 01/08/19 19:40 01/08/19 19:36 01/08/19 19:28 94 01/08/19 14:07 01/08/19 13:03 95 - Physical Examination General: No Apparent Distress HEENT: Positive: PERRL Neck: Positive: trachea midline Cardiac: Positive: Reg Rate and Rhythm Lungs: Positive: Decreased Breath Sounds Neuro: Positive: Grossly Intact Extremities: Absent: edema - Labs and Meds CBC 01/09/19 Range/Units 03:57 WBC 8.1 (4.5-11.0) K/mm3 RBC 4.47 (3.65-5.03) M/mm3 Hgb 12.2 (10.1-14.3) gm/dl Hct 38.9 (30.3-42.9) % Plt Count 473 H (140-440) K/mm3 Comprehensive Metabolic Panel 01/09/19 01/09/19 Range/Units 03:57 12:20 Sodium 139 (137-145) mmol/L Potassium 2.8 L* 3.0 L (3.6-5.0) mmol/L Chloride 89.1 L (98-107) mmol/L Carbon Dioxide 37 H (22-30) mmol/L BUN 34 H (7-17) mg/dL Creatinine 0.6 L (0.7-1.2) mg/dL Glucose 123 H (65-100) mg/dL Calcium 9.5 (8.4-10.2) mg/dL
--- NOTE | 2019-01-09 13:58 | Progress Note ---
Assessment and Plan Assessment and plan: Patient is a 68-year-old woman who presented to the hospital with shortness of breath wheezing and hypoxia. She has been checking her oxygen with a pulse ox at home and noted that she was desaturating especially with the mildest activity such as getting dressed or eating. * CTA chest IMPRESSION: 1. No CT evidence for pulmonary embolism. 2. Small bilateral pleural effusions and mild interstitial pulmonary edema. 3. A 2.3 cm left thyroid nodule that should be further evaluated with thyroid ultrasound on a nonemergent basis. Acute on chronic hypoxic respiratory failure on 3 liters o2 at home, here on 4l, poa: continue to wean O2 and treat the copd. Acute COPD exacerbation, patient has chronic severe COPD She follows with Dr. Anaya. She takes Symbicort, Spiriva and pro-air at home. steroids, nebs, pulmonology consults appreciated, aggressive chest PT acute on chronic diastolic chf cont lasix, cardiology consult per patient request hypokalemia; diuretics PNA- cont abx, add azithromycin Acute on chronic respiratory failure with hypoxia -Continue oxygen supplementation as needed and duonebs -Continue BiPAP at night sarah-pharyngeal thrush antifungals, patient will benefit from systemic Diflucan. Case discussed with GI, she likely has Lisette deal esophagitis as well. However the risk of an EGD is not worth the benefits, it is better to empirically treat the patient Acute on chronic normocytic anemia -Status post blood transfusion with 2U of PRBCS -GI consulted: out-pt f/u recommended iron studies, folic acid and B12 levels all wnl -She follows with hematology as outpatient, Dr. Pagan DM2 with persistent hyperglycemia Steroid use is exacerbating hyperglycemia. Optimize insulins SIRS due to non-infectious cause with organ failure -will monitor Hypothyroidism TSH is low, decrease synthroid dose Metabolic acidosis -resolved HTN -controlled -cont home amlodipine and lasix HLD -cont statin KASANDRA -Continue BiPAP at night, patient is to get repeat sleep study after discharge. She has not had one in 6 years. 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 Follow-up on current diagnosis of copd. No o vernight events reported to me. Patient denies any chest pain, nausea/vomiting or severe headaches. Imaging, nursing note, chart, labs and old chart reviewed. Discussed with patient. Hospitalist Physical - Physical exam Narrative exam: Gen: WDWN, NAD, Awake, Alert, Orientated, bmi 33.6 HEENT: NCAT, EOMI, PERRL, OP Clear Neck: supple, no adenopathy, no thyromegaly, no JVD CVS/Heart: RRR, normal S1S2, pulses present bilaterally Chest/Lungs: diminished bs bilateral, Symmetrical chest expansion, good air entry bilaterally GI/Abdomen: soft, NTND, good bowel sounds, no guarding or rebound /Bladder: no suprapubic tenderness, no CVA or paraspinal tenderness Extermity/Skin: BLE pitting edema, no obvious rash MSK: FROM x 4 Neuro: CN 2-12 grossly intact, no new focal deficits Psych: calm - Constitutional Vitals: Temp Pulse Resp BP Pulse Ox 98.7 F 97 H 20 137/60 94 01/09/19 13:09 01/09/19 13:09 01/09/19 10:00 01/09/19 13:09 01/09/19 13:09 General appearance: Present: mild distress, obese Results - Labs CBC & Chem 7: 01/09/19 03:57 01/09/19 12:20 Labs: Laboratory Last Values WBC 8.1 K/mm3 (4.5-11.0) 01/09/19 03:57 RBC 4.47 M/mm3 (3.65-5.03) 01/09/19 03:57 Hgb 12.2 gm/dl (10.1-14.3) 01/09/19 03:57 Hct 38.9 % (30.3-42.9) 01/09/19 03:57 MCV 87 fl (79-97) 01/09/19 03:57 MCH 27 pg (28-32) L 01/09/19 03:57 MCHC 31 % (30-34) 01/09/19 03:57 RDW 25.4 % (13.2-15.2) H 01/09/19 03:57 Plt Count 473 K/mm3 (140-440) H 01/09/19 03:57 Lymph % (Auto) [employer] Spot Picker 12/29/18 08:34 [place] % (Auto) [employer]olded [employer] Spot Picker 12/29/18 08:34 Eos % (Auto) M[employer] Spot Picker 12/29/18 08:34 Baso % (Auto) [employer] Spot Picker 12/29/18 08:34 Lymph # [employer] Spot Picker 12/29/18 08:34 [place] # Molded Goods Spot Picker 12/29/18 08:34 Eos # Molded Goods Spot Picker 12/29/18 08:34 Baso # Molded [employer] Spot Picker 12/29/18 08:34 Add Manual Diff Complete 01/09/19 03:57 Total Counted 100 01/09/19 03:57 Seg Neutrophils % M[employer] Spot Picker 01/09/19 03:57 Seg Neuts % (Manual) 93.0 % (40.0-70.0) H 01/09/19 03:57 Band Neutrophils % 1.0 % 01/09/19 03:57 Lymphocytes % (Manual) 4.0 % (13.4-35.0) L 01/09/19 03:57 Reactive Lymphs % (Man) 0 % 01/09/19 03:57 Monocytes % (Manual) 2.0 % (0.0-7.3) 01/09/19 03:57 Eosinophils % (Manual) 0 % (0.0-4.3) 01/09/19 03:57 Basophils % (Manual) 0 % (0.0-1.8) 01/09/19 03:57 Metamyelocytes % 0 % 01/09/19 03:57 Myelocytes % 0 % 01/09/19 03:57 Promyelocytes % 0 % 01/09/19 03:57 Blast Cells % 0 % 01/09/19 03:57 Nucleated RBC % Not Reportable 01/09/19 03:57 Seg Neutrophils # Molded [employer] Spot Picker 12/29/18 08:34 Seg Neutrophils # Man 7.5 K/mm3 (1.8-7.7) 01/09/19 03:57 Band Neutrophils # 0.1 K/mm3 01/09/19 03:57 Lymphocytes # (Manual) 0.3 K/mm3 (1.2-5.4) L 01/09/19 03:57 Abs React Lymphs (Man) 0.0 K/mm3 01/09/19 03:57 Monocytes # (Manual) 0.2 K/mm3 (0.0-0.8) 01/09/19 03:57 Eosinophils # (Manual) 0.0 K/mm3 (0.0-0.4) 01/09/19 03:57 Basophils # (Manual) 0.0 K/mm3 (0.0-0.1) 01/09/19 03:57 Metamyelocytes # 0.0 K/mm3 01/09/19 03:57 Myelocytes # 0.0 K/mm3 01/09/19 03:57 Promyelocytes # 0.0 K/mm3 01/09/19 03:57 Blast Cells # 0.0 K/mm3 01/09/19 03:57 WBC Morphology Not Reportable 01/09/19 03:57 Hypersegmented Neuts Not Reportable 01/09/19 03:57 Hyposegmented Neuts Not Reportable 01/09/19 03:57 Hypogranular Neuts Not Reportable 01/09/19 03:57 Smudge Cells Not Reportable 01/09/19 03:57 Toxic Granulation Not Reportable 01/09/19 03:57 Toxic Vacuolation Not Reportable 01/09/19 03:57 Dohle Bodies Not Reportable 01/09/19 03:57 Pelger-Huet Anomaly Not Reportable 01/09/19 03:57 Sanjeev Rods Not Reportable 01/09/19 03:57 Platelet Estimate Consistent w auto 01/09/19 03:57 Clumped Platelets Not Reportable 01/09/19 03:57 Plt Clumps, EDTA Not Reportable 01/09/19 03:57 Large Platelets Rare 01/09/19 03:57 Giant Platelets Rare 01/09/19 03:57 Platelet Satelliting Not Reportable 01/09/19 03:57 Plt Morphology Comment Not Reportable 01/09/19 03:57 RBC Morphology Not Reportable 01/09/19 03:57 Dimorphic RBCs Not Reportable 01/09/19 03:57 Polychromasia Not Reportable 01/09/19 03:57 Hypochromasia Not Reportable 01/09/19 03:57 Poikilocytosis Not Reportable 01/09/19 03:57 Anisocytosis Few 01/09/19 03:57 Microcytosis Not Reportable 01/09/19 03:57 Macrocytosis Not Reportable 01/09/19 03:57 Spherocytes Not Reportable 01/09/19 03:57 Pappenheimer Bodies Not Reportable 01/09/19 03:57 Sickle Cells Not Reportable 01/09/19 03:57 Target Cells Not Reportable 01/09/19 03:57 Tear Drop Cells Not Reportable 01/09/19 03:57 Ovalocytes Few 01/09/19 03:57 Stomatocytes Few 01/04/19 05:20 Helmet Cells Not Reportable 01/09/19 03:57 [place] Bodies Not Reportable 01/09/19 03:57 [place] Rings Not Reportable 01/09/19 03:57 [place] Cells Not Reportable 01/09/19 03:57 Bite Cells Not Reportable 01/09/19 03:57 Crenated Cell Not Reportable 01/09/19 03:57 Elliptocytes Not Reportable 01/09/19 03:57 Acanthocytes (Spur) Not Reportable 01/09/19 03:57 Rouleaux Not Reportable 01/09/19 03:57 Hemoglobin C Crystals Not Reportable 01/09/19 03:57 Schistocytes Not Reportable 01/09/19 03:57 Malaria parasites Not Reportable 01/09/19 03:57 Farhad Bodies Not Reportable 01/09/19 03:57 Hem Pathologist Commnt No 01/09/19 03:57 PT 13.1 Sec. (12.2-14.9) 12/28/18 15:10 INR 1.00 (0.87-1.13) 12/28/18 15:10 APTT 29.2 Sec. (24.2-36.6) 12/28/18 15:10 D-Dimer 536.53 ng/mlDDU (0-234) H 12/28/18 15:49 POC ABG pH 7.443 (7.35-7.45) 12/28/18 15:46 POC ABG pCO2 38.2 (35-45) 12/28/18 15:46 POC ABG pO2 69 (80-105) L 12/28/18 15:46 POC ABG HCO3 26.1 (22-26 mml/L) 12/28/18 15:46 POC ABG Total CO2 27 (23-27mmol/L) 12/28/18 15:46 POC ABG O2 Sat 94 12/28/18 15:46 POC ABG Base Excess 2 ((-2) - (+3)mmol/L) 12/28/18 15:46 FiO2 40 % 12/28/18 15:46 Sodium 139 mmol/L (137-145) 01/09/19 03:57 Potassium 3.0 mmol/L (3.6-5.0) L 01/09/19 12:20 Chloride 89.1 mmol/L (98-107) L 01/09/19 03:57 Carbon Dioxide 37 mmol/L (22-30) H 01/09/19 03:57 Anion Gap 16 mmol/L 01/09/19 03:57 BUN 34 mg/dL (7-17) H 01/09/19 03:57 Creatinine 0.6 mg/dL (0.7-1.2) L 01/09/19 03:57 Estimated GFR > 60 ml/min 01/09/19 03:57 BUN/Creatinine Ratio 57 % 01/09/19 03:57 Glucose 123 mg/dL (65-100) H 01/09/19 03:57 POC Glucose 303 (70-105) H 01/09/19 11:16 Hemoglobin A1c 5.8 % (4-6) 01/04/19 05:20 Calcium 9.5 mg/dL (8.4-10.2) 01/09/19 03:57 Magnesium 2.10 mg/dL (1.7-2.3) 01/05/19 08:57 Iron 48 ug/dL (37-170) 01/04/19 05:20 TIBC 311 mcg/dL (250-450) 01/04/19 05:20 % Saturation 15.43 % 01/04/19 05:20 Transferrin 259 mg/dl (192-382) 01/04/19 05:20 Ferritin 482.5 ng/mL (13.0-400.0) H 01/04/19 05:20 Total Bilirubin 0.50 mg/dL (0.1-1.2) 01/04/19 05:20 AST 35 units/L (5-40) 01/04/19 05:20 ALT 136 units/L (7-56) H 01/04/19 05:20 Alkaline Phosphatase 122 units/L (35-129) 01/04/19 05:20 Troponin T < 0.010 ng/mL (0.00-0.029) 12/28/18 15:10 NT-Pro-B Natriuret Pep 403.1 pg/mL (0-900) 01/05/19 08:57 Total Protein 6.1 g/dL (6.3-8.2) L 01/04/19 05:20 Albumin 3.9 g/dL (3.9-5) 01/04/19 05:20 Albumin/Globulin Ratio 1.8 % 01/04/19 05:20 Vitamin B12 1572 pg/mL (211-911) H 01/04/19 05:20 RBC Folic Acid >1000 ng/mL (>280) 01/04/19 05:20 TSH 0.218 mlU/mL (0.270-4.200) L 01/04/19 05:20 Free T4 1.45 ng/dL (0.76-1.46) 01/04/19 05:20 Thyroxine (T4) 7.3 ug/dL (4.0-12.0) 01/04/19 05:20 Blood Type O POSITIVE 12/28/18 15:41 Antibody Screen Negative 12/28/18 15:41 Crossmatch See Detail 12/28/18 15:41 Active Medications - Current Medications Current Medications: Generic Name Dose Route Start Last Admin Trade Name Freq PRN Reason Stop Dose Admin Acetaminophen 650 mg 12/28/18 17:29 Tylenol PO Q4H PRN Pain MILD(1-3)/Fever >100.5/[place] Albuterol 2.5 mg 12/30/18 12:01 Proventil IH Q2HRT PRN Shortness Of Breath Albuterol/Ipratropium 1 ampul 12/31/18 08:00 01/08/19 19:29 Duoneb *Not For Prn Use* IH Not Given TIDRT CHING Amlodipine Besylate 10 mg 12/30/18 14:00 01/09/19 10:05 Amlodipine PO 10 mg DAILY CHING Administration Arformoterol Tartrate 15 mcg 12/30/18 20:00 01/08/19 19:23 Broisaac Patriciau IH 15 mcg Q12HRT CHING Administration Atorvastatin Calcium 40 mg 12/30/18 22:00 01/08/19 21:47 Lipitor PO 40 mg HS CHING Administration Benzocaine/Menthol 1 each 01/05/19 12:57 01/09/19 13:46 Cepacol X Strength MM 1 each Q2HR PRN Administration Sore Throat Budesonide 0.5 mg 12/30/18 20:00 01/08/19 19:23 Pulmicort IH 0.5 mg Q12HRT CHING Administration Dextrose 50 ml 12/28/18 17:31 D50w (25gm) Syringe IV Q30MIN PRN Hypoglycemia Protocol Duloxetine HCl 60 mg 12/30/18 14:00 01/09/19 10:05 Cymbalta PO 60 mg QDAY CHING Administration Enoxaparin Sodium 40 mg 12/30/18 10:00 01/09/19 10:06 Enoxaparin SUB-Q 40 mg QDAY@1000 CHING Administration Famotidine 20 mg 12/28/18 22:00 01/09/19 10:05 Pepcid PO 20 mg BID CHING Administration Fluconazole 100 mg 01/07/19 10:00 01/09/19 10:05 Diflucan PO 01/14/19 09:59 100 mg QDAY CHING Administration Folic Acid 1 mg 12/30/18 17:00 01/09/19 10:06 Folvite PO 1 mg DAILY CHING Administration Furosemide 40 mg 01/04/19 18:00 01/09/19 05:38 Lasix IV 40 mg 0600,1800 CHING Administration Guaifenesin 600 mg 12/31/18 12:00 01/09/19 10:06 Mucinex Er PO 600 mg BID CHING Administration Ampicillin Sodium/Sulbactam Sodium 3 gm in 100 mls @ 200 mls/hr 01/06/19 18:00 01/09/19 11:46 Unasyn/Ns 3 Gm/100 Ml IV 200 mls/hr Q6HR CHING Administration Protocol Insulin Glargine 45 units 01/05/19 12:00 01/09/19 10:06 Lantus SUB-Q 45 units BID CHING Administration Insulin Human Lispro 0 unit 01/02/19 16:30 01/09/19 11:45 Humalog SUB-Q 10 unit AC CHING Administration Protocol Insulin Human Lispro 0 unit 01/02/19 22:00 01/08/19 22:47 Humalog SUB-Q 3 unit QHS CHING Administration Protocol Insulin Human Lispro 12 unit 01/05/19 11:46 01/09/19 11:45 Humalog SUB-Q 12 unit TIDAC CHING Administration Levothyroxine Sodium 112 mcg 12/31/18 06:00 01/09/19 05:39 Synthroid PO 112 mcg DAILY@0600 CHING Administration Lidocaine HCl 15 ml 01/07/19 14:00 01/09/19 10:06 Miracle Mixture PO 15 ml TID CHING Administration Lidocaine HCl 15 ml 01/07/19 18:05 01/08/19 12:50 Lidocaine Viscous 2% PO 15 ml Q8H PRN Administration Mouth Pain Metformin HCl 500 mg 01/03/19 19:00 01/09/19 07:54 Glucophage Xr PO 500 mg QDDIAB CHING Administration Methylprednisolone Sodium Succinate 125 mg 01/03/19 12:00 01/09/19 13:44 Solu-Medrol IV 125 mg Q6HR CHING Administration Ondansetron HCl 4 mg 12/28/18 17:29 Zofran IV Q8H PRN Nausea And Vomiting Phenol 1 spray 01/05/19 12:57 01/09/19 13:47 Chloraseptic MM 1 spray PRN PRN Administration Sore Throat Potassium Chloride 20 meq 01/10/19 10:00 K-Dur PO QDAY CHING Pseudoephedrine/Acetam/Chlorphenir 5 ml 12/31/18 11:12 01/04/19 21:51 Robitussin Ac PO 5 ml Q4H PRN Administration Cough Senna/Docusate Sodium 1 tab 12/31/18 12:00 01/09/19 10:06 Senokot S PO 1 tab BID CHING Administration Sodium Chloride 10 ml 12/28/18 22:00 01/09/19 11:46 Sodium Chloride Flush Syringe 10 Ml IV 10 ml BID CHING Administration Sodium Chloride 10 ml 12/28/18 17:29 01/07/19 17:42 Sodium Chloride Flush Syringe 10 Ml IV 10 ml PRN PRN Administration LINE FLUSH Nutrition/Malnutrition Assess - Dietary Evaluation Nutrition/Malnutrition Findings: Nutrition Notes Start: 01/04/19 13:36 Freq: Status: Active Protocol: Document 01/04/19 13:37 LM (Rec: 01/04/19 13:37 LM [email or web address]) Nutrition Notes Need for Assessment generated from: LOS Initial or Follow up Brief Note Subjective/Other Information Screen for LOS. 100% intakes documented in chart. Nutrition Intervention Revisit per MD consult or patient Sign Off request:
[2019-01-10] MEDS: methylPREDNISolone Sod Succinate 125 MG/2 ML INJ IV SCH ×3 (00:30→11:30)
[2019-01-10] MEDS: AMPICILLIN/SULBACTA 3GM/100ML 3 GM/100 ML BAG IV SCH ×3 (00:30→11:30)
[2019-01-10] MEDS: BENZOCAINE/MENTHOL LOZENGE MM PRN (04:15)
[2019-01-10 05:31] LABS: BUN/Creatinine Ratio 47; Blood Urea Nitrogen 28 mg/dL (7-17); Calcium 9.7 mg/dL (8.4-10.2); Hemolysis Index 29
[2019-01-10] MEDS: FUROSEMIDE 40 MG/4 ML INJ IV SCH (06:14)
[2019-01-10] MEDS: LEVOTHYROXINE 112 MCG TAB PO SCH (06:15)
[2019-01-10] MEDS: INSULIN LISPRO 100 UNIT/ML SUB-Q SCH ×8 (06:21→22:21)
[2019-01-10] MEDS: metFORMIN XR 500MG TAB PO SCH (07:56)
[2019-01-10] MEDS: [UNRECOGNIZED DRUG - OTHER] PO SCH ×3 (07:57→22:18)
[2019-01-10] MEDS: MYLANTA PO SCH ×3 (07:57→22:18)
[2019-01-10] MEDS: DIPHEN PO SCH ×3 (07:57→22:18)
[2019-01-10] MEDS: IPRATROPIUM/ALBUTEROL SULFATE 3 ML AMPUL.NEB IH SCH ×3 (09:45→20:35)
[2019-01-10] MEDS: BUDESONIDE 0.5 MG/2 ML NEBU IH SCH ×2 (09:45→20:35)
[2019-01-10] MEDS: ARFORMOTEROL 15 MCG/2 ML NEBU IH SCH ×2 (09:45→20:35)
[2019-01-10] MEDS: POTASSIUM CHLORIDE ER 20 MEQ TAB PO SCH (09:51)
[2019-01-10] MEDS: guaiFENesin/CODEINE 100-10MG ORAL LIQD 5 ML PO PRN ×2 (09:51→10:00)
[2019-01-10] MEDS: FOLIC ACID 1 MG TAB PO SCH (09:52)
[2019-01-10] MEDS: amLODIPine 10 MG TAB PO SCH (09:52)
[2019-01-10] MEDS: FLUCONAZOLE 100 MG TAB PO SCH (09:52)
[2019-01-10] MEDS: DULoxetine 30 MG CAP PO SCH (09:53)
[2019-01-10] MEDS: SENNOSIDES/DOCUSATE SODIUM 8.6/50 MG TAB PO SCH ×2 (09:53→22:18)
[2019-01-10] MEDS: FAMOTIDINE 20 MG TAB PO SCH ×2 (09:53→22:18)
[2019-01-10] MEDS: ENOXAPARIN 40 MG/0.4 ML INJ SUB-Q SCH (09:53)
[2019-01-10] MEDS: INSULIN GLARGINE 100 UNITS/ML SUB-Q SCH ×2 (09:59→22:26)
--- NOTE | 2019-01-10 10:46 | Progress Note ---
<ANALISA ELIZABETH - Last Filed: 01/10/19 10:45> Assessment and Plan COPD exacerbation Chronic Anemia s/p transfusion of PRBCs Hypokalemia Obstructive sleep apnea Diabetes [facility] 07/2017: no significant coronary artery disease. Left ventricle systolic function has been well preserved. Echocardiogram on this presentation showed normal EF 55-60%. Conservative cardiac management. We will sign off. Subjective Date of service: 01/10/19 Interval history: No cardiac complaints. Objective Vital Signs Temp Pulse Pulse Pulse Resp Resp BP 01/10/19 10:00 92 H 20 01/10/19 09:52 92 H 138/76 01/10/19 09:46 01/10/19 08:48 83 01/10/19 07:30 98.7 F 93 H 22 127/70 01/10/19 02:41 86 01/10/19 01:41 97.3 F L 20 123/63 01/09/19 23:00 86 18 01/09/19 20:54 97.6 F 98 H 18 143/71 01/09/19 20:23 01/09/19 20:22 95 H 20 01/09/19 13:09 98.7 F 97 H 137/60 Pulse Ox 01/10/19 10:00 96 01/10/19 09:52 01/10/19 09:46 96 01/10/19 08:48 01/10/19 07:30 93 01/10/19 02:41 93 01/10/19 01:41 01/09/19 23:00 92 01/09/19 20:54 94 01/09/19 20:23 94 01/09/19 20:22 01/09/19 13:09 94 - Physical Examination General: No Apparent Distress HEENT: Positive: PERRL Neck: Positive: trachea midline Cardiac: Positive: Reg Rate and Rhythm Lungs: Positive: Decreased Breath Sounds Neuro: Positive: Grossly Intact Extremities: Absent: edema - Labs and Meds Comprehensive Metabolic Panel 01/09/19 01/10/19 Range/Units 12:20 04:37 Sodium 141 (137-145) mmol/L Potassium 3.0 L 3.0 L (3.6-5.0) mmol/L Chloride 91.0 L (98-107) mmol/L Carbon Dioxide 34 H (22-30) mmol/L BUN 28 H (7-17) mg/dL Creatinine 0.6 L (0.7-1.2) mg/dL Glucose 115 H (65-100) mg/dL Calcium 9.7 (8.4-10.2) mg/dL <PRIYANK FONSECA - Last Filed: 01/10/19 15:28> Assessment and Plan I've seen and evaluated the patient agree with the assessment and plan. Patient has a history of left heart catheterization showing no significant coronary artery disease. Patient's echocardiogram shows normal left ventricular function. No further cardiac evaluation this time. thank you for the consult, please reconsult as needed Objective Vital Signs Temp Pulse Pulse Pulse Resp Resp BP 01/10/19 13:39 99.5 F 96 H 20 119/68 01/10/19 10:00 92 H 20 01/10/19 09:52 92 H 138/76 01/10/19 09:46 01/10/19 08:48 83 01/10/19 07:30 98.7 F 93 H 22 127/70 01/10/19 02:41 86 01/10/19 01:41 97.3 F L 20 123/63 01/09/19 23:00 86 18 01/09/19 20:54 97.6 F 98 H 18 143/71 01/09/19 20:23 01/09/19 20:22 95 H 20 Pulse Ox 01/10/19 13:39 93 01/10/19 10:00 96 01/10/19 09:52 01/10/19 09:46 96 01/10/19 08:48 01/10/19 07:30 93 01/10/19 02:41 93 01/10/19 01:41 01/09/19 23:00 92 01/09/19 20:54 94 01/09/19 20:23 94 01/09/19 20:22 - Labs and Meds Comprehensive Metabolic Panel 01/10/19 Range/Units 04:37 Sodium 141 (137-145) mmol/L Potassium 3.0 L (3.6-5.0) mmol/L Chloride 91.0 L (98-107) mmol/L Carbon Dioxide 34 H (22-30) mmol/L BUN 28 H (7-17) mg/dL Creatinine 0.6 L (0.7-1.2) mg/dL Glucose 115 H (65-100) mg/dL Calcium 9.7 (8.4-10.2) mg/dL
[2019-01-10] MEDS: guaiFENesin ER 600 MG TAB PO SCH ×2 (11:28→22:18)
--- NOTE | 2019-01-10 15:09 | Progress Note ---
Assessment and Plan 68 y/o female with known COPD, now found to have mild pulmonary hypertension and diastolic dysfunction on echo. 1. Agree with continued lasix use. Would suggest switching to PO soon to see if that dose will enough for her at home to achieve the same output as in house. No output documented the last 2 days. Will need strict I/O. 2. 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 Will address home regimen as outpatient and repeat PFT's. 3. Diastolic dysfunction: Per primary team, agree with continued diuresis 4. Continue CPAP use at night. Patient has home machine 5. Odynophagia: secondary to thrush, currently on oral diflucan. May need to increase to 200 Hopeful discharge soon once able to tolerate PO meals and tolerating PO lasix with good UOP Subjective Date of service: 01/10/19 Interval history: No acute events. Breathing is better. Still complains of odynophagia. Objective Vital Signs - 12hr 01/10/19 01/10/19 01/10/19 07:30 08:48 09:46 Temperature 98.7 F Pulse Rate 93 H 83 Pulse Rate [ From Monitor] Respiratory 22 Rate Blood Pressure 127/70 O2 Sat by Pulse 93 96 Oximetry 01/10/19 01/10/19 01/10/19 09:52 10:00 13:39 Temperature 99.5 F Pulse Rate 92 H 96 H Pulse Rate [ 92 H From Monitor] Respiratory 20 20 Rate Blood Pressure 138/76 119/68 O2 Sat by Pulse 96 93 Oximetry Constitutional: no acute distress, alert Eyes: non-icteric ENT: oropharynx moist, other (oral thrush, no exudates noted) Ascultation: Bilateral: diminished breath sounds Cardiovascular: regular rate and rhythm Gastrointestinal: normoactive bowel sounds, soft, non-tender, non-distended Integumentary: normal Extremities: no cyanosis, edema Neurologic: normal mental status, non-focal exam Psychiatric: mood appropriate, affect normal CBC and BMP: 01/09/19 03:57 01/10/19 04:37 ABG, PT/INR, D-dimer: ABG POC ABG pH 7.443 (7.35-7.45) 12/28/18 15:46 POC ABG pCO2 38.2 (35-45) 12/28/18 15:46 POC ABG pO2 69 (80-105) L 12/28/18 15:46 POC ABG HCO3 26.1 (22-26 mml/L) 12/28/18 15:46 POC ABG Total CO2 27 (23-27mmol/L) 12/28/18 15:46 POC ABG O2 Sat 94 12/28/18 15:46 PT/INR, D-dimer PT 13.1 Sec. (12.2-14.9) 12/28/18 15:10 INR 1.00 (0.87-1.13) 12/28/18 15:10 D-Dimer 536.53 ng/mlDDU (0-234) H 12/28/18 15:49 Abnormal lab findings: Abnormal Labs 12/28/18 12/28/18 12/28/18 15:10 15:10 15:10 RBC 2.86 L Hgb 6.7 L Hct 23.3 L MCH 24 L MCHC 29 L RDW 20.6 H Plt Count 495 H Seg Neuts % (Manual) 82.0 H Lymphocytes % (Manual) 11.0 L Seg Neutrophils # Man 8.9 H Lymphocytes # (Manual) D-Dimer POC ABG pO2 Sodium Potassium 3.5 L Chloride 95.5 L Carbon Dioxide 21 L BUN Creatinine Glucose 209 H POC Glucose Calcium Ferritin ALT Total Protein Albumin 3.8 L Vitamin B12 TSH 5.340 H Crossmatch 12/28/18 12/28/18 12/28/18 15:41 15:46 15:49 RBC Hgb Hct MCH MCHC RDW Plt Count Seg Neuts % (Manual) Lymphocytes % (Manual) Seg Neutrophils # Man Lymphocytes # (Manual) D-Dimer 536.53 H POC ABG pO2 69 L Sodium Potassium Chloride Carbon Dioxide BUN Creatinine Glucose POC Glucose Calcium Ferritin ALT Total Protein Albumin Vitamin B12 TSH Crossmatch See Detail 12/28/18 12/28/18 12/29/18 20:16 21:44 05:55 RBC Hgb Hct MCH MCHC RDW Plt Count Seg Neuts % (Manual) Lymphocytes % (Manual) Seg Neutrophils # Man Lymphocytes # (Manual) D-Dimer POC ABG pO2 Sodium Potassium Chloride Carbon Dioxide BUN Creatinine Glucose POC Glucose 155 H 144 H 239 H Calcium Ferritin ALT Total Protein Albumin Vitamin B12 TSH Crossmatch 11/22/19 11/22/19 11/22/19 08:34 08:34 11:56 RBC 3.55 L Hgb 9.0 L Hct 29.3 L D MCH 26 L MCHC RDW 19.6 H Plt Count 469 H Seg Neuts % (Manual) 95.0 H Lymphocytes % (Manual) 3.0 L Seg Neutrophils # Man 8.5 H Lymphocytes # (Manual) 0.3 L D-Dimer POC ABG pO2 Sodium Potassium Chloride Carbon Dioxide BUN Creatinine Glucose 187 H POC Glucose 247 H Calcium Ferritin ALT Total Protein Albumin Vitamin B12 TSH Crossmatch 12/29/18 12/29/18 12/30/18 16:32 21:47 04:46 RBC 3.36 L Hgb 8.5 L Hct 28.2 L MCH 25 L MCHC RDW 19.5 H Plt Count 483 H Seg Neuts % (Manual) Lymphocytes % (Manual) Seg Neutrophils # Man Lymphocytes # (Manual) D-Dimer POC ABG pO2 Sodium Potassium Chloride Carbon Dioxide BUN Creatinine Glucose POC Glucose 311 H 280 H Calcium Ferritin ALT Total Protein Albumin Vitamin B12 TSH Crossmatch 12/30/18 12/30/18 12/30/18 06:17 13:19 16:48 RBC Hgb Hct MCH MCHC RDW Plt Count Seg Neuts % (Manual) Lymphocytes % (Manual) Seg Neutrophils # Man Lymphocytes # (Manual) D-Dimer POC ABG pO2 Sodium Potassium Chloride Carbon Dioxide BUN Creatinine Glucose POC Glucose 241 H 224 H 371 H Calcium Ferritin ALT Total Protein Albumin Vitamin B12 TSH Crossmatch 12/31/18 12/31/18 12/31/18 00:04 05:50 09:44 RBC Hgb Hct MCH MCHC RDW Plt Count Seg Neuts % (Manual) Lymphocytes % (Manual) Seg Neutrophils # Man Lymphocytes # (Manual) D-Dimer POC ABG pO2 Sodium Potassium Chloride Carbon Dioxide BUN Creatinine Glucose POC Glucose 428 H 332 H 405 H Calcium Ferritin ALT Total Protein Albumin Vitamin B12 TSH Crossmatch 12/31/18 12/31/18 12/31/18 11:32 17:15 23:55 RBC Hgb Hct MCH MCHC RDW Plt Count Seg Neuts % (Manual) Lymphocytes % (Manual) Seg Neutrophils # Man Lymphocytes # (Manual) D-Dimer POC ABG pO2 Sodium Potassium Chloride Carbon Dioxide BUN Creatinine Glucose POC Glucose 450 H 439 H 259 H Calcium Ferritin ALT Total Protein Albumin Vitamin B12 TSH Crossmatch 01/01/19 01/01/1919 05:09 06:00 11:39 RBC Hgb 8.8 L Hct 28.3 L MCH MCHC RDW Plt Count Seg Neuts % (Manual) Lymphocytes % (Manual) Seg Neutrophils # Man Lymphocytes # (Manual) D-Dimer POC ABG pO2 Sodium Potassium Chloride Carbon Dioxide BUN Creatinine Glucose POC Glucose 243 H 253 H Calcium Ferritin ALT Total Protein Albumin Vitamin B12 TSH Crossmatch 01/01/19 01/02/19 01/02/19 18:04 00:04 05:49 RBC Hgb Hct MCH MCHC RDW Plt Count Seg Neuts % (Manual) Lymphocytes % (Manual) Seg Neutrophils # Man Lymphocytes # (Manual) D-Dimer POC ABG pO2 Sodium Potassium Chloride Carbon Dioxide BUN Creatinine Glucose POC Glucose 425 H 339 H 287 H Calcium Ferritin ALT Total Protein Albumin Vitamin B12 TSH Crossmatch 01/02/19 01/02/19 01/02/19 11:26 17:39 22:36 RBC Hgb Hct MCH MCHC RDW Plt Count Seg Neuts % (Manual) Lymphocytes % (Manual) Seg Neutrophils # Man Lymphocytes # (Manual) D-Dimer POC ABG pO2 Sodium Potassium Chloride Carbon Dioxide BUN Creatinine Glucose POC Glucose 335 H 306 H 329 H Calcium Ferritin ALT Total Protein Albumin Vitamin B12 TSH Crossmatch 01/03/19 01/03/19 01/03/19 07:44 11:28 16:25 RBC Hgb Hct MCH MCHC RDW Plt Count Seg Neuts % (Manual) Lymphocytes % (Manual) Seg Neutrophils # Man Lymphocytes # (Manual) D-Dimer POC ABG pO2 Sodium Potassium Chloride Carbon Dioxide BUN Creatinine Glucose POC Glucose 234 H 301 H 356 H Calcium Ferritin ALT Total Protein Albumin Vitamin B12 TSH Crossmatch 01/03/19 01/04/19 01/04/19 21:57 05:20 05:20 RBC Hgb Hct MCH 27 L MCHC RDW 24.2 H Plt Count 558 H Seg Neuts % (Manual) 97.0 H Lymphocytes % (Manual) 1.0 L Seg Neutrophils # Man Lymphocytes # (Manual) 0.1 L D-Dimer POC ABG pO2 Sodium Potassium 3.4 L Chloride 95.1 L Carbon Dioxide BUN 23 H Creatinine 0.6 L Glucose 264 H POC Glucose 311 H Calcium Ferritin ALT 136 H Total Protein 6.1 L Albumin Vitamin B12 TSH Crossmatch 01/04/19 01/04/1919 05:20 05:20 05:20 RBC Hgb Hct MCH MCHC RDW Plt Count Seg Neuts % (Manual) Lymphocytes % (Manual) Seg Neutrophils # Man Lymphocytes # (Manual) D-Dimer POC ABG pO2 Sodium Potassium Chloride Carbon Dioxide BUN Creatinine Glucose POC Glucose Calcium Ferritin 482.5 H ALT Total Protein Albumin Vitamin B12 1572 H TSH 0.218 L Crossmatch 01/04/19 01/04/19 01/04/19 07:24 12:02 17:11 RBC Hgb Hct MCH MCHC RDW Plt Count Seg Neuts % (Manual) Lymphocytes % (Manual) Seg Neutrophils # Man Lymphocytes # (Manual) D-Dimer POC ABG pO2 Sodium Potassium Chloride Carbon Dioxide BUN Creatinine Glucose POC Glucose 237 H 270 H 314 H Calcium Ferritin ALT Total Protein Albumin Vitamin B12 TSH Crossmatch 01/04/19 01/05/19 01/05/19 21:35 07:17 08:57 RBC Hgb Hct MCH MCHC RDW Plt Count Seg Neuts % (Manual) Lymphocytes % (Manual) Seg Neutrophils # Man Lymphocytes # (Manual) D-Dimer POC ABG pO2 Sodium 135 L Potassium Chloride 89.1 L Carbon Dioxide BUN 31 H Creatinine Glucose 397 H POC Glucose 262 H 330 H Calcium Ferritin ALT Total Protein Albumin Vitamin B12 TSH Crossmatch 01/05/19 01/05/19 01/05/19 11:37 16:38 20:56 RBC Hgb Hct MCH MCHC RDW Plt Count Seg Neuts % (Manual) Lymphocytes % (Manual) Seg Neutrophils # Man Lymphocytes # (Manual) D-Dimer POC ABG pO2 Sodium Potassium Chloride Carbon Dioxide BUN Creatinine Glucose POC Glucose 288 H 286 H 400 H Calcium Ferritin ALT Total Protein Albumin Vitamin B12 TSH Crossmatch 01/06/19 01/06/19 01/06/19 07:15 10:19 11:37 RBC Hgb Hct MCH MCHC RDW Plt Count Seg Neuts % (Manual) Lymphocytes % (Manual) Seg Neutrophils # Man Lymphocytes # (Manual) D-Dimer POC ABG pO2 Sodium Potassium Chloride Carbon Dioxide BUN Creatinine Glucose POC Glucose 214 H 336 H 280 H Calcium Ferritin ALT Total Protein Albumin Vitamin B12 TSH Crossmatch 01/06/19 01/06/19 01/07/19 16:15 22:09 04:05 RBC Hgb Hct MCH MCHC RDW Plt Count Seg Neuts % (Manual) Lymphocytes % (Manual) Seg Neutrophils # Man Lymphocytes # (Manual) D-Dimer POC ABG pO2 Sodium Potassium 3.3 L Chloride 93.0 L Carbon Dioxide 32 H BUN 29 H Creatinine Glucose 155 H POC Glucose 170 H 296 H Calcium 10.3 H Ferritin ALT Total Protein Albumin Vitamin B12 TSH Crossmatch 01/07/19 01/07/19 01/07/19 07:58 10:00 11:55 RBC Hgb Hct MCH MCHC RDW Plt Count Seg Neuts % (Manual) Lymphocytes % (Manual) Seg Neutrophils # Man Lymphocytes # (Manual) D-Dimer POC ABG pO2 Sodium Potassium Chloride Carbon Dioxide BUN Creatinine Glucose POC Glucose 157 H 181 H 151 H Calcium Ferritin ALT Total Protein Albumin Vitamin B12 TSH Crossmatch 01/07/19 01/07/19 01/08/19 16:47 21:38 05:48 RBC Hgb Hct MCH MCHC RDW Plt Count Seg Neuts % (Manual) Lymphocytes % (Manual) Seg Neutrophils # Man Lymphocytes # (Manual) D-Dimer POC ABG pO2 Sodium Potassium 3.5 L Chloride 92.6 L Carbon Dioxide 33 H BUN 29 H Creatinine Glucose 146 H POC Glucose 124 H 244 H Calcium Ferritin ALT Total Protein Albumin Vitamin B12 TSH Crossmatch 01/08/19 01/08/19 01/08/19 07:37 11:23 16:13 RBC Hgb Hct MCH MCHC RDW Plt Count Seg Neuts % (Manual) Lymphocytes % (Manual) Seg Neutrophils # Man Lymphocytes # (Manual) D-Dimer POC ABG pO2 Sodium Potassium Chloride Carbon Dioxide BUN Creatinine Glucose POC Glucose 138 H 188 H 177 H Calcium Ferritin ALT Total Protein Albumin Vitamin B12 TSH Crossmatch 01/08/19 01/09/19 01/09/19 22:21 03:57 03:57 RBC Hgb Hct MCH 27 L MCHC RDW 25.4 H Plt Count 473 H Seg Neuts % (Manual) 93.0 H Lymphocytes % (Manual) 4.0 L Seg Neutrophils # Man Lymphocytes # (Manual) 0.3 L D-Dimer POC ABG pO2 Sodium Potassium 2.8 L* Chloride 89.1 L Carbon Dioxide 37 H BUN 34 H Creatinine 0.6 L Glucose 123 H POC Glucose 160 H Calcium Ferritin ALT Total Protein Albumin Vitamin B12 TSH Crossmatch 01/09/19 01/09/19 01/09/19 11:16 12:20 21:52 RBC Hgb Hct MCH MCHC RDW Plt Count Seg Neuts % (Manual) Lymphocytes % (Manual) Seg Neutrophils # Man Lymphocytes # (Manual) D-Dimer POC ABG pO2 Sodium Potassium 3.0 L Chloride Carbon Dioxide BUN Creatinine Glucose POC Glucose 303 H 223 H Calcium Ferritin ALT Total Protein Albumin Vitamin B12 TSH Crossmatch 01/10/19 01/10/19 01/10/19 04:37 07:38 10:09 RBC Hgb Hct MCH MCHC RDW Plt Count Seg Neuts % (Manual) Lymphocytes % (Manual) Seg Neutrophils # Man Lymphocytes # (Manual) D-Dimer POC ABG pO2 Sodium Potassium 3.0 L Chloride 91.0 L Carbon Dioxide 34 H BUN 28 H Creatinine 0.6 L Glucose 115 H POC Glucose 117 H 245 H Calcium Ferritin ALT Total Protein Albumin Vitamin B12 TSH Crossmatch 01/10/19 01/10/19 11:26 11:28 RBC Hgb Hct MCH MCHC RDW Plt Count Seg Neuts % (Manual) Lymphocytes % (Manual) Seg Neutrophils # Man Lymphocytes # (Manual) D-Dimer POC ABG pO2 Sodium Potassium Chloride Carbon Dioxide BUN Creatinine Glucose POC Glucose 227 H 226 H Calcium Ferritin ALT Total Protein Albumin Vitamin B12 TSH Crossmatch
--- NOTE | 2019-01-10 16:36 | Progress Note ---
Assessment and Plan Assessment and plan: Patient is a 68 yo woman with a history of type 2 IDDM, KASANDRA, Hypothyroidism, Obesity Hypoventilation, Chronic hypoxic Respiratory Failure on 3-4L Home Oxygen due to end stage COPD and transfusion depend anemia who presented to [facility] ED with worsening SOB, wheezing and hypoxia (recorded as 69%). She has been checking her oxygen with a pulse ox at home and noted that she was desaturating especially with the mildest activity such as getting dressed or eating. . She was discharged from [facility] less than 1 month ago. She reports being volume overloaded at [facility] in which she was sent home on 40mg of oral Lasix. Pt seen and evaluated in ED and found to have Symptomatic A nemia, COPD with Acute Exacerbation, Acidosis as well as Acute on Chronic Respiratory Failure with pulse oximetry of 69%. Pt placed on supplemental oxygen. * 12/28/2018 pCXR impression: There are bibasilar airspace opacities, small bilateral effusions right greater than left * TTE 01/05/19 Conclusions: Ventricular chamber size normal, mild concentric left ventricular hypertrophy is observed, global left ventricular systolic function is normal, estimated ejection fraction is 55-60%, abnormal L ve ntricular diastolic filling is observed, consistent with impaired relaxation, trace tricuspid regurgitation, the right ventricular systolic pressure is calculated at 30 mmHg, minimal pericardial effusion. * CTA chest IMPRESSION: 1. No CT evidence for pulmonary embolism. 2. Small bilateral pleural effusions and mild interstitial pulmonary edema. 3. A 2.3 cm left thyroid nodule that should be further evaluated with thyroid ultrasound on a nonemergent basis. Diagnoses: Acute on chronic hypoxic respiratory failure due to COPD on 3 liters o2 at home, here on 4l, poa: continue to wean O2 and treat the copd. Acute COPD exacerbation, patient has chronic severe COPD: start to wean IV steroids, d/w Pulm Acute on chronic diastolic decompensated heart failure, EF 55-60%: changed iv lasix to po Oral Candiadiasis: Diflucan and wean steroids, tolerating modified diet Hypokalemia: replete and monitor closely Aspiration bilateral PNA, poa- completed ABX Acute on chronic normocytic anemia: monitor cbc closely DM2 with persistent hyperglycemia: ssi, ada diet Sepsis instead of SIRS, poa: treated with ABX Hypothyroidism: TSH is low, decrease synthroid dose Metabolic acidosis: Resolved JLJ-[id number]-kbvn home amlodipine and lasix HLD-cont statin KASANDRA-Continue BiPAP at night, patient is to get repeat sleep study after discharge. She has not had one in 6 years. 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 Follow-up on current diagnosis of copd. No overnight events reported to me. Patient denies any chest pain, nausea/vomiting or severe headaches. Imaging, nursing note, chart, labs and old chart reviewed. Discussed with patient. Hospitalist Physical - Physical exam Narrative exam: Gen: WDWN, NAD, Awake, Alert, Orientated, bmi 33.6 HEENT: NCAT, EOMI, PERRL, OP Clear except for thrush Neck: supple, no adenopathy, no thyromegaly, no JVD CVS/Heart: RRR, normal S1S2, pulses present bilaterally Chest/Lungs: diminished bs bilateral, Symmetrical chest expansion, good air entry bilaterally GI/Abdomen: soft, NTND, good bowel sounds, no guarding or rebound /Bladder: no suprapubic tenderness, no CVA or paraspinal tenderness Extermity/Skin: BLE pitting edema, no obvious rash MSK: FROM x 4 Neuro: CN 2-12 grossly intact, no new focal deficits Psych: calm - Constitutional Vitals: Temp Pulse Resp BP Pulse Ox 99.5 F 96 H 20 119/68 93 01/10/19 13:39 01/10/19 13:39 01/10/19 13:39 01/10/19 13:39 01/10/19 13:39 General appearance: Present: obese. Absent: mild distress Results - Labs CBC & Chem 7: 01/09/19 03:57 01/10/19 04:37 Labs: Laboratory Last Values WBC 8.1 K/mm3 (4.5-11.0) 01/09/19 03:57 RBC 4.47 M/mm3 (3.65-5.03) 01/09/19 03:57 Hgb 12.2 gm/dl (10.1-14.3) 01/09/19 03:57 Hct 38.9 % (30.3-42.9) 01/09/19 03:57 MCV 87 fl (79-97) 01/09/19 03:57 MCH 27 pg (28-32) L 01/09/19 03:57 MCHC 31 % (30-34) 01/09/19 03:57 RDW 25.4 % (13.2-15.2) H 01/09/19 03:57 Plt Count 473 K/mm3 (140-440) H 01/09/19 03:57 Lymph % (Auto) Tile Grader 12/29/18 08:34 Tyrrell % (Auto) Tile Grader 12/29/18 08:34 Eos % (Auto) Tile Grader 12/29/18 08:34 Baso % (Auto) Tile Grader 12/29/18 08:34 Lymph # Tile Grader 12/29/18 08:34 Tyrrell # Tile Grader 12/29/18 08:34 Eos # Tile Grader 12/29/18 08:34 Baso # Tile Grader 12/29/18 08:34 Add Manual Diff Complete 01/09/19 03:57 Total Counted 100 01/09/19 03:57 Seg Neutrophils % Tile Grader 01/09/19 03:57 Seg Neuts % (Manual) 93.0 % (40.0-70.0) H 01/09/19 03:57 Band Neutrophils % 1.0 % 01/09/19 03:57 Lymphocytes % (Manual) 4.0 % (13.4-35.0) L 01/09/19 03:57 Reactive Lymphs % (Man) 0 % 01/09/19 03:57 Monocytes % (Manual) 2.0 % (0.0-7.3) 01/09/19 03:57 Eosinophils % (Manual) 0 % (0.0-4.3) 01/09/19 03:57 Basophils % (Manual) 0 % (0.0-1.8) 01/09/19 03:57 Metamyelocytes % 0 % 01/09/19 03:57 Myelocytes % 0 % 01/09/19 03:57 Promyelocytes % 0 % 01/09/19 03:57 Blast Cells % 0 % 01/09/19 03:57 Nucleated RBC % Not Reportable 01/09/19 03:57 Seg Neutrophils # Tile Grader 12/29/18 08:34 Seg Neutrophils # Man 7.5 K/mm3 (1.8-7.7) 01/09/19 03:57 Band Neutrophils # 0.1 K/mm3 01/09/19 03:57 Lymphocytes # (Manual) 0.3 K/mm3 (1.2-5.4) L 01/09/19 03:57 Abs React Lymphs (Man) 0.0 K/mm3 01/09/19 03:57 Monocytes # (Manual) 0.2 K/mm3 (0.0-0.8) 01/09/19 03:57 Eosinophils # (Manual) 0.0 K/mm3 (0.0-0.4) 01/09/19 03:57 Basophils # (Manual) 0.0 K/mm3 (0.0-0.1) 01/09/19 03:57 Metamyelocytes # 0.0 K/mm3 01/09/19 03:57 Myelocytes # 0.0 K/mm3 01/09/19 03:57 Promyelocytes # 0.0 K/mm3 01/09/19 03:57 Blast Cells # 0.0 K/mm3 01/09/19 03:57 WBC Morphology Not Reportable 01/09/19 03:57 Hypersegmented Neuts Not Reportable 01/09/19 03:57 Hyposegmented Neuts Not Reportable 01/09/19 03:57 Hypogranular Neuts Not Reportable 01/09/19 03:57 Smudge Cells Not Reportable 01/09/19 03:57 Toxic Granulation Not Reportable 01/09/19 03:57 Toxic Vacuolation Not Reportable 01/09/19 03:57 Dohle Bodies Not Reportable 01/09/19 03:57 Pelger-Huet Anomaly Not Reportable 01/09/19 03:57 Sanjeev Rods Not Reportable 01/09/19 03:57 Platelet Estimate Consistent w auto 01/09/19 03:57 Clumped Platelets Not Reportable 01/09/19 03:57 Plt Clumps, EDTA Not Reportable 01/09/19 03:57 Large Platelets Rare 01/09/19 03:57 Giant Platelets Rare 01/09/19 03:57 Platelet Satelliting Not Reportable 01/09/19 03:57 Plt Morphology Comment Not Reportable 01/09/19 03:57 RBC Morphology Not Reportable 01/09/19 03:57 Dimorphic RBCs Not Reportable 01/09/19 03:57 Polychromasia Not Reportable 01/09/19 03:57 Hypochromasia Not Reportable 01/09/19 03:57 Poikilocytosis Not Reportable 01/09/19 03:57 Anisocytosis Few 01/09/19 03:57 Microcytosis Not Reportable 01/09/19 03:57 Macrocytosis Not Reportable 01/09/19 03:57 Spherocytes Not Reportable 01/09/19 03:57 Pappenheimer Bodies Not Reportable 01/09/19 03:57 Sickle Cells Not Reportable 01/09/19 03:57 Target Cells Not Reportable 01/09/19 03:57 Tear Drop Cells Not Reportable 01/09/19 03:57 Ovalocytes Few 01/09/19 03:57 Stomatocytes Few 01/04/19 05:20 Helmet Cells Not Reportable 01/09/19 03:57 [place] Bodies Not Reportable 01/09/19 03:57 [place] Rings Not Reportable 01/09/19 03:57 Strawn Cells Not Reportable 01/09/19 03:57 Bite Cells Not Reportable 01/09/19 03:57 Crenated Cell Not Reportable 01/09/19 03:57 Elliptocytes Not Reportable 01/09/19 03:57 Acanthocytes (Spur) Not Reportable 01/09/19 03:57 Rouleaux Not Reportable 01/09/19 03:57 Hemoglobin C Crystals Not Reportable 01/09/19 03:57 Schistocytes Not Reportable 01/09/19 03:57 Malaria parasites Not Reportable 01/09/19 03:57 Frahad Bodies Not Reportable 01/09/19 03:57 Hem Pathologist Commnt No 01/09/19 03:57 PT 13.1 Sec. (12.2-14.9) 12/28/18 15:10 INR 1.00 (0.87-1.13) 12/28/18 15:10 APTT 29.2 Sec. (24.2-36.6) 12/28/18 15:10 D-Dimer 536.53 ng/mlDDU (0-234) H 12/28/18 15:49 POC ABG pH 7.443 (7.35-7.45) 12/28/18 15:46 POC ABG pCO2 38.2 (35-45) 12/28/18 15:46 POC ABG pO2 69 (80-105) L 12/28/18 15:46 POC ABG HCO3 26.1 (22-26 mml/L) 12/28/18 15:46 POC ABG Total CO2 27 (23-27mmol/L) 12/28/18 15:46 POC ABG O2 Sat 94 12/28/18 15:46 POC ABG Base Excess 2 ((-2) - (+3)mmol/L) 12/28/18 15:46 FiO2 40 % 12/28/18 15:46 Sodium 141 mmol/L (137-145) 01/10/19 04:37 Potassium 3.0 mmol/L (3.6-5.0) L 01/10/19 04:37 Chloride 91.0 mmol/L (98-107) L 01/10/19 04:37 Carbon Dioxide 34 mmol/L (22-30) H 01/10/19 04:37 Anion Gap 19 mmol/L 01/10/19 04:37 BUN 28 mg/dL (7-17) H 01/10/19 04:37 Creatinine 0.6 mg/dL (0.7-1.2) L 01/10/19 04:37 Estimated GFR > 60 ml/min 01/10/19 04:37 BUN/Creatinine Ratio 47 % 01/10/19 04:37 Glucose 115 mg/dL (65-100) H 01/10/19 04:37 POC Glucose 205 (70-105) H 01/10/19 16:16 Hemoglobin A1c 5.8 % (4-6) 01/04/19 05:20 Calcium 9.7 mg/dL (8.4-10.2) 01/10/19 04:37 Magnesium 2.10 mg/dL (1.7-2.3) 01/05/19 08:57 Iron 48 ug/dL (37-170) 01/04/19 05:20 TIBC 311 mcg/dL (250-450) 01/04/19 05:20 % Saturation 15.43 % 01/04/19 05:20 Transferrin 259 mg/dl (192-382) 01/04/19 05:20 Ferritin 482.5 ng/mL (13.0-400.0) H 01/04/19 05:20 Total Bilirubin 0.50 mg/dL (0.1-1.2) 01/04/19 05:20 AST 35 units/L (5-40) 01/04/19 05:20 ALT 136 units/L (7-56) H 01/04/19 05:20 Alkaline Phosphatase 122 units/L (35-129) 01/04/19 05:20 Troponin T < 0.010 ng/mL (0.00-0.029) 12/28/18 15:10 NT-Pro-B Natriuret Pep 403.1 pg/mL (0-900) 01/05/19 08:57 Total Protein 6.1 g/dL (6.3-8.2) L 01/04/19 05:20 Albumin 3.9 g/dL (3.9-5) 01/04/19 05:20 Albumin/Globulin Ratio 1.8 % 01/04/19 05:20 Vitamin B12 1572 pg/mL (211-911) H 01/04/19 05:20 RBC Folic Acid >1000 ng/mL (>280) 01/04/19 05:20 TSH 0.218 mlU/mL (0.270-4.200) L 01/04/19 05:20 Free T4 1.45 ng/dL (0.76-1.46) 01/04/19 05:20 Thyroxine (T4) 7.3 ug/dL (4.0-12.0) 01/04/19 05:20 Blood Type O POSITIVE 12/28/18 15:41 Antibody Screen Negative 12/28/18 15:41 Crossmatch See Detail 12/28/18 15:41 Active Medications - Current Medications Current Medications: Generic Name Dose Route Start Last Admin Trade Name Freq PRN Reason Stop Dose Admin Acetaminophen 650 mg 12/28/18 17:29 Tylenol PO Q4H PRN Pain MILD(1-3)/Fever >100.5/[place] Albuterol 2.5 mg 12/30/18 12:01 Proventil IH Q2HRT PRN Shortness Of Breath Albuterol/Ipratropium 1 ampul 12/31/18 08:00 12/04/19 15:35 Duoneb *Not For Prn Use* IH 1 ampul TIDRT CHING Administration Amlodipine Besylate 10 mg 12/30/18 14:00 01/10/19 09:52 Amlodipine PO 10 mg DAILY CHING Administration Arformoterol Tartrate 15 mcg 12/30/18 20:00 01/10/19 09:45 Brovana Nebu IH 15 mcg Q12HRT CHING Administration Atorvastatin Calcium 40 mg 12/30/18 22:00 01/09/19 23:05 Lipitor PO 40 mg HS CHING Administration Benzocaine/Menthol 1 each 01/05/19 12:57 01/10/19 04:15 Cepacol X Strength MM 1 each Q2HR PRN Administration Sore Throat Budesonide 0.5 mg 12/30/18 20:00 01/10/19 09:45 Pulmicort IH 0.5 mg Q12HRT CHING Administration Dextrose 50 ml 12/28/18 17:31 D50w (25gm) Syringe IV Q30MIN PRN Hypoglycemia Protocol Duloxetine HCl 60 mg 12/30/18 14:00 01/10/19 09:53 Cymbalta PO 60 mg QDAY CHING Administration Enoxaparin Sodium 40 mg 12/30/18 10:00 01/10/19 09:53 Enoxaparin SUB-Q 40 mg QDAY@1000 CHING Administration Famotidine 20 mg 12/28/18 22:00 01/10/19 09:53 Pepcid PO 20 mg BID CHING Administration Fluconazole 100 mg 01/07/19 10:00 01/10/19 09:52 Diflucan PO 01/14/19 09:59 100 mg QDAY CHING Administration Folic Acid 1 mg 12/30/18 17:00 01/10/19 09:52 Folvite PO 1 mg DAILY CHING Administration Furosemide 40 mg 01/10/19 18:00 Lasix PO 0600,1800 CHING Guaifenesin 600 mg 12/31/18 12:00 01/10/19 11:28 Mucinex Er PO 600 mg BID CHING Administration Insulin Glargine 45 units 01/05/19 12:00 01/10/19 09:59 Lantus SUB-Q 45 units BID CHING Administration Insulin Human Lispro 0 unit 01/02/19 16:30 01/10/19 16:24 Humalog SUB-Q 6 unit AC CHING Administration Protocol Insulin Human Lispro 0 unit 01/02/19 22:00 01/10/19 06:21 Humalog SUB-Q 4 unit QHS CHING Administration Protocol Insulin Human Lispro 12 unit 01/05/19 11:46 01/10/19 16:24 Humalog SUB-Q 12 unit TIDAC CHING Administration Levothyroxine Sodium 112 mcg 12/31/18 06:00 01/10/19 06:15 Synthroid PO 112 mcg DAILY@0600 CHING Administration Lidocaine HCl 15 ml 01/07/19 14:00 01/10/19 13:21 Miracle Mixture PO 15 ml TID CHING Administration Lidocaine HCl 15 ml 01/07/19 18:05 01/08/19 12:50 Lidocaine Viscous 2% PO 15 ml Q8H PRN Administration Mouth Pain Metformin HCl 500 mg 01/03/19 19:00 01/10/19 07:56 Glucophage Xr PO 500 mg QDDIAB CHING Administration Ondansetron HCl 4 mg 12/28/18 17:29 Zofran IV Q8H PRN Nausea And Vomiting Phenol 1 spray 01/05/19 12:57 01/09/19 13:47 Chloraseptic MM 1 spray PRN PRN Administration Sore Throat Potassium Chloride 20 meq 01/10/19 10:00 01/10/19 09:51 K-Dur PO 20 meq QDAY CHING Administration Prednisone 60 mg 01/11/19 10:00 Deltasone PO QDAY CHING Pseudoephedrine/Acetam/Chlorphenir 5 ml 12/31/18 11:12 01/10/19 10:00 Robitussin Ac PO 5 ml Q4H PRN Administration Cough Senna/Docusate Sodium 1 tab 12/31/18 12:00 01/10/19 09:53 Senokot S PO 1 tab BID CHING Administration Sodium Chloride 10 ml 12/28/18 22:00 01/10/19 09:56 Sodium Chloride Flush Syringe 10 Ml IV 10 ml BID CHING Administration Sodium Chloride 10 ml 12/28/18 17:29 01/07/19 17:42 Sodium Chloride Flush Syringe 10 Ml IV 10 ml PRN PRN Administration LINE FLUSH Nutrition/Malnutrition Assess - Dietary Evaluation Nutrition/Malnutrition Findings: Nutrition Notes Start: 01/04/19 13:36 Freq: Status: Active Protocol: Document 01/04/19 13:37 LM (Rec: 01/04/19 13:37 LM [id number]) Nutrition Notes Need for Assessment generated from: LOS Initial or Follow up Brief Note Subjective/Other Information Screen for LOS. 100% intakes documented in chart. Nutrition Intervention Revisit per MD consult or patient Sign Off request:
[2019-01-10] MEDS: FUROSEMIDE 40 MG TAB PO SCH (17:32)
[2019-01-10] MEDS ORDERED: POTASSIUM CHLORIDE ER 20 MEQ TAB PO ONE (17:59)
[2019-01-10] MEDS ORDERED: POTASSIUM CHLORIDE 20 MEQ PACKET PO ONE (17:59)
[2019-01-11 05:46] LABS: Hematocrit 38.8 % (30.3-42.9); Hemoglobin 12.4 gm/dl (10.1-14.3); Mean Corpuscular HGB Conc 32 % (30-34); Mean Corpuscular Volume 87 fl (79-97); Platelet Count 404 K/mm3 (140-440); Red Blood Count 4.48 M/mm3 (3.65-5.03)
[2019-01-11 05:55] LABS: Red Cell Distribution Width 25.4 % (13.2-15.2)
[2019-01-11] MEDS: FUROSEMIDE 40 MG TAB PO SCH (05:55)
[2019-01-11] MEDS: BENZOCAINE/MENTHOL LOZENGE MM PRN (05:56)
[2019-01-11] MEDS: LEVOTHYROXINE 112 MCG TAB PO SCH (05:56)
[2019-01-11 06:12] LABS: BUN/Creatinine Ratio 40; Blood Urea Nitrogen 28 mg/dL (7-17); Calcium 9.8 mg/dL (8.4-10.2); Hemolysis Index 6
[2019-01-11] MEDS: INSULIN LISPRO 100 UNIT/ML SUB-Q SCH ×4 (07:18→12:01)
[2019-01-11] MEDS: BUDESONIDE 0.5 MG/2 ML NEBU IH SCH (07:58)
[2019-01-11] MEDS: ARFORMOTEROL 15 MCG/2 ML NEBU IH SCH (07:58)
[2019-01-11] MEDS: IPRATROPIUM/ALBUTEROL SULFATE 3 ML AMPUL.NEB IH SCH ×2 (07:58→14:29)
[2019-01-11] MEDS: DIPHEN PO SCH (07:59)
[2019-01-11] MEDS: MYLANTA PO SCH (07:59)
[2019-01-11] MEDS: [UNRECOGNIZED DRUG - OTHER] PO SCH (07:59)
[2019-01-11] MEDS: metFORMIN XR 500MG TAB PO SCH (08:00)
[2019-01-11] MEDS: DULoxetine 30 MG CAP PO SCH (09:41)
[2019-01-11] MEDS: FOLIC ACID 1 MG TAB PO SCH (09:41)
[2019-01-11] MEDS: ENOXAPARIN 40 MG/0.4 ML INJ SUB-Q SCH (09:42)
[2019-01-11] MEDS: guaiFENesin ER 600 MG TAB PO SCH (09:42)
[2019-01-11] MEDS: FAMOTIDINE 20 MG TAB PO SCH (09:42)
[2019-01-11] MEDS: POTASSIUM CHLORIDE ER 20 MEQ TAB PO SCH (09:42)
[2019-01-11] MEDS: FLUCONAZOLE 100 MG TAB PO SCH (09:42)
[2019-01-11] MEDS: amLODIPine 10 MG TAB PO SCH (09:44)
[2019-01-11] MEDS: INSULIN GLARGINE 100 UNITS/ML SUB-Q SCH (09:55)
[2019-01-11 10:00] VITALS: BP 113/53
[2019-01-11] MEDS ORDERED: predniSONE 20 MG TAB PO SCH (10:00)
[2019-01-11] MEDS: SENNOSIDES/DOCUSATE SODIUM 8.6/50 MG TAB PO SCH (12:00)
--- NOTE | 2019-01-11 13:21 | Discharge Summary ---
Providers - Providers Date of Admission: 12/28/18 17:29 Date of discharge: 01/11/19 Attending physician: AUDIE SOLANO 12/29/18 09:58 Consult to Physician [CONS] Routine Comment: Consulting Provider: FAUSTINO SHAIKH Physician Instructions: Reason For Exam: ACUTE ON CHRONIC ANEMIA 12/31/18 11:15 Physical Therapy Evaluation and Treat [CONS] Routine Comment: Reason For Exam: deconditioning 01/03/19 10:07 Consult to Physician [CONS] Routine Comment: called office/ carlita Consulting Provider: DONYA MARTE Physician Instructions: Reason For Exam: copd 01/08/19 11:15 Consult to Physician [CONS] Routine Comment: dr shaikh saw patient/ carlita Consulting Provider: FAUSTINO SHAIKH Physician Instructions: Reason For Exam: odynophagia, thrush, may need egd Primary care physician: [employer] Hospitalization Condition: Stable Hospital course: Patient is a 68 yo woman with a history of type 2 IDDM, KASANDRA, Hypothyroidism, Obesity Hypoventilation, Chronic hypoxic Respiratory Failure on 3-4L Home Oxygen due to end stage COPD and transfusion depend anemia who presented to [facility] ED with worsening SOB, wheezing and hypoxia (recorded as 69%). She has been checking her oxygen with a pulse ox at home and noted that she was desaturating especially with the mildest activity such as getting dressed or eating. . She was discharged from [facility] less than 1 month ago. She reports being volume overloaded at [facility] in which she was sent home on 40mg of oral Lasix. Pt seen and evaluated in ED and found to have Symptomatic Anemia, COPD with Acute Exacerbation, Acidosis as well as Acute on Chronic Respiratory Failure with pulse oximetry of 69%. Pt placed on supplemental oxygen. * 12/28/2018 pCXR impression: There are bibasilar airspace opacities, small bilateral effusions right greater than left * TTE 01/05/19 Conclusions: Ventricular chamber size normal, mild concentric left ventricular hypertrophy is observed, global left ventricular systolic function is normal, estimated ejection fraction is 55-60%, abnormal L ventricular diastolic filling is observed, consistent with impaired relaxation, trace tricuspid regurgitation, the right ventricular systolic pressure is calculated at 30 mmHg, minimal pericardial effusion. * CTA chest IMPRESSION: 1. No CT evidence for pulmonary embolism. 2. Small bilateral pleural effusions and mild interstitial pulmonary edema. 3. A 2.3 cm left thyroid nodule that should be further evaluated with thyroid ultrasound on a nonemergent basis. Discharge Diagnoses: Acute on chronic hypoxic respiratory failure due to COPD on 3 liters o2 at home, here on 4l, poa: continue to wean O2 and treat the copd. Acute COPD exacerbation, patient has chronic severe COPD: start to wean IV steroids, d/w Pulm Acute on chronic diastolic decompensated heart failure, EF 55-60%: changed iv lasix to po, will need higher home dose w/ potassium, from 40mg/d to 40mg/bid Oral Candiadiasis: Diflucan and wean steroids, tolerating modified diet Hypokalemia: replete and monitor closely Aspiration bilateral PNA, poa- completed ABX Acute on chronic normocytic anemia: monitor cbc closely DM2 with persistent hyperglycemia: ssi, ada diet Sepsis instead of SIRS, poa: treated with ABX Hypothyroidism: TSH is low, decrease synthroid dose Metabolic acidosis: Resolved YNB-drbytfhdao-dbgi home amlodipine and lasix HLD-cont statin KASANDRA-Continue BiPAP at night, patient is to get repeat sleep study after discharge. She has not had one in 6 years. 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 Depression-cont cymbalta Obesity with BMI of 33.6-lifestyle modification recommended Deconditioning-PT consulted, input noted DVT ppx: Lovenox Disposition: DC-01 TO HOME OR SELFCARE Time spent for discharge: 35 minutes Core Measure Documentation - Palliative Care Palliative Care/ Comfort Measures: Not Applicable - Core Measures Any of the following diagnoses?: heart failure - VTE Discharge Requirements Deep Vein Thrombosis/Pulmonary Embolism Present on Admission: No Has pt received <5 days of overlap therapy or INR<2.0: No Anticoagulant overlap therapy prescribed at discharge: No Contraindication No Overlap Therapy order at DC: Not Indicated - Heart Failure Discharge Requirements SHERI/ARB for LVSD if EF <40%: Not Applicable Beta edwin at discharge: No Reason for no beta edwin on DC: COPD Exam - Physical Exam Narrative exam: Gen: WDWN, NAD, Awake, Alert, Orientated, bmi 33.6 HEENT: NCAT, EOMI, PERRL, OP Clear except for thrush Neck: supple, no adenopathy, no thyromegaly, no JVD CVS/Heart: RRR, normal S1S2, pulses present bilaterally Chest/Lungs: improved diminished bs bilateral, Symmetrical chest expansion, good air entry bilaterally GI/Abdomen: soft, NTND, good bowel sounds, no guarding or rebound /Bladder: no suprapubic tenderness, no CVA or paraspinal tenderness Extermity/Skin: BLE pitting edema, no obvious rash MSK: FROM x 4 Neuro: CN 2-12 grossly intact, no new focal deficits Psych: calm - Constitutional Vitals: Temp Pulse Resp BP Pulse Ox 97.4 F L 96 H 20 113/53 97 01/11/19 07:17 01/11/19 10:00 01/11/19 10:00 01/11/19 09:44 01/11/19 10:00 Plan Activity: other (no strenous activity unless cleared by Flight Steward and PCP) Diet: low salt, diabetic Special Instructions: record daily weights Additional Instructions: See Dr. Meyers as soon as possible. Follow up with: PRIMARY CAREMD [Primary Care Provider] - 7 Days FAUSTINO SHAIKH MD [Staff Physician] - 7 Days DONYA MARTE MD [Staff Physician] - 7 Days DANELLE MEYERS MD [Staff Physician] - 7 Days Prescriptions: amLODIPine 10 mg PO DAILY #30 Arformoterol Nebu [Brovana Nebu] 15 mcg IH Q12HRT #30 ml Benzocaine/Mentho [Cepacol X Strength] 1 each MM Q2HR PRN #15 packet PRN Reason: Sore Throat Phenol 1.4% [Chloraseptic] 1 spray MM PRN PRN #1 bottle PRN Reason: Sore Throat DULoxetine [Cymbalta] 60 mg PO QDAY #30 capsule Fluconazole [Diflucan TAB] 100 mg PO QDAY #7 tablet Potassium Chloride [K-Dur] 20 meq PO BID #60 tab Furosemide [Lasix TAB] 40 mg PO 0600,1800 #60 tablet Lidocaine Viscous 2% 15 ml PO Q8H PRN 5 Days #60 udc PRN Reason: Mouth Pain methylPREDNISolone [Medrol 4MG DOSEPAK (21 tabs)] 1 dose PO DAILY #1 tab.ds.pk Diphen/Mylanta/Xyl Visc [Miracle Mixture] 15 ml PO TID 5 Days #60 oral.liqd guaiFENesin ER [Mucinex ER] 600 mg PO BID #10 tablet Famotidine [Pepcid] 20 mg PO BID #60 tablet guaiFENesin/CODEINE [Robitussin AC] 5 ml PO Q4H PRN 5 Days #60 oral.liqd PRN Reason: Cough Levothyroxine [Synthroid] 112 mcg PO DAILY@0600 #30 tablet ALBUTEROL NEB's [Proventil 0.083% NEBS] 2.5 mg IH Q2HRT PRN #30 nebu PRN Reason: Shortness Of Breath Ipratropium/Albuterol Sulfate [DUONEB *Not for PRN Use*] 1 ampul IH TIDRT #30 ampul.neb
== END 2019-01-11 14:41 | disposition home health service (06) | DRG 871 ==
LOC: ED 14:41 → OBSVTOIN 17:29 → 2B-ACE 17:29
PROVIDERS: ADMIT Internal Medicine; ATTEND Internal Medicine
PROC: 30233N1 Transfusion of Nonautologous Red Blood Cells into Peripheral Vein, Percutaneous Approach (ICD-10-PCS; principal; 2018-12-28)
PROC: 5A09357 Assistance with Respiratory Ventilation, Less than 24 Consecutive Hours, Continuous Positive Airway Pressure (ICD-10-PCS; 2018-12-28)
PROC: 4A033R1 Measurement of Arterial Saturation, Peripheral, Percutaneous Approach (ICD-10-PCS; 2018-12-28)
PROC: 5A09357 Assistance with Respiratory Ventilation, Less than 24 Consecutive Hours, Continuous Positive Airway Pressure (ICD-10-PCS; 2018-12-29)
PROC: 5A09357 Assistance with Respiratory Ventilation, Less than 24 Consecutive Hours, Continuous Positive Airway Pressure (ICD-10-PCS; 2018-12-30)
PROC: 5A09357 Assistance with Respiratory Ventilation, Less than 24 Consecutive Hours, Continuous Positive Airway Pressure (ICD-10-PCS; 2018-12-31)
PROC: 5A09357 Assistance with Respiratory Ventilation, Less than 24 Consecutive Hours, Continuous Positive Airway Pressure (ICD-10-PCS; 2019-01-01)
PROC: 5A09357 Assistance with Respiratory Ventilation, Less than 24 Consecutive Hours, Continuous Positive Airway Pressure (ICD-10-PCS; 2019-01-02)
PROC: 5A09357 Assistance with Respiratory Ventilation, Less than 24 Consecutive Hours, Continuous Positive Airway Pressure (ICD-10-PCS; 2019-01-04)
DX: A41.9 Sepsis, unspecified organism (principal); J96.21 Acute and chronic respiratory failure with hypoxia; I50.33 Acute on chronic diastolic (congestive) heart failure; J69.0 Pneumonitis due to inhalation of food and vomit; J44.1 Chronic obstructive pulmonary disease with (acute) exacerbation; E87.2 Acidosis; E66.2 Morbid (severe) obesity with alveolar hypoventilation; B37.0 Candidal stomatitis; E87.6 Hypokalemia; F32.9 Major depressive disorder, single episode, unspecified; I27.20 Pulmonary hypertension, unspecified; E03.9 Hypothyroidism, unspecified; D50.9 Iron deficiency anemia, unspecified; E11.65 Type 2 diabetes mellitus with hyperglycemia; Z68.33 Body mass index [BMI] 33.0-33.9, adult; Z71.3 Dietary counseling and surveillance; Z99.81 Dependence on supplemental oxygen; Z90.49 Acquired absence of other specified parts of digestive tract; Z90.89 Acquired absence of other organs; Z90.710 Acquired absence of both cervix and uterus; Z79.84 Long term (current) use of oral hypoglycemic drugs
CPT/HCPCS: 36415; 71045; 71275; 80048; 80053; 82270; 82607; 82728; 82747; 82803; 82962; 83036; 83550; 83735; 83880; 84132; 84436; 84439; 84443; 84484; 85007; 85014; 85018; 85025; 85027; 85379; 85610; 85730; 86850; 86900; 86901; 86920; 93005; 93010; 93306; 94640; 94660; 94760; 96360; G0378; A9270-GY; J0295; J0456; J1650; J1815; J1940; J2920; J2930; J7040; J7050; P9016; Q9967